=== PATIENT | male | born 1940 | race Caucasian/White ===

== ENCOUNTER 2017-12-25 10:28 | Inpatient (IN) | payer OTHER, MEDICARE ==
[~2017-12-25] VITALS: Ht 190.5 cm; Wt 166.0 kg
[~2017-12-25 10:28] MED LIST: ADALAT CC60 MG PO; AMOXICILLIN 50500 MG PO; ASPIRIN325 PO; ATORVASTATIN CA40 MG PO; COREG6.25 MG PO; DUONEB 2.5-0.5 M3 ML INH; FLOMAX0.4 MG PO; GLIPIZIDE 10 MG10 MG PO; JANUVIA50 MG PO; KLOR-CON 1010 MEQ PO; LASIX 40 MG TAB40 M2 PO; LEVOTHYROXINE100 MC1 PO; OMEPRAZOLE40 MG PO; OSTERA TABLET1 EAC1 PO; ROXICODONE5 M2 PO; SENOKOT-S1 TA1 PO; ULORIC40 MG PO; XARELTO10 MG PO; ZESTRIL40 MG PO
[2017-12-25 10:53] VITALS: BP 116/68
[2017-12-25] MEDS ORDERED: DOXYCYCLINE 10100 MG PO (11:02)
[2017-12-25 11:35] LABS: ABSOLUTE BASOPHILS 0.1 thou/uL (0.0-0.2); ABSOLUTE EOSINOPHILS 0.1 thou/uL (0.0-0.7); ABSOLUTE LYMPHOCYTES 4.5 thou/uL (0.8-5.3); ABSOLUTE MONOCYTES 0.8 thou/uL (0.0-1.2); ABSOLUTE NEUTROPHILS 8.1 thou/uL (1.6-8.1); BASOPHILS 0.5 %; HEMATOCRIT 39.4 % (42.0-52.0); HEMOGLOBIN 13.2 gm/dL (14.0-18.0); LYMPHOCYTES 32.9 %; MCH 29.9 pg (26.0-34.0); MCHC 33.5 g/dL (28.0-37.0); MCV 89.3 fL (80.0-100.0); MONOCYTES 6.3 %; NUCLEATED RBCS 0 /100WBC; PLATELET COUNT* 186 thou/uL (150-400); POLYS 59.3 %; RBC 4.41 mil/uL (4.50-6.00); RDW-CV 19.8 % (10.5-14.5); WBC 13.6 thou/uL (4.0-11.0)
[2017-12-25 11:42] LABS: CALCIUM 9.1 mg/dL (8.5-10.1); CREATININE 4.6 mg/dL (0.6-1.3)
[2017-12-25 11:43] LABS: POTASSIUM 2.5 mmol/L (3.5-5.1)
[2017-12-25 11:52] LABS: ALBUMIN 3.6 g/dL (3.4-5.0); TOTAL BILIRUBIN 0.9 mg/dL (<0.1-1.0); TOTAL PROTEIN 6.9 g/dL (6.4-8.2)
[2017-12-25 15:41] LABS: URINE BILIRUBIN NEGATIVE (Negative); URINE BLOOD 1+ (Negative); URINE CLARITY CLEAR; URINE COLOR YELLOW; URINE GLUCOSE-RANDOM NEGATIVE (Negative); URINE KETONES NEGATIVE (Negative); URINE LEUKOCYTES-REFLEX NEGATIVE (Negative); URINE NITRITE-REFLEX NEGATIVE (Negative); URINE PROTEIN 2+ (Negative); URINE SPECIFIC GRAVITY 1.025 (1.005-1.030); URINE UROBILINOGEN 0.2 E.U./dl (0.2-1.0)
[2017-12-25 15:53] LABS: BACTERIA-REFLEX None Seen /HPF (None Seen); RENAL EPITHELIAL CELLS 0-3 Few /LPF (None Seen); SQUAMOUS 0-3 Few /LPF (0-3); URINE RBC 3-10 Few /HPF (0-2); URINE WBC-REFLEX None Seen /HPF (0-5)
[2017-12-25 15:54] LABS: COARSE GRANULAR CASTS 0-3 Few /LPF (None Seen); HYALINE CASTS 0-3 Few /LPF (None Seen); MUCUS 0-3 Light strn/LPF (None Seen); WAXY CAST 0-3 Few /LPF (None Seen)
[2017-12-25 15:55] LABS: CRYSTALS None Seen /LPF (None Seen)
--- NOTE | 2017-12-25 16:22 | EKG ---
[place] [address] ELECTROCARDIOGRAM REPORT Name: RACHEL ARECHIGA I Room: [place] [address] ADM IN .R.#: [id number] Admission: 12/25/17 Attend Phys: Jayla Eid MD Discharge: Date of : 38 Report #: [id number] THIS REPORT FOR: //name// [facility] ED Test Date: 2017-12-25 Test Time: 11:01:19 Pat Name: RACHEL ARECHIGA Department: Room: [facility] Gender: Enamel Shader: Ankur MARTIN : 1940 Requested By: Jimy Lane Order Number: [id number] MD: Candelario Zambrano Measurements Intervals [place] Rate: 62 P: [place]: QRS: -6 QRSD: 168 T: 8 QT: 463 QTc: 471 Interpretive Statements Junctional rhythm Right bundle branch block Compared to ECG 11/15/2016 05:06:23 Junctional rhythm now present Sinus rhythm no longer present First degree AV block no longer present Electronically Signed On 12-25-2017 16:22:32 TOOL ROOM MACHINIST by Candelario Zambrano [email or web address] <ELECTRONICALLY SIGNED> By: Candelario Zambrano MD, [facility] 12/25/17 1622 1101 1101 Candelario Zambrano MD, [facility] /EPI
[2017-12-25 17:50] VITALS: BP 131/97
--- NOTE | 2017-12-25 20:07 | NUR ---
DEPART VITALS 124/77-88-20-97%
[2017-12-25 20:30] VITALS: BP 138/71
[2017-12-26] VITALS: BP 122/80
[2017-12-26 04:00] VITALS: BP 160/92
--- NOTE | 2017-12-26 04:26 | NUR ---
PT ADMIT TO 213 AT 2030. ALERT ORIENTED. PT WITH LARGE ROUND DISTENDED ABD. NG TO LIS DRAINING SCANT AMT GASTRIC. PT CAME IN WITH COMPRESSION SOCKS. WHEN REMOVED THERE WAS AN EXTREAM AMT OF DRY SKIN IN THE SOCKS AND CRUSTED SKIN. PT STATED THEY HAD NOT BEEN OFF IN 2 WEEKS BECAUSE HE WAS UNABLE TO REMOVE THEM. WHEN ASKED ABOUT HELPING HE STATED THAT SHE WAS NOT ABLE TO REMOVE THEM. LEGS CLEANED WITH SOAP AND H2O AND PICTURES TAKE AFTER THEY WERE CLEANED. TELEMETRY SHOWS JUNCTIONAL. VOIDS PER URINAL. POTASSIUM WAS 2.5 IN ED. POTASSIUM BOLUSES STARTED. WILL CONTINUE TO MONITOR.
[2017-12-26 05:23] LABS: HEMATOCRIT 35.1 % (42.0-52.0); HEMOGLOBIN 11.7 gm/dL (14.0-18.0); MCH 29.9 pg (26.0-34.0); MCHC 33.3 g/dL (28.0-37.0); MCV 89.7 fL (80.0-100.0); MPV 9.1 fl. (7.2-11.1); RBC 3.91 mil/uL (4.50-6.00); RDW-CV 19.5 % (10.5-14.5); WBC 12.3 thou/uL (4.0-11.0)
[2017-12-26 05:36] LABS: ALBUMIN 2.9 g/dL (3.4-5.0); CALCIUM 8.4 mg/dL (8.5-10.1); CREATININE 4.2 mg/dL (0.6-1.3); MAGNESIUM 1.8 mg/dL (1.8-2.4); TOTAL BILIRUBIN 0.8 mg/dL (<0.1-1.0); TOTAL PROTEIN 5.5 g/dL (6.4-8.2)
[2017-12-26 06:06] LABS: POTASSIUM 2.8 mmol/L (3.5-5.1)
[2017-12-26 07:43] VITALS: BP 131/71
--- NOTE | 2017-12-26 10:00 | NUR ---
CARE COORDINATION PROVIDED FOR PT BETWEEN RADIOLOGY AND SURGERY TO ANSWER QUESTIONS R/T GASTRO GRAPH/BARRIUM ENEMA. PT A & OX4. ASSESSMENT COMPLETE. VS WNL. JUNCTIONAL RHYTHM ON TELEMETRY MONIOTR. PT ABLE TO TRANSFER TO TO BE TRANSPORTED TO RADIOLOGY. DISCONNECTED FROM LIS. IV ANTIBIOTIC INFUSING.
--- NOTE | 2017-12-26 12:15 | NUR ---
PT RETURNED TO ROOM, GI RESIDENT AND SUPERVISOR COFFEE IN ROOM PROVIDING EDUCATION TO PT/FAMILY ABOUT GASTRO GRAPH/BARRIUM ENEMA PROCEDURE. GI TEAM STATES THAT PT WILL NEED TO QUICKLY RETURN TO RADIOLOGY FOR COLONOSCOPY/COLONIC DECOMPRESSION TUBE PLACEMENT TO CONTINUE TREATMENT. PT/FAMILY IN AGREEMENT WITH PLAN. CONSENTS BEING PREPARED BY MYCOLOGY TEACHER. [facility] STAFF HERE TO TRANSPORT PT OFF UNIT.
--- NOTE | 2017-12-26 13:34 | NUR ---
Pt out of room. CM reviewed chart. Pt resides at home with his . Pt has a cane and walker that he can use for mobility. Pt also has a lift chair. Hx of [facility] . Hx of [facility] snf. Hx of acute rehab. CM will f/u with Pt and tomorrow regarding dispostion.
--- NOTE | 2017-12-26 15:45 | NUR ---
PT RETURNED TO UNIT AFTER RETURNING TO RADIOLOGY FOR PLACEMENT OF COLONIC DECOMPRESSION TUBE. TUBE CONNECTED TO LIS. LIGHT GREEN/ROJAS/BROWN FLUID PRESENT IN TUBE. PT LETHARGIC BUT RESPONSIVE. OFFERED FLUIDS/FULL LIQUID DIET BUT PT HAS NOT HAD APPETITE YET. SLEEPING OFF AND ON. HAS USED URINAL WITH 300 MLS CONCENTRATED YELLOW URINE. ORIENTED TO SELF AND SITUATION. NEEDED ITEMS AND CALL LIGHT IN REACH.
[2017-12-26 20:00] VITALS: BP 156/80
[2017-12-26] MEDS ORDERED: CHILDREN'S ASPI81 M1 PO (21:21)
[2017-12-27] VITALS: BP 154/63
[2017-12-27 04:00] VITALS: BP 152/72
--- NOTE | 2017-12-27 04:14 | NUR ---
PT ALERT ORIENTED X 4. ON BEDREST. RECTAL TUBE TO LIS DRAINING GARCIA. ABD SOFT AND NON DISTENDED. PT STATES HE FEELS BETTER. FENTANYL GIVEN ONCE FOR GENERALIZED PAIN. USES URINAL APPROPRIATELY. PPN AT 125MLS/HR. VSS WILL CONTINUE TO MONITOR.
[2017-12-27 05:19] LABS: HEMATOCRIT 35.1 % (42.0-52.0); HEMOGLOBIN 11.8 gm/dL (14.0-18.0); MCH 30.1 pg (26.0-34.0); MCHC 33.7 g/dL (28.0-37.0); MCV 89.5 fL (80.0-100.0); RBC 3.92 mil/uL (4.50-6.00); RDW-CV 19.6 % (10.5-14.5); WBC 13.3 thou/uL (4.0-11.0)
[2017-12-27 05:32] LABS: ALBUMIN 2.6 g/dL (3.4-5.0); CALCIUM 8.1 mg/dL (8.5-10.1); CREATININE 3.4 mg/dL (0.6-1.3); POTASSIUM 3.1 mmol/L (3.5-5.1); TOTAL BILIRUBIN 0.6 mg/dL (<0.1-1.0); TOTAL PROTEIN 5.2 g/dL (6.4-8.2)
[2017-12-27 05:46] LABS: CALCIUM 8.3 mg/dL (8.5-10.1); CREATININE 3.3 mg/dL (0.6-1.3); POTASSIUM 3.2 mmol/L (3.5-5.1)
--- NOTE | 2017-12-27 07:05 | NUR ---
TELEMETRY SHOWS JUNCTIONAL. ONE EPISOID OF HR DROP DOWN TO 28 BREIFLY. ASYMPTOMATIC. STRIPS ON CHART.
[2017-12-27 07:41] VITALS: BP 170/84
[2017-12-27 08:05] VITALS: BP 155/78
--- NOTE | 2017-12-27 12:24 | NUR ---
ASSUMED CARE OF PT AT 0730. PT IS ALERT AND ORIENTED X4. VITAL SIGNS ARE STABLE. LUNGS ARE CLEAR AND DIMINISHED. PT IS JUNCTIONAL ON MONITOR. RECTAL TUBE SECURELY IN PLACE, ACTIVE BOWEL SOUNDS, ABDOMEN SOFT BUT TENDER. PT C/O OF BACK PAIN AT 3 OUT OF 10 AND WAS REPOSITIONED. PT IS BEDREST, ENCOURAGING PT TO GET UP TO RECLINER. FALL PRECAUTIONS ARE IN PLACE. AND GRANDCHILD AT BEDSIDE. PT IS REFUSING TO GET UP TO CHAIR AT THIS TIME. PT REMOVED FROM COST RECOVERY TECHNICIAN PER ORDERS. PT PPN D/C AND CONTINUES ON FULL LIQUID DIET. PT TO TRANSFER TO MED-SURG UNIT TODAY.
--- NOTE | 2017-12-27 14:00 | NUR ---
PATIENT TRANSFERRED TO ROOM 105 FROM TELEMETRY UNIT. PATIENT AWAKE, ALERT, AND ORIENTED APPROPRIATELY. DENIES PAIN OR NEEDS AT THIS TIME. CALL LIGHT WITHIN REACH. NURSING WILL CONTINUE TO MONITOR.
--- NOTE | 2017-12-27 14:03 | NUR ---
REPORT CALLED TO [place] ON JSSI. PT TRANSFERRED TO UNIT AT 1355 WITH ALL PERSONAL BELONGINGS ACCOUNTED FOR.
--- NOTE | 2017-12-27 14:30 | NUR ---
WOUND CARE NOTE: PATIENT'S NURSE REQUESTED WOUND CARE TO ASSESS LEGS. PATIENT WITH 3+ EDEMA TO BILATERAL LOWER EXTREMITIES. PATIENT DOES HAVE SCARING TO PRETIBIAL AREA BILATERALLY, WORSE ON LEFT THAN RIGHT. PALPABLE PEDAL PULSES. PATIENT TYPICALLY WEARS COMPRESSION AT HOME, ONLY HAS ONE PAIR. PATIENT HAD DOUBLE LAYER TUBIGRIP ON, BUT HAD WRINKLED. REMOVED. PLACED SINGLE LAYER TUBIGRIP. RECOMMEND FOLLOW UP IN LYMPHEDEMA CLINIC UPON DISCHARGE FOR RESIZING OF NEW COMPRESSION HOSE ELEVATE BILATERAL LOWER EXTREMITIES OFF BED SINGLE/DOUBLE LAYER TUBIGRIP BILATERAL LOWER EXTREMITIES. REMOVE AND REPLACE DAILY FOR SKIN CHECKS
[2017-12-27 16:00] VITALS: BP 134/75
--- NOTE | 2017-12-27 17:28 | NUR ---
PATIENT REMAINS ALERT AND ORIENTED APPROPRIATELY. NO COMPLAINTS OF PAIN. AT BEDSIDE. HAS HAD OUTPUT FROM COLONIC TUBE TO LIS, LIGHT BROWN IN COLOR. DENIES NEEDS AT THIS TIME. CALL LIGHT WITHIN REACH. NURSING WILL CONTINUE TO MONITOR.
[2017-12-27 20:00] VITALS: BP 143/80
[2017-12-28 00:09] VITALS: BP 141/80
[2017-12-28 04:41] LABS: HEMATOCRIT 37.7 % (42.0-52.0); HEMOGLOBIN 12.8 gm/dL (14.0-18.0); MCH 30.6 pg (26.0-34.0); MCHC 33.9 g/dL (28.0-37.0); MCV 90.4 fL (80.0-100.0); MPV 9.1 fl. (7.2-11.1); RBC 4.17 mil/uL (4.50-6.00); RDW-CV 19.5 % (10.5-14.5); WBC 10.1 thou/uL (4.0-11.0)
[2017-12-28 05:08] LABS: ALBUMIN 2.7 g/dL (3.4-5.0); CALCIUM 8.2 mg/dL (8.5-10.1); CREATININE 2.8 mg/dL (0.6-1.3); POTASSIUM 3.1 mmol/L (3.5-5.1); TOTAL BILIRUBIN 0.6 mg/dL (<0.1-1.0); TOTAL PROTEIN 5.6 g/dL (6.4-8.2)
[2017-12-28 08:00] VITALS: BP 150/80
--- NOTE | 2017-12-28 08:49 | NUR ---
ALERT AND ORIENTED. NO C/O N/V OR PAIN. HAVING BROWN OUTPUT FROM RECTAL TUBE. REMAINS ON O2 AT 4L/NC. HAS TUBE A SALES LEADER ON BILATERAL LOWER EXTREMITIES. IVF INFUSING WITHOUT DIFFICULTY. CALL LIGHT WITHIN REACH. ON FULL LIQUID DIET AT THIS TIME.
[2017-12-28 16:00] VITALS: BP 152/84
--- NOTE | 2017-12-28 17:27 | NUR ---
ASSUMED CARE OF PATIENT AFTER REPORT THIS MORNING. PATIENT AWAKE, ALERT, AND ORIENTED APPROPRIATELY. PHYSICAL ASSESSMENT COMPLETED AND CHARTED. NO COMPLAINTS OF PAIN THIS SHIFT. GIVEN SCHEDULED MEDICATIONS, SEE EMAR FOR DOCUMENTATION. STARTED REPLACING POTASSIUM VIA IV ELECTROLYTE PROTOCOL, SEE EMAR FOR DOCUMENTATION. VITAL SIGNS STABLE. OXYGEN SATURATION WITHIN NORMAL LIMITS ON 4 LPM PER NASAL CANULA. PATIENT TRANSFERS AND AMBULATES WITH ASSISTANCE FROM STAFF. IS CURRENTLY SITTING IN CHAIR AT BEDSIDE AND HAS BEEN MOST OF THE AFTERNOON. HAS HAD MINIMAL OUTPUT FROM HIS RECTAL TUBE, TO LOW-INTERMITTENT SUCTION. USES CALL LIGHT APPROPRIATELY, WITHIN REACH. DENIES NEEDS AT THIS TIME. NURSING WILL CONTINUE TO MONITOR.
[2017-12-28 20:00] VITALS: BP 145/78
[2017-12-29 03:35] VITALS: BP 153/74
[2017-12-29 04:25] LABS: HEMATOCRIT 36.3 % (42.0-52.0); HEMOGLOBIN 12.1 gm/dL (14.0-18.0); MCH 30.2 pg (26.0-34.0); MCHC 33.4 g/dL (28.0-37.0); MCV 90.5 fL (80.0-100.0); MPV 8.5 fl. (7.2-11.1); RBC 4.01 mil/uL (4.50-6.00); RDW-CV 19.6 % (10.5-14.5); WBC 9.5 thou/uL (4.0-11.0)
--- NOTE | 2017-12-29 04:36 | NUR ---
PATIENT REMAINS ALERT AND ORIENTED X4. REPOSITIONED SELF IN BED FREQUENTLY THROUGHOUT THE SHIFT. TOLERATING DIET. DENIES PAIN OR NAUSEA. RECTAL TUBE IN PLACE TO LIS. VITALS STABLE ON 4L O2 NC. WILL CONTINUE TO MONITOR.
[2017-12-29 04:47] LABS: ALBUMIN 2.7 g/dL (3.4-5.0); CALCIUM 8.3 mg/dL (8.5-10.1); CREATININE 2.7 mg/dL (0.6-1.3); POTASSIUM 3.4 mmol/L (3.5-5.1); TOTAL BILIRUBIN 0.5 mg/dL (<0.1-1.0); TOTAL PROTEIN 5.4 g/dL (6.4-8.2)
[2017-12-29 07:43] VITALS: BP 143/87
[2017-12-29 16:19] VITALS: BP 131/74
--- NOTE | 2017-12-29 16:36 | NUR ---
ASSUMED CARE OF PATIENT AFTER REPORT THIS MORNING. PATIENT AWAKE, ALERT, AND ORIENTED APPROPRIATELY. PHYSICAL ASSESSMENT COMPLETED AND CHARTED. NO COMPLAINTS OF PAIN TODAY. GIVEN SCHEDULED MEDICATIONS, SEE EMAR FOR DOCUMENTATION. VITAL SIGNS STABLE. OXYGEN SATURATION WITHIN NORMAL LIMITS ON 4 LPM PER NASAL CANULA. PATIENT TRANSFERS AND AMBULATES WITH ASSISTANCE FROM STAFF. SAT UP IN CHAIR AT BEDSIDE FOR MOST OF THE DAY TODAY. USES CALL LIGHT APPROPRIATELY, WITHIN REACH. DENIES NEEDS AT THIS TIME. NURSING WILL CONTINUE TO MONITOR.
--- NOTE | 2017-12-29 17:27 | NUR ---
PHOTOS TAKEN OF PATIENT'S LEGS AND FOOT FOR SATURDAY UPDATE PHOTOS. ON CHART.
[2017-12-29 22:00] VITALS: BP 146/86
[2017-12-30 01:18] VITALS: BP 157/92
[2017-12-30 04:30] LABS: ALBUMIN 2.7 g/dL (3.4-5.0); CALCIUM 8.3 mg/dL (8.5-10.1); CREATININE 2.7 mg/dL (0.6-1.3); POTASSIUM 3.8 mmol/L (3.5-5.1); TOTAL BILIRUBIN 0.5 mg/dL (<0.1-1.0); TOTAL PROTEIN 5.5 g/dL (6.4-8.2)
[2017-12-30 04:31] LABS: HEMATOCRIT 37.9 % (42.0-52.0); HEMOGLOBIN 12.7 gm/dL (14.0-18.0); MCH 30.1 pg (26.0-34.0); MCHC 33.4 g/dL (28.0-37.0); MPV 8.5 fl. (7.2-11.1); RBC 4.22 mil/uL (4.50-6.00); RDW-CV 19.9 % (10.5-14.5); WBC 8.7 thou/uL (4.0-11.0)
--- NOTE | 2017-12-30 06:23 | NUR ---
ALERT AND ORIENTED BUT FORGETFUL AT TIMES. DENIES NEED FOR PAIN OR NAUSEA MEDICATIONS. LITTLE OUTPUT NOTED FROM RECTAL TUBE. PATIENT VOIDING WITHOUT DIFFICULTY. REMAINS ON O2 AT 4 L/NC WITH O2 SAT AT 94%. CALL LIGHT WITHIN REACH. WILL CONTINUE TO MONITOR.
[2017-12-30 07:58] VITALS: BP 155/76
--- NOTE | 2017-12-30 12:00 | NUR ---
SPOKE WITH PT.ABOUT DISCHARGE PLANNING. HE SAID HE CONTINUES TO WANT TO RETURN HOME WITH HIS . HE HAS BEEN UP THE CHAIR FOR LONG PERIODS OF TIME BUT HAS NOT AMBULATED DUE TO RECTAL DECOMPRESSION TUBE. HE MAY GET IT OUT TOMORROW. WILL SEE HOW PT.AMBULATES AND ORDER THERAPY IF NEEDED. PT.HAS O2 ON BUT STATED HE DOES NOT WEAR IT AT HOME.
[2017-12-30 16:00] VITALS: BP 150/72
--- NOTE | 2017-12-30 17:25 | NUR ---
ASSUMED CARE OF PATIENT AFTER MORNING REPORT. ALERT AND ORIENTED X4. ASSESSMENT COMPLETED AND CHARTED. VSS ON 4 LITERS 02. PATIENT HAS HAD NO COMPLAINTS OF PAIN OR NAUSEA THIS SHIFT. TOLERATING FULL LIQUID DIET AND ADVANCED TO REGULAR DIET. XRAY SCHEDULED FOR TOMORROW AND POSSIBLE REMOVAL OF RECTAL TUBE. HOURLY ROUNDS HAVE BEEN MAINTAINED. CALL LIGHT IS WITHIN REACH. NURSING WILL CONTINUE TO MONITOR.
[2017-12-30 21:20] VITALS: BP 176/92
[2017-12-31 01:13] VITALS: BP 155/89
[2017-12-31 04:34] VITALS: BP 156/98
--- NOTE | 2017-12-31 04:36 | NUR ---
PATIENT HAS SLEPT WELL THROUGHOUT THE NIGHT WITHOUT ANY ISSUES. VSS ON 4.5L 02 VIA NASAL CANNULA, ALTHOUGH BP ELEVATED. PHYSICIAN CONTACTED AND NEW ORDERS RECEIVED FOR BP MEDICATION. PATIENT INCONTINENT OF BLADDER. CYNTHIA CARE PERFORMED AND BED CHANGE. RECTAL TUBE TO INTERMITTENT SUCTION AND IN PLACE. IV IN RIGHT AC-SL. IV IN RIGHT WRIST-SL. IV ABT GIVEN WITHOUT ANY ADVERSE SIDE EFFECTS NOTED. TUBIGRIP TO BILATERAL LEGS. FALL PRECAUTIONS IN PLACE AND HOURLY ROUNDS MADE. WILL CONTINUE WITH PLAN OF CARE AND NURSING TO MONITOR.
[2017-12-31 07:35] VITALS: BP 181/109
--- NOTE | 2017-12-31 12:37 | CON ---
[address] [address] CONSULTATION Name: RACHEL ARECHIGA I Room: [address] IN .R.#: [id number] Admission: 12/25/17 Attend Phys: Jayla Eid MD Discharge: Date of : 39 Report #: [id number] THIS REPORT FOR: //name// CC: Sesar Eid DATE OF SERVICE: 12/26/2017 NEPHROLOGY CONSULTATION CONSULTING PHYSICIAN: Dr. Eid. REASON FOR CONSULTATION: Acute kidney injury on CKD stage 4. CHIEF COMPLAINT: Abdominal pain. HISTORY OF PRESENT ILLNESS: This is a very pleasant 77-year-old male who has past medical history of CKD stage 4 because of diabetes and hypertensive nephropathy as well as chronic nonsteroidal anti-inflammatory drug use, creatinine was 2.7 last year in July, history of bowel obstruction, history of Celena syndrome and other medical problems, who came in with abdominal pain which was going on for the last 3 weeks. His abdominal pain got worse with abdominal distention and that is why he came to the hospital. Abdominal CT scan shows evidence of distention of ascending, transverse and descending colon. Probably, the patient has Celena syndrome again. The patient's creatinine was found to be 4.6 yesterday. At home, in addition to other medications, he is also taking Lasix probably 80 mg a day and possibly also taking lisinopril 40 mg a day and this is on hold for now and he was started on IV fluids and with that, his creatinine has gotten better to 4.2 today. The patient is going for further studies in the form of Gastrografin enema as per GI to evaluate further his bowel obstruction. The patient is hemodynamically stable right now. Currently, he is awake, alert, oriented and has abdominal discomfort. PAST MEDICAL HISTORY: Includes: 1. CKD stage 4. Baseline creatinine around 2.7 back in 07/2017. 2. Hypertension. 3. Diabetes type 2. 4. Arrhythmia. 5. Throat cancer. PAST SURGICAL HISTORY: Includes a fracture of his elbow, left leg and knee surgery bilaterally; thyroid surgery; CABG; ORIF for right hip and left arm infection. FAMILY HISTORY: [place] [address] CONSULTATION Name: RACHEL ARECHIGA I Room: [address]#: [id number] Admission: 12/25/17 Attend Phys: Jayla Eid MD Discharge: Date of : 39 Report #: [id number] SOCIAL HISTORY: He does not smoke, take alcohol and any other illicit drugs. ALLERGIES: Reviewed. MEDICATIONS: His current home medications were reviewed. Current medications were reviewed. PHYSICAL EXAMINATION: VITAL SIGNS: Blood pressure is 131/71, temperature 36.7, pulse rate of 61, respiratory rate is 16 and pulse ox is 94% on 2 liters nasal cannula. GENERAL: He is awake, alert and oriented x 3, but he is not very comfortable because of his abdominal distention. HEAD, EYES, EARS, NOSE AND THROAT: Mucous membranes are dry. NECK: No JVD. CHEST: Clear to auscultation bilaterally. No crackles or wheezing. CARDIOVASCULAR: S1, S2 normal. No murmurs. ABDOMEN: Distended. It is soft. It is nontender. Bowel sounds are diminished. LOWER EXTREMITIES: He has no lower extremity edema, symmetrical extremity. NEUROLOGIC: Gross neurological function seems to be intact. PSYCHIATRIC: Mood and affect seems to be normal. LABORATORY DATA: WBC is 12.3, hemoglobin 11.7. Sodium is 142, potassium is 2.8, creatinine is 4.2 and other labs are reviewed. IMAGING: Abdominal ultrasound, chest x-ray and abdominal pelvic CT were reviewed. ASSESSMENT: 1. Acute kidney injury on chronic kidney disease stage IV, likely because of dehydration. 2. Microscopic hematuria. 3. Hypokalemia. 4. Gram-positive cocci bacteremia. 5. Bilateral simple renal cysts. 6. Celena syndrome, bowel obstruction. PLAN: The patient likely has acute renal failure on chronic kidney disease stage 4 because of dehydration. Creatinine is getting better with IV fluids. Agree with holding off on Lasix and lisinopril. Continue with normal saline at 100 mL an hour. Potassium is being replaced. Potassium needs to be rechecked after replacement has been given. He has some evidence of microscopic hematuria. This could be connected with diabetes. This can be checked as an outpatient. Final blood cultures are going to be followed by primary team and GI is on board for further management of his bowel obstruction. [place] [address] CONSULTATION Name: GENIRACHEL I Room: [address] IN [facility]#: [id number] Admission: 12/25/17 Attend Phys: Jayla Eid MD Discharge: Date of : 39 Report #: [id number] acute need for renal replacement therapy. Thank you for this consultation and I will continue to follow along. <ELECTRONICALLY SIGNED> By: Shea Mills MD 12/31/17 1237 0939 [id number] Mills MD /nt
--- NOTE | 2017-12-31 14:04 | CON ---
[address] [address] CONSULTATION Name: RACHEL ARECHIGA I Room: [address] IN .#: [id number] Admission: 12/25/17 Attend Phys: Jayla Eid MD Discharge: Date of : 39 Report #: [id number] THIS REPORT FOR: //name// CC: Sesar Palacios DO Jayla Eid DICTATED BY: Kathie Herrera [facility] DATE OF SERVICE: 12/26/2017 Please note, at the time of this dictation, the patient was seen and physically examined by myself. REASON FOR CONSULTATION: Abdominal distention. HISTORY OF PRESENT ILLNESS: This is a 77-year-old male who presented to the Emergency Room with having worsening of his gaseous distention, which he states he has only been able to have a very small bowel movement. He states this has been ongoing over the last 3 weeks and it has progressively gotten worse. He states he has never had this problem happened before. Normally, he walks on his elliptical about 15 minutes a day and he rarely uses any pain medications. He cannot remember when his last colonoscopy was, which may have been greater than 10 years ago. He denies any nausea or vomiting, fever or chills at this time. The patient did have a colonoscopy by us back on 11/18/2016 with placement of a colonic decompression tube. At that time, he had distended colon with normal-appearing colonic mucosa, massive amount of stool throughout the colon, diverticulosis with sigmoid and distal and internal and external hemorrhoids. Decompression tube was placed at that time in which he developed postoperatively after he had a ruptured orthopedic surgery done on his left knee. ALLERGIES: No known drug allergies. MEDICATIONS: From home include DuoNeb; doxycycline; Coreg; Glucotrol; nifedipine; Januvia; Roxicodone, which is an old script; Lasix; Flomax; aspirin; Lipitor; Uloric; omeprazole; potassium; levothyroxine; and vitamin D. PAST MEDICAL HISTORY: COPD, diabetes, hypertension, hypercholesterolemia, hypothyroidism, morbid obesity, history of pharyngeal cancer. PAST SURGICAL HISTORY: Bilateral knee surgery, thyroid and a CABG. FAMILY HISTORY: [place] [address] CONSULTATION Name: ARECHIGABENNY CALLOWAYHeriberto Madrigal Room: [address]#: [id number] Admission: 12/25/17 Attend Phys: Jayla Eid MD Discharge: Date of : 38 Report #: [id number] SOCIAL HISTORY: Denies any alcohol, tobacco or illegal drug use at this time. REVIEW OF SYSTEMS: Twelve-point review of systems is essentially negative except what is mentioned in the HPI. PHYSICAL EXAMINATION: VITAL SIGNS: 36.7, pulse 61, respirations 16, blood pressure 131/71. HEART: Regular rate and rhythm. LUNGS: Clear, but diminished. ABDOMEN: Distended, very hypoactive bowel sounds with some generalized tenderness noted throughout. LABORATORY DATA: Hemoglobin on admission was 13.2, is down to 11.7; white count is 12.3, down from 13.6; hematocrit 35.1; platelets 162. Sodium 142, potassium 2.8, chloride 105, CO2 28, BUN is 32, creatinine 4.2, GFR is 14 and glucose is 65, total bilirubin 0.8, alkaline phosphatase 118, ALT 97 and AST is 94. Abdominal x-ray showed the NG tube was not in the stomach. CT showed dilated bowel loops to the sigmoid colon at 10.6 cm with some mild steatosis noted in the liver. IMPRESSION: 1. Abdominal pain. 2. 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 3. Hepatic steatosis. 4. Chronic kidney disease stage 3. PLAN: 1. Colonoscopy today with decompression tube placement by Dr. Zimmerman. 2. We will start motility agents, Reglan 10 mg before meals and at bedtime. Erythromycin is on back order at the present time. 3. Can remove his NG tube since small bowel is not involved. 4. We will await response to above to make further recommendations. Thank you for allowing us to participate in this patient's care. Please do not hesitate to call with any questions in regard to this consult. <ELECTRONICALLY SIGNED> By: Shima Zimmerman MD 12/31/17 1404 1252 [id number] Zimmerman MD /nt
--- NOTE | 2017-12-31 14:05 | CON ---
[address] [address] CONSULTATION Name: RACHEL ARECHIGA I Room: [address] IN .R.#: [id number] Admission: 12/25/17 Attend Phys: Jayla Eid MD Discharge: Date of : 39 Report #: [id number] THIS REPORT FOR: //name// CC: Sesar Eid DATE OF SERVICE: 12/26/2017 ADDENDUM: I have personally seen and examined the patient and reviewed labs and imaging studies. The patient with remote history of colonoscopy, who presents with abdominal pain and distention. CT suggestive of dilated colon to 10 cm. There is no small bowel dilation. The patient also has had Gastrografin enema done earlier ordered by Surgery, which is pending result. We will go ahead and perform an unprepped colonoscopy with placement of rectal tube. I will make further recommendation after this test is complete. The patient and daughter are agreeable with plan. <ELECTRONICALLY SIGNED> By: Shima Zimmerman MD 12/31/17 1405 1306 [id number] Zimmerman MD /nt
[2017-12-31 16:00] VITALS: BP 124/77
--- NOTE | 2017-12-31 16:23 | NUR ---
ASSUMED CARE OF PATIENT AFTER MORNING REPORT. ALERT AND ORIENTED 4. ASSESSMENT COMPLETED AND CHARTED. VSS ON 4 LITERS 02. PATIENT HAS HAD NO COMPLAINTS OF PAIN OR NAUSEA THIS SHIFT. DIET ADVANVED TO REGULAR AT DINNER LAST NIGHT AND PATIENT HAS BEEN TOLERATING IT WELL TODAY. RECTAL TUBE WAS REMOVED THIS AFTERNOON PER DR ALEXIS ORDER. ANTIBIOTICS INFUSED ORDERED. HOURLY ROUNDS HAVE BEEN MAINTAINED. CALL LIGHT IS WITHIN REACH. NURSING WILL CONTINUE TO MONITOR.
[2017-12-31 21:20] VITALS: BP 149/91
--- NOTE | 2018-01-01 06:19 | NUR ---
PATIENT HAS SLEPT WELL THROUGHOUT THE NIGHT WITHOUT ANY ISSUES. NO C/O PAIN. MEDICATIONS GIVEN AND CHARTED. VSS ON 4L 02. PATIENT HAS BEEN SLEEPY BUT AROUSES EASILY AND ANSWERS QUESTIONS APPROPRIATELY. PATIENT USES BEDSIDE URINAL AND HAS NOT BEEN UP DURING THE NIGHT. TUBIGRIP TO [place]O LOWER EXTREMITIES. IV IN RIGHT AC-SL. IV IN RIGHT WRIST-SL. PATIENT INSTRUCTED TO USE CALL LIGHT WHEN NEEDING ASSISTANCE. HOURLY ROUNDS MADE. WILL CONTINUE WITH PLAN OF CARE AND NURSING TO MONITOR.
[2018-01-01 07:56] VITALS: BP 174/91
[2018-01-01 11:24] VITALS: BP 174/91
--- NOTE | 2018-01-01 15:07 | NUR ---
PT.TO BE DISCHARGED TODAY. HE REFUSED HOME HEALTH. REFERRED TO LYMPHEDEMA CLINIC HERE AT [facility]. WAITING ON R.T.TO DO SATURATIONS. ENCOURAGED PT.UP IN CHAIR. HE SAID HE HAS BEEN UP. SAID NO ONE HAS GOT HIM UP OR WALKED HIM. TOLD HER HE HAS BEEN REFUSING. PT.DENIES THIS. TOLD HIM HE NEEDED TO GET OUT OF BED BEFORE HE WENT HOME TODAY. HE ALLOWED WALL CLEANER TO GET HIM UP.
--- NOTE | 2018-01-01 17:47 | NUR ---
ASSUMED CARE OF PATIENT AFTER MORNING REPORT. ALERT AND ORIENTED X4. ASSESSMENT COMPLETED AND CHARTED. VSS ON 4 LITERS 02. PATIENT HAS HAD NO COMPLAINTS OF NAUSEA OR PAIN THIS SHIFT. PATIENTS OXYGEN SATURATION IS IN THE LOW 90'S ON 4 LITERS OF 02 AT REST. WITHOUT 02 AND UPON EXERTION PATIENTS 02 SATURATION DROPPED TO THE LOW 80'S. PT/OT EVALUATION ORDERED WITH POSSIBLE DISCHARGE PLAN FOR SKILLED. HOURLY ROUNDS HAVE BEEN MAINTAINED. CALL LIGHT IS WITHIN REACH. NURSING WILL CONTINUE TO MONITOR.
[2018-01-01 20:00] VITALS: BP 147/82
--- NOTE | 2018-01-02 04:24 | NUR ---
PATIENT RESTING QUIETLY THIS AM ON HOURLY ROUNDS. DENIES PAIN OR NAUSEA. SAT IN CHAIR SEVERAL HOURS BEFORE HS, TOLERATED WELL. VOIDING ADEQUATELY PER URINAL. TOLERATING DIET. VITALS STABLE. CONTINUE TO MONITOR.
[2018-01-02 07:45] VITALS: BP 174/94
[2018-01-02 12:46] VITALS: BP 174/91
[2018-01-02 15:31] VITALS: BP 174/91
[2018-01-02] MEDS ORDERED: CEFDINIR300 MG PO (15:42)
[2018-01-02] MEDS ORDERED: SENNA8.6 MG PO (15:55)
--- NOTE | 2018-01-02 16:24 | NUR ---
PATIENT LEFT UNIT AT 1600. ALERT AND ORIENTED X4. UP WITH ASSIST X1 WITH WALKER AND GAIT BELT. IV'S X2 DC'D. DENIES PAIN AND NAUSEA. ATTENDED PHYSICAL AND OCCUPATIONAL THERAPY THIS AM. ALL PERSONAL ITEMS LEFT WITH PATIENT. DISCHARGE INSTRUCTINS SENT WITH PATIENT. VSS ON ROOM AIR. HOURLY ROUNDS HAVE BEEN MAINTAINED THROUGHOUT SHIFT. LEFT WITH DAUGHTER VIA CAR.
[2018-01-02 16:28] VITALS: BP 174/91
[2018-09-09] MEDS ORDERED: NORCO 5-325 TA1 EACH PO (14:44)
== END 2018-01-02 16:00 | disposition home or self-care (01) | DRG 388 ==
LOC: M.TBA-ER 15:14 → M.2W 15:14 → M.ORTHSURG 12-27 14:01
PROVIDERS: Emergency Medicine Emergency Medical Services; Family Medicine; Internal Medicine; Nurse Practitioner Psychiatric/Mental Health; ADMIT Internal Medicine
PROC: 0D7M8ZZ Dilation of Descending Colon, Via Natural or Artificial Opening Endoscopic (ICD-10-PCS; principal; 2017-12-26)
PROC: 0D7N8ZZ Dilation of Sigmoid Colon, Via Natural or Artificial Opening Endoscopic (ICD-10-PCS; principal; 2017-12-26)
PROC: 0D7L8ZZ Dilation of Transverse Colon, Via Natural or Artificial Opening Endoscopic (ICD-10-PCS; principal; 2017-12-26)
PROC: 0D7K8ZZ Dilation of Ascending Colon, Via Natural or Artificial Opening Endoscopic (ICD-10-PCS; principal; 2017-12-26)
DX: K56.609 Unspecified intestinal obstruction, unspecified as to partial versus complete obstruction (principal); R65.11 Systemic inflammatory response syndrome (SIRS) of non-infectious origin with acute organ dysfunction; J18.9 Pneumonia, unspecified organism; J96.01 Acute respiratory failure with hypoxia; N17.9 Acute kidney failure, unspecified; N18.4 Chronic kidney disease, stage 4 (severe); Z68.42 Body mass index [BMI] 45.0-49.9, adult; E44.0 Moderate protein-calorie malnutrition; I12.9 Hypertensive chronic kidney disease with stage 1 through stage 4 chronic kidney disease, or unspecified chronic kidney disease; I25.10 Atherosclerotic heart disease of native coronary artery without angina pectoris; R31.29 Other microscopic hematuria; E78.00 Pure hypercholesterolemia, unspecified; I87.8 Other specified disorders of veins; K64.8 Other hemorrhoids; K57.30 Diverticulosis of large intestine without perforation or abscess without bleeding; E03.9 Hypothyroidism, unspecified; E66.01 Morbid (severe) obesity due to excess calories; K76.0 Fatty (change of) liver, not elsewhere classified; N28.1 Cyst of kidney, acquired; E87.6 Hypokalemia; E11.22 Type 2 diabetes mellitus with diabetic chronic kidney disease; Z95.1 Presence of aortocoronary bypass graft; Z87.81 Personal history of (healed) traumatic fracture; Z85.21 Personal history of malignant neoplasm of larynx; Z79.82 Long term (current) use of aspirin; Z79.84 Long term (current) use of oral hypoglycemic drugs; Z79.899 Other long term (current) drug therapy

== ENCOUNTER 2018-01-24 10:42 | Inpatient (IN) | payer OTHER, MEDICARE ==
[~2018-01-24] VITALS: Ht 188 cm; Wt 164.2 kg
[2018-01-24] VITALS (10 sets, daily range): BP systolic 120–141; BP diastolic 64–75
--- NOTE | ~2018-01-24 | PROC ---
[address] [address] PROCEDURE REPORT Name: RACHEL ARECHIGA I Room: [address] IN M.R.#: [id number] Admission: 01/24/18 Attend Phys: Jesus Mittal, Discharge: Date of : 38 Report #: [id number] THIS REPORT FOR: //name// For GI report, please see the Provation report in Perceptive 7 content. By: [id number] Records Staff RENETTA /RUFUS
[~2018-01-24 10:42] MED LIST changes: +CEFDINIR300 MG PO; +CHILDREN'S ASPI81 M1 PO; +DOXYCYCLINE 10100 MG PO; +SENNA8.6 MG PO
[2018-01-24] MEDS ORDERED: LINZESS145 MCG PO (11:09)
[2018-01-24] MEDS ORDERED: MIRALAX17 GM PO (11:12)
[2018-01-24 11:36] LABS: HEMATOCRIT 34.4 % (42.0-52.0); HEMOGLOBIN 11.5 gm/dL (14.0-18.0); MCH 31.5 pg (26.0-34.0); MCHC 33.4 g/dL (28.0-37.0); MCV 94.3 fL (80.0-100.0); MPV 8.9 fl. (7.2-11.1); NUCLEATED RBCS 0 /100WBC; PLATELET COUNT* 183 thou/uL (150-400); RBC 3.65 mil/uL (4.50-6.00); RDW-CV 19.4 % (10.5-14.5); WBC 8.8 thou/uL (4.0-11.0)
[2018-01-24 11:43] LABS: ANION GAP 7 mmol/L (7-16); BUN 34 mg/dL (7-18); CALCIUM 8.8 mg/dL (8.5-10.1); CHLORIDE 105 mmol/L (98-107); CO2 30 mmol/L (21-32); CREATININE 3.9 mg/dL (0.6-1.3); GLUCOSE 78 mg/dL (70-99); SODIUM 142 mmol/L (136-145)
[2018-01-24 11:44] LABS: APTT 27.9 Seconds (25.0-31.3); INR 1.1; PROTIME 10.4 Seconds (9.20-11.50)
[2018-01-24 11:50] LABS: ALBUMIN 3.2 g/dL (3.4-5.0); ALKALINE PHOSPHATASE 166 U/L (46-116); SGOT 35 U/L (15-37); SGPT 71 U/L (30-65); TOTAL BILIRUBIN 0.5 mg/dL (<0.1-1.0); TROPONIN-I LEVEL <0.06 ng/mL (<0.06)
[2018-01-24 11:53] LABS: BE 1.2 mmol/L (-2 to +3); HCO3 28.9 mmol/L (22.0-26.0); PO2 72.3 mmHg (75.0-100.0)
[2018-01-24 11:55] LABS: ABSOLUTE BASOPHILS 0.2 thou/uL (0.0-0.2); ABSOLUTE EOSINOPHILS 0.1 thou/uL (0.0-0.7); ABSOLUTE LYMPHOCYTES 2.5 thou/uL (0.8-5.3); ABSOLUTE MONOCYTES 0.3 thou/uL (0.0-1.2); ABSOLUTE NEUTROPHILS 5.8 thou/uL (1.6-8.1)
[2018-01-24 11:55] LABS: pH 7.293 (7.340-7.450)
[2018-01-24 11:56] LABS: PCO2 61.1 mmHg (35.0-45.0)
[2018-01-24 11:56] LABS: BURR CELLS Occasional; HYPOCHROMASIA Occasional; PLATELET ESTIMATE ADEQUATE
--- NOTE | 2018-01-24 13:38 | NUR ---
PT WAS BROUGHT A LUNCH BUT STATED HE WANTED TO SLEEP AT THIS TIME
--- NOTE | 2018-01-24 14:38 | NUR ---
SPOKE TO DR. RIOS, REQUESTED PT BE CHANGED TO ICU STATUS, HOUSE SUP NOTIFIED
--- NOTE | 2018-01-24 18:13 | EKG ---
[place] [address] ELECTROCARDIOGRAM REPORT Name: RACHEL ARECHIGA I Room: [address] ADM IN M.R.#: [id number] Admission: 01/24/18 Attend Phys: Jesus Mittal, Discharge: Date of : 38 Report #: [id number] THIS REPORT FOR: //name// [facility] ED Test Date: 2018-01-24 Test Time: 11:29:39 Pat Name: RACHEL GROVERIEN Department: Room: [facility] Gender: Metal Hanger: Ankur MARTIN : 1940 Requested By: Lonnie Yoo Order Number: [id number] MD: Camden Narayanan Measurements Intervals [place] Rate: 55 P: MA: QRS: -29 QRSD: 164 T: 8 QT: 496 QTc: 475 Interpretive Statements Sinus bradycardia with first-degree AV block Right bundle branch block Baseline wander in lead(s) I,II,aVR,V2 Compared to ECG 12/25/2017 11:01:19 No significant changes Electronically Signed On 01-24-2018 18:12:51 CDT by Camden Narayanan [email or web address] <ELECTRONICALLY SIGNED> By: Camden Narayanan MD, FACC 01/24/18 1812 1129 1129 Camden Narayanan MD, FAC /EPI
--- NOTE | 2018-01-24 19:56 | NUR ---
PT ADMITTED VIA CART WITH BIPAP SETTING 26/06, RATE 12, 40%. DR PENA ON CONSULT MADE AWARE OF ABGS AND CURRENT RESP FINDINGS WITH NO ORDERS RECIEVED.TALKED WITH RENAL DR PRYOR CHANGED AND ORDERS RECIEVED. PT GIVEN LASIX IN ER NO URINE OUTPUT NOTED, BLADDER SCANNED FOR 545 ML ORDERS RECIEVED FOR F/C WITH IMEDIALTE RETURN OF APPX 550 ML OF CHANEL URINE.IV SITE TIMES 1 NOTED, PT KEEPS BENDING ARM WHICH IS INTERFERING WITH IV FLUID THEERAPY. DUE TO PT ANASARCA UNABLE TO START 2ND IV, DR RIOS MADE AWARE ORDERS PLACED FOR CL.DR SINGH HERE WITH ASSOCIATE, CL STARTED AND CONFIRMED PER DR DOS SANTOS VIA XRAY.SMALL HEMATOMA NOTED PRESSURE TYPE DRESSING APPLIED. MOST OF ADMISSION INFORMATION OBTAINED FROM .SHIFT REPORT GIVEN.
[2018-01-25] VITALS (13 sets, daily range): BP systolic 120–144; BP diastolic 56–73
[2018-01-25 04:41] LABS: HEMATOCRIT 29.2 % (42.0-52.0); HEMOGLOBIN 9.9 gm/dL (14.0-18.0); MCHC 34.1 g/dL (28.0-37.0); MCV 93.9 fL (80.0-100.0); MPV 8.7 fl. (7.2-11.1); RBC 3.1 mil/uL (4.50-6.00); RDW-CV 19.6 % (10.5-14.5); WBC 8.7 thou/uL (4.0-11.0)
[2018-01-25 04:53] LABS: ANION GAP 5 mmol/L (7-16); BUN 33 mg/dL (7-18); CALCIUM 8.3 mg/dL (8.5-10.1); CHLORIDE 105 mmol/L (98-107); CO2 32 mmol/L (21-32); CREATININE 3.5 mg/dL (0.6-1.3); GLUCOSE 65 mg/dL (70-99); MAGNESIUM 2.8 mg/dL (1.8-2.4); POTASSIUM 3.5 mmol/L (3.5-5.1); SODIUM 142 mmol/L (136-145); TROPONIN-I LEVEL <0.06 ng/mL (<0.06)
[2018-01-25 07:22] LABS: BE 1.3 mmol/L (-2 to +3); HCO3 26.2 mmol/L (22.0-26.0); PO2 74.7 mmHg (75.0-100.0); pH 7.403 (7.340-7.450)
--- NOTE | 2018-01-25 07:42 | NUR ---
PT HAS TOLERATED BIPAP WELL THROUGHOUT THE NIGHT, O2 SAT REMAINS >92%. VSS. IVF INFUSING ORDERED. PT INCONTINENT OF LARGE LIQUID BM THIS AM. PT HAS DENIED PAIN AND SOA. TURNED Q2HR THROUGHT THE SHIFT. CALL LIGHT WITHIN REACH.
--- NOTE | 2018-01-25 18:09 | NUR ---
RECEIVED REPORT FROM NIGHT RN. ASSESSMENTS CHARTED. AFEBRILE. CARDIOLOGY CONSULTED FOR FIRST DEGREE BLOCK. MEDS ADJUSTED PER CARIOLOGIST. 4L DURING DAY. BIPAP AT NIGHT AND PRN. ADEQAUTE URINE OUTPUT. BM THIS AM. FAMILY UPDATED ON PLAN OF CARE.
--- NOTE | 2018-01-25 20:00 | NUR ---
RECEIVED REPORT FROM ICU. TRANSFERRED PER BED AND WITH BELONGINGS TO ROOM 202. ASSESSMENT COMPLETED. PT PLEASANT. EVERARDO LOWER EXTREMITIES 3+ EDEMA, 1+ GENERALIZED. ABD FIRMLY DISTENDED WITH TYMPANIC BOWEL SOUNDS. CARE CONSULTANT APPLIED SHOWING SR WITH 1ST AVB. NO COMPLAINTS VOICED. WILL CONT TO MONITOR AND ASSIST NEEDED.
[2018-01-26] VITALS: BP 132/70
[2018-01-26 04:00] VITALS: BP 129/69
--- NOTE | 2018-01-26 04:31 | NUR ---
ASSUMED CARE OF PATIENT AT 0030 OFF GOING THEATER SET PRODUCTION DESIGNER REVIEWED AND AGREED WITH THE PATIENT REMAINS TISHA ON THE MONITOR O2 SAT MAINTAINED WITH BIPAP DURING NIGHT RT CONTINUES TO FOLLOW CONTINUES TO BE BED REST DURING NIGHT REILLY PATENT THIS AM SURGERY ROUNDED AT BEDSIDE WITHOUT NEW ORDERS OBTAINED THE ROUTINE REGIMEN CONTINUES TO BE EFFECTIVE FOR SX MANAGEMENT SAFETY INTERVENTIONS CONTINUE BED LOWERED WHEELS LOCKED CALL LIGHT IN REACH SIDE RAILS UP REPORT TO BE GIVEN TO ONCOMING RN
[2018-01-26 06:07] LABS: HEMATOCRIT 28.2 % (42.0-52.0); HEMOGLOBIN 9.6 gm/dL (14.0-18.0); MCH 32.4 pg (26.0-34.0); MCHC 34.1 g/dL (28.0-37.0); MCV 94.9 fL (80.0-100.0); MPV 8.8 fl. (7.2-11.1); RBC 2.97 mil/uL (4.50-6.00); RDW-CV 19.6 % (10.5-14.5); WBC 6.6 thou/uL (4.0-11.0)
[2018-01-26 06:12] LABS: CALCIUM 8.1 mg/dL (8.5-10.1); MAGNESIUM 2.6 mg/dL (1.8-2.4); POTASSIUM 3.4 mmol/L (3.5-5.1)
--- NOTE | 2018-01-26 07:02 | NUR ---
RECEIVED CRITICAL HGB OF 35 HYPOGLYCEMIC PROTOCOL INITIATED PHYSICIAN NOTIFIED Ronal RIOS RECEIVED ORDERS TO START D5 W DOCUMENTED ET TO REDUCE GLIPIZIDE DOSE DOCUMENTED THE IN AM THE PATIENT WAS BRADYING DOWN INTO 30'S ON MONITOR WITH APPARENT LONGER PAUSES AN EKG WAS OBTAINED RATE 51 JUNCTIONAL ASYMPTOMATIC FILED PER UNIT PROTOCOL PATIENT WITHOUT ACUTE DISTRESS ROUSED EASILY DENIES CX PAIN OR DISCOMFORT HR IMPROVED LOW-MID 50'S REPORT GIVEN TO ONCOMING RN
--- NOTE | 2018-01-26 07:08 | CON ---
[address] [address] CONSULTATION Name: RACHEL ARECHIGA I Room: [address] IN .R.#: [id number] Admission: 01/24/18 Attend Phys: Jesus Mittal, Discharge: Date of : 38 Report #: [id number] THIS REPORT FOR: //name// CC: Candelario Mittal REQUESTING PHYSICIAN: Dr. Jesus Mittal. REASON FOR CONSULTATION: Acute respiratory failure, on BiPAP. DISCUSSION: The patient is a 77-year-old man who is a nonsmoker. He has no history of documented underlying pulmonary disease. He presented to the Emergency Department yesterday and was having increasing shortness of breath. He was noted to have low O2 saturations. After his last hospital stay here last month, he was discharged on O2. However, his sats were in the 80s even on the 4 liters at home. He does admit to some cough with yellow sputum. He was also having a lot of abdominal discomfort. He had marked abdominal distention. That was not an issue for him previously. 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 Blood gases were done in the ER, did reveal hypercapnia. He was placed on BiPAP and has been on that overnight. He is feeling much better this morning. He does admit he was short of breath when he came in. He is not having any chest pain. He denies hearing himself wheeze at home. Other than the oxygen, he has not been on any inhalers or breathing treatments at home. He does note that he snores. His has also commented that he has stopped wheezing and they have discussed the fact he may have sleep apnea, but has never had a sleep study done. It is not clear if he has ever discussed that with any of his physicians. He has multiple other medical problems. These also include coronary artery disease. He is status post coronary artery bypass grafting surgery. It was done at [place]. He had been seeing Dr. Candelario Palacios, the corrections corporal. So, it is not clear who he may follow with at this time. He also has a history of thyroid cancer and has had a thyroidectomy. He states he has been taking his thyroid supplements. He has chronic kidney disease. He has been found to have an elevated creatinine while he was here and Renal Service has seen him. 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 He did have decompression done with rectal tube placement at that time. PAST MEDICAL HISTORY: Also remarkable for osteoarthritis. He has had left total knee replacement, bilateral hip replacement, hypertension and recurrent episodes of colonic distention. MEDICATIONS: At the time of admission, his home medications, O2 at 4 liters per nasal cannula, Linzess, MiraLax, Lasix, Januvia, Coreg, glipizide, omeprazole, nifedipine, Flomax, baby aspirin, Lipitor, Uloric, [place] [address] CONSULTATION Name: RACHEL ARECHIGA I Room: [address] IN [facility]#: [id number] Admission: 01/24/18 Attend Phys: Jesus Mittal, Discharge: Date of : 39 Report #: [id number] ALLERGIES: He has no known allergies. SOCIAL HISTORY: Nonsmoker. He is . FAMILY HISTORY: Positive for heart disease and cancer. REVIEW OF SYSTEMS: Obtained from the patient. He is on BiPAP and at times difficult to understand. He has been more short of breath as noted. Cough with yellow sputum production. He denies wheezing. Denies any vomiting. Denies any syncopal episodes. However, he has had increased abdominal distention. He has had chronic issues with lower extremity edema. Denies any recent falls. He is not aware of any fevers at home. Denies any difficulty swallowing. PHYSICAL EXAMINATION: GENERAL: The patient is seen in the Intensive Care Unit. Currently, he is on the BiPAP with FIO2 down to 40%. At times difficult to understand, but he is arousable. He does look comfortable. His SpO2 is in the high 90s. HEENT: Head is normocephalic. Sclerae nonicteric. Mucous membranes do look dry. NECK: Large. No definite JVD or adenopathy is appreciated. No supraclavicular adenopathy. He does have a healed scar over his anterior neck. He has a healed median sternotomy scar. HEART: Heart tones are distant, but they are regular. No S3 is appreciated. LUNGS: Reveal breath sounds to be diminished throughout. He does have a few faint rhonchi heard. Excursion is equal. No subcutaneous emphysema. ABDOMEN: Very large. Somewhat firm. Few bowel sounds are heard. He is not guarding. EXTREMITIES: There is no clubbing. Radial pulses are present. Lower extremities, healed scars present over the left knee. Lower extremities, he does have 1+ edema. Some erythema is noted. Few small varicosities. NEUROLOGIC: He is alert. LABORATORY AND X-RAY FINDINGS: Chest x-rays done yesterday show poor inspiration. He may have some infiltrates or atelectasis seen, particularly in the left base. CT scan done of his abdomen and pelvis does have marked gaseous distention of the colon. He has bilateral pleural effusions. Bilateral lower lung infiltrates. I had difficulty reviewing these studies as unable to sign in the PACS. Arterial blood gases done yesterday, prior to going on BiPAP, he had a pH of 7.29, pCO2 of 61, pO2 of 72 and bicarbonate at 29 with a saturation of 92%. This morning, pH is 7.40, pCO2 of 43, pO2 of 75 and bicarbonate at 26 with a saturation 94% and that was on the BiPAP on 40%. White blood cell count 8700, hemoglobin 9.9, hematocrit 29.2 and platelets are normal. On his chemistry yesterday, BUN was 34, creatinine of 3.9, serum bicarbonate was 30 and potassium was 4.0. This morning, his BUN is 33, creatinine of 3.5 and potassium 3.5. His alkaline phosphatase was 166, ALT 71, total bilirubin 0.5 and AST 35[place] [address] CONSULTATION Name: RACHEL ARECHIGA I Room: [address] IN [facility]#: [id number] Admission: 01/24/18 Attend Phys: Jesus Mittal, Discharge: Date of : 39 Report #: [id number] echocardiograms at this hospital. IMPRESSION: Acute respiratory failure, improved. I suspect he may have some underlying unrecognized and untreated obstructive sleep apnea. It has improved this morning while sleeping on the BiPAP overnight. It is probably exacerbated by increasing abdominal distention (Bridgewater syndrome). He notes he has been compliant with his thyroid, but we will ensure that he is euthyroid and not hypothyroid, which could also contribute to hyperventilation. He may also have a component of obesity hypoventilation syndrome. Given the increased cough and yellow sputum production, it does appear that he may have a lower respiratory tract infection. He does have bibasilar infiltrates. It is not clear how much is pneumonia versus atelectasis. At a minimum, probably he does have bronchitis. RECOMMENDATIONS: 1. I will check a TSH. 2. I will continue empiric antibiotics at this time. 3. We will leave off BiPAP during the day, but use p.r.n. for increased work of breathing, shortness of breath or hypoxemia. Continue to sleep with it at night. 4. Suggest outpatient sleep study once he is over this acute event. 5. May need decompression. 6. Continue to observe closely in regards to his fluid status. <ELECTRONICALLY SIGNED> By: Nicolle Archibald MD 01/26/18 0708 0828 [id number] Archibald MD /nt
[2018-01-26 08:00] VITALS: BP 130/64
[2018-01-26 09:54] LABS: BE 1.5 mmol/L (-2 to +3); HCO3 28.6 mmol/L (22.0-26.0); pH 7.313 (7.340-7.450)
[2018-01-26 09:55] LABS: PCO2 57.7 mmHg (35.0-45.0)
[2018-01-26 11:56] VITALS: BP 108/39
--- NOTE | 2018-01-26 13:06 | EKG ---
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 : 1940 Requested By: Jesus Mittal Order Number: [id number] Reading MD: Emory Colin Measurements Intervals [place] Rate: 55 P: [place]: QRS: -44 QRSD: 158 T: 16 QT: 490 QTc: 469 Interpretive Statements Sinus bradycardia Nonspecific IVCD with LAD Probable inferior infarct, old Baseline wander in lead(s) V1 Compared to ECG 01/24/2018 11:29:39 Intraventricular conduction delay now present Myocardial infarct finding now present Sinus bradycardia no longer present Right bundle-branch block no longer present Electronically Signed On 01-26-2018 13:06:01 CDT by Emory Colin [email or web address] <ELECTRONICALLY SIGNED> By: Neo Colin MD, FACC 01/26/18 1306 130 130 Neo Colin MD, [facility] /EPI
--- NOTE | 2018-01-26 13:09 | EKG ---
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
[2018-01-26 14:54] LABS: CALCIUM 8.2 mg/dL (8.5-10.1); CREATININE 3.2 mg/dL (0.6-1.3); MAGNESIUM 2.5 mg/dL (1.8-2.4); POTASSIUM 3.8 mmol/L (3.5-5.1)
--- NOTE | 2018-01-26 15:07 | NUR ---
ASSUMED CARE OF PATIENT THIS AM AT 0730. PATIENT IS ALERT AND ORIENTED X 4. HE WAS INITIALLY ON BIPAP THIS AM. TAKEN OFF AND 0830 AND PLACED ON O2 AT 4 LITERS. PULMONARY IN TO ROUND AND ORDERS WRITTEN. ABG OBTAINED PER RT. HAD A LOW BLOOD SUGAR THIS AM OF 68. 1 AMP OF D50 GIVEN 1V X 1. IV FLUIDS CHANGED TO D5W. PATIENT IS TAKING HIS CLEAR LIQUID DIET WELL. NO STOOLS NOTED TODAY. TELE SHOWS SR WITH A 1DAVB AND A OCCASIONAL 2ND DEGREE TYPE 1. WITH A BBB. MELBA REMAINS TO DD. ADEQUATE UO. WILL CONTINUE TO MONITOR.
[2018-01-26 15:17] VITALS: BP 106/45
[2018-01-26 20:00] VITALS: BP 102/45
[2018-01-27] VITALS: BP 99/41
[2018-01-27 04:00] VITALS: BP 96/46
--- NOTE | 2018-01-27 05:24 | NUR ---
ASSUMED CARE OF PT AT 1930, NURSING ASSESSMENT COMPLETED AT START OF SHIFT, PT VOICED NO CONCERNS THIS SHIFT, ON TELE MONITOR TRACING SINUS RHYTHM WITH 1ST DEGREE AV BLOCK AND BUNDLE BRANCH BLOCK WITH OCCASIONAL PVCS. PT DENIES PAIN, HOURLY ROUNDING COMPLETED, Q2H REPOSITIONIONING COMPLETED. PT TOLERATED BIPAP HIS SHIFT. CALL LIGHT REMAINS WITHIN REACH. NO FALLS THIS SHIFT.
[2018-01-27 06:34] LABS: HEMATOCRIT 28.1 % (42.0-52.0); HEMOGLOBIN 9.5 gm/dL (14.0-18.0); MCH 31.9 pg (26.0-34.0); MCHC 33.8 g/dL (28.0-37.0); MCV 94.4 fL (80.0-100.0); RBC 2.98 mil/uL (4.50-6.00); RDW-CV 18.7 % (10.5-14.5)
[2018-01-27 06:38] LABS: CREATININE 3.4 mg/dL (0.6-1.3); MAGNESIUM 2.5 mg/dL (1.8-2.4); POTASSIUM 3.3 mmol/L (3.5-5.1)
[2018-01-27 12:00] VITALS: BP 99/45
[2018-01-27 12:27] VITALS: BP 101/59; BP 96/46
--- NOTE | 2018-01-27 14:42 | NUR ---
Nutrition: Pt admitted with SOA. H/o CKD, CAD, CABG, DM. RX: glipizide, albuterol, IVF. Has ileus. Last BM 01/26. Was tolerating diet before, now NPO. Will have colonic decompression tube today. Albumin 3.2, BG ok. Wt is at usual of 360#. No nutrition interventions needed at this time. Consider mild to moderate risk. Will follow POC, 01/29/18.
--- NOTE | 2018-01-27 14:45 | NUR ---
Pt out of room, CM to f/u later
--- NOTE | 2018-01-27 14:57 | NUR ---
Pt out of room when CM went to assess. CM reviewed chart and spoke with nurse. Pt normally resides at home with his . Normally independent with ADLs. Pt has a walker that he uses for mobility. Hx of CHCS. Hx of SMV. Pt has also been to acute rehab. CM to follow up tomorrow regarding disposition.
--- NOTE | 2018-01-27 15:20 | NUR ---
ASSUMED PT CARE AT 0700 PT IS ALERT AND ORIENTED X 4 PT IS BAD RIVER BAND PT IS UP WITH ASSIST X 1 PT IS A FALL RISK BED ALARM IS ON, PT WENT FOR ABDOMINAL XRAY ABDOMEN IS DISTENDED PT IS ON CLEAR LIQUID DIET PT HAS NORMAL SALINE RUNNING PER NEPHROLOGY, GI CALLED THIS NURSE MADE PT NPO AND SCHEDULED FOR PT TO HAVE COLONOSCOPY WITH POSSIBLE BIOPSIES AND TUBE TO DECOMPRESS PT ABDOMEN PLACED PT WENT FOR PROCEDURE, PT IS SR 1ST DEGREE BLOCK ON MONITOR, WILL CONTINUE TO MONITOR
[2018-01-27 20:00] VITALS: BP 106/51
[2018-01-28] VITALS (8 sets, daily range): BP systolic 108–130; BP diastolic 52–70
--- NOTE | 2018-01-28 00:30 | NUR ---
ASSUMED PT CARE AT 1930, PT IS A&OX4, PT WAS BROUGHT UP FROM SURGERY AT SHIFT CHANGE, PT HAS A COLONIC DECOMPRESSION, PT IS TRACING NSR ON THE MONITOR, ON 6L NC SATTIBNG MID TO LOW 90'S, PT HAS A REILLY TO DD, DRIAINING YELLOW URINE. PT IS ON FULL LIQUIDS AT THIS TIME TOLERATING WELL. IVF INFUSING PER MAR. PT'S DECOMPRESSION TUBE IS HOOKED UP TO LIS. PT DENIES ANY PAIN OR NEEDS AT THIS TIME. PT IS ON BIPAP AT THIS TIME. BED IN LOW POSITION, CALL LIGHT IN REACH, BED ALARM ON, YELLOW ARM BAND AND SOCKS IN PLACE. HOURLY ROUNDING COMPLETED FOR PT SAFETY.
[2018-01-28 05:55] LABS: ABSOLUTE LYMPHOCYTES 1.6 thou/uL (0.8-5.3); BASOPHILS 0.3 %; MCV 94.6 fL (80.0-100.0)
[2018-01-28 05:57] LABS: ABSOLUTE EOSINOPHILS 0.2 thou/uL (0.0-0.7); ABSOLUTE MONOCYTES 0.7 thou/uL (0.0-1.2); ABSOLUTE NEUTROPHILS 3.9 thou/uL (1.6-8.1); EOSINOPHILS 2.5 %; HEMATOCRIT 26.3 % (42.0-52.0); HEMOGLOBIN 8.9 gm/dL (14.0-18.0); LYMPHOCYTES 25.4 %; MCH 32.2 pg (26.0-34.0); MONOCYTES 11.2 %; NUCLEATED RBCS 0 /100WBC; PLATELET COUNT* 113 thou/uL (150-400); POLYS 60.6 %; RBC 2.78 mil/uL (4.50-6.00); RDW-CV 19.1 % (10.5-14.5); WBC 6.4 thou/uL (4.0-11.0)
[2018-01-28 06:20] LABS: ALBUMIN 2.5 g/dL (3.4-5.0); CALCIUM 7.9 mg/dL (8.5-10.1); CREATININE 3.4 mg/dL (0.6-1.3); POTASSIUM 4.2 mmol/L (3.5-5.1); TOTAL BILIRUBIN 0.5 mg/dL (<0.1-1.0); TOTAL PROTEIN 4.7 g/dL (6.4-8.2)
--- NOTE | 2018-01-28 11:16 | NUR ---
This RN agrees with the assessment of Luba CUNHA
--- NOTE | 2018-01-28 15:51 | NUR ---
ASSUMED PT CARE AT 0700 PT IS ALERT AND ORIENTED X 4 PT DENIES PAIN OR SOA ON 6L/NC, PT IS A FALL RISK BED ALARM IS ON, PT HAS COLONIC DECOMRESSION TUBE AT LOW INTERMITTENT SUCTION, PT WENT FOR ABDOMINAL SERIES XRAY WHICH SHOW IMPROVEMENT, PT IS SR ON THE MONITOR PT HAS REILLY WHICH IS TO STAY IN PLACE UNTIL RETENTION IS RULED OUT, PT IS TURNED Q 2 HOURS PT HAS EDEMA BILAT LE, PHYSICAL THERAPY AND OCCUPATIONAL THERAPY HAS WORKED WITH PT, WILL CONTINUE TO MONITOR
--- NOTE | 2018-01-28 16:14 | CON ---
[address] [address] CONSULTATION Name: RACHEL ARECHIGA I Room: [address] IN M.R.#: [id number] Admission: 01/24/18 Attend Phys: Jesus Mittal, Discharge: Date of : 38 Report #: [id number] THIS REPORT FOR: //name// CC: Candelario Mittal HISTORY OF PRESENT ILLNESS: I was asked to see this 77-year-old white male in cardiology consultation by Dr. Mittal for evaluation and treatment of sinus bradycardia as well as initially apparently a junctional rhythm on admission. This man is asymptomatic with his bradycardia. Today, I did observe Wenckebach on the monitor, i.e. Mobitz type 1 was seen on the monitor. This man was admitted for acute respiratory failure, apparently acute hypercapnic respiratory failure, apparently due to bronchitis. He also had abdominal pain and abdominal distention. He has a large list of medical problems including essential hypertension, coronary artery disease. He is status post coronary artery bypass graft surgery. He has gout. He has chronic kidney disease. His creatinine on admission was 3.9 I believe, is 3.5 today. He has non-insulin dependent diabetes mellitus as well. He likely has hypercholesterolemia as he is on atorvastatin. He is a poor historian. He came to the hospital because of shortness of breath and abdominal discomfort. His EKGs were reviewed. The initial one may be a junctional rhythm, but it is a suboptimal study. Subsequent appears to be sinus or could be junctional as well, although I do see P waves. He clearly on the monitor though has episodes where he prolongs his VA interval and then has an episode of second-degree AV block and skips a beat. He is asymptomatic with this rhythm disturbance and he has not been hypotensive. He is morbidly obese and according to the nurses has obstructive sleep apnea that has been observed. He is 6 feet 2 inches tall and weighs 352 pounds. PAST MEDICAL HISTORY: As described above. Additionally, he has had a fractured elbow, open reduction and internal fixation of the left wrist and left leg. He has had surgery on both his right and left knee, which he has had replaced. He has had bypass graft surgery years ago. He has had a thyroidectomy. He does have hypothyroidism and allegedly is on replacement 0.3 mg daily. He does have osteoarthritis as well. He says he has had throat cancer. HOME MEDICATIONS: Include aspirin 81 mg daily, atorvastatin 80 mg daily, carvedilol 6.25 mg b.i.d., doxycycline 100 mg daily, Uloric 40 mg daily, Lasix 20 mg daily, glipizide 10 mg b.i.d., levothyroxine 300 mcg daily, Linzess 140 mcg daily, Adalat CC 60 mg daily that is nifedipine extended release, omeprazole 40 mg daily, MiraLax 17 grams daily, potassium 20 mEq daily, Januvia 50 mg daily, Flomax 0.4 mg daily apparently for benign prostatic hypertrophy. ALLERGIES: He has no known allergies. REVIEW OF SYSTEMS: Unremarkable except as per the history of present illness. Please see review of system form for details and the negatives on review of systems. [address] [address] CONSULTATION Name: RACHEL ARECHIGA I Room: [address] IN M.R.#: [id number] Admission: 01/24/18 Attend Phys: Jesus MurciaCaden Kyrie, Discharge: Date of : 38 Report #: [id number] SOCIAL HISTORY: He is . He does not smoke, drink or use illegal drugs. FAMILY HISTORY: Unremarkable from the cardiac point of view. PHYSICAL EXAMINATION: GENERAL: He presents as a well-developed, well-nourished, obese white male, in no acute distress. VITAL SIGNS: His pulse was 58 and regular, blood pressure is 143/71, respirations 15 and regular, temperature was 98.6. HEENT: His head was atraumatic. Eyes clear. NECK: Supple. There is no jugular venous distention or hepatojugular reflux. Thyroid is not enlarged. There is no adenopathy. SKIN: Warm and dry. Mucous membranes are moist. LUNGS: Clear to auscultation and percussion. Breath sounds were decreased bilaterally. There is an increased expiratory phase. HEART: Revealed distant first and second heart sounds. There was no S4, no S3, no murmurs, rubs, thrills, heaves or gallops. PMI is nondisplaced. ABDOMEN: Soft, flat, nontender and it is obese. There are no palpable masses, no organomegaly. EXTREMITIES: Reveal no cyanosis or clubbing. There is 2+ ankle and pedal edema. NEUROLOGIC: The patient mentated normally, talked normally, moved all extremities normally. IMPRESSION: 1. Asymptomatic sinus bradycardia with periods of Wenckebach currently. 2. Possible junctional rhythm when he came in. 3. Periods of sinus bradycardia. 4. Coronary artery disease. 5. Status post coronary artery bypass graft surgery. 6. Gout. 7. Obstructive sleep apnea. 8. Morbid obesity. 9. Chronic kidney disease. 10. Bronchitis with acute respiratory failure, initially acute hypercapnic respiratory failure that has improved. 11. Inj-cedyszt-zabheumko diabetes mellitus. 12. Hypercholesterolemia. 13. Hypothyroidism. RECOMMENDATION: I would stop his carvedilol that he is on. See if his heart rate does not come up. I would increase his nifedipine to help keep his blood pressure controlled as it should not affect his heart rate. He does not need a pacemaker based on the current findings. [address] [address] CONSULTATION Name: RACHEL ARECHIGA I Room: [address] IN .R.#: [id number] Admission: 01/24/18 Attend Phys: Jesus Mittal, Discharge: Date of : 38 Report #: [id number] Thank you very much for asking me to see the patient. If there are any questions, please feel free to contact me. <ELECTRONICALLY SIGNED> By: Neo Colin MD, SUZANNE 01/28/18 1614 1434 [id number]. Emory Colin MD, FACNirmala /nt
[2018-01-29 03:55] VITALS: BP 130/66
--- NOTE | 2018-01-29 05:27 | NUR ---
ASSUMED CARE OF PT AT 1900, ALERT AND ORIENTED X4 VS AND ASSESSMENT STABLE. CHANGE OF SHIFT REPORT STATED PT IN NSR. PT NOTED TO BE IN A FIB W/ BBB RATE STABLE IN THE 70'S. DID AN EKG TO CONFIRM. NOTIFIED DR. BUCKNER WHO STATED TO START CARDIZEM GTT ONLY IF RATE GOES ABOVE 130. RATE STAYED IN THE 60 ALL SHIFT. PT DENIED ANY COMPLAINTS AND SLEPT THROUGH THE NIGHT. WILL CONTINUE PLAN OF CARE.
[2018-01-29 05:35] LABS: ABSOLUTE EOSINOPHILS 0.2 thou/uL (0.0-0.7); ABSOLUTE LYMPHOCYTES 1.7 thou/uL (0.8-5.3); ABSOLUTE MONOCYTES 0.8 thou/uL (0.0-1.2); ABSOLUTE NEUTROPHILS 4.2 thou/uL (1.6-8.1); BASOPHILS 0.2 %; EOSINOPHILS 2.2 %; HEMATOCRIT 27.9 % (42.0-52.0); HEMOGLOBIN 9.5 gm/dL (14.0-18.0); LYMPHOCYTES 24.8 %; MCHC 33.9 g/dL (28.0-37.0); MCV 94.6 fL (80.0-100.0); MONOCYTES 11.7 %; MPV 9.3 fl. (7.2-11.1); NUCLEATED RBCS 0 /100WBC; PLATELET COUNT* 112 thou/uL (150-400); POLYS 61.1 %; RBC 2.95 mil/uL (4.50-6.00); RDW-CV 19.5 % (10.5-14.5); WBC 6.9 thou/uL (4.0-11.0)
[2018-01-29 06:03] LABS: PREALBUMIN 15.1 mg/dL (18.0-35.7)
[2018-01-29 06:04] LABS: ALBUMIN 2.4 g/dL (3.4-5.0); CALCIUM 7.9 mg/dL (8.5-10.1); CREATININE 3.2 mg/dL (0.6-1.3); POTASSIUM 4.1 mmol/L (3.5-5.1); TOTAL BILIRUBIN 0.4 mg/dL (<0.1-1.0); TOTAL PROTEIN 4.7 g/dL (6.4-8.2)
[2018-01-29 08:11] VITALS: BP 116/62
--- NOTE | 2018-01-29 09:01 | 2DMMODE ---
[place] [address] 2 D/M-MODE ECHOCARDIOGRAM Name: RACHEL ARECHIGA [facility] IN [facility]#: [id number] Admission: 01/24/18 Attend Phys: Jesus Pacheco Discharge: Date of : 38 Date of Service: 01/28/18 1402 Report #: [id number] THIS REPORT FOR: //name// APPROVED REPORT Study performed: 01/28/2018 09:55:41 EXAM: Comprehensive 2D, Doppler, and color-flow Echocardiogram Patient Location: In-Patient Room #: 202 Status: routine BSA: 2.76 HR: 76 bpm BP: 110/56 mmHg Rhythm: NSR Other Information Study Quality: Good Indications Dyspnea Wenckebach 2D Dimensions LVEF(%): 60.00 (>50%) IVSd: 21.11 (7-11mm) LVOT Diam: 22.91 (18-24mm) LVDd: 47.74 mm PWd: 15.32 (7-11mm) Ascending Ao: 39.29 (22-36mm) LVDs: 32.48 (25-40mm) Aortic Root: 43.59 mm Soriano's LVEF: 60.00 % Volumes Left Atrial Volume (Systole) LA ESV Index: 36.80 mL/m2 Aortic Valve AoV Peak Edward.: 1.39 m/s AO Peak Gr.: 7.73 mmHg LVOT Max P.13 mmHg AO Mean Gr.: 4.83 mmHg LVOT Mean P.53 mmHg LVOT Max V: 1.24 m/s AO V2 VTI: 25.84 cm LVOT Mean V: 0.89 m/s SUYAPA (VTI): 4.18 cm2 LVOT V1 VTI: 26.17 [place] [address] 2 D/M-MODE ECHOCARDIOGRAM Name: RACHEL ARECHIGA I Room: [address] IN .R.#: [id number] Admission: 01/24/18 Attend Phys: Jesus Pacheco Discharge: Date of : 38 Date of Service: 01/28/18 1402 Report #: [id number] E/A Ratio: 1.03 MV Decel. Time: 151.59 ms MV E Max Edward.: 0.80 m/s MV PHT: 43.96 ms MVA (PHT): 5.00 cm2 Pulmonary Valve PV Peak Edward.: 1.03 m/s PV Peak Gr.: 4.27 mmHg Left Ventricle The left ventricle is normal size. There is normal LV segmental wall motion. Moderate concentric left ventricular hypertrophy. Left ventricular systolic function is normal. The left ventricular ejection fraction is within the normal range. LVEF is 55-60%. The left ventricular diastolic function is normal. Right Ventricle The right ventricle is normal size. The right ventricular systolic function is normal. Atria Left atrium is mildly dilated. The right atrium size is normal. Aortic Valve The aortic valve is normal in structure. Trace aortic regurgitation. There is no aortic valvular stenosis. Mitral Valve The mitral valve is normal in structure. Mild mitral regurgitation. No evidence of mitral valve stenosis. Tricuspid Valve The tricuspid valve is normal in structure. Unable to assess PA pressure. Trace tricuspid regurgitation. Pulmonic Valve The pulmonary valve is normal in structure. There is no pulmonic valvular regurgitation. Great Vessels The aortic root is normal in size. IVC is dilated. Pericardium There is no pericardial effusion[place] [address] 2 D/M-MODE ECHOCARDIOGRAM Name: RACHEL ARECHIGA I Room: [address] IN [facility]#: [id number] Admission: 01/24/18 Attend Phys: Jesus Pacheco Discharge: Date of : 38 Date of Service: 01/28/18 1402 Report #: [id number] <Conclusion> LVEF is 55-60%. Moderate concentric left ventricular hypertrophy. There is normal LV segmental wall motion. Left atrium is mildly dilated. Trace aortic regurgitation. There is no aortic valvular stenosis. Mild mitral regurgitation. <ELECTRONICALLY SIGNED> By: Jose F Guo MD, [facility] 01/28/181401 01 01 Jose F Guo MD, FAC /INF
--- NOTE | 2018-01-29 10:46 | NUR ---
This RN agrees with the assessment of SN Celi.
--- NOTE | 2018-01-29 11:00 | NUR ---
ASSUMED PT CARE AT 0800, FULL ASSESMENT DONE CHARTED. PT A/O X4, VSS, SA/BBB/PVC'S ON THE MONITOR. REILLY IN PLACE DRAINING YELLOW URINE, COLONIC DECOMPRESSION DEVICE IN PLACE SET TO LOW INT SUCTION. PT DENIES PAIN, FALL PRECATUIONS IN PLACE. WILL CONTINUE WITH PLAN OF CARE.
[2018-01-29 11:21] VITALS: BP 125/66
--- NOTE | 2018-01-29 11:46 | NUR ---
Nutrition: follow up. Wt stable. Diet advanced for lunch to see how pt does today. On motility agents. Alb 2.4, prealb 15.1. Had liquid BM today. Hopeful for goos tolerance at lunch and continued diet advancement. RD will continue to follow. Mild risk. Follow up 01/31/18.
--- NOTE | 2018-01-29 14:41 | NUR ---
Discussed possible need for skilled at dc. Pt working with PT now. CM left skilled facility list with Pt. Following.
--- NOTE | 2018-01-29 15:09 | EKG ---
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[id number] Requested By: Jesus Mittal Order Number: [id number] Amos MD: Sriram Ramon Measurements Intervals [place] Rate: 70 P: TX: QRS: -40 QRSD: 152 T: 18 QT: 396 QTc: 428 Interpretive Statements sinus arrhythmia with first degree av block Right bundle branch block Inferior infarct, old Anteroseptal infarct, age indeterminate Baseline wander in lead(s) V4 Compared to ECG 01/26/2018 05:05:27 Sinus bradycardia no longer present Electronically Signed On 01-29-2018 15:09:01 CDT by Sriram Ramon [email or web address] <ELECTRONICALLY SIGNED> By: Sriram Ramon MD, [facility] 01/29/18 1509 [id number] [id number] Sriram Ramon MD, [facility] /EPI
[2018-01-29 17:38] VITALS: BP 128/67
[2018-01-29 20:22] VITALS: BP 131/67
--- NOTE | 2018-01-29 20:31 | NUR ---
PT PROGRESSING TOWARD GOALS. WAS ABLE TO ADVANCE TO LOW RESIDUE DIET FOR LUNCH AND DINNER, PT DENIES ABD PAIN. CONPRESSION DEVICE CAME OUT PT WAS WORKING WITH PT, PT ALSO HAD LARGE AMOUNT OF LOOSE STOOL AT THIS TIME. SPOKE TO YOUSIF VALENZUELA WITH GI, ORDERS FOR REPEAT ABD X RAY RECIEVED, STATES IT IS OK TO KEEP PT ON SUCTION. PT HAD NO OTHER EPISODES OF BOWEL MOVEMENT AFTER THIS BUT DOES HAVE SMALL AMOUNTS OF LEAKAGE AROUNG THE DEVICE. REILLY STILL IN PLACE DRAINING YELLOW URINE. LEFT CHEST CENTRAL LINE FLUSHING WELL. PT USING CALL LIGHT APPROPRIALTY. FALL PRECATUIONS IN PLACE. REPORT GIVEN TO CLEO DODD
[2018-01-29 23:29] VITALS: BP 131/68
[2018-01-30 03:06] LABS: GLYCOHEMOGLOBIN (HGB A1C) 5.3 % (4.8-5.6)
[2018-01-30 04:58] VITALS: BP 123/81
--- NOTE | 2018-01-30 05:27 | NUR ---
PT IS ABLE TO COMMUNICATE HIS NEEDS TO STAFF EFFECTIVELY. HE HAS DENIED THE NEED FOR PAIN MEDICATION UP TO THIS TIME. PT WEARING CPAP WHILE SLEEPING TONIGHT. REILLY PATENT. RECTAL TUBE PATENT TO LIS. REPEAT KUB SCHEDULED FOR THIS AM.
[2018-01-30 05:31] LABS: ABSOLUTE EOSINOPHILS 0.2 thou/uL (0.0-0.7); ABSOLUTE LYMPHOCYTES 1.8 thou/uL (0.8-5.3); ABSOLUTE MONOCYTES 0.8 thou/uL (0.0-1.2); ABSOLUTE NEUTROPHILS 4.3 thou/uL (1.6-8.1); BASOPHILS 0.2 %; EOSINOPHILS 3.3 %; HEMATOCRIT 28.6 % (42.0-52.0); HEMOGLOBIN 9.6 gm/dL (14.0-18.0); LYMPHOCYTES 25.5 %; MCH 32.3 pg (26.0-34.0); MCHC 33.7 g/dL (28.0-37.0); MCV 95.8 fL (80.0-100.0); MONOCYTES 10.8 %; MPV 8.8 fl. (7.2-11.1); NUCLEATED RBCS 0 /100WBC; PLATELET COUNT* 104 thou/uL (150-400); POLYS 60.2 %; RBC 2.99 mil/uL (4.50-6.00); RDW-CV 19.4 % (10.5-14.5); WBC 7.1 thou/uL (4.0-11.0)
[2018-01-30 05:49] LABS: ALBUMIN 2.4 g/dL (3.4-5.0); CALCIUM 7.8 mg/dL (8.5-10.1); CREATININE 3.1 mg/dL (0.6-1.3); POTASSIUM 4.2 mmol/L (3.5-5.1); TOTAL BILIRUBIN 0.5 mg/dL (<0.1-1.0); TOTAL PROTEIN 4.8 g/dL (6.4-8.2)
[2018-01-30 06:08] LABS: PREALBUMIN 14.8 mg/dL (18.0-35.7)
[2018-01-30 07:46] VITALS: BP 143/77
--- NOTE | 2018-01-30 11:27 | NUR ---
Spoke with Pt and family, first choice is [facility], [facility] does not have any beds available until early next week. Second and third choice are [facility]. Faxed referral to [facility]. Awaiting decision to accept.
[2018-01-30 11:50] VITALS: BP 117/61
[2018-01-30 16:00] VITALS: BP 142/61
--- NOTE | 2018-01-30 19:54 | NUR ---
ASSUMED PT CARE AT 0730, FULL ASSESMENT DONE CHARTED. PT A/O X4, DROWSY, HAS COLONIC DECOMPRESSION DEVICE IN PLACE, SOME OF IT WAS PULLED OUT YESTERDAY. SPOKE TO DR SUTHERLAND, IS OK WITH IT STAYING IN PLACE, HE MAY REPLACE IT TOMORROW. PT TO BE NPO AFTER MIDNIGHT TONIGHT.REILLY IN PLACE DRAINING YELLOW URINE. PT SOA, ON 5L O2 SATS 92%. ALL OTHER VSS. LEGS EDEMOTOUS, ELEVATED ON PILLOWS. FALL PRECATUOINS IN PLACE, PT TURNED Q2 HR. REPORT GIVEN TO NANETTE DODD.
[2018-01-30 20:00] VITALS: BP 144/77
[2018-01-31] VITALS (9 sets, daily range): BP systolic 101–144; BP diastolic 59–80
[2018-01-31 05:29] LABS: ABSOLUTE EOSINOPHILS 0.2 thou/uL (0.0-0.7); ABSOLUTE LYMPHOCYTES 1.8 thou/uL (0.8-5.3); ABSOLUTE MONOCYTES 0.7 thou/uL (0.0-1.2); ABSOLUTE NEUTROPHILS 3.7 thou/uL (1.6-8.1); BASOPHILS 0.4 %; HEMATOCRIT 27.3 % (42.0-52.0); HEMOGLOBIN 9.4 gm/dL (14.0-18.0); LYMPHOCYTES 28.5 %; MCH 32.8 pg (26.0-34.0); MCHC 34.3 g/dL (28.0-37.0); MCV 95.5 fL (80.0-100.0); MONOCYTES 10.8 %; MPV 9.3 fl. (7.2-11.1); NUCLEATED RBCS 0 /100WBC; PLATELET COUNT* 103 thou/uL (150-400); POLYS 57.3 %; RBC 2.86 mil/uL (4.50-6.00); RDW-CV 19.6 % (10.5-14.5); WBC 6.4 thou/uL (4.0-11.0)
--- NOTE | 2018-01-31 05:43 | NUR ---
ASSUMED CARE OF PT AT 1900 VS AND ASSESSMENT STABLE ALERT AND ORIENTED X4. PT DENIED ANY COMPALINTS AND SLEPT THROUGH THE NIGHT. WILL CONTINUE PLAN OF CARE.
[2018-01-31 05:47] LABS: ALBUMIN 2.3 g/dL (3.4-5.0); CALCIUM 7.9 mg/dL (8.5-10.1); PHOSPHORUS* 2.9 mg/dL (2.5-4.9); TOTAL BILIRUBIN 0.6 mg/dL (<0.1-1.0); TOTAL PROTEIN 4.7 g/dL (6.4-8.2)
--- NOTE | 2018-01-31 10:01 | NUR ---
NUTRITION: RECOMMEND NUTRITION SUPPORT AT THIS TIME. RECOMMEND TPN @80mL/HR. SEE RD ASSESSMENT FORM FOR DETAILS.
--- NOTE | 2018-01-31 14:13 | NUR ---
No weekend dc planned. Maddie from [facility] here to assess Pt, Pt out of room at [facility]. [facility] will have skilled beds available next week, Maddie to come back on Saturday. Following.
--- NOTE | 2018-01-31 18:15 | NUR ---
ASSUMED RESPONSIBILITY OF PT THIS AM PT IS ALERT AND ORIENTED BUT FORGETFUL ASSIST X 1-2 TO W/C SURGERY DONE THIS AFTERNOON FOR DECOMPRESSION TUBE AT LOW INTERMITTENT SUCTION LEFT SV TRIPLE LUMEN CONTINUES DENIES PAIN SOA AND WHEEZING NOTED AT 5L NC BIPAP AT HS EATING REGULAR FOOD NOW PO LASIX GIVEN FC CONT WITH CLEAR YELLOW URINE 3-4+ PITTING EDEMA VERY SWOLLEN T/O AT BEDSIDE CALL LIGHT IN REACH
[2018-02-01 00:05] VITALS: BP 136/67
[2018-02-01 04:00] VITALS: BP 108/66
--- NOTE | 2018-02-01 05:25 | NUR ---
ASSUMED CARE OF PATIENT AT 1900 THE PATIENT REMAINS SR C 1ST D AV ET BBB ON THE MONITOR O2 SAT MAINTAINED ON 5 L NC CONTINUES TO BE BEDREST DURING NIGHT CPAP PUT ON AT APPROX 2300 THE ROUTINE REGIMEN CONTINUES TO BE EFFECTIVE FOR SX MANAGEMENT LOW INTERMIT SUCTION CONTINUES PROGRESS CONTINUES TOWARDS GOALS SAFETY INTERVENTIONS CONTINUE BED LOWERED WHEELS LOCKED CALL LIGHT IN REACH SIDE RAILS UP REPORT TO BE GIVEN TO DEBRA DODD
[2018-02-01 12:17] VITALS: BP 94/53
[2018-02-01 14:33] LABS: CALCIUM 7.7 mg/dL (8.5-10.1); CREATININE 2.9 mg/dL (0.6-1.3); POTASSIUM 3.7 mmol/L (3.5-5.1)
[2018-02-01 17:39] VITALS: BP 138/75
--- NOTE | 2018-02-01 18:34 | NUR ---
ASSUMED CARE OF PT AT 0730. PT CONTINUES TO BE ALERT AND COOPERATIVE. PT VSS ON 5L VIA NC. HE HAS BEEN TRACING SR WITH A BBB AND A 1ST DEGREE AV BLOCK ON THE MONITOR. PT HAS HAD A GOOD APPETITE AND ATE GREATER THAN 50% OF BREAKFAST AND LUNCH, HE DID NOT LIKE WHAT WAS SERVED FOR SUPPER SO THIS NURSE GOT HIM A PB&J THE PT REQUESTED. PT SPENT MUCH OF THE DAY UP IN THE CHAIR AT BEDSIDE. RECTAL TUBE AND REILLY STILL IN PLACE AND PATENT. NURSING WILL CONTINUE TO WATER.
[2018-02-01 20:00] VITALS: BP 138/59
[2018-02-01 23:36] VITALS: BP 133/62
[2018-02-02 04:00] VITALS: BP 138/60
[2018-02-02 04:43] LABS: ABSOLUTE EOSINOPHILS 0.2 thou/uL (0.0-0.7); ABSOLUTE LYMPHOCYTES 1.9 thou/uL (0.8-5.3); ABSOLUTE MONOCYTES 0.7 thou/uL (0.0-1.2); ABSOLUTE NEUTROPHILS 3.9 thou/uL (1.6-8.1); BASOPHILS 0.3 %; EOSINOPHILS 2.3 %; HEMOGLOBIN 8.6 gm/dL (14.0-18.0); LYMPHOCYTES 28.7 %; MCH 32.1 pg (26.0-34.0); MCHC 33.3 g/dL (28.0-37.0); MCV 96.4 fL (80.0-100.0); MONOCYTES 10.2 %; MPV 8.9 fl. (7.2-11.1); NUCLEATED RBCS 0 /100WBC; PLATELET COUNT* 99 thou/uL (150-400); POLYS 58.5 %; RBC 2.69 mil/uL (4.50-6.00); RDW-CV 19.3 % (10.5-14.5); WBC 6.6 thou/uL (4.0-11.0)
[2018-02-02 04:55] LABS: ALBUMIN 2.3 g/dL (3.4-5.0); CALCIUM 7.8 mg/dL (8.5-10.1); CREATININE 2.9 mg/dL (0.6-1.3); MAGNESIUM 1.8 mg/dL (1.8-2.4); PHOSPHORUS* 3.5 mg/dL (2.5-4.9); POTASSIUM 3.3 mmol/L (3.5-5.1)
[2018-02-02 05:54] LABS: ALBUMIN 2.3 g/dL (3.4-5.0); CALCIUM 7.7 mg/dL (8.5-10.1); CREATININE 2.9 mg/dL (0.6-1.3); POTASSIUM 3.4 mmol/L (3.5-5.1); TOTAL BILIRUBIN 0.5 mg/dL (<0.1-1.0); TOTAL PROTEIN 4.4 g/dL (6.4-8.2)
--- NOTE | 2018-02-02 06:03 | NUR ---
ASSUMED CARE OF PATIENT AT 1900 THE PATIENT REMAINS IN AFIB ON THE MONITOR O2 SAT MAINTAINED ON BIPAP, VENTIMASK ET NSAL CANULA DURING MEDICATIONS CONTINUES TO BE UP WITH ASSIST OF TO THE ROUTINE REGIMEN CONTINUES TO BE EFFECTIVE FOR SX MANAGEMENT SAFETY INTERVENTIONS CONTINUE BED LOWERED WHEELS LOCKED CALL LIGHT IN REACH SIDE RAILS UP REPORT TO BE GIVEN TO DEBRA DODD
--- NOTE | 2018-02-02 06:09 | NUR ---
NIGHT UNEVENTFUL PATIENT PROGRESS CONTINUES TOWARDS GOALS WITHOUT S/SX OF ACUTE DISTRESS RESTING ON BIPAP REPORT TO BE GIVEN TO ONCOMING RN
[2018-02-02 08:00] VITALS: BP 147/63
[2018-02-02 11:00] VITALS: BP 136/66
[2018-02-02 17:00] VITALS: BP 136/59
--- NOTE | 2018-02-02 18:48 | NUR ---
ASSUMED CARE OF PT AT 073. PT CONTINUES TO BE ALERT AND ORIENTED WITH VSS ON 5L VIA NC. PT CONTINUES TO HAVE A PRODUCTIVE COUGH, SPUTUM NOT OBSERVED. REILLY AND RECTAL SUCTION STILL IN PLACE AND PATENT. PT HAS HAD NO C/O PAIN OR DISTRESS TODAY. PT TRACING SR WITH A BBB AND A 1ST DEGREE AV BLOCK. PT CURRENTLY RESTING IN BED NO APPARRENT SIGNS OF PAIN OR DISTRESS.
[2018-02-02 20:00] VITALS: BP 146/67
[2018-02-03] VITALS: BP 148/68
[2018-02-03 04:00] VITALS: BP 151/75
--- NOTE | 2018-02-03 04:45 | NUR ---
ASSUMED PT CARE AT 1930, PT IS A&OX4, TRACING NSR ON THE MONITOR, ON 5L NC SATTING MID TO HIGH 90'S. PT IS ON BIPAP AT THIS TIME. PT HAS A REILLY TO DD DRAINING YELLOW URINE, PT HAS A RECTAL TUBE TO LIS AT THIS TIME, WITH VERY MINIMAL OUTPUT. PT DENIES ANY PAIN OR NEEDS AT THIS TIME. PT IS RESTING WELL. BED IN LOW POSITION, CALL LIGHT IN REACH, BED ALARM ON, YELLOW ARM BAND AND SOCKS IN PLACE. HOURLY ROUNDING COMPLETED FOR PT SAFETY.
[2018-02-03 06:23] LABS: ABSOLUTE EOSINOPHILS 0.2 thou/uL (0.0-0.7); ABSOLUTE LYMPHOCYTES 2.1 thou/uL (0.8-5.3); ABSOLUTE MONOCYTES 0.6 thou/uL (0.0-1.2); ABSOLUTE NEUTROPHILS 3.4 thou/uL (1.6-8.1); BASOPHILS 0.4 %; EOSINOPHILS 2.7 %; HEMATOCRIT 25.9 % (42.0-52.0); HEMOGLOBIN 8.8 gm/dL (14.0-18.0); LYMPHOCYTES 33.1 %; MCH 32.6 pg (26.0-34.0); MCHC 33.9 g/dL (28.0-37.0); MCV 96.1 fL (80.0-100.0); MONOCYTES 9.8 %; MPV 8.9 fl. (7.2-11.1); NUCLEATED RBCS 0 /100WBC; PLATELET COUNT* 104 thou/uL (150-400); RBC 2.69 mil/uL (4.50-6.00); RDW-CV 18.7 % (10.5-14.5); WBC 6.3 thou/uL (4.0-11.0)
[2018-02-03 06:43] LABS: ALBUMIN 2.5 g/dL (3.4-5.0); CALCIUM 7.8 mg/dL (8.5-10.1); CREATININE 3.1 mg/dL (0.6-1.3); MAGNESIUM 1.7 mg/dL (1.8-2.4); PHOSPHORUS* 3.5 mg/dL (2.5-4.9)
[2018-02-03 06:44] LABS: ALBUMIN 2.4 g/dL (3.4-5.0); CALCIUM 7.9 mg/dL (8.5-10.1); CREATININE 3.1 mg/dL (0.6-1.3); TOTAL BILIRUBIN 0.6 mg/dL (<0.1-1.0)
[2018-02-03 08:10] VITALS: BP 158/81
[2018-02-03 12:32] VITALS: BP 152/63
--- NOTE | 2018-02-03 15:07 | CON ---
[address] [address] CONSULTATION Name: RACHEL ARECHIGA I Room: [address] IN .R.#: [id number] Admission: 01/24/18 Attend Phys: Jesus Mittal, Discharge: Date of : 38 Report #: [id number] THIS REPORT FOR: //name// CC: Candelario Mittal DATE OF SERVICE: 01/25/2018 REQUESTING PHYSICIAN: Dr. Jesus Mittal. REASON FOR CONSULT: Abdominal distention. HISTORY OF PRESENT ILLNESS: This is a 77-year-old male who is very familiar to us as he was treated a month ago with colonoscopy and decompression tube for [place] syndrome. He has multiple medical conditions including hypertension, diabetes mellitus, coronary artery disease and chronic obstructive pulmonary disease. The patient had initially presented with hypercapnic respiratory failure. The patient apparently had a large bowel movement in the early hours of morning today. He still has abdominal distention. He denies any pain, hematochezia or melena. PAST MEDICAL HISTORY: Significant for history of hypothyroidism, hyperlipidemia, diabetes, coronary artery disease, history of [place] syndrome, chronic kidney disease, chronic anemia, gout, right and left knee surgery. ALLERGIES: No known drug allergy. MEDICATIONS: Please refer to hospital MAR. SOCIAL HISTORY: The patient lives at home with his . Apparently, daughter lives close by. He denies any tobacco or alcohol use. FAMILY HISTORY: Noncontributory. PHYSICAL EXAMINATION: VITAL SIGNS: Reveals blood pressure of 143/71, respiration 15, pulse 58, temperature 98.6. LUNGS: Clear. CARDIOVASCULAR: Regular. ABDOMEN: Soft, distended. Bowel sounds are positive, but hypoactive. NEUROLOGIC: The patient is alert, oriented x 3. LABORATORY DATA: Reveal sodium of 142, potassium 3.5, BUN is 33, creatinine 3.5, glucose 65, total bilirubin 0.5, alkaline phosphatase 166. WBC is 8.7 with [facility] [address] [place] [address] CONSULTATION Name: RACHEL ARECHIGA I Room: [address] IN [facility]#: [id number] Admission: 01/24/18 Attend Phys: Jesus Mittal, Discharge: Date of : 38 Report #: [id number] hemoglobin of 9.9 and platelet of 157. IMAGING: As discussed above. ASSESSMENT AND PLAN: We will go ahead and consider motility agents including erythromycin and Reglan to see if that will improve his colonic distention. I will follow up this with KUB tomorrow. If the patient's colonic distention persists, we may consider repeating colonoscopy with colonic tube decompression. <ELECTRONICALLY SIGNED> By: Shima Zimmerman MD 02/03/18 1507 1334 [id number] Mark Zimmerman MD /nt
[2018-02-03 15:28] VITALS: BP 109/56
--- NOTE | 2018-02-03 18:40 | NUR ---
ASSUMED CARE OF PT AT 0736. PT CONTINUES TO BE A&O X4 CALM AND COOPERATIVE. VSS ON 5L O2 VIA NC. PT HAS BEEN TRACING SR WITH A BBB AND 1ST DEGREE AV BLOCK. PT HAD SOME C/O OF ABD DISCOMFORT TODAY THAT WERE EFFECTIVELY CONTROLLED WITH HIS SCHEDULED IV REGLAN. PT HAS BEEN UP TO THE BEDSIDE CHAIR FOR SEVERAL HOURS TODAY AND HE HAS BEEN PASSING GAS MOST OF THE DAY. HIS APPETITE IS IMPROVING AND HE ATE AROUND 70% OF ALL MEALS TODAY. PT CURRENTLY RESTING IN BED NO APPARENT S/S OF DISTRESS, NURSING WILL CONTINUE TO MONITOR
[2018-02-03 20:00] VITALS: BP 157/83
[2018-02-04] VITALS: BP 174/89
[2018-02-04 04:00] VITALS: BP 172/91
--- NOTE | 2018-02-04 05:33 | NUR ---
PT CARE ASSUMED AFTER REPORT. ASSESSMENT COMPLETE. SR/1ST DEGREE/BBB ON MONITOR. O2 5L NC WHILE AWAKE. BIPAP WHILE RESTING. NPO SINCE MIDNIGHT FOR ABD US. DECOMPRESSION TUBE TO LIS. DENIES PAIN. FALL PRECAUTIONS IN PLACE INCLUDING BED ALARM. CALL LIGHT IN REACH. BED IN LOWEST POSITION. SLOW TO PROGRESS TOWARDS GOALS.
[2018-02-04 05:46] LABS: CALCIUM 7.9 mg/dL (8.5-10.1); CREATININE 2.9 mg/dL (0.6-1.3); POTASSIUM 3.5 mmol/L (3.5-5.1)
[2018-02-04 07:55] VITALS: BP 143/71
--- NOTE | 2018-02-04 10:11 | NUR ---
This RN agrees with the assessment of SN Maricruz.
[2018-02-04 11:26] VITALS: BP 178/91
--- NOTE | 2018-02-04 14:23 | NUR ---
Maddie from [facility] here to eval Pt for skilled, they should be able to accept Pt at dc. Following.
[2018-02-04 16:00] VITALS: BP 141/66
--- NOTE | 2018-02-04 18:30 | NUR ---
VSS. PT REMAINS A&O X4, [place]. O2 SAT >90% ON 5L PER NC. PT COMPLETED ABD U/S. PT EATING AND DRINKING NOW WITHOUT ISSUE. LEFT SUBCLAVIAN TRIPLE LUMEN PICC INTACT AND SALINE LOCKED, DRESSING CHANGED TODAY; ALL PORTS ASPIRATE FOR BLOOD. PT SAT IN BEDSIDE CHAIR WITH FEET ELEVATED MOST OF SHIFT. REFUSED TO GET BACK IN BED - EDUCATED ABOUT NEED TO CHANGE POSITION TO PROTECT SKIN. PT COMMUNCATES UNDERSTANDING BUT PREFERRED TO STAY IN THE CHAIR. FAMILY VISITED ON AND OFF THROUGHOUT SHIFT. REILLY REMAINS IN PLACE, YELLOW DRAINAGE. COLONIC DECOMPRESSION TUBE REMAINS IN PLACE - ORDER TO DC TUBE IN AM. PT HAS DENIED PAIN THROUGHOUT THE SHIFT. PT CURRENTLY RESTING IN CHAIR. FALL PRECAUTIONS IN PLACE. CALL LIGHT IS WITHIN REACH. WCTM FOR DURATION OF SHIFT. HOURLY ROUNDING PERFORMED.
--- NOTE | 2018-02-04 19:50 | NUR ---
RECEIVED REPORT. ASSUMED CARE OF PT AT 0730. PT A&O X4. VSS. O2 SAT 95% ON BIPAP. GEOMORPHOLOGIST IN PLACE TRACINGT SR WITH 1ST DEGREE. AM ASSESSMENT AND VITALS COMPLETED CHARTED. PT NPO FOR ABDOMINAL U/S. PT INFORMED OF PLAN OF CARE, COMMUNCIATES UNDERSTANDING. REILLY IN PLACE WITH YELLOW URINE TO DD. COLONIC DECOMPRESSION TUBE IN PLACE - SCANT BROWN DRAINAGE NOTED. FAMILY AT BEDSIDE. FALL PRECAUTIONS IN PLACE. CALL LIGHT IS WITHIN REACH. WCTM.
[2018-02-04 20:08] VITALS: BP 158/85
[2018-02-05] VITALS: BP 156/79
[2018-02-05 04:00] VITALS: BP 150/74
[2018-02-05 05:17] LABS: ALBUMIN 2.6 g/dL (3.4-5.0); CREATININE 2.8 mg/dL (0.6-1.3); MAGNESIUM 1.9 mg/dL (1.8-2.4); PHOSPHORUS* 2.4 mg/dL (2.5-4.9); POTASSIUM 3.6 mmol/L (3.5-5.1)
--- NOTE | 2018-02-05 05:29 | NUR ---
PT CARE ASSUMED AFTER REPORT. ASSESSMENT COMPLETE. SR/1ST DEGREE/BBB ON MONITOR. O2 5L NC WHILE AWAKE. BIPAP WHILE RESTING. PT WHILE LARGE BM. DECOMPRESSION TUBE CAME OUT WHILE HAVING STOOL. ORDER TO REMOVE TUBE BY 0800 TODAY. DENIES PAIN. FALL PRECAUTIONS IN PLACE INCLUDING BED ALARM. CALL LIGHT IN REACH. BED IN LOWEST POSITION. PROGRESSING TOWARDS GOALS.
[2018-02-05 07:30] VITALS: BP 141/77
[2018-02-05 07:31] VITALS: BP 141/76
--- NOTE | 2018-02-05 07:59 | NUR ---
VSS, ASSUMED CARE IN THE AM ASSESSMENT PERFORMED AND CHARTED, FALL PRECAUTIONS IN PLACE AND CALL LIGHT IN REACH,PT IS ON 5L NC TRACIN SR C BBB AND 1DBK, PT IS UP WITH ONE AND HIS GOAL IS TO SIT UP TO CHAIR AND IMPROVE BREATHING, PT HAS REILLY IN PLACE AND IS DRAINING, WILL FOLLOW WITH PLAN OF CARE.
--- NOTE | 2018-02-05 09:12 | NUR ---
Spoke with Dr Mendoza, Pt should be ready to dc as early as tomorrow. Updated [facility] and asked that they initiate insurance auth for probably dc tomorrow. Faxed updated clinical info and therapy notes. Following.
[2018-02-05 11:07] VITALS: BP 136/72
--- NOTE | 2018-02-05 13:50 | CON ---
[address] [address] CONSULTATION Name: RACHEL ARECHIGA I Room: [address] IN M.R.#: [id number] Admission: 01/24/18 Attend Phys: Jesus Mittal, Discharge: Date of : 38 Report #: [id number] THIS REPORT FOR: //name// CC: Candelario Mittal DATE OF SERVICE: 01/25/2018 NEPHROLOGY CONSULTATION CONSULTING PHYSICIAN: Dr. Jesus Mittal. REASON FOR NEPHROLOGY CONSULTATION: Acute renal failure on CKD stage 4. REASON FOR ADMISSION: Abdominal pain. HISTORY OF PRESENT ILLNESS: This is a very pleasant 77-year-old male who has past medical history of hypertension; CKD stage 4, baseline creatinine is 2.7 to 2.8; diabetes mellitus type 2; history of [place] syndrome and other medical problems and multiple acute kidney injuries in the past. He came into the hospital complaining of constipation, nausea and vomiting and abdominal distention. The patient was also having some cough with yellowish sputum production. Abdominal CAT scan showed evidence of nonobstructive colonic dilatation, which the patient had back in December as well when the patient needed decompressive colonoscopy. He was also found to have a creatinine of 3.9, which is acute elevation for him. He was having some shortness of breath initially on presentation, so he was given a dose of Lasix, but then he was found to have more than 500 mL of urine retained in his bladder, so Dougherty catheter was placed and overnight, he has had about 2300 mL of urine output. His creatinine is down to 3.5. He was also slightly hypoglycemic and was started on IV fluids D5 and half normal saline at 75 mL an hour, starting from yesterday. Currently, he is on BiPAP 40% FIO2. He did have a liquidy bowel movement this morning. His abdomen is still very distended. GI has been consulted on him and Surgery has already evaluated the patient. Surgery has recommended decompressive colonoscopy again. REVIEW OF SYSTEMS: Includes nausea and vomiting and weakness and constipation. Last good bowel movement was 4 days ago. Cough, shortness of breath, yellowish expectoration. Other review of systems done and it was negative. PAST MEDICAL HISTORY: Includes hypertension, diabetes type 2, coronary artery disease, CKD stage 4, acute kidney injury in the past, history of [place] syndrome, history of osteomyelitis and gout. PAST SURGICAL HISTORY: Includes fractures of various sites wrist, left leg; right and left knee surgery, records available; CABG x 5 in 2007 and hip ORIF, [place] [address] CONSULTATION Name: GENIRACHEL I Room: [address] IN [facility]#: [id number] Admission: 01/24/18 Attend Phys: Jesus Mittal, Discharge: Date of : 38 Report #: [id number] right sided. ALLERGIES: No known drug allergies. FAMILY HISTORY: Not relevant to the current situation. SOCIAL HISTORY: Lives at home with his and does not smoke or use recreational drugs or use alcohol. HOME MEDICATIONS: To include doxycycline, Linzess, MiraLax, furosemide 20 mg once a day, Januvia, carvedilol, glipizide, omeprazole, nifedipine, tamsulosin, aspirin, atorvastatin, febuxostat, levothyroxine and potassium chloride. PHYSICAL EXAMINATION: VITAL SIGNS: Blood pressure is 120/67, temperature 36.8, respiratory rate is 16, pulse is 54 and pulse ox 96% on 40% FIO2. GENERAL: He is on a BiPAP right now. He is oriented x 3. HEAD, EYES, EARS, NOSE AND THROAT: Mucous membranes are dry. NECK: No JVD. CHEST: There are bilateral diminished breath sounds, but no crackles or wheezing heard. CARDIOVASCULAR: S1, S2 normal. No murmurs. ABDOMEN: Distended markedly. It is not very soft. Bowel sounds are diminished, not tender. EXTREMITIES: He has 2+ lower extremity edema, which is chronic for him. Symmetrical extremities. NEUROLOGIC: Gross neurologic function is intact. PSYCHIATRIC: Mood and affect seem to be normal. LABORATORY DATA: From 01/25/2018, this morning, hemoglobin is 9.9. Potassium is 3.5, chloride is 105, CO2 is 32, sodium is 142, BUN 33, creatinine 3.5 and glucose is 65. Other labs were reviewed. Blood gas this morning, pH is 7.4, pCO2 is 43 and pO2 is 74.7 on that and HCO3 is 26 on that. Other labs were reviewed. IMAGING: Chest x-ray and abdominal pelvic CT was reviewed. ASSESSMENT AND PLAN: 1. Acute renal failure on chronic kidney disease stage 4. The patient has chronic kidney disease stage 4 likely because of multiple acute kidney injuries and likely because of dehydration in the past, diabetes type 2 and hypertension and now has acute renal failure on top of chronic kidney disease stage 4 and that is because of dehydration again and also urinary retention. Dougherty is placed and the patient is getting IV fluids and creatinine is getting better. The patient would also benefit from decompressive colonoscopy, which will also [address] [address] CONSULTATION Name: RACHEL ARECHIGA I Room: [address] IN [facility]#: [id number] Admission: 01/24/18 Attend Phys: Jesus Mittal, Discharge: Date of : 38 Report #: [id number] help with his renal function because that will cause decreased compression on the kidneys. Creatinine at baseline is 2.7 to 2.8. Creatinine is 3.5 today, down from 3.9. Continue with the same fluids, D5 half at half NS at 75 mL an hour. Bilateral renal cysts were visualized with some bilateral renal atrophy on his abdominal CAT scan. Avoid nephrotoxic agents. Avoid any diuretics right now since his urine output is excellent and he is intravascularly volume depleted. 2. Colonic dilatation and possible obstruction: He possibly most likely will benefit from a decompressive colonoscopy and GI has been consulted. Surgery is also on board. 3. Acute respiratory failure, hypercarbic: This is better now that he is on BiPAP. 4. Diabetes type 2. Blood sugar is running towards the lower side and he is getting D5 with his fluids. I will defer further care to primary team. 5. Hypertension: Blood pressure is currently controlled. Avoid hypotension, try to keep his mean arterial pressure more than 65. 6. Urinary retention: Continue Flomax. It is possible that because of colonic dilatation and constipation, he developed urinary retention. Maintain the Dougherty and Flomax and continue to monitor for now. 7. Hypermagnesemia: Avoid any magnesium-containing laxatives or compounds since the magnesium level is running high, 2.8 today. 8. Dafet-uq-vvunzlp respiratory acidosis and metabolic alkalosis: Former is likely because of sleep apnea and abdominal distention is also probably contributing to it. He also has evidence of bilateral pleural effusions, he is on BiPAP for that and latter is because of intravascular volume depletion and that is why we will continue the fluids for now. Thank you for this consultation. I will continue to follow along with you. <ELECTRONICALLY SIGNED> By: Shea Mills MD 02/05/18 1350 0740 1003Akenneth Mills MD /nt
--- NOTE | 2018-02-05 13:59 | NUR ---
I HAVE REVIEWED THE STUDENT'S CHARTING.
[2018-02-05 15:53] VITALS: BP 138/74
--- NOTE | 2018-02-05 17:47 | NUR ---
VSS, PT IS NOT PROGRESSING TOWARDS GOAL, PT WALKED IN ROOM WITH PHYSICAL THERAPY BUT WAS VERY WEAK, PT SAT UP IN CHAIR FOR LUNCH, PT IS ON 5L NC AND IS TRACING SR C BBB C 1DBK, PT IS UP WITH 2 TO BSC, AND IS A&O3-4, REILLY TRIAL FAILED AND NEW FOLETY WAS INSERTED, HOURLY ROUNDS COMPLETED WILL FOLLOW WITH PLAN OF CARE.
[2018-02-06] VITALS: BP 158/74
[2018-02-06 04:00] VITALS: BP 142/60
[2018-02-06 07:30] VITALS: BP 160/76
--- NOTE | 2018-02-06 11:00 | NUR ---
RECEIVED PT CARE 0700. PT IS ALERT AND ORIENTED X4. VSS. 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 HE IS UP WITH ASSIST X1 AND A WALKER AND GAIT BELT. O2 ON 5L PER NC. O2 SAT 93% ON 5L NC. HE DENIES ANY PAIN. PLANNING FOR DC TO [facility] TODAY. CASE MANAGEMENT FOLLOWING.
[2018-02-06 12:00] VITALS: BP 148/61
--- NOTE | 2018-02-06 12:21 | NUR ---
Pt discharging to [facility] skilled today, facility to [facility] at 330pm. Faxed dc orders and bipap settings. Updated Pt's dtr in room. Nurse report number provided, . Chart copied.
[2018-02-06] MEDS ORDERED: ERYTHROMYCIN250 M1 PO (13:11)
[2018-02-06] MEDS ORDERED: ALBUTEROL2.5 MG/31 INH (13:12)
[2018-02-06 13:32] VITALS: BP 148/61
[2018-02-06] MEDS ORDERED: REGLAN 10 MG TA10 MG PO (14:50)
--- NOTE | 2018-02-06 16:13 | NUR ---
RECEIVED DISCHARGE ORDERS PER DR GUILLAUME. CONSULTS OK WITH DC TODAY. DISCUSSED MOTILITY MEDICATIONS FOR DISCHARGE WITH GI AND A OK TO RESUME LINZESS AFTER DC. CALLED REPORT TO MAMTA AT [facility]. CENTRAL LINE DC'D FROM PATIENTS LEFT CHEST. GAUZE AND TEGADERM APPLIED TO SITE. FURNITURE REMOVALIST REMOVED AND RETURNED TO NURSE'S DESK. ALL BELONGINGS PACKED AND LEAVING WITH PATIENT. NO QUESTIONS OR CONCERNS AT DISCHARGE.
[2018-09-09] MEDS ORDERED: NORCO 5-325 TA1 EACH PO (14:44)
== END 2018-02-06 16:17 | DRG 177 ==
LOC: M.ERS 10:42 → M.2W 12:50 → M.TBA-ER 12:50 → M.ICU 12:50 → M.2W 01-25 19:20
PROVIDERS: Emergency Medicine; Internal Medicine; Internal Medicine Cardiovascular Disease; Internal Medicine Gastroenterology; Internal Medicine Nephrology; Internal Medicine Pulmonary Disease; ADMIT Family Medicine
PROC: 02HV33Z Insertion of Infusion Device into Superior Vena Cava, Percutaneous Approach (ICD-10-PCS; principal; 2018-01-24)
PROC: 0D7E8ZZ Dilation of Large Intestine, Via Natural or Artificial Opening Endoscopic (ICD-10-PCS; 2018-01-27)
PROC: B24BZZ4 Ultrasonography of Heart with Aorta, Transesophageal (ICD-10-PCS; 2018-01-28)
PROC: 0D7L8ZZ Dilation of Transverse Colon, Via Natural or Artificial Opening Endoscopic (ICD-10-PCS; 2018-01-31)
DX: J69.0 Pneumonitis due to inhalation of food and vomit (principal); J96.22 Acute and chronic respiratory failure with hypercapnia; N18.4 Chronic kidney disease, stage 4 (severe); N17.9 Acute kidney failure, unspecified; K59.39 Other megacolon; E87.2 Acidosis; E87.3 Alkalosis; Z68.42 Body mass index [BMI] 45.0-49.9, adult; I50.30 Unspecified diastolic (congestive) heart failure; K56.7 Ileus, unspecified; I13.0 Hypertensive heart and chronic kidney disease with heart failure and stage 1 through stage 4 chronic kidney disease, or unspecified chronic kidney disease; R00.1 Bradycardia, unspecified; E66.01 Morbid (severe) obesity due to excess calories; E78.00 Pure hypercholesterolemia, unspecified; G47.33 Obstructive sleep apnea (adult) (pediatric); I87.8 Other specified disorders of veins; E11.649 Type 2 diabetes mellitus with hypoglycemia without coma; K57.30 Diverticulosis of large intestine without perforation or abscess without bleeding; K64.8 Other hemorrhoids; I25.10 Atherosclerotic heart disease of native coronary artery without angina pectoris; J44.9 Chronic obstructive pulmonary disease, unspecified; E87.6 Hypokalemia; E89.0 Postprocedural hypothyroidism; M10.9 Gout, unspecified; R33.9 Retention of urine, unspecified; E83.41 Hypermagnesemia; E11.22 Type 2 diabetes mellitus with diabetic chronic kidney disease; M19.90 Unspecified osteoarthritis, unspecified site; Z96.643 Presence of artificial hip joint, bilateral; Z95.1 Presence of aortocoronary bypass graft; Z87.81 Personal history of (healed) traumatic fracture; Z79.82 Long term (current) use of aspirin; Z79.899 Other long term (current) drug therapy; Z82.49 Family history of ischemic heart disease and other diseases of the circulatory system; Z80.8 Family history of malignant neoplasm of other organs or systems

== ENCOUNTER 2018-02-18 16:56 | Inpatient (IN) | payer OTHER, MEDICARE ==
[~2018-02-18] VITALS: Ht 190.5 cm; Wt 146.1 kg
--- NOTE | ~2018-02-18 | PROC ---
[address] [address] PROCEDURE REPORT Name: RACHEL ARECHIGA I Room: [address] IN M.R.#: [id number] Admission: 02/18/18 Attend Phys: Marnie Stokes Discharge: Date of : 38 Report #: [id number] THIS REPORT FOR: //name// For GI report, please see the provation report in Perceptive 7 content. By: 0649Medical Records Staff RENETTA /RUFUS
[~2018-02-18 16:56] MED LIST changes: +ALBUTEROL2.5 MG/31 INH; +ERYTHROMYCIN250 M1 PO; +LINZESS145 MCG PO; +MIRALAX17 GM PO; +REGLAN 10 MG TA10 MG PO
[2018-02-18 17:02] VITALS: BP 136/68
[2018-02-18 17:33] LABS: MCH 31.2 pg (26.0-34.0); MCHC 32.6 g/dL (28.0-37.0); MCV 95.6 fL (80.0-100.0); MPV 7.6 fl. (7.2-11.1); NUCLEATED RBCS 0 /100WBC; PLATELET COUNT* 350 thou/uL (150-400); RBC 2.08 mil/uL (4.50-6.00); RDW-CV 17.5 % (10.5-14.5); WBC 7.9 thou/uL (4.0-11.0)
[2018-02-18 17:36] LABS: HEMOGLOBIN 6.5 gm/dL (14.0-18.0)
[2018-02-18 17:37] LABS: HEMATOCRIT 19.9 % (42.0-52.0)
[2018-02-18 17:41] LABS: ABSOLUTE BASOPHILS 0.1 thou/uL (0.0-0.2); ABSOLUTE EOSINOPHILS 0.1 thou/uL (0.0-0.7); ABSOLUTE LYMPHOCYTES 2.1 thou/uL (0.8-5.3); ABSOLUTE MONOCYTES 0.8 thou/uL (0.0-1.2); ABSOLUTE NEUTROPHILS 4.8 thou/uL (1.6-8.1); BASOPHILS 0.7 %; CALCIUM 8.1 mg/dL (8.5-10.1); CREATININE 2.9 mg/dL (0.6-1.3); EOSINOPHILS 1.7 %; LYMPHOCYTES 26.3 %; MONOCYTES 10.2 %; POLYS 61.1 %; POTASSIUM 3.2 mmol/L (3.5-5.1)
[2018-02-18 17:42] LABS: APTT 26.6 Seconds (25.0-31.3); INR 1.1; PROTIME 10.7 Seconds (9.20-11.50)
[2018-02-18 17:45] LABS: ALBUMIN 2.7 g/dL (3.4-5.0); TOTAL BILIRUBIN 0.4 mg/dL (<0.1-1.0); TOTAL PROTEIN 5.5 g/dL (6.4-8.2)
[2018-02-18 18:32] VITALS: BP 136/66
--- NOTE | 2018-02-18 18:47 | NUR ---
pt arrived on the floor from er. report taken from mela. fall contract and pt rights signed. vitals taken. pt is a&o with no c/o pain.
[2018-02-18 18:49] VITALS: BP 135/67
--- NOTE | 2018-02-18 19:58 | NUR ---
MEL RESTING IN BED. REPORT GIVEN TO NIGHT RN. PATIENT TACHYCARDIC ON MONIOTR. LOWER EXTREMITY WOUNDS BILATERALLY ON ADMISSION. PHOTOGRAPHS TO BE TAKEN BY NIGHT RN. RETA BROUGHT HOME MEDICATIONS FOR RECONCILIATION AT SHIFT CHANGE. MEL HAS EXPRESS THE DESIRE TO BE DNR, MD NOTIFIED THROUGH YOU CALL. CONSULTS CALLED. HOURLY ROUNDING COMPLETED FOR PATIENT SAFETY.
[2018-02-18 20:48] LABS: % SATURATION 5 % (20-39); IRON 14 ug/dL (50-175)
[2018-02-18 22:33] VITALS: BP 143/73; BP 149/74; BP 151/68; BP 173/80
--- NOTE | 2018-02-19 01:31 | NUR ---
PATIENT ADMITTED PRIOR TO THIS SHIFT. ADMITTED FOR BLOOD TRANSFUSION. ONE UNIT ORDERED AND COMPLETE. VSS. DENIES COMPLAINTS OTHER THAN UNCOMFORTABLE IN BED. TYLENOL GIVEN WITH EFFECTIVE RELIEF. LOWER AND UPPER EXT EDEMA. PATIENT REPORTS HASN'T BEEN WEARING O2 UNTIL JUST PRIOR TO ADMISSION. USING URINAL AT BS. SOME COMPLAINTS OF TURNING BUT COMPLIANT. BED IN LOW POSOSTION. CALL LIGHT IN REACH. BED ALARM ON. NO SIGN OF DISTRESS. WILL CONT. WITH PLAN OF CARE.
[2018-02-19 03:59] VITALS: BP 153/77
--- NOTE | 2018-02-19 04:52 | NUR ---
PATIENT HAS BEEN AWAKE MOST OF NIGHT. ASSIST WITH TURNING EVERY 2 HOURS. BED IN LOW POSITION, CALL LIGHT IN REACH. BED ALARM ON. CONT. O2 LITERS NC. IVF NS AT 50 HOUR. NO SIGN OF DISTRESS.
[2018-02-19 04:57] LABS: HEMATOCRIT 21.5 % (42.0-52.0); HEMOGLOBIN 7.2 gm/dL (14.0-18.0); MCH 31.4 pg (26.0-34.0); MCHC 33.5 g/dL (28.0-37.0); MCV 93.8 fL (80.0-100.0); MPV 8.1 fl. (7.2-11.1); RBC 2.3 mil/uL (4.50-6.00); RDW-CV 17.2 % (10.5-14.5); WBC 9.4 thou/uL (4.0-11.0)
[2018-02-19 05:12] LABS: CREATININE 2.6 mg/dL (0.6-1.3); POTASSIUM 3.5 mmol/L (3.5-5.1)
--- NOTE | 2018-02-19 06:18 | NUR ---
PLACED CALL WITH BOTTLE FILLER PHYSICIAN, NEW ORDERS NOTED FOR LABORED BREATHING.
[2018-02-19 08:00] VITALS: BP 157/84
--- NOTE | 2018-02-19 10:00 | NUR ---
ASSUMED RESPONSIBILITY OF PT THIS AM PT IS ALERT AND ORIENTED BUT VERY DROWSY DENIES ANY PAIN M/S STATUS HRIR IN THE 70S CALLED PLAN TO GO BACK TO [facility] WITH WALKER THERE BUT FATIGUED EASILY HGB AT 7.2 PLAN FOR GI PROCEDURE TOMORROW HX OF ULCERS CALL LIGHT IN REACH USES URINAL LASIX GAVE X2 THIS AM
--- NOTE | 2018-02-19 10:09 | EKG ---
[place] [address] ELECTROCARDIOGRAM REPORT Name: RACHEL ARECHIGA I Room: [address] ADM IN M.R.#: [id number] Admission: 02/18/18 Attend Phys: Marnie Stokes Discharge: Date of : 38 Report #: [id number] THIS REPORT FOR: //name// [facility] ED Test Date: 2018-02-18 Test Time: 17:30:32 Pat Name: RACHEL GROVERIEN Department: Room: [facility] Gender: M Teller Head: UNKNOWN : 1940 Requested By: Alexandria Holt Order Number: [id number] MD: Sriram Ramon Measurements Intervals [place] Rate: 81 P: -76 ME: 258 QRS: -9 QRSD: 153 T: -3 QT: 441 QTc: 512 Interpretive Statements Sinus or ectopic atrial rhythm Prolonged ME interval Right bundle branch block Baseline wander in lead(s) V1 Compared to ECG 01/28/2018 23:03:56 Myocardial infarct finding no longer present Electronically Signed On 02-19-2018 10:09:01 CDT by Sriram Ramon [email or web address] <ELECTRONICALLY SIGNED> By: Sriram Ramon MD, [facility] 02/19/18 1009 1730 1730 Sriram Ramon MD, [facility] /EPI
--- NOTE | 2018-02-19 12:29 | NUR ---
CM ASSESSMENT: Pt is A&O. Pt known to this CM from previous hospital stay. Pt recently dc from this hospital to [facility] on 02/06/18, plan is for him to return there once medically stable. Prior to that Pt resided at home with his . continues to work outside of the home. Pt uses a walker for mobility. Hx of CHCS. Supportive family that is involved in POC. Hx of acute rehab. Plan is for Pt to return to [facility] at hi. GI following, EGD/colon planned for tomorrow.
[2018-02-19 16:00] VITALS: BP 154/90
--- NOTE | 2018-02-19 19:19 | NUR ---
ASSUMED CARE OF PT AT APPROXIMATELY 1530. THIS RN AGREES WITH PREVIOUS BLANKET WEAVER. PT RESTING IN RECLINER THIS AFTERNOON WITH AT BEDSIDE. PT ON BOWEL PREP-GO LYTELY FOR EGD AND COLONOSCOPY IN AM. PT NPO AFTER MIDNIGHT. PT DROWSY THIS AFTERNOON. PT MED SURG STATUS. PT ON 2L NC SAT UPPER 90'S. DENIES ANY SHORTNESS OF BREATH. PT UP WITH 1 ASSIST WALKER TO BATHROOM. MEDICATIONS PER MAR. PT REPOSITIONS SELF WITH REMINDERS. HOURLY ROUNDING OBSERVED. BED IN LOW POSITION. BED ALARM IN PLACE. FALL PRECAUTIONS IN PLACE. CALL LIGHT WITHIN REACH. WILL CONTINUE PLAN OF CARE.
[2018-02-19 20:00] VITALS: BP 160/79
--- NOTE | 2018-02-19 23:34 | NUR ---
ALERT AND ORIENTED X 4, UP WITH ASSIST ON ONE STAFF TO BS COMMODE. PATIENT HAS COMPLETED GOLYTELY, AND HAVING LOOSE STOOLS X 2. SITTING UP IN RECLINER IN ROOM. DENIES COMPLAINTS OF PAIN OR DISCOMFORT. NO SIGN OF DISTRESS. CALL LIGHT IN REACH. CHAIR ALARM IN PLACE. CONT. [place] PLAN OF CARE AT THIS TIME.
[2018-02-20 03:51] LABS: ABSOLUTE BASOPHILS 0.1 thou/uL (0.0-0.2); ABSOLUTE EOSINOPHILS 0.2 thou/uL (0.0-0.7); ABSOLUTE LYMPHOCYTES 1.6 thou/uL (0.8-5.3); ABSOLUTE MONOCYTES 0.7 thou/uL (0.0-1.2); BASOPHILS 0.8 %; EOSINOPHILS 3.1 %; HEMATOCRIT 21.3 % (42.0-52.0); HEMOGLOBIN 7.1 gm/dL (14.0-18.0); LYMPHOCYTES 24.8 %; MCH 31.1 pg (26.0-34.0); MCHC 33.3 g/dL (28.0-37.0); MCV 93.5 fL (80.0-100.0); MONOCYTES 11.2 %; MPV 7.9 fl. (7.2-11.1); NUCLEATED RBCS 0 /100WBC; PLATELET COUNT* 342 thou/uL (150-400); POLYS 60.1 %; RBC 2.28 mil/uL (4.50-6.00); RDW-CV 17.2 % (10.5-14.5); WBC 6.6 thou/uL (4.0-11.0)
[2018-02-20 03:58] LABS: CALCIUM 8.1 mg/dL (8.5-10.1); CREATININE 2.4 mg/dL (0.6-1.3)
[2018-02-20 04:00] VITALS: BP 152/71
--- NOTE | 2018-02-20 06:39 | NUR ---
PATIENT SLEEPING THROUGHOUT NIGHT. MULTIPLE STOOLS DUE TO BOWEL PREP. DENIES SOA, PAIN OR DISCOMFORT, WILL CONT. TO MONITOR.
[2018-02-20 07:35] VITALS: BP 158/76
[2018-02-20 07:41] VITALS: BP 152/71
--- NOTE | 2018-02-20 12:10 | NUR ---
Nutrition: Pt was recently here with ileus. Discharged to [facility]. Now admitted for anemia. Had EGD and colonoscopy this morning. Advanced to [facility]D now. RX: albuterol, insulin, lasix. Consult received for "Diabetes." Labs: A1c 5.3%, BG 215, alb 2.7, K+ 3. H/o: DM, CABG, CAD, CKD. Pt appears at mild risk at this time. A1c is 5.3%. Wt is stable at 322#.
--- NOTE | 2018-02-20 14:33 | NUR ---
Faxed referral to [facility] and asked that they begin working on insurance auth tomorrow, for potential weekend dc. Fax updated PT note in AM when available.
[2018-02-20 16:00] VITALS: BP 155/77
--- NOTE | 2018-02-20 18:00 | NUR ---
ASSUMED CARE O FPATIENT AFTER MORNING REPORT. ALERT AND ORIENTED X4. ASSESSMENT COMPLETED AND CHARTED. VSS ON 2 LITERS 02. PATIENT HAS HAD NO SOMPLAINTS OF PAIN OR NAUSEA THIS SHIFT. PATIENT HAS POTASSIUM RUNNING IV AT THE BEGINNING OF SHIFT, LABS WERE ORDERED AND CAME BACK CRITICAL AT 2.7. 2 MORE BAGS OF POTASSIUM HUNG AND INFUSING NOW. PATIENT IS RESTING COMFORTABLY IN HIS CHAIR WITH IN THE ROOM. HOURLY ROUNDS MAINTAINED, CALL LIGHT WITHIN REACH. NIRSING WILL CONTINUE TO MONITOR.
[2018-02-20 21:34] VITALS: BP 135/78
--- NOTE | 2018-02-21 00:13 | NUR ---
PATIENT BROUGHT TO UNIT AT APPROXIMATELY 2130 FROM TELEMETRY NURSE. REPORT GIVEN FROM NIGHT TELEMETRY NURSE AND ADMITTED TO ORTHO UNIT.PATIENT IS ALERT AND ORIENTED X 4. VSS ON 2L 02 VIA NASAL CANNULA. NURSE AGREES WITH PRIOR NURSE'S ASSESSMENT AND REPORT. PATIENT ORIENTED TO ROOM. PATIENT INSTRUCTED TO USE CALL LIGHT WHEN NEEDING ASSISTANCE AND HOURLY ROUNDS TO BE MADE. WILL CONTINUE WITH PLAN OF CARE AND NURSING TO MONITOR.
[2018-02-21 04:49] LABS: ABSOLUTE BASOPHILS 0.1 thou/uL (0.0-0.2); ABSOLUTE EOSINOPHILS 0.2 thou/uL (0.0-0.7); ABSOLUTE LYMPHOCYTES 1.7 thou/uL (0.8-5.3); ABSOLUTE MONOCYTES 0.6 thou/uL (0.0-1.2); ABSOLUTE NEUTROPHILS 4.2 thou/uL (1.6-8.1); BASOPHILS 0.8 %; EOSINOPHILS 3.5 %; HEMATOCRIT 20.9 % (42.0-52.0); LYMPHOCYTES 25.2 %; MCH 30.6 pg (26.0-34.0); MCHC 32.6 g/dL (28.0-37.0); MONOCYTES 9.4 %; MPV 8.2 fl. (7.2-11.1); NUCLEATED RBCS 0 /100WBC; PLATELET COUNT* 307 thou/uL (150-400); POLYS 61.1 %; RBC 2.23 mil/uL (4.50-6.00); RDW-CV 17.3 % (10.5-14.5); WBC 6.9 thou/uL (4.0-11.0)
[2018-02-21 05:02] LABS: HEMOGLOBIN 6.8 gm/dL (14.0-18.0)
[2018-02-21 05:07] LABS: ALBUMIN 2.4 g/dL (3.4-5.0); CALCIUM 8.2 mg/dL (8.5-10.1); CREATININE 2.2 mg/dL (0.6-1.3); POTASSIUM 3.5 mmol/L (3.5-5.1); TOTAL BILIRUBIN 0.6 mg/dL (<0.1-1.0)
[2018-02-21 08:33] VITALS: BP 150/80
--- NOTE | 2018-02-21 08:59 | NUR ---
PATIENT WAS RESTLESS OFF AND ON DURING THE NIGHT. PATIENT UP TO CHAIR IN THE EARLY AM HOURS. PATIENT REMAINED NPO SINCE MIDNIGHT. NO BM NOTED. CALLED WITH CRITICAL HGB THIS AM AND NEW ORDERS GIVEN TO TRANSFUSE [address] LUNSFORD ALSO CALLED THIS AM TO NOTIFY HIM REGARDING THE PATIENT NOT HAVING ANY BM'S DURING THE SHIFT WELL INFORMING HIM OF CRITICAL HGB WELL. DR. LUNSFORD GAVE NEW ORDER TO INFUSE AN ADDITIIONAL 1 UNIT OF BLOOD TO TOTAL 2 UNITS OF BLOOD. VSS ON 2L 02 VIA NASAL CANNULA. IV IN RIGHT AC-SL PATIENT INSTRUCTED TO USE CALL LIGHT WHEN NEEDING ASSISTANCE. HOURLY ROUNDS MADE. FALL PRECAUTIONS IN PLACE. WILL CONTINUE WITH PLAN OF CARE AND NURSING TO CONTINUE TO MONITOR.
[2018-02-21 10:20] VITALS: BP 134/52; BP 142/82; BP 148/77; BP 158/82
--- NOTE | 2018-02-21 13:14 | NUR ---
ASSUMED CARES OF PT AT 0700. PT IN RECLINER CHAIR NEXT TO BED, CHAIR ALARM IN PLACE AND ACTIVE. CALL BUTTON AND PERSONAL ITEMS IN PT REACH. FALL PRECAUTIONS IN PLACE. PT A&O X4, IRREGULAR HR PER AUSCULTATION, LUNGS CLEAR TO DIMINISHED PER AUSCULTATION. VSS ON 2L O2 NC. +2 PITTING EDEMA IN LE. PT UP ONE - TWO ASSIST WITH WALKER. PT USES URINAL, CLEAR LIGHT YELLOW URINE. RIGHT AC IV PATENT AND RECEIVING FIRST UNIT OF TWO UNITS OF BLOOD, O POSITIVE. PT NPO FOR POSSIBLE EGD/COLONOSCOPY. HOURLY ROUNDING AND ACCU CHECKS CONTINUE. PT COOPERATIVE AND PLEASANT. PT PROGRESSING TOWARDS GOAL, PT DENIES PAIN AT THIS TIME. WILL CONTINUE TO MONITOR PT PROGRESS AND STATUS.
[2018-02-21 14:16] VITALS: BP 134/52
[2018-02-21 14:59] VITALS: BP 134/52; BP 145/85; BP 146/91; BP 152/89; BP 152/94; BP 93/36
[2018-02-21 22:00] VITALS: BP 154/77
--- NOTE | 2018-02-21 22:27 | NUR ---
REPORT TO ANALYTICS DIRECTOR FOR CONTINUED CARES. PT COMPLETED 2 UNITS OF BLOOD, TOLERATED, NO AVR. PT DENIES PAIN. PT COOPERATIVE AND FRIENDLY. RETURNED TO REGULAR DIET. VS REMAIN STABLE. EGD AND COLONOSCOPY COMPLETED, SEE DR. LEIGH. NO BLEEDING SOURCE WAS FOUND. PT PROGRESSING TOWARDS GOAL. HOURLY ROUNDING COMPLETED.
[2018-02-21 23:51] VITALS: BP 151/76
--- NOTE | 2018-02-21 23:52 | H ---
[place] [address] HISTORY AND PHYSICAL Name: RACHEL ARECHIGA I Room: [address] IN .R.#: [id number] Admission: 02/18/18 Attend Phys: Marnie Stokes Discharge: Date of : 38 Report #: [id number] THIS REPORT FOR: //name// CC: Dr. Philip Kimble DATE OF SERVICE: 02/18/2018 CHIEF COMPLAINT: "They sent me here because my blood was low." HISTORY OF PRESENT ILLNESS: The patient is a 77-year-old gentleman who was recovering in the [facility] facility in [place] and was sent here because of low hemoglobin that was checked in the alf. Per report of the nurse, the patient apparently had a hemoglobin of 5.2 when they checked it. They had to recheck it as the hemoglobin apparently was around 5.7, it was 6.7 yesterday. The patient denies any bleeding, denies any abdominal pain. He denies any weakness. He does not feel anything. The patient was seen in the Emergency Department and labs drawn had hemoglobin 6.5, so he is going to be admitted for blood transfusion. PAST MEDICAL HISTORY AND PAST SURGICAL HISTORY: Includes elbow surgery, knee surgery, hypertension, diabetes, arrhythmia, thyroid cancer, ORIF, acute respiratory infection, constipation, iron deficiency anemia, VSD, CKD stage 3, gouty arthritis and CAD. He also had some chronic knee infection, post DKA, status post decompression. He has diabetes, chronic venous stasis, bradycardia, macular degeneration, morbid obesity and hypothyroidism. FAMILY HISTORY: The patient does not really know, he wanted me to ask the who just left. MEDICATIONS: Home medications included Linzess, Lasix, omeprazole, tamsulosin, MiraLax, erythromycin, albuterol, metoclopramide, aspirin, atorvastatin ____ levothyroxine and potassium chloride. ALLERGIES: No known drug allergies. SOCIAL HISTORY: He lives with , but then was just recently discharged and has been in the alf. He was discharged the last time for uvuvs-zz-uqfpnwj respiratory failure and atelectasis. REVIEW OF SYSTEMS: The patient denies any fever or chills. He feels fine. His hemoglobin is low per report. Otherwise, the patient feels okay. Denies any nausea, vomiting, abdominal pain or constipation. A 12-point review of systems is unremarkable [place] [address] HISTORY AND PHYSICAL Name: RACHEL ARECHIGA I Room: [address]#: [id number] Admission: 02/18/18 Attend Phys: Marnie Stokes Discharge: Date of : 38 Report #: [id number] PHYSICAL EXAMINATION: VITAL SIGNS: Temperature is 36.7, heart rate 90, respiratory rate 18, blood pressure 135/67 and 96% on room air. GENERAL: The patient is alert. He is oriented x 3, not in acute respiratory distress. HEENT: Normocephalic and atraumatic. Nares patent. Clear pharynx. NECK: Supple. No lymphadenopathy. CARDIOVASCULAR: Normal rate, regular rhythm. No murmurs noted. RESPIRATORY: Clear to auscultation bilaterally. No crackles. GASTROINTESTINAL: Abdomen is soft, nontender. Good bowel sounds. No organomegaly. GENITOURINARY: Deferred. MUSCULOSKELETAL: Good strength. NEUROLOGIC: Grossly normal. PSYCHIATRIC: The patient is calm and cooperative. LABORATORY DATA: Labs reviewed and CBC showed hemoglobin 6.5, from the alf was 5.7; hematocrit is 19.9 and platelets are 350. Coags are unremarkable. Chemistry showed sodium 142, potassium is 3.2, chloride is 104, bicarbonate is 31, anion gap 7, BUN 31, creatinine is 2.9, glucose is 183 and calcium is 8.1. Iron studies are pending. Total bilirubin is 0.4. AST 18, ALT is 28, alkaline phosphatase 121 and albumin 2.7. Previous creatinine of this patient was 2.8 which is above baseline. IMAGING STUDIES: None. IMPRESSION: 1. The patient is a 77-year-old gentleman, who presented to us here from the alf secondary to kycyc-an-hvodfpp anemia. 2. Known coronary artery disease. 3. Hypertension and diabetes. 4. Hypokalemia. 5. Chronic kidney disease stage 3. 6. Gouty arthritis. 7. VSD. 8. Recent respiratory failure. 9. History of chronic knee infection. 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 We will start him on a diet and n.p.o. post midnight. We will start him on a PPI. GI has been consulted. He was just recently admitted and noted to have celena's on last admission but no bleeding. We will transfuse him with 1 unit and repeat labs in the morning. I will also add iron studies. We will replete his potassium. Discussed with the patient regarding code status and he wants a full code. <ELECTRONICALLY SIGNED> By: Nanette Swift MD 02/21/182351 21 2117Nanette Swift MD /HOANG
[2018-02-22 04:12] LABS: HEMATOCRIT 24.9 % (42.0-52.0); HEMOGLOBIN 8.4 gm/dL (14.0-18.0); MCH 30.9 pg (26.0-34.0); MCHC 33.6 g/dL (28.0-37.0); MCV 91.9 fL (80.0-100.0); MPV 8.2 fl. (7.2-11.1); RBC 2.71 mil/uL (4.50-6.00); RDW-CV 16.4 % (10.5-14.5); WBC 7.2 thou/uL (4.0-11.0)
[2018-02-22 04:26] LABS: ALBUMIN 2.5 g/dL (3.4-5.0); CALCIUM 8.3 mg/dL (8.5-10.1); CREATININE 2.2 mg/dL (0.6-1.3); MAGNESIUM 2.6 mg/dL (1.8-2.4); POTASSIUM 3.3 mmol/L (3.5-5.1)
--- NOTE | 2018-02-22 05:19 | NUR ---
ALERT AND ORIENTED. NO C/O PAIN. O2 DECREASED TO 2L/NC AND LAST O2 SAT 97%. NO C/O SOA. CALL LIGHT WITHIN REACH. PROGRESSING TOWARD DISCHARGE GOAL.
[2018-02-22 09:00] VITALS: BP 127/73
[2018-02-22 16:26] VITALS: BP 136/63
--- NOTE | 2018-02-22 20:27 | NUR ---
ASSUMED CARES OF PT AT 0700. PT IN BED, BED IN LOW LOCKED POSITION. CALL BUTTON AND PERSONAL ITEMS IN PT REACH. PT A&O X4, HR IRREGULAR PER AUSCULTATION, LUNGS CLEAR TO DIMINISHED PER AUSCULTATION. PT URINATES IN URINAL, CLEAR, LIGHT YELLOW URINE, OUTPUT WNL. LE EDEMA +2 PITTING. PT DENIES PAIN THIS SHIFT. SCD'S WORN WHILE IN BED, PT SPENT MUCH OF DAY IN RECLINER, MORE COMFORTABLE FOR HIS BACK HE STATES. VSS ON 2L O2 NC. HOURLY ROUNDING AND ACCU CHECKS COMPLETED. GI SIGNED OFF. K+ REPLACED AND WNL. PT NEEDS TO BE UP HIGH TO EAT/DRINK, POSSIBLE ASPIRATION RISK. PT PROGRESSING TOWARDS GOAL. PT UP GAIT BELT/WALKER WITH ONE ASSIST. REPORT TO TOBACCO BUYER FOR CONTINUED CARES. PT PLEASANT AND COOPERATIVE.
[2018-02-22 22:00] VITALS: BP 162/85
[2018-02-23 04:06] LABS: HEMATOCRIT 25.5 % (42.0-52.0); HEMOGLOBIN 8.5 gm/dL (14.0-18.0); MCH 30.9 pg (26.0-34.0); MCHC 33.3 g/dL (28.0-37.0); MCV 92.6 fL (80.0-100.0); MPV 8.1 fl. (7.2-11.1); RBC 2.76 mil/uL (4.50-6.00); RDW-CV 16.5 % (10.5-14.5); WBC 7.5 thou/uL (4.0-11.0)
--- NOTE | 2018-02-23 04:49 | NUR ---
ALERT AND ORIENTED X4. UP WITH 1 ASSIST TO RECLINER THIS AM. REMAINS ON O2 AT 2L/NC TO KEEP O2 SAT AT 97%. NO C/O N/V OR PAIN. HAS NOT HAD BOWEL MOVEMENT THIS SHIFT. CALL LIGHT WITHIN REACH. PROGRESSING TOWARD DISCHRAGE GOAL.
[2018-02-23 06:13] LABS: CALCIUM 8.2 mg/dL (8.5-10.1); CREATININE 2.3 mg/dL (0.6-1.3); MAGNESIUM 2.6 mg/dL (1.8-2.4); POTASSIUM 3.6 mmol/L (3.5-5.1)
[2018-02-23 06:15] VITALS: BP 156/86
[2018-02-23 08:30] VITALS: BP 159/80
--- NOTE | 2018-02-23 11:12 | NUR ---
ASSUMED CARES OF PT AT 0700. PT IN BEDSIDE RECLINER FOR COMFORT AND SLEEP. CHAIR ALARM ACTIVE. PT A&O X4, HEART RHYTHM IRREGULAR PER AUSCULTATION, HR WNL (80 BPM), URINAL WITH CLEAR/LIGHT YELLOW URINE, OUTPUT WNL. VSS ON 2L O2 NC, AFEBRILE, PERRLA, SCATTERED BRUISES, SCARS. EDEMA IN LE +2 PITTING. SCD'S WORN WHILE IN BED, PILLOW UNDER ANKLES AND FEET IN RECLINER CHAIR. LEFT FA IV PATENT TO FLUSH, NO S/S OF INFECTION. PT DENIES PAIN. HOURLY ROUNDING, ACCU CHECKS AND Q2 TURNS CONTINUE. LCTAB/DIMINISHED, ABD SOFT TO PALAPTION, ACTIVE BOWELS ALL FOUR QUADRANTS. PT FRIENDLY, COOPERATIVE, POSSIBLE ASPIRATION RISKS. PT SAT UP HIGH TO EAT, DRINK AND TAKE MEDS. PT UP 1-2 ASSIST WITH GB AND WALKER. PT PROGRESSING TOWARDS GOAL. WILL CONTINUE TO MONITOR PT STATUS.
[2018-02-23 17:23] VITALS: BP 159/78
--- NOTE | 2018-02-23 19:58 | CON ---
[address] [address] CONSULTATION Name: RACHEL ARECHIGA I Room: [address] IN M.R.#: [id number] Admission: 02/18/18 Attend Phys: Marnie Stokes Discharge: Date of : 38 Report #: [id number] THIS REPORT FOR: //name// CC: Dr. Candelario Kimble DICTATED BY: Kathie SMITHP DATE OF SERVICE: 02/19/2018 PRIMARY CARE PHYSICIAN: Dr. Candelario Palacios. Please note at the time of this dictation, the patient was seen and physically examined by myself. REASON FOR CONSULTATION: Anemia, acute. HISTORY OF PRESENT ILLNESS: This is a 77-year-old male who had been at a [facility] facility in [place]. When they went to check his hemoglobin, it was noted that his hemoglobin was 5.2. They rechecked, it was noted to be 5.7, so he was sent over here to the ER. The patient, at that time, denied any nausea or vomiting. He was complaining at the time of consultation of some abdominal discomfort, more in the epigastric, but also points down to the more umbilical area as well. He denies any bright red blood or any melanotic stools. He states his bowels have been going at least once or twice a day, but he has not seen his stools nor has the nursing staff mentioned to him about any abnormality of his stools. The patient was just recently discharged from here and sent to rehabilitation. He has had a previous colonoscopy, but due to a poor prep, when we placed a decompression tube due to his Celena syndrome, it was only noted that he had some diverticulosis as well as some nonbleeding hemorrhoids at that time. He did have an EGD back in 1996 that showed diffuse gastric erythema and a shallow anterior duodenal ulcer at the bulb that was 7 mm in diameter. He denies any NSAID use at this time. ALLERGIES: No known drug allergies. MEDICATIONS: From home include Linzess, Lasix, omeprazole, tamsulosin, MiraLax, erythromycin, albuterol, metoclopramide, aspirin, atorvastatin, levothyroxine and potassium chloride. PAST MEDICAL HISTORY: Significant for diabetes, hypertension and arrhythmia. He has had a history of thyroid cancer, constipation, iron-deficiency anemia, chronic kidney disease stage 3, gouty arthritis and coronary artery disease. PAST SURGICAL HISTORY: Includes elbow surgery and knee [place] [address] CONSULTATION Name: RACHEL ARECHIGA I Room: [address]#: [id number] Admission: 02/18/18 Attend Phys: Marnie Stokes Discharge: Date of : 38 Report #: [id number] noted that patient is morbidly obese. FAMILY HISTORY: Noncontributory. SOCIAL HISTORY: Prior to [facility], he was living with his . Denies any alcohol, tobacco or illegal drug use at this time. REVIEW OF SYSTEMS: Twelve-point review of systems is essentially negative, except what is mentioned in the HPI. PHYSICAL EXAMINATION: VITAL SIGNS: Temperature 37, pulse 79, respirations 21 and blood pressure 157/84. HEART: Regular rate and rhythm. LUNGS: Clear. ABDOMEN: Soft. Positive bowel sounds in all 4 quadrants, with no masses or tenderness noted, but noted to be very rotund. LABORATORY DATA: Hemoglobin on admission was 6.5, he got a unit of blood, he is up to 7.2; hematocrit 21.5; white count is 9.4 and platelets 339,000. Sodium 142, potassium 3.5, chloride is 106, CO2 of 30, BUN is 28, creatinine 2.6, glucose is 146 and GFR is 24. Iron is 14, percent sat is 5 and ferritin is 40. IMPRESSION: 1. Vflbu-sn-zodaacv anemia. 2. Epigastric and some generalized abdominal pain, improved. 3. History of Celena syndrome recently, hospitalization. 4. Severe hypothyroidism. 5. Chronic kidney disease stage 3. 6. History of duodenal ulcer and some gastritis back in 1996. PLAN: 1. EGD and colonoscopy tomorrow with Dr. Zimmerman. 2. Start prep today. 3. Labs, TSH. 4. Further recommendations to be made after the procedure has been performed. Thank you for allowing us to participate in this patient's care. Please do not hesitate to call with any questions in regard to this consult. <ELECTRONICALLY SIGNED> By: Esteban Lynch DO 02/23/181957 1210 [id number] Lynch DO /nt
--- NOTE | 2018-02-23 19:58 | CON ---
[address] [address] CONSULTATION Name: RACHEL ARECHIGA I Room: [address] IN M.R.#: [id number] Admission: 02/18/18 Attend Phys: Marnie Stokes Discharge: Date of : 38 Report #: [id number] THIS REPORT FOR: //name// CC: Candelario Vela DO DATE OF SERVICE: 02/19/2018 ADDENDUM REFERRING PHYSICIAN: Dr. Candelario Palacios. This is an addendum to job #[id number]. I have seen and examined the patient and agree with plan that has been outlined by our nurse practitioner, Kathie Herrera. Because the patient has problem with chronic anemia we will proceed with upper and lower endoscopy to be done by my partner, Dr. Zimmerman. He will need an extensive bowel preparation because of a history of severe hypothyroidism and constipation. We will make further recommendations after his endoscopic studies were done. <ELECTRONICALLY SIGNED> By: Esteban Lynch DO 02/23/181957 1157 1903Gviet Lynch DO /nt
--- NOTE | 2018-02-23 20:22 | NUR ---
BEDSIDE REPORT TO TEACHER EARLY CHILDHOOD DEVELOPMENT FOR CONTINUED CARES. PT REMAINS STABLE. VSS ON 2L O2 NC. PT PLEASANT, COOPERATIVE. PT UP ONE ASSIST WITH WALKER TO BSC. PT USES URINAL, CLEAR LIGHT YELLOW URINE. OUTPUT WNL. PT DENIES PAIN THIS SHIFT. PT PROGRESSING TOWARDS GOAL. POSSIBLE D/C TOMORROW.
[2018-02-24 04:41] LABS: HEMOGLOBIN 8.3 gm/dL (14.0-18.0); MCH 30.5 pg (26.0-34.0); MCHC 33.2 g/dL (28.0-37.0); MCV 91.8 fL (80.0-100.0); MPV 8.3 fl. (7.2-11.1); RBC 2.72 mil/uL (4.50-6.00); RDW-CV 16.5 % (10.5-14.5); WBC 7.6 thou/uL (4.0-11.0)
[2018-02-24 05:00] LABS: CALCIUM 8.2 mg/dL (8.5-10.1); CREATININE 2.2 mg/dL (0.6-1.3); MAGNESIUM 2.3 mg/dL (1.8-2.4); POTASSIUM 3.5 mmol/L (3.5-5.1)
[2018-02-24 08:00] VITALS: BP 173/93
--- NOTE | 2018-02-24 08:10 | NUR ---
Alert and oriented x 4. He was sitting up in recliner for awhile last night until probably midnight. His lungs are diminished O2 at 2L n/c. He has 2+ edema to his lower extremities. He has slept well. Vitals stable. Tyelenol this am for back pain.
[2018-02-24 10:39] LABS: URINE BILIRUBIN NEGATIVE (Negative); URINE BLOOD TRACE (Negative); URINE CLARITY CLEAR; URINE COLOR YELLOW; URINE GLUCOSE-RANDOM NEGATIVE (Negative); URINE KETONES NEGATIVE (Negative); URINE LEUKOCYTES-REFLEX NEGATIVE (Negative); URINE NITRITE-REFLEX NEGATIVE (Negative); URINE PROTEIN 2+ (Negative); URINE UROBILINOGEN 0.2 E.U./dl (0.2-1.0)
[2018-02-24 11:00] LABS: BACTERIA-REFLEX None Seen /HPF (None Seen); CASTS None Seen /LPF (None Seen); CRYSTALS None Seen /LPF (None Seen); SQUAMOUS NONE SEEN /LPF (0-3); URINE RBC None Seen /HPF (0-2); URINE WBC-REFLEX None Seen /HPF (0-5)
--- NOTE | 2018-02-24 11:00 | NUR ---
PT.HAS DISCHARGE ORDERS TO GO TO [facility] TO RESUME HIS SKILLED STAY. NOTIFIED JESSE/CHARITY. SHE SAID SHE OBTAINED AUTH FROM INSURANCE AND PT.CAN RETURN TODAY. SHE WILL SET UP VAN FOR 1430. FAXED DISCHARGE ORDERS TO HER AND ORDER FOR BIPAP AT NIGHT. CHART COPIED BY [employer] TO GO WITH PT. YOUSIF MENDEZ TO CALL REPORT. PT.ASKED THAT CM NOTIFY HIS DAUGHTER,ANTONINO,BECAUSE HIS IS AT WORK. CM HAD TO LEAVE A VM ON ANTONINO'S PHONE.
[2018-02-24 11:24] VITALS: BP 134/64
[2018-02-24 12:41] VITALS: BP 134/64
--- NOTE | 2018-02-24 17:47 | NUR ---
PATIENT LEFT UNIT AT 1400. ALERT AND ORIENTED X4. UP WITH ASSIST X1 WITH WALKER AND GAIT BELT. IV DC'D. DENIES NEED FOR PAIN MEDICATION. DENIES NAUSEA. ATTENDED THERAPY THIS AM. ALL PERSONAL ITEMS LEFT WITH PATIENT. DISCHARGE INSTRUCTIONS SENT WITH PATIENT TO FACILITY. VSS ON 2L O2. HOURLY ROUNDS HAVE BEEN MAINTAINED THROUGHOUT SHIFT. LEFT WITH TRANSPORTER VIA WHEELCHAIR VAN.
[2018-02-24 17:52] VITALS: BP 134/64
--- NOTE | 2018-02-25 12:06 | S ---
[place] [address] SURGICAL PATH RPT PROCEDURE Name: ARECHIGAZACHARIAH I Room: [address] IN .R.#: [id number] Admission: 02/18/18 Date of : 38 Discharge: 02/24/18 Report #: [id number] Path Case #: [id number] PATHOLOGY REPORT COLLECTION DATE: 02/21/2018 RECEIVED DATE: 02/21/2018 SUBMITTING PHYS: Dr. Shima Zimmerman OTHER PHYS: Dr. 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 ([facility]; 02/24/2018) COMMENT: Special Stain: H. pylori immuno PATHOLOGIST: Shaun Whipple M.D. REPORT ELECTRONICALLY SIGNED BY: Shaun Whipple M.D. DATE/TIME: 02/25/2018 12:06 * * * * * * * * * * * * GROSS PATHOLOGY: Received in formalin labeled "AtokaZachariah Lr, duodenum" is a 0.5 x 0.3 x 0.3 cm aggregate of pink-maravilla soft tissue. The specimen is submitted entirely in cassette A1. [place] [place] CLINICAL HISTORY: Rule out duodenitis. INITIAL CPT CODE(S): A; 07478, 72406 Professional services performed by [facility] at [facility] [address] [place] [address] Technical services performed by [facility] at [address] [place] [address] SURGICAL PATH RPT PROCEDURE Name: ZACHARIAH ARECHIGA I Room: [address]#: [id number] Admission: 02/18/18 Date of : 38 Discharge: 02/24/18 Report #: [id number] Path Case #: [id number] [address]. [facility] [address] [address] PHONE: [phone] DIRECTOR: Christian Feliz M.D. * * * END OF REPORT * * *
[2018-09-09] MEDS ORDERED: NORCO 5-325 TA1 EACH PO (14:44)
== END 2018-02-24 14:00 | DRG 377 ==
LOC: M.ERS 16:56 → M.2W 17:53 → M.TBA-ER 17:53 → M.2W 18:41 → M.ORTHSURG 02-20 21:19
PROVIDERS: Family Medicine; Internal Medicine; Physician Assistant; ADMIT Internal Medicine
PROC: 30233N1 Transfusion of Nonautologous Red Blood Cells into Peripheral Vein, Percutaneous Approach (ICD-10-PCS; principal; 2018-02-18)
PROC: 0DJD8ZZ Inspection of Lower Intestinal Tract, Via Natural or Artificial Opening Endoscopic (ICD-10-PCS; 2018-02-21)
PROC: 0DB98ZX Excision of Duodenum, Via Natural or Artificial Opening Endoscopic, Diagnostic (ICD-10-PCS; 2018-02-21)
DX: K57.91 Diverticulosis of intestine, part unspecified, without perforation or abscess with bleeding (principal); I50.33 Acute on chronic diastolic (congestive) heart failure; J96.21 Acute and chronic respiratory failure with hypoxia; I13.0 Hypertensive heart and chronic kidney disease with heart failure and stage 1 through stage 4 chronic kidney disease, or unspecified chronic kidney disease; Z68.41 Body mass index [BMI] 40.0-44.9, adult; I51.0 Cardiac septal defect, acquired; N18.4 Chronic kidney disease, stage 4 (severe); N17.9 Acute kidney failure, unspecified; K64.9 Unspecified hemorrhoids; D64.9 Anemia, unspecified; E87.6 Hypokalemia; I87.8 Other specified disorders of veins; K26.9 Duodenal ulcer, unspecified as acute or chronic, without hemorrhage or perforation; E66.01 Morbid (severe) obesity due to excess calories; E03.9 Hypothyroidism, unspecified; M19.90 Unspecified osteoarthritis, unspecified site; K57.10 Diverticulosis of small intestine without perforation or abscess without bleeding; K44.9 Diaphragmatic hernia without obstruction or gangrene; K57.30 Diverticulosis of large intestine without perforation or abscess without bleeding; K64.4 Residual hemorrhoidal skin tags; K64.8 Other hemorrhoids; E11.22 Type 2 diabetes mellitus with diabetic chronic kidney disease; I25.10 Atherosclerotic heart disease of native coronary artery without angina pectoris; M10.9 Gout, unspecified; Z85.850 Personal history of malignant neoplasm of thyroid; Z87.81 Personal history of (healed) traumatic fracture; Z95.1 Presence of aortocoronary bypass graft; Z79.82 Long term (current) use of aspirin; Z79.899 Other long term (current) drug therapy

== ENCOUNTER → 2018-03-10 | Outpatient (CLI) | payer OTHER, MEDICARE ==
[~2018-03-10] MED LIST changes: +ANTACID650 MG PO; +CARVEDILOL3.125 MG PO; +COUMADIN 5 MG TA5 M1 PO; +DYNACIN100 MG PO; +EPOGEN2000 UNIT/ SUBQ; +HUMALOG100 UNIT/1 SUBQ; +IPRAT-ALBUT 0.5-3 ML INH; +LANTUS100 UNIT/M SUBQ; +NORCO 5-325 TA1 EACH PO; +NYSTATIN15 G3 TOP; +PREDNISONE 5 MG5 M1 PO; +VITAMIN D1000 UNI1 PO
== END ==
LOC: M.RAD 08:24
DX: D64.9 Anemia, unspecified (principal); R10.9 Unspecified abdominal pain

== ENCOUNTER → 2018-04-15 | Outpatient (CLI) | payer OTHER, MEDICARE ==
[2018-04-15 10:56] VITALS: BP 147/87
[2018-04-15 12:10] VITALS: BP 142/91
--- NOTE | 2018-04-15 12:30 | NUR ---
ARRIVED PER WHEELCHAIR. TRANSFERED SELF TO RECLINER. INFUSION COMPLETED AND TOLERATED WELL. DENIES ADVERSE REACTION AND NONE NOTED. DENIES QUESTIONS OR NEEDS AT DISCHARGE.
== END ==
LOC: M.INFUS 10:30
DX: D50.8 Other iron deficiency anemias (principal)

== ENCOUNTER → 2018-04-22 | Outpatient (CLI) | payer OTHER, MEDICARE ==
[2018-04-22 10:40] VITALS: BP 151/92
--- NOTE | 2018-04-22 11:16 | NUR ---
Pt arrived via w/c at 1020 in PACU for infusion of Ferheme 510mg. Reviewed pt history and meds with no changes needed from previous visits. IV started at 1036 of 20g to left hand. Infusion of Ferheme started at 1048 and completed at 1112. IV dc'd at 1114 and patient wheeled out for discharge with daughter at 1116.
== END ==
LOC: M.INFUS 06:17
DX: D50.8 Other iron deficiency anemias (principal)

== ENCOUNTER → 2018-05-19 | Outpatient (CLI) | payer OTHER, MEDICARE | LOC: M.RAD 13:21 | DX: N62 Hypertrophy of breast (principal); N63.10 Unspecified lump in the right breast, unspecified quadrant; N63.20 Unspecified lump in the left breast, unspecified quadrant; N64.4 Mastodynia ==

== ENCOUNTER 2018-07-14 09:08 | Inpatient (IN) | payer OTHER, MEDICARE ==
[~2018-07-14] VITALS: Ht 190.5 cm; Wt 134.8 kg
[~2018-07-14 09:08] MED LIST changes: -ANTACID650 MG PO; -CARVEDILOL3.125 MG PO; -COUMADIN 5 MG TA5 M1 PO; -DYNACIN100 MG PO; -EPOGEN2000 UNIT/ SUBQ; -HUMALOG100 UNIT/1 SUBQ; -IPRAT-ALBUT 0.5-3 ML INH; -LANTUS100 UNIT/M SUBQ; -NORCO 5-325 TA1 EACH PO; -NYSTATIN15 G3 TOP; -PREDNISONE 5 MG5 M1 PO; -VITAMIN D1000 UNI1 PO
[2018-07-14 09:12] VITALS: BP 104/47
[2018-07-14 09:50] LABS: HEMATOCRIT 31.5 % (42.0-52.0); MCH 28.6 pg (26.0-34.0); MCHC 31.7 g/dL (28.0-37.0); MPV 9.4 fl. (7.2-11.1); NUCLEATED RBCS 0 /100WBC; PLATELET COUNT* 150 thou/uL (150-400); RDW-CV 18.5 % (10.5-14.5); WBC 15.5 thou/uL (4.0-11.0)
[2018-07-14 09:57] LABS: CALCIUM 7.7 mg/dL (8.5-10.1); CREATININE 4.9 mg/dL (0.6-1.3); POTASSIUM 3.4 mmol/L (3.5-5.1)
[2018-07-14 10:07] LABS: ALBUMIN 2.1 g/dL (3.4-5.0); MAGNESIUM 1.9 mg/dL (1.8-2.4); TOTAL BILIRUBIN 0.8 mg/dL (<0.1-1.0); TOTAL PROTEIN 5.3 g/dL (6.4-8.2); TROPONIN-I LEVEL 0.11 ng/mL (<0.06)
[2018-07-14 10:08] LABS: ABSOLUTE LYMPHOCYTES 0.8 thou/uL (0.8-5.3); ABSOLUTE MONOCYTES 0.2 thou/uL (0.0-1.2); ABSOLUTE NEUTROPHILS 14.6 thou/uL (1.6-8.1); ANISOCYTOSIS 2+; BURR CELLS 1+; PLATELET ESTIMATE ADEQUATE
[2018-07-14 10:11] LABS: APTT 37.7 Seconds (25.0-31.3); PROTIME 10.3 Seconds (9.20-11.50)
[2018-07-14 10:21] LABS: BE -6.1 mmol/L (-2 to +3); HCO3 18.9 mmol/L (22.0-26.0); PCO2 35.3 mmHg (35.0-45.0); pH 7.346 (7.340-7.450)
[2018-07-14 11:02] LABS: URINE BILIRUBIN NEGATIVE (Negative); URINE BLOOD 1+ (Negative); URINE CLARITY CLEAR; URINE COLOR YELLOW; URINE GLUCOSE-RANDOM NEGATIVE (Negative); URINE KETONES NEGATIVE (Negative); URINE LEUKOCYTES-REFLEX NEGATIVE (Negative); URINE NITRITE-REFLEX NEGATIVE (Negative); URINE PROTEIN 3+ (Negative); URINE SPECIFIC GRAVITY 1.025 (1.005-1.030); URINE UROBILINOGEN 0.2 E.U./dl (0.2-1.0)
[2018-07-14 11:08] LABS: BACTERIA-REFLEX 1-9 Few /HPF (None Seen); COARSE GRANULAR CASTS 4-10 Moderate /LPF (None Seen); CRYSTALS None Seen /LPF (None Seen); MUCUS 0-3 Light strn/LPF (None Seen); SQUAMOUS 4-10 Moderate /LPF (0-3); URINE RBC 0-2 Rare /HPF (0-2); URINE WBC-REFLEX 0-5 Rare /HPF (0-5)
[2018-07-14 12:30] VITALS: BP 121/52
[2018-07-14 12:35] VITALS: BP 134/52
--- NOTE | 2018-07-14 13:30 | NUR ---
DR WELLS WITH RENAL CALLED WITH NEW ORDERS INCLUDING CATHETER FOR PT. SEE ORDERS. CATHETER PLACED.
--- NOTE | 2018-07-14 13:49 | NUR ---
pt arrived on the unit at 12:35. PT ASSESSED AND DOCUMENTED. PT ON CARDIAC MONITER TRACING A-FIB HR 72. PT IS ON 3 L OF 02. VSS WNL. PT IS AFEBRILE. PHOTOS TAKEN OF RASH ON R UPPER THIGH, WOUND ON ANTERIOR RIGHT LEG WITH SLOUGH, AND ONE OPEN SORE ON SACRAL. REPOSITIONED PT TO R SIDE WITH WEDGES. PT HAS BL HEARING AIDS THAT DAUGHTER IS TO BRING UP. ORDER IN FOR CASE MANAGEMENT. PT ON FALL RISK PERCAUTIONS PER FACILITY PROTOCOL. BLADDER SCANNED PT AND O URINE PRESENT. 50 ML TAKEN BY PRIOR NURSE WITH A STRAIGHT CATH BEFORE BRINGING TO THE FLOOR. PT HAS SWELLING AND EDEMA IN THE ANKLE ON L LEG AND STATES HURTS HIM ON REPOSITIONING. NO PAIN OTHERWISE. LEG WITH RASH IS WARM TO TOUCH. IS AT BEDSIDE. .
--- NOTE | 2018-07-14 14:45 | NUR ---
CALLED [facility] IN PHARMACY ABOUT ZOSIN THAT WAS DROPPED.
--- NOTE | 2018-07-14 17:43 | NUR ---
PT RESTED IN HIS ROOM WITH AT BEDSIDE. EDUCATION GIVEN ON DEMAND. HOURLY ROUNDING COMPLETE. PT HAS 5O ML IN CATH. URINE SAMPLE TAKEN TO LAB. PT HAD A K+ 3.4. GAVE MED PER PROTOCOL AND ENTERED FOR REDRAW. PT HAS BEEN REPOSITIONED Q2 HOURS.
[2018-07-14 20:00] VITALS: BP 137/57
[2018-07-15] VITALS (7 sets, daily range): BP systolic 103–127; BP diastolic 50–65
[2018-07-15 04:48] LABS: HEMATOCRIT 29.9 % (42.0-52.0); HEMOGLOBIN 9.7 gm/dL (14.0-18.0); MCH 29.4 pg (26.0-34.0); MCHC 32.3 g/dL (28.0-37.0); MCV 91.1 fL (80.0-100.0); MPV 10.6 fl. (7.2-11.1); RBC 3.28 mil/uL (4.50-6.00); RDW-CV 19.4 % (10.5-14.5); WBC 15.7 thou/uL (4.0-11.0)
[2018-07-15 05:26] LABS: ALBUMIN 1.9 g/dL (3.4-5.0); CREATININE 5.2 mg/dL (0.6-1.3); MAGNESIUM 2.1 mg/dL (1.8-2.4); POTASSIUM 3.8 mmol/L (3.5-5.1); TOTAL BILIRUBIN 0.5 mg/dL (<0.1-1.0); TOTAL PROTEIN 5.5 g/dL (6.4-8.2)
--- NOTE | 2018-07-15 07:06 | NUR ---
ASSUMD PT CARE REPORT RECEIVED FRON NURSE PT IS ALERT AWAKE ORIENTED X4 LAYING IN BED WATCHING TV AT BEDSIDE. PT IS PLEASANT. HIS VS ARE WITHIN NORMAL LIMIT. HE IS ON 3 L NC AND SATURATION IN 97%. Q2TURN PERFORMED. MEDS GIVEN. WOUND CARE AND PERICARE PERFROMED.REILLY IN PLACE. PT IS STABLE
--- NOTE | 2018-07-15 09:24 | NUR ---
ASSUMED CARE OF PT THIS AM AROUND 0715- FARMWORKER BROODER FARM IN PLACE ORDERED TRACING A-FIB, RATE CONTROLED- UPON ASSESSMENT PT NOTED TO BE RESTING IN BED, EYES CLOSED- PT ARROUSABLE FOR GROGGY THIS AM- PT A&O X4-BEDREST IN PLACE WITH Q 2 HOUR TURNS INDICATED- INCONTINET OF BOWEL, REILLY IN PLACE D/D CLEAR CHANEL URINE, VERY LITTLE OUPUT NOTED- LCTA, RESP EVEN AND UN-LABORED- VSS, O2 SAT 98% ON 2L VIA NC- ABDOMEN SOFT/OBESE/NON-TENDER, BS X 4 QUADS- PT REPORTED TO HAVE HAD BM THIS AM- IV NOTED TO LEFT AC INTACT, IVF INFUSSING PRESCRIBED- WOUND CARE NURSE CONSULTED TO ASSESS LLE DIABETIC ULCER, OPEN WOUND TO BUTTOCKS, AND RIGHT THIGH RASH- GOOD PO INTAKE NOTED THIS AM WITH BREAKFAST, BS MONITORED ORDERED- PT OFF UNIT FOR PRESCIBED RENAL US THIS AM, AWAITTING RESULTS- PT DENIES ANY C/O PAIN/DISCOMFORT AT THIS TIME- CALL LIGHT AND PERSONAL BELONGINGS WITH IN REACH- HOURLY ROUNDS IN PLACE R/T SAFETY/NEEDS- ALL NEEDS MET AT THIS TIME-WCTM
[2018-07-15 12:11] LABS: URINE BILIRUBIN NEGATIVE (Negative); URINE BLOOD 2+ (Negative); URINE CLARITY CLEAR; URINE COLOR YELLOW; URINE GLUCOSE-RANDOM NEGATIVE (Negative); URINE KETONES NEGATIVE (Negative); URINE LEUKOCYTES 1+ (Negative); URINE NITRITE NEGATIVE (Negative); URINE PROTEIN 2+ (Negative); URINE SPECIFIC GRAVITY 1.025 (1.005-1.030); URINE UROBILINOGEN 0.2 E.U./dl (0.2-1.0)
[2018-07-15 12:20] LABS: BACTERIA 1-9 Few /HPF (None Seen); COARSE GRANULAR CASTS 0-3 Few /LPF (None Seen); FINE GRANULAR CASTS 0-3 Few /LPF (None Seen); MUCUS 4-6 Moderate strn/LPF (None Seen); SQUAMOUS 0-3 Few /LPF (0-3); URINE RBC 3-10 Few /HPF (0-2); URINE WBC 6-15 Few /HPF (0-5)
[2018-07-15 12:21] LABS: AMORPHOUS URATES Few /LPF (None Seen)
--- NOTE | 2018-07-15 12:52 | EKG ---
[place] [address] ELECTROCARDIOGRAM REPORT Name: RACHEL ARECHIGA I Room: [address] ADM IN M.R.#: [id number] Admission: 07/14/18 Attend Phys: Jayla Eid MD Discharge: Date of : 38 Report #: [id number] THIS REPORT FOR: //name// [facility] ED Test Date: 2018-07-14 Test Time: 10:06:40 Pat Name: RACHEL RAECHIGA Department: Room: [facility] Gender: M Healthcare Sales Representative: TYLOR : 1940 Requested By: Alexandria Cortes Order Number: [id number] : Candelario Zambrano Measurements Intervals [place] Rate: 80 P: FL: QRS: -32 QRSD: 153 T: 40 QT: 401 QTc: 463 Interpretive Statements Atrial fibrillation Right bundle branch block Compared to ECG 02/18/2018 17:30:32 Ectopic atrial rhythm no longer present First degree AV block no longer present Electronically Signed On 07-15-2018 12:52:47 CDT by Candelario Zambrano [email or web address] <ELECTRONICALLY SIGNED> By: Candelario Zambrano MD, [facility] 07/15/18 1252 1006 1006 Candelario Zambrano MD, [facility] /EPI
--- NOTE | 2018-07-15 13:21 | NUR ---
WOUND NURSE: PATIENT SEEN TO ADDRESS LESIONS ON BILATERAL BUTTOCKS AND ON LEFT PRETIBIAL LESION. ONE SHALLOW LESION ON EACH BUTTOCK PRESENTING WITH PARTIAL THICKNESS TISSUE LOSS AND SCANT SEROUS DRAINAGE. CLEANSED WITH SOAP AND WATER, RINSED WITH WATER, THEN PATTED DRY. APPLIED SKIN PREP TO INTACT PERIWOUND TISSUE, THEN APPLIED EXUDERM (CUT TO FIT) ON EACH WOUND AND SECURED IN PLACE WITH SURESITE TRANSPARENT DRESSING. PATIENT WITH YELLOW INTACT ESCHAR COVERING WOUND ON LEFT TIBIA. CLEANSED WITH SOAP AND WATER, RINSED WITH WATER, THEN PATTED DRY. APPLIED BORDERED FOAM DRESSING. APPLIED SINGLE LAYER SIZE F TUBIGRIPS TO BLE. ABOVE PROCEDURE TOLERATED WELL BY THE PATIENT. INSTRUCTED PATIENT THAT FREQUENT REPOSITIONING FROM SIDE TO SIDE IS PREFERRED TO OFFLOAD WOUNDS ON BUTTOCKS. PATIENT STATED HE UDERSTOOD.
--- NOTE | 2018-07-15 13:26 | 2DMMODE ---
[place] [address] 2 D/M-MODE ECHOCARDIOGRAM Name: RACHEL ARECHIGA I Room: [address] IN [facility]#: [id number] Admission: 07/14/18 Attend Phys: Jayla Eid, Discharge: Date of : 38 Date of Service: 07/15/18 1326 Report #: [id number] THIS REPORT FOR: //name// APPROVED REPORT Study performed: 07/15/2018 10:08:45 EXAM: Limited 2D Echocardiogram Patient Location: In-Patient Room #: 203 Status: routine BSA: 2.59 HR: 64 bpm BP: 104/52 mmHg Rhythm: Atrial Fibrillation Other Information Study Quality: Good Indications Atrial Fibrillation Dyspnea Pleural Effusion Limited echo to assess ejection fraction 2D Dimensions LVEF(%): 64.31 (>50%) IVSd: 13.29 (7-11mm) LVDd: 49.62 mm PWd: 12.71 (7-11mm) LVDs: 32.16 (25-40mm) Aortic Root: 41.50 mm Soriano's LVEF: 64.31 % Left Ventricle The left ventricle is normal size. Mild concentric left ventricular hypertrophy. The left ventricular systolic function is normal. LVEF is 65-70%. Right Ventricle The right ventricle is normal size. The right ventricular systolic function is normal. Atria The left atrium size is normal. The right [place] [address] 2 D/M-MODE ECHOCARDIOGRAM Name: RACHEL ARECHIGA I Room: [address] IN M.R.#: [id number] Admission: 07/14/18 Attend Phys: Jayla Eid, Discharge: Date of : 38 Date of Service: 07/15/18 1326 Report #: [id number] Aortic Valve The aortic valve is normal in structure. Mitral Valve The mitral valve is normal in structure. Tricuspid Valve The tricuspid valve is normal in structure. Pulmonic Valve The pulmonary valve is normal in structure. Great Vessels The aortic root is normal in size. Pericardium There is no pericardial effusion. Left pleural effusion. <Conclusion> The left ventricle is normal size. Mild concentric left ventricular hypertrophy. The left ventricular systolic function is normal. LVEF is 65-70%. Left pleural effusion. <ELECTRONICALLY SIGNED> By: Camden Narayanan MD, [facility] 07/15/18 1326 25 25 Camden Narayanan MD, FACC /INF
--- NOTE | 2018-07-15 18:03 | NUR ---
PT LISA RESTING IN BED, AT SIDE VISITTING- CONSUMER ELECTRONIC RETAIL SPECIALIST CONTINUED ORDERED, [id number]- IV TO LEFT AC INTACT, IVF INFUSSING PRESCIBED- HEPARIN ORDERED STARTED THIS SHIFT AT 1214 PRESCIBED, WITH APTT SCHEDULED TO BE DRAW AT 1815 INDICATED- NEW [address] TO RIGHT AC THIS SHIFT, WITH ZOYSN CURRENLTY INFUSSING PRESCIBED- GOOD PO INTAKE NOTED THIS SHIFT WITH MEALS- ORDER RECIEVED AND GIVEN PRESCIBED FOR SSI LOW DOSE- WOUND NURSE HERE TO ASSESS WOUND'S TO BUTTOCKS AND LLE DIABETIC ULCER- FRESSINGS APPLIED TO AREAS PER WN WITH ORDERS UPDATED TO MAR- TUB PRESIDENT OF [place] IN PLACE TO BLE INDICATED- UNABLE TO PALPATE PEDAL PULSES- ABLE TO FIND PULSE WITH DOPPLER- CALF SIZE TO RLE NOTED TO BE 43.5 AND LEFT CALF 49CM- NOTIFIED OF ASSESSMENT FINDING WITH ORDERS NOTED FOR US TO BLE- VASCULAR CONSULTED WELL- Q 2HOUR TURNS IN PLACE INDICATED-UA COLLECTED AND SENT TO LAB PRESCIBED- RENAL US RESULTED AND NOTED IN MEDITECH- PT WORKING WITH THERAPIES PRESCIBED THIS SHIFT, CONTINUES TO BE WEAK- DENIES ANY C/O PAIN- CALL LIGHT AND PERSONAL BELONGINGS WITH IN REACH- HOURLY ROUNDS CONTINUED INDICATED R/T SAFETY/NEEDS- ALL NEEDS MET AT THIS TIME-WCTM
[2018-07-15 21:07] LABS: IgA 85 mg/dL (61-437)
[2018-07-16 04:00] VITALS: BP 131/54
[2018-07-16 04:50] LABS: ABSOLUTE LYMPHOCYTES 0.8 thou/uL (0.8-5.3); ABSOLUTE MONOCYTES 0.7 thou/uL (0.0-1.2); ABSOLUTE NEUTROPHILS 15.1 thou/uL (1.6-8.1); BASOPHILS 0.1 %; HEMOGLOBIN 8.7 gm/dL (14.0-18.0); LYMPHOCYTES 4.8 %; MCH 29.2 pg (26.0-34.0); MCHC 32.3 g/dL (28.0-37.0); MCV 90.5 fL (80.0-100.0); MONOCYTES 4.3 %; MPV 9.9 fl. (7.2-11.1); NUCLEATED RBCS 0 /100WBC; PLATELET COUNT* 168 thou/uL (150-400); POLYS 90.8 %; RBC 2.99 mil/uL (4.50-6.00); WBC 16.7 thou/uL (4.0-11.0)
[2018-07-16 05:11] LABS: ALBUMIN 1.7 g/dL (3.4-5.0); CALCIUM 7.5 mg/dL (8.5-10.1); CREATININE 5.8 mg/dL (0.6-1.3); PHOSPHORUS* 5.4 mg/dL (2.5-4.9)
[2018-07-16 05:23] LABS: ALBUMIN 1.7 g/dL (3.4-5.0); CALCIUM 7.7 mg/dL (8.5-10.1); CREATININE 5.8 mg/dL (0.6-1.3); POTASSIUM 3.9 mmol/L (3.5-5.1); TOTAL BILIRUBIN 0.3 mg/dL (<0.1-1.0)
--- NOTE | 2018-07-16 06:46 | NUR ---
PATIENT RESTED IN BED, NO ACUTE CHANGES. PATIENT DID NOT SHOW SIGNS OF DISTRESS. FALL PRECAUTIONS IN PLACE, BED ALARM ON, CALL LIGHT WITH IN REACH. CARDIAC MONITORING ALARMS ON, PATIENT DID NOT COMPLAIN OF SOB. PATIENT TURNED Q2 HOURS. PATIENT HAD MUTIPLE LIQUID STOOLS.
--- NOTE | 2018-07-16 06:54 | NUR ---
CALL TO DOCTOR REGARDING LABS, SEE ORDERS. PATIENT ON ISO.
[2018-07-16 07:10] LABS: IgG 671 mg/dL (700-1600); IgM 7 mg/dL (15-143)
[2018-07-16 08:01] VITALS: BP 139/64
--- NOTE | 2018-07-16 08:56 | NUR ---
ASSUMED CARE OF PT THIS AM AROUND 07- ROUSTABOUT PUSHER IN PLACE ORDERED, TRACING A-FIB, RATE CONTROLED- UPON ASSESSMENT PT NOTED TO BE RESTING IN BED- PT A&O X4- INCONTINET OF BOWEL, REILLY IN PLACE D/D CHANEL URINE-BED REST WITH Q 2HOUR TURNS IN PLACE- FRICTION RUB NOTED ON EXPIRATION- LABORED RESP ON EXERTION NOTED- VSS, O2 SAT 96% ON 3L- ABDOMEN SOFT/ROUND/NON-TENDER, BS X4 QUADS- PT REPORTED TO HAVE HAD LOOSE BM OVERNIGHT X2- IV NOTED TO LEFT AC INTACT, IVF INFUSSING PRESCIBED, HEPARIN INFUSSING INDICATED- RIGHT AC IV NOTED SL- GOOD PO INTAKE NOTED THIS AM, BS MONITORED INDICATED, SSI PRESCIBED- TUB DECKHAND FISHING VESSEL IN PLACE TO BLE INDICATED- DENIES ANY C/O PAIN/DISCOMFORT AT THIS TIME- CALL LIGHT AND PERSONAL BELONGINGS WITH IN REACH- HOURLY ROUNDS IN PLACE R/T SAFETY/NEEDS- ALL NEEDS MET AT THIS TIME-WCTM
[2018-07-16 09:13] LABS: HEPATITIS B SURFACE AG Negative (Negative)
--- NOTE | 2018-07-16 09:13 | NUR ---
Pt is A&O. Resides at home with his . Independent with ADLs, Pt states that he can drive, but states that his dtr does most of the driving. Pt uses a walker or RW for mobility. Pt wears home o2, normally continuously. [facility] of [facility]. H[facility] of skilled at [facility] and [facility]. Pt of ak goal, states that if he does need skilled, he would want to go to [facility]. Pt to discuss disposition with his . Following.
[2018-07-16 12:57] VITALS: BP 138/61
[2018-07-16 13:08] LABS: URINE PHOSPHORUS* 31.9 mg/dL (Not Estab.)
[2018-07-16 16:30] VITALS: BP 128/52
--- NOTE | 2018-07-16 17:20 | NUR ---
PT LISA RESTING IN BED, AT SIDE VISITTING- RECEIVING SUPERVISOR IN PLACE ORDERED, TRACING A-FIB- IV NOTED TO RIGHT AC INTACT, IV ZOYSN INFUSSING PRESCIBED- LEFT IV INTACT WITH IVF AND HEPARIN INFUSSING PRESCIBED- ID CONSULT INITIATED THIS FOR ABT- VASULAR HERE TO ASSESS THIS SHIFT WITH NEW ORDERD NOTED FOR DRESSING CHANGE TO LLE- AREA CLEANED WITH WW, PAT DAY WITH AQUICEL AG APPLIED AND COVERED WITH FOAM DRESSING INDICATED- TUB BLANKET WASHER IN PLACE INDICATED- NEW ORDERS NOTED THIS SHIFT FOR [place] 10UNITS Q HS-GOOD PO INTAKE NOTED WITH MEALS, BS MONITORED ORDERED- DRESSINGS REMAIN INTACT TO BUTTOCKS WITH Q [address]- ORDERS NOTED THIS SHIFT FOR LEFT KNEE X-RAY R/T C/O PER PT OF GIVING OUT ON HIM AND PAIN, AWAITTING RESULTS- ALL NEEDS MET AT THIS TIME-WCTM
[2018-07-16 19:44] LABS: HEMATOCRIT 26.4 % (42.0-52.0); HEMOGLOBIN 8.7 gm/dL (14.0-18.0); MCH 29.5 pg (26.0-34.0); MCHC 32.9 g/dL (28.0-37.0); MCV 89.7 fL (80.0-100.0); MPV 9.5 fl. (7.2-11.1); RBC 2.94 mil/uL (4.50-6.00); RDW-CV 18.5 % (10.5-14.5); WBC 15.9 thou/uL (4.0-11.0)
[2018-07-16 19:45] VITALS: BP 117/41
[2018-07-17] VITALS: BP 114/56
[2018-07-17 04:00] VITALS: BP 130/53; BP 130/55
[2018-07-17 04:06] LABS: GLYCOHEMOGLOBIN (HGB A1C) 6.1 % (4.8-5.6)
--- NOTE | 2018-07-17 04:58 | NUR ---
Assumed care of patient at 1930. Full assessment performed and documented. Hourly rounding completed for patient safety. Patient A&O; turned Q2H. A-fib with BBB noted on telemetry. O2 saturation 94% on 3L NC. Dougherty catheter draining appropriately. Patient had several very small liquid stools. Dressings on coccyx changed each time pt passed stool. Drsg on left LE intact and clean. Right AC IVL intact and flushed; left AC IV infusing NS and Heparin per order, see MAR. Fall precautions in place, call light within patient's reach. Will continue to monitor.
[2018-07-17 05:35] LABS: ABSOLUTE LYMPHOCYTES 1.2 thou/uL (0.8-5.3); ABSOLUTE NEUTROPHILS 12.5 thou/uL (1.6-8.1); HEMATOCRIT 25.8 % (42.0-52.0); HEMOGLOBIN 8.4 gm/dL (14.0-18.0); LYMPHOCYTES 8.4 %; MCH 29.1 pg (26.0-34.0); MCHC 32.6 g/dL (28.0-37.0); MCV 89.2 fL (80.0-100.0); MONOCYTES 6.9 %; MPV 9.4 fl. (7.2-11.1); NUCLEATED RBCS 0 /100WBC; PLATELET COUNT* 221 thou/uL (150-400); POLYS 84.7 %; RBC 2.89 mil/uL (4.50-6.00); RDW-CV 18.8 % (10.5-14.5); WBC 14.7 thou/uL (4.0-11.0)
[2018-07-17 06:03] LABS: ALBUMIN 1.6 g/dL (3.4-5.0); CALCIUM 7.4 mg/dL (8.5-10.1); CREATININE 6.2 mg/dL (0.6-1.3); POTASSIUM 3.6 mmol/L (3.5-5.1); TOTAL BILIRUBIN 0.3 mg/dL (<0.1-1.0); TOTAL PROTEIN 4.8 g/dL (6.4-8.2)
[2018-07-17 06:04] LABS: PREALBUMIN 10.3 mg/dL (18.0-35.7)
[2018-07-17 08:00] VITALS: BP 143/67
[2018-07-17 09:08] LABS: ANA INTERPRETATION Negative (Negative)
--- NOTE | 2018-07-17 09:22 | CON ---
[address] [address] CONSULTATION Name: RACHEL ARECHIGA I Room: [address] IN .R.#: [id number] Admission: 07/14/18 Attend Phys: Jayla Eid MD Discharge: Date of : 38 Report #: [id number] THIS REPORT FOR: //name// CC: Candelario Eid DATE OF SERVICE: 07/15/2018 CONSULTING PHYSICIAN: Dr. Eid. REASON FOR CONSULT: Acute kidney injury. HISTORY OF PRESENT ILLNESS: A 78-year-old gentleman who was admitted with weakness and difficulty moving and on admission was found to have an elevated creatinine and concern for possible pneumonia. He follows with Dr. Martinez as an outpatient and has diabetic and hypertensive chronic kidney disease. He denies any NSAID use, tells me that he was having some vomiting and diarrhea that began on Saturday, but no other new medications. His swelling is fairly stable. He does not report any new swelling. He does not have any new shortness of breath, but he had a creatinine of 4.9 on admission. It was 2.6 on a recent outpatient visit back in March. REVIEW OF SYSTEMS: Constitutional, psych, heme, eyes, ENT, respiratory, cardiac, GI, , endocrine, all negative except as documented above. PAST MEDICAL HISTORY: Osteoarthritis, chronic kidney disease, coronary artery disease, hypothyroidism, stage 4 chronic kidney disease, diabetes type 2, history of gout, anemia of chronic kidney disease, hypertension. SOCIAL HISTORY: No tobacco. FAMILY HISTORY: Not pertinent in this 78-year-old gentleman. CURRENT MEDICATIONS: Reviewed. PHYSICAL EXAMINATION: VITAL SIGNS: Blood pressure is 104/52, pulse 66, temperature 36.0. GENERAL: No acute distress. EYES: Extraocular movements intact. EARS: Externally normal. CARDIOVASCULAR: Regular rate. LUNGS: Diminished breath sounds. ABDOMEN: Soft. MUSCULOSKELETAL: Bilateral lower extremities, positive for swelling. PSYCHIATRIC: Awake, [place] [address] CONSULTATION Name: ARECHIGA,RACHEL I Room: [address]#: [id number] Admission: 07/14/18 Attend Phys: Jayla Eid MD Discharge: Date of : 38 Report #: [id number] LABORATORY DATA: White cell count 15.7, hemoglobin 9.7, platelets 154. Sodium 132, potassium 3.8, chloride 101, bicarbonate 18, BUN creatinine 5.2, glucose 257, calcium 8, magnesium 2.1. ASSESSMENT: 1. Acute kidney injury with admission creatinine of 4.9, up to 5.2 on 07/15/2018. No hydronephrosis noted on ultrasound. UA noted. This is in the setting of suspected pneumonia. Chest x-ray does not show any pulmonary edema. 2. Hyponatremia with sodium 132 on 07/15/2018. 3. Metabolic acidosis with bicarbonate of 18 on 07/15/2018. 4. Anemia with an iron saturation of 10. 5. Hypoalbuminemia with an albumin of 1.9. 6. Atrial fibrillation. 7. Coronary artery disease with history of coronary artery bypass graft. 8. Diastolic heart failure. 9. Chronic kidney disease stage 4, followed by Dr. Martinez as an outpatient. 02/24/2018 creatinine done at [place] is 2.2. 03/2018 creatinine during an outpatient visit was 2.6. 10. Suspected pneumonia. 11. Bilateral renal cysts noted on kidney ultrasound with left kidney 15.4 and right kidney 14.4 cm. 12. History of hypertension. 14. Abnormal UA with 1+ blood, 3+ protein. PLAN: 1. Kidney ultrasound and UA have been ordered. He is on normal saline at 50 mL an hour. No indications for diuretics at this time. He is making urine. 2. Check vitamin E. 3. Check urine protein to creatinine ratio. 4. Hepatitis B is pending. We will also check hepatitis C, LOTTIE, ANCA, anti-GBM, SPEP, free light chain assay, serum immunofixation. 5. Echocardiogram has been ordered and is pending. No need for diuretics at this time. He appears to be comfortable and stable from a volume standpoint. Case was discussed with Dr. Mendoza. Thank you for requesting my opinion in the care and management of this patient. <ELECTRONICALLY SIGNED> By: Sesar Bolton MD 07/17/18 0922 1129 [id number] Bolton MD /nt
[2018-07-17 11:12] LABS: CLARITY TURBID; COLOR COLORLESS; TOTAL VOLUME 10 ml
[2018-07-17 11:13] LABS: BF RBC <1000 /mm3; TOTAL CELL COUNT >66000 /mm3
[2018-07-17 11:15] LABS: BF LYMPHOCYTES 9 %; BF POLYS 91 %; BF TISSUE 22 /100 WBC
[2018-07-17 11:59] LABS: SMEAR FOR EOSINOPHILS Few per HPF
[2018-07-17 11:59] LABS: SOURCE ASCITES
[2018-07-17 12:00] VITALS: BP 146/70
--- NOTE | 2018-07-17 12:34 | CON ---
[address] [address] CONSULTATION Name: RACHEL ARECHIGA I Room: [address] IN .R.#: [id number] Admission: 07/14/18 Attend Phys: Jayla Eid MD Discharge: Date of : 38 Report #: [id number] THIS REPORT FOR: //name// CC: Candelario Eid DATE OF SERVICE: 07/16/2018 ATTENDING PHYSICIAN: Dr. Eid. REASON FOR EVALUATION: Pneumonitis, complicated by respiratory failure. HISTORY OF PRESENT ILLNESS: Chart reviewed, patient examined. This is a 78-year-old gentleman with a history of diabetes mellitus vasculopathy, coronary artery disease, who became progressively weak over the course of last 2-3 days prior to admission. Just prior to squad been called, he was unable to get out of bed even with assistance of 2 grandsons. He had had what appeared to be a syncopal episode the day before, some concern about stroke. On evaluation, he was found to be hypoxemic, showed elevated D-dimer. The chest x-ray showed some left basilar infiltrate with pneumonitis. Urinalysis was otherwise unrevealing. He was empirically started on antimicrobial therapy including piperacillin and tazobactam. He notes he feels significantly better today. He is lucid. He does say he struggles with dyspnea with minimal exertion. ALLERGIES: None known. MEDICATIONS: Include insulin aspirin, Linzess, tamsulosin, atorvastatin, levothyroxine, pantoprazole, metoclopramide, albuterol, now Zosyn. PAST MEDICAL HISTORY: Diabetes mellitus complicated by vasculopathy, has known coronary artery disease, previous aortocoronary bypass grafting, previous history of TIAs, multiple orthopedic surgeries. SOCIAL HISTORY: Nonsmoker, no ethanol. FAMILY HISTORY: Noncontributory. REVIEW OF SYSTEMS: As above. Significant gastrointestinal related complaints. PHYSICAL EXAMINATION: GENERAL: Appears chronically ill. He is obese, though I suspect undernourished. VITAL SIGNS: Temperature 97.6, pulse 57, respirations 20, blood pressure is 138/61. Nasal cannula oxygen in place. NECK: Supple. LUNGS: Scattered coarse breath sounds, left [place] [address] CONSULTATION Name: RACHEL ARECHIGA I Room: [address]#: [id number] Admission: 07/14/18 Attend Phys: Jayla Eid MD Discharge: Date of : 38 Report #: [id number] HEART: Regular, has a soft systolic murmur. ABDOMEN: Soft, obese. I do not appreciate any significant peritoneal signs. GENITOURINARY AND RECTAL: Deferred. LABORATORY DATA: Blood cultures sterile thus far. Electrolytes: Sodium 131, potassium 3.9, chloride 100, bicarbonate is 18, anion gap of 13. BUN and creatinine 94/5.8, glucose of 245, albumin of 1.7, total protein 5.0. Estimated GFR of 9. Prealbumin of 8.4. CBC: White count 16.7, H and H 8.7 and 27.0, platelets 168. Echo: Mild concentric left ventricular hypertrophy with an EF of 65-70%, significant valvular abnormalities. Urinalysis: 6-15 white cells, 1-9 bacteria. Chest x-ray: Atelectasis, infiltrate and pleural effusion in the left lung base. ABG is pH 7.346, pCO2 of 35.3, pO2 of 83.0 on 2 liters. Venous Doppler of lower extremity showed no evidence of deep venous thrombosis. V/Q scan anything other than low probability for PE. ASSESSMENT: Pneumonitis. The patient certainly has long-term medical disease burden. We will continue Zosyn. We will adjust therapy to severity of his renal insufficiency, certainly at risk for ultimately requiring dialysis. Continue to monitor expectantly. He may well be at risk for deteriorating status prior to getting better, although seemingly has improved since admission. Risk for nosocomial-related infectious complications as well. <ELECTRONICALLY SIGNED> By: Dinesh Johnson MD 07/17/18 1234 1615 [id number] Johnson MD /nt
--- NOTE | 2018-07-17 13:38 | NUR ---
HEAT TREAT INSPECTOR SPOKE TO THE PATIENT TO DISCUSS CHOICE OF SKILLED AT D/C. PATIENT INFORMS THAT HIS SPOUSE HAS NOT COME TO THE HOSPITAL TO DISCUSS SKILLED. CM WILL REMAIN AVIALABLE TO ASSIST AND FOLLOW NEEDED.
[2018-07-17 14:10] LABS: KAPPA FREE LIGHT CHAINS 45.1 mg/L (3.3-19.4); LAMBDA FREE LIGHT CHAINS 47.2 mg/L (5.7-26.3)
[2018-07-17 16:00] VITALS: BP 125/55
[2018-07-17 18:08] LABS: GLOBULIN TOTAL 2.4 g/dL (2.2-3.9); M-SPIKE Not Observed g/dL (Not Observed)
--- NOTE | 2018-07-17 18:48 | NUR ---
VSS, ASSUMED CARE IN THE AM, ASSESSMENT PERFORMED AND CHARTED, FALL PRECAUTIONS IN PLACE AND CALL LIGHT IN RECAH, PT IS A7O4 AND IS UP WITH MAX ASSIST, PT IS TRACING AFIB ON THE MONITOR, IS INCONT OF STOOL AND HAS HAS 3 STOOLS ON DAY OF CARE. PT IS ON 2L NC AND HAS REILLY IN PLACE AND IS DRAING, PT WORKED WITH PT/OT AND WAS UP IN CHAIR FOR LUNCH AND DINNER, HOURLY ROUNDS COMPLETED AND WILL FOLLOW WITH PLAN OF CARE.
[2018-07-17 20:00] VITALS: BP 115/47
--- NOTE | 2018-07-17 20:00 | NUR ---
RECEIVED REPORT AND ASSUMED CARE OF PT, ASSESSMENT COMPLETED. PT PLEASANT AND COOPERATIVE. HAVING OCC MOIST PROD COUGH. O2 ON AT 2L/NC, HOB ELEVATED. EVERARDO LOWER LEGS WITH TUBE STOCKING, 2+ EDEMA. TELEMETRY ON SHOWING A-FIB WITH PVC, OCC SINUS BEATS. WILL CONT TO MONITOR AND ASSIST NEEDED.
[2018-07-18] VITALS: BP 154/56
[2018-07-18 04:00] VITALS: BP 150/57
[2018-07-18 05:24] LABS: ALBUMIN 1.8 g/dL (3.4-5.0); CALCIUM 7.5 mg/dL (8.5-10.1); CREATININE 6.7 mg/dL (0.6-1.3); MAGNESIUM 2.2 mg/dL (1.8-2.4); PHOSPHORUS* 5.8 mg/dL (2.5-4.9); POTASSIUM 3.5 mmol/L (3.5-5.1)
--- NOTE | 2018-07-18 06:38 | NUR ---
SLEPT WELL TONIGHT. PT HAVING 2 LOOSE BM TONIGHT WITH SPECIMAN SENT TO LAB. CONT HAVING PROD COUGH OCC. TELEMETRY CONT TO SHOW A-FIB WITH PVC. NO CHANGE IN ASSESSMENT. ASSISTED WITH REPOSITIONING Q 2HR. HS GOALS OF REST AND SAFETY ACHIEVED. HOURLY ROUNDING OBSERVED.
[2018-07-18 08:00] VITALS: BP 147/54
--- NOTE | 2018-07-18 09:14 | CON ---
[address] [address] CONSULTATION Name: RACHEL ARECHIGA I Room: [address] IN .R.#: [id number] Admission: 07/14/18 Attend Phys: Jayla Eid MD Discharge: Date of : 38 Report #: [id number] THIS REPORT FOR: //name// CC: Candelario Eid DATE OF SERVICE: 07/14/2018 CHIEF COMPLAINT: Shortness of breath, atrial fibrillation. HISTORY OF PRESENT ILLNESS: The patient is a 78-year-old male who has a history of remote coronary artery bypass graft. His is a patient of mine. Over the last several days he has been having increasing weakness, fatigue and lower extremity swelling. He presented to the Emergency Department with atrial fibrillation, which is a new diagnosis according to the . He himself is a poor historian. He denies chest pain or pressure. His ECG did not show any acute ST segment abnormalities. He had been doing fairly well last month, but then over the last 1-2 weeks he has been having increasing swelling and weakness and fatigue, but no complaints of chest pain or pressure. He has chronic shortness of breath with activity. Usually he wears oxygen 24 hours per day. He was most recently in the hospital on 02/28/2018 with acute on chronic respiratory failure. He has chronic diastolic heart failure, history of 5-vessel CABG remotely at [facility], but he reports he only sees Dr. 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 He has a history of bowel obstruction, Celena syndrome, hypothyroidism, morbid obesity and chronic pneumonitis, COPD. ALLERGIES: He has no known drug allergies. MEDICATIONS: Include the following: Flomax 0.4 mg daily, MiraLax, erythromycin 250 mg p.o. q.i.d., albuterol, Atrovent, Lasix 40 mg daily, aspirin 81 mg daily, Linzess 145 mcg daily, Lipitor 80 mg daily, Synthroid 100 mcg daily and omeprazole tablet. SOCIAL HISTORY: He is , lives with his daughter also. REVIEW OF SYSTEMS: VITAL SIGNS: Blood pressure is 104/47, temperature is 36.8, pulse 74 in atrial fibrillation, respiratory rate is 15. GENERAL: A pleasant, but a poor historian, elderly male. He is somewhat dyspneic with conversation. EYES: Denies any blurred vision [place] [address] CONSULTATION Name: RACHEL ARECHIGA I Room: [address] IN [facility]#: [id number] Admission: 07/14/18 Attend Phys: Jayla Eid MD Discharge: Date of : 39 Report #: [id number] NEUROLOGIC: Denies slurred speech, numbness. No seizures. CARDIOVASCULAR: No chest pain. Positive dyspnea on exertion. Positive PND, positive orthopnea. MUSCULOSKELETAL: Positive leg swelling. SKIN: No rashes. GENITOURINARY: No dysuria or hematuria. PHYSICAL EXAMINATION: VITAL SIGNS: As noted above. He is noted to be in atrial fibrillation, heart rates in the 70s with blood pressures in the low 100s/50 systolic. GENERAL: He is alert, no apparent distress. NECK: Supple. No jugular venous distention. CARDIOVASCULAR: Irregular. I cannot hear a murmur. LUNGS: Diminished breath sounds bilaterally. ABDOMEN: Nontender, nondistended. EXTREMITIES: There is 1-2+ pretibial edema on his right side and 2-3+ on his left side. NEUROLOGIC: There are no focal deficits. PSYCHIATRIC: The patient has appropriate mood and affect. LABORATORY DATA: ECG demonstrates a complete right bundle branch block with a heart rate of 80. His sodium is 134, potassium is 3.4, creatinine is 4.9, glucose 162. Troponin I is 0.11. BNP is 14,392. Chest x-ray reveals atelectasis and left-sided pleural effusion. IMPRESSION: 1. Acute renal failure. I suspect his edema is secondary to kidney failure and would cautiously diurese him with the assistance of our Nephrology colleagues. 2. Atrial fibrillation. This seems to be relatively new onset. He is minimally symptomatic and rate controlled. He does have considerable stroke risk and I would recommend a heparin protocol infusion without bolus until his renal function can be established. I would not recommend a novel agent or Lovenox. 3. Abnormal troponin. This is most likely secondary to his acute kidney injury. This could be exacerbated by his congestive heart failure syndrome as well. 4. Acute diastolic congestive heart failure. As noted above, historically he has a history of normal left ventricular function. We are going to recheck an echocardiogram. 5. Coronary artery disease status post coronary artery bypass graft. He is asymptomatic for angina type symptoms, but has concerning symptoms for heart failure. <ELECTRONICALLY SIGNED> By: Jose F Guo MD, [facility] 07/18/18 0914 [id number] F Guo MD, FACC /nt
[2018-07-18 11:30] VITALS: BP 129/49
[2018-07-18 11:31] LABS: BE -10.2 mmol/L (-2 to +3); HCO3 16.4 mmol/L (22.0-26.0); PCO2 38.7 mmHg (35.0-45.0); PO2 101.7 mmHg (75.0-100.0)
[2018-07-18 11:34] LABS: pH 7.244 (7.340-7.450)
[2018-07-18 12:05] LABS: BODY FLUID PROTEIN 2.2 g/dL (())
[2018-07-18 12:22] LABS: SOURCE KNEE JOINT
--- NOTE | 2018-07-18 12:39 | NUR ---
I have reviewed the documentation by CHANEL LEACH from 07/18/18 and I concur with it. PRABHU NARVAEZ
[2018-07-18 15:45] VITALS: BP 140/54
--- NOTE | 2018-07-18 16:00 | NUR ---
VSS, ASSUMED CARE IN THE AM, ASSESSMENT PERFORMED AND CHARTED, FALL PRECAUTIONS IN PLACE AND CALL LIGHT IN REACH, PT IS A&O4 AND IS ON 2L NC, PT IS VERY WEAK AND NEEDS DIALYSIS, PT IS RACING SR, AFIB WITH PVC ON THE MONITOR, HAS REILLY IN PLACE AND IS DRAING, PT GOAL IS TO IMPROVE BREATHING AND WORK WITH PT/OT AT THIS TIME HOURLY ROUNDS COMPLETED AND WE ARE STILL WAINTING FOR DIALYSIS,
[2018-07-18 20:00] VITALS: BP 149/60
[2018-07-19] VITALS: BP 166/71; BP 166/81
[2018-07-19 04:00] VITALS: BP 155/63
[2018-07-19 04:51] LABS: HEMATOCRIT 30.3 % (42.0-52.0); MCV 87.7 fL (80.0-100.0); MPV 8.6 fl. (7.2-11.1); RBC 3.45 mil/uL (4.50-6.00); RDW-CV 18.7 % (10.5-14.5); WBC 14.4 thou/uL (4.0-11.0)
[2018-07-19 05:09] LABS: ALBUMIN 1.7 g/dL (3.4-5.0); CALCIUM 7.6 mg/dL (8.5-10.1); CREATININE 5.8 mg/dL (0.6-1.3); MAGNESIUM 2.2 mg/dL (1.8-2.4); PHOSPHORUS* 6.4 mg/dL (2.5-4.9); POTASSIUM 3.9 mmol/L (3.5-5.1); TOTAL BILIRUBIN 0.5 mg/dL (<0.1-1.0); TOTAL PROTEIN 5.3 g/dL (6.4-8.2)
--- NOTE | 2018-07-19 06:03 | NUR ---
ASSUMED PT CARE REPORT RECEIVED FROM NURSE. PT IS ALERT AWAKE ORIENTED X4 S FIB ON THE MONITOR. VITAL SIGNS WITHIN NORMAL LIMIT. HE IS SUPPOSED TO BE GOING TO DIALYSIS. SO INSULIN WAS HELD AT 2100. PT WNET DOWN TO DIALYSIS AFTER GIVING REPORT TO DIALYSIS NURSE. HE WAS CARRIED ON BED WITH O2 3 L NC. SPENT ONE HOUR AND A HALF IN DIALYSIS CAME BACK ON FLOOR ACCOMPANIED BY NURSE , VITAL SIGNS ARE WITHIN NORMAL LIMITL EXCEPT BP WHICH WAS 178/ 61 BUT WNET ABCK DOWN AFTER . INSULIN WAS GIVEN AFTER DIALYSIS. MEDICATIONS WERE ADMISNITERED ORDERED. Q2TURN PERFORMED. SLEPT WELL DURING THE NIGHT. WOUND CARE PERFORMED IN THE MORNING.
[2018-07-19 07:45] VITALS: BP 157/72
--- NOTE | 2018-07-19 08:36 | NUR ---
PT IN DIALYSIS NOW. PT DENIES PAIN, REPORTS SOME SOA AT REST. RESPIRATIONS EVEN AND UNLABORED AT REST. ABLE TO SPEAK FULL SENTENCES. LUNGS CLEAR THROUGHOUT. REPORTS OCCASIONAL NON PRODUCTIVE COUGH. O2 SAT 98 2L O2 NC.
[2018-07-19 16:00] VITALS: BP 151/44
--- NOTE | 2018-07-19 16:37 | NUR ---
NO C/O TODAY FROM PT. PT REPORTED SOME SOA, BUT STATES HE FEELS BETTER THAN YESTERDAY. PT TO DIALYSIS TODAY WITH 2L FLUID REMOVED. PT ABLE TO MAKE NEEDS KNOWN, CALL LIGHT IN REACH
[2018-07-19 20:00] VITALS: BP 134/54
[2018-07-20] VITALS: BP 146/40
[2018-07-20 04:30] VITALS: BP 148/55
--- NOTE | 2018-07-20 05:27 | NUR ---
ASSUMED PT CARE REPORT RECEIVED FROM NURSE. PT IS ALERT AWAKE ORIENTED X4. HAD DIALYSIS TODAY OF 2 L WAS TAKEN OUT. HE IS LAYING IN BED WATCHING TV AT BEDSIDE. AFIB ON INSURANCE COORDINATOR. VITAL SIGNS ARE WITHIN NORMAL LIMIT. IV LINE IN LEFT FOREARM PATENT. PT DOES NOT COMPLAIN OF PAIN.ON O2 3 L NC AND SATURATION IS ABOVE 95%. WOUND CARE PROVIDED DURING THE NIGHT WELL Q2 TURN. PERICARE GIVE. PT HAD A LOOSE DIARRHEA BOWEL BROWN COLOR MODERATE AMOUNT LAST NIGHT. HE SLEPT DURING THE NIGHT. CALL LIGHT AT REACH. BED IN LOWEST POSITION . WAS MADE COMFORTABLE IN ROOM
[2018-07-20 08:00] VITALS: BP 158/58
[2018-07-20 12:26] VITALS: BP 146/55
[2018-07-20 16:00] VITALS: BP 150/58
--- NOTE | 2018-07-20 18:01 | NUR ---
PATIENT RESTING IN BED. Q2 HOUR TURNS COMPLETED AND HOURLY ROUNDING COMPLETED FOR PATIENT SAFETY. VITAL SIGNS STABLE AND PATINET IN NOAPPARNET SIGNS OF DISTRESS. PHOTOS OF WOUNDS TAKEN FOR PROGRESSION. PATINET TO HAVE DIALYSIS SATURDAY THROUGH [facility].
[2018-07-20 20:00] VITALS: BP 147/79; BP 156/66
[2018-07-21] VITALS: BP 156/61
[2018-07-21 04:00] VITALS: BP 176/75
--- NOTE | 2018-07-21 04:57 | NUR ---
ASSUMED PT CARE AT 1930, PT IS A&OX4, PT IS TRACING AFIB/AFLUTTER ON THE MONITOR, ON 2L NC SATTING MID TO HIGH 90'S. PT DENIES ANY PAIN OR NEEDS AT THIS TIME. PT HAS WOUNDS TO BUTTOCKS AND LEFT LE, PICTURES TAKEN AND WOUNDS DRESSED BY DAY RN. PT HAS A REILLY TO DD, PT IS TO HAVE DIALYSIS IN THE AM. BED IN LOW POSITION, CALL LIGHT IN REACH, BED ALARM ON, YELLOW ARM BAND AND SOCKS IN PLACE. HOURLY ROUNDING COMPLETED FOR PT SAFETY.
[2018-07-21 05:03] LABS: HEMATOCRIT 28.1 % (42.0-52.0); HEMOGLOBIN 9.4 gm/dL (14.0-18.0); MCH 29.2 pg (26.0-34.0); MCHC 33.4 g/dL (28.0-37.0); MCV 87.5 fL (80.0-100.0); RBC 3.21 mil/uL (4.50-6.00); RDW-CV 18.5 % (10.5-14.5); WBC 23.3 thou/uL (4.0-11.0)
[2018-07-21 05:14] LABS: CALCIUM 7.9 mg/dL (8.5-10.1); CREATININE 6.2 mg/dL (0.6-1.3); MAGNESIUM 2.3 mg/dL (1.8-2.4); POTASSIUM 3.7 mmol/L (3.5-5.1)
[2018-07-21 08:00] VITALS: BP 174/70
--- NOTE | 2018-07-21 08:30 | NUR ---
ASSUMED CARE OF PT AT 0730. PT RESTING IN BED WAITING FOR BREAKFAST AND WAITING FOR FAMILY TO GET HERE. PT A&0X4, DENIES ANY PAIN OR SHORTNESS OF BREATH AT THIS TIME. PT TRACING AFIB ON THE VAULT CLERK. EDEMA NOTED TO BILATERAL LE'S. PT ON 2L NC SAT 96%. PT IS A DIALYSIS PT AND IS TO HAVE DIALYSIS AT 1300 TODAY. REILLY TO DEPENDENT DRAINAGE. PT UP WITH MAX ASSIST, WEAK AND UNSTEADY. PT GOAL FOR TODAY IS DIALYSIS THIS AFTERNOON, WORK WITH PHYSICAL AND OCCUPATIONAL THERAPY TO INCREASE ACTIVITY. AM ASSESSMENT CHARTED. MEDICATIONS PER JAN. PT REPOSITIONED EVERY 2 HOURS FOR COMFORT. HOURLY ROUNDING OBSERVED. BED IN LOW POSITION. BED ALARM IN PLACE. FALL PRECAUTIONS IN PLACE. CALL LIGHT WITHIN REACH. WILL CONTINUE PLAN OF CARE.
--- NOTE | 2018-07-21 09:51 | CON ---
[address] [address] CONSULTATION Name: RACHEL ARECHIGA I Room: [address] IN .R.#: [id number] Admission: 07/14/18 Attend Phys: Jayla Eid MD Discharge: Date of : 39 Report #: [id number] THIS REPORT FOR: //name// CC: Candelario Joneson Jayla Eid DATE OF SERVICE: 07/18/2018 PULMONARY CONSULTATION REFERRING PHYSICIAN: Jayla iEd MD CHIEF COMPLAINT: Dyspnea. HISTORY OF PRESENT ILLNESS: The patient is a 78-year-old male who was admitted on the above given day. He presented with feeling weak, complaining of knee pain on the left side. He was evaluated, and he was admitted to the hospital. According to the patient, he had been having problems with his knee for some time. It has become swollen and during this hospitalization, he underwent orthopedic evaluation. It was felt to have an effusion. He had an arthrocentesis performed of the left knee. The cultures are still pending from an ID standpoint, but a Gram stain revealed Gram-positive cocci with numerous wbc's present. The patient has been placed on antibiotic therapy. In addition, he has chronic kidney disease. He has had worsening renal function during this hospitalization. He has been seen and followed by the renal service. The patient had developed increased shortness of breath, became more tachypneic more so within the last 24 hours or so during this hospitalization. On evaluation, the patient has been seen in our office in the past. States that it has been about anywhere from 8-10 months ago. He is not sure which doctor saw him. He is unaware of undergoing any sort of pulmonary function evaluation. As a result, records from our office will be obtained to better define his evaluation from that standpoint. He is a lifelong nonsmoker. He is not aware of any underlying respiratory disease or disorder. Today, he is not experiencing any phlegm production, cough. He states that the pain in his knee is down to 3/10 whereas yesterday, it was a 10/10. He has limited mobility of his left lower extremity because of some aggravated knee pain. Otherwise, he denies nausea, vomiting. He has not had any headache, blurred vision or diaphoresis. His shortness of breath has wors[place] [address] CONSULTATION Name: RACHEL ARECHIGA I Room: [address] IN [facility]#: [id number] Admission: 07/14/18 Attend Phys: Jayla Eid MD Discharge: Date of : 39 Report #: [id number] FAMILY HISTORY: Positive for various different carcinomas. A sister had ovarian. States that a brother had bone cancer. ALLERGIES: He has no known medication allergies. PAST MEDICAL HISTORY: Significant for bilateral knee surgery. He has history of iron deficiency anemia, history of chronic dyspnea. In addition, he has obesity. He is not aware of ever being tested for sleep apnea. He has a history of diastolic congestive heart failure, diabetes, hypertension. According to the daughter, he also has a history of hypercapnia. He had been on BiPAP before in the past. REVIEW OF SYSTEMS: System review negative other than what is outlined above. CURRENT MEDICATIONS: Cefepime, Zosyn, DuoNeb aerosol treatments have been initiated, Protonix, erythromycin, levothyroxine, Lipitor, Flomax, subcutaneous heparin. PHYSICAL EXAMINATION: VITAL SIGNS: Blood pressure 150/57, respiratory rate of 18, pulse rate 55, temperature 97.6. GENERAL APPEARANCE: The patient is awake, alert and oriented. He is hard of hearing. HEAD: Atraumatic. EYES: Pupils are round, equal, reactive. ORAL CAVITY: Moist. No lesions. NECK: No adenopathy. CHEST: Reveals symmetrical expansion. He has breath sounds that are equal, but diminished. He has a few upper airway end-expiratory wheezes. Lower lung arndt appear clear other than diminished breath sounds. He has a poor inspiratory effort. CARDIOVASCULAR: Reveals a resting tachycardia. ABDOMEN: Soft. No organomegaly or tenderness. EXTREMITIES: Reveal bilateral edema. Left knee appears to be slightly more swollen than the right, these were not necessarily measured, this is on gross observation. Left knee appears to be slightly warmer. There is no cutaneous erythema. I did not feel any fluctuation. NEUROLOGIC: The patient is able to move his extremities. He is cognizant of his surroundings. He has purposeful movement. LABORATORY DATA: Arterial blood gas obtained on admission revealed a pH of 7.35, pCO2 of 35, pO2 of 83, bicarbonate of 19 while on 2 liters. A urinalysis on 07/15/2018 revealed 6-15 wbc's per high power field, 3-10 rbc's per high power field. On 07/17/2018, CRP was 124. Hepatitis screen nonreactive. On 07/17/2018, hemoglobin and hematocrit of 8 and 26 with a white count of 14,700, platelet count 221,000. Today, his electrolytes reveal sodium 131, potassium [facility] [address] [place] [address] CONSULTATION Name: RACHEL ARECHIGA I Room: [address] IN [facility]#: [id number] Admission: 07/14/18 Attend Phys: Jayla Eid MD Discharge: Date of : 39 Report #: [id number] 3.5, chloride 99, CO2 of 17, BUN of 103, creatinine 6.7, phosphorus is elevated. Magnesium is normal. Albumin is low at 1.8. EGFR is 8. Fluid analysis of the arthrocentesis fluid revealed greater than 66,000 wbc's. Chest x-ray on admission revealed a small left pleural effusion, prior coronary artery bypass surgery, which he failed to mention during his evaluation. There is some left basilar atelectasis as well. I had an opportunity to review records from our office. He was seen by Dr. Cervantes on 02/14/2018. The office evaluation was followup on his pneumonia when he was hospitalized at [facility] in January 2018, obesity, sleep apnea, stage 2 chronic kidney disease. The patient did not have any pulmonary function studies and he was scheduled to return in October 2018. IMPRESSION: 1. Septic arthritis, most likely. 2. Acute respiratory insufficiency with tachypnea. 3. Hypoxemia, requiring supplemental oxygen therapy. 4. Status post coronary artery bypass surgeries secondary to coronary artery disease. 5. Chronic kidney disease, superimposed on acute renal disease. 6. Diabetes. 7. Obesity. 8. History of hypertension. RECOMMENDATION: Renal service/ID service is following the patient. Pulmonary nsah, initiate aspiration precautions, utilize BiPAP at bedtime, check an arterial blood gas. Initiate aerosol treatments more frequently and add Atrovent to the current regimen, so he is receiving this on a q. 4 hour basis. Followup chest x-ray will be obtained. A short course of steroids will be initiated and suspect that the patient would benefit from dialysis at some point, but this decision will be left up to the renal service. In the event that the current chest x-ray demonstrates worsening fluid buildup and overload, have already communicated with the renal service. They will be pursuing dialysis a little more aggressively at that point. <ELECTRONICALLY SIGNED> By: Casa Hammond MD 07/21/18 [id number] Hammond MD /nt
--- NOTE | 2018-07-21 14:52 | NUR ---
CM has attempted to reach Pt's family regarding disposition. Pt is currently dialysis dependent, CM following for dialysis set up. Per nurse, Pt will likely need skilled at dc. Continue to follow
[2018-07-21 16:00] VITALS: BP 158/73
--- NOTE | 2018-07-21 16:12 | NUR ---
ESTHETICS INSTRUCTOR ATTEMPTED TO CONTACT PATIENT'S SPOUSE TO DISCUSS DISCHARGE PLANNING AND SKILLED AT D/C, AND LEFT A MESSAGE TO RETURN CALL TO DISCUSS. PER PATIENT'S NURSE PATIENT'S DTR WAS HERE AT THE HOSPITAL THIS MORNING AND SPOKE TO THE PHYSICAN. ESTHETICS INSTRUCTOR CONTACTED PATIENT'S DTR AND SHE INFORMS THAT THE PATIENT'S SPOUSE 'WORKS AND MAY NOT BE ABLE TO HEAR HER PHONE'. PATIENT'S DTR INFORMS THAT THE PATIENT 'HAS BEEN TO [facility] IN THE PAST AND HE LIKED IT THERE. SO [facility] IS WHERE HE WANTS TO GO AGAIN'. ESTHETICS INSTRUCTOR SPOKE TO LACI [facility] TO INFORM OF THE REFERRAL AND FAXED PATIENT'S CLINICAL INFO. CM WILL REMAIN AVAILABLE TO ASSIST AND FOLLOW NEEDED.
--- NOTE | 2018-07-21 16:32 | NUR ---
WOUND NURSE: PATIENT SEEN TO FOLLOW UP ON BILATERAL BUTTOCK WOUNDS. THESE REMAIN AN ISSUE. PRESENT SHALLOW EROSIONS ON BILATERAL BUTTOCKS CONTAINING A MIXTURE OF GRANULATION AND NONGRANULATION TISSUE AND MODERATE AMOUNT OF SEROUSANGUINOUS DRAINAGE. REMOVED DRESSING AND CLEANSED WITH SOAP AND WATER, RINSED WITH WATER, THEN PATTED DRY. APPLIED EXUDERM HYDROCOLLOID DRESSING AND SECURED IT IN PLACE USING TRANSPARENT DRAPE. ALSO APPLIED SKIN PREP TO ASSIST IN ADHESION OF DRESSING.
--- NOTE | 2018-07-21 18:12 | NUR ---
NO ACUTE CHANGES THROUGHOUT SHIFT. REFER TO CHARTING. PT HAD DIALYSIS TODAY-TOLERATED WELL. PT WORKED WITH PT AND OT-TOLERATED FAIR. SLOWLY PROGRESSING TOWARDS GOALS. CARDIOLOGY SIGNED OFF. PT TO HAVE REPEAT CXR IN AM. PT CONTINUES TO TRACE AFIB/A FLUTTER ON THE INSPECTOR AND SORTER. ON 2L NC SAT UPPER 90'S. PT DENIES ANY PAIN OR SHORTNESS OF BREATH THROUGHOUT AFTERNOON. REILLY TO DEPENDENT DRAINAGE. PT UP WITH MAX ASSIST. MEDICATIONS PER JAN. PT REPOSITIONED EVERY 2 HOURS FOR COMFORT. HOURLY ROUNDING OBSERVED. BED IN LOW POSITION. BED ALARM IN PLACE. FALL PRECUATIONS IN PLACE. CALL LIGHT WITHIN REACH. WILL CONTINUE PLAN OF CARE.
[2018-07-21 20:32] VITALS: BP 166/74
[2018-07-22] VITALS (7 sets, daily range): BP systolic 148–179; BP diastolic 63–82
[2018-07-22 05:28] LABS: HEMATOCRIT 29.2 % (42.0-52.0); HEMOGLOBIN 9.5 gm/dL (14.0-18.0); MCH 28.7 pg (26.0-34.0); MCHC 32.6 g/dL (28.0-37.0); MCV 88.1 fL (80.0-100.0); MPV 7.9 fl. (7.2-11.1); NUCLEATED RBCS 0 /100WBC; PLATELET COUNT* 372 thou/uL (150-400); RBC 3.31 mil/uL (4.50-6.00); RDW-CV 18.5 % (10.5-14.5); WBC 22.4 thou/uL (4.0-11.0)
--- NOTE | 2018-07-22 05:45 | NUR ---
RECEIVED REPORT AND ASSUMED CARE AT 1900. VSS. CARDIAC MONITORING IN PLACE. ASSESSMENT COMPLETED CHARTED. DISCUSSED PLAN OF CARE WITH PT, VERBALIZED UNDERSTANDING. PT DENIES ANY COMPLAINTS OF PAIN. POSITION CHANGED EVERY 2 HOURS, MEDICATION ADMIN PER EMAR. BED LOCKED IN LOWEST POSITION, CALL LIGHT WITHIN REACH, BED ALARM ON. HOURLY ROUNDING COMPLETED AND ALL NEEDS MET. WILL CONTINUE TO MONITOR
[2018-07-22 06:13] LABS: ALBUMIN 1.9 g/dL (3.4-5.0); CALCIUM 7.5 mg/dL (8.5-10.1); CREATININE 4.6 mg/dL (0.6-1.3); POTASSIUM 3.8 mmol/L (3.5-5.1); TOTAL BILIRUBIN 0.4 mg/dL (<0.1-1.0); TOTAL PROTEIN 4.8 g/dL (6.4-8.2)
[2018-07-22 06:30] LABS: ABSOLUTE LYMPHOCYTES 2.2 thou/uL (0.8-5.3); ABSOLUTE NEUTROPHILS 20.2 thou/uL (1.6-8.1); ANISOCYTOSIS 1+; PLATELET ESTIMATE ADEQUATE
--- NOTE | 2018-07-22 09:23 | NUR ---
ASSUMED CARE OF PT AT 0730. PT RESTING IN BED WAITING FOR BREAKFAST. PT A&0X4. DENIES ANY PAIN OR SHORTNESS OF BREATH AT THIS TIME. PT TRACING ATRIAL FLUTTER ON THE DIETARY AIDE TEACHER .RATE CONTROLLED. PT ON 2L NC SAT 98%. REILLY TO DEPENDENT DRAIANGE. PT UP WITH MAX ASSIST. PT GOAL FOR TODAY IS TO WORK WITH PT AND OT, TRANSITION TO PO STEROIDS, IV ABX AND REPEAT CXR THIS AM. AM ASSESSMENT CHARTED. MEDICATIONS PER JAN. PT REPOSITIONED EVERY 2 HOURS FOR COMFORT. HOURLY ROUNDING OBSERVED. BED IN LOW POSITION. BED ALARM IN PLACE. FALL PRECAUTIONS IN PLACE. CALL LIGHT WITHIN REACH. WILL CONTINUE PLAN OF CARE.
--- NOTE | 2018-07-22 18:07 | NUR ---
NO ACUTE CHANGES THROUGHOUT SHIFT. REFER TO CHARTING. PT TRANSITIONED TO PO STEROIDS TODAY. SLOWLY PROGRESSING TOWARDS GOALS. PT HAD REPEAT CXR TODAY-REFER TO RESULTS. VISITOR AT BEDSIDE THIS EVENING. PT DENIES ANY PAIN OR SHORTNESS OF BREATH THROUGHOUT SHIFT. CONTINUES TO TRACE ATRIAL FLUTTER ON THE TESTER [employer]ODU[employer]. ON 2L NC SAT UPPER 90'S. PT UP WITH MAX ASSIST. MEDICATIONS PER JAN. PT REPOSITIONED EVERY 2 HOURS FOR COMFORT. HOURLY ROUNDING OBSERVED. BED IN LOW POSITION. BED ALARM IN PLACE. FALL PRECAUTIONS IN PLACE. CALL LIGHT WITHIN REACH. WILL CONTINUE PLAN OF CARE.
[2018-07-23 04:00] VITALS: BP 176/76
[2018-07-23 05:02] LABS: ABSOLUTE LYMPHOCYTES 4.4 thou/uL (0.8-5.3); ABSOLUTE NEUTROPHILS 21.1 thou/uL (1.6-8.1); HEMATOCRIT 29.7 % (42.0-52.0); HEMOGLOBIN 9.9 gm/dL (14.0-18.0); LYMPHOCYTES 16.5 %; MCH 29.4 pg (26.0-34.0); MCHC 33.2 g/dL (28.0-37.0); MCV 88.3 fL (80.0-100.0); MONOCYTES 3.7 %; MPV 7.8 fl. (7.2-11.1); NUCLEATED RBCS 0 /100WBC; PLATELET COUNT* 376 thou/uL (150-400); POLYS 79.8 %; RBC 3.36 mil/uL (4.50-6.00); RDW-CV 17.7 % (10.5-14.5); WBC 26.4 thou/uL (4.0-11.0)
[2018-07-23 05:14] LABS: ALBUMIN 1.9 g/dL (3.4-5.0); CALCIUM 7.6 mg/dL (8.5-10.1); CREATININE 5.1 mg/dL (0.6-1.3); MAGNESIUM 2.2 mg/dL (1.8-2.4); POTASSIUM 3.9 mmol/L (3.5-5.1); TOTAL BILIRUBIN 0.5 mg/dL (<0.1-1.0); TOTAL PROTEIN 5.1 g/dL (6.4-8.2)
[2018-07-23 05:57] LABS: PREALBUMIN 21.4 mg/dL (18.0-35.7)
[2018-07-23 08:00] VITALS: BP 155/73
--- NOTE | 2018-07-23 08:18 | NUR ---
RECEIVED REPORT AND ASSUMED CARE AT 1900. VSS. CARDIAC MONITORING IN PLACE. PT DENIES ANY COMPLAINTS OF PAIN. ASSESSMENT COMPLETED CHARTED. DISCUSSED PLAN OF CARE WITH PT, VERBALIZED UNDERSTANDING. PT TO HAVE DIALYSIS 07/23/18. MEDICATION ADMIN PER EMAR. POSITION CHANGED EVERY TWO HOURS. BED LOCKED IN LOWEST POSITION, CALL LIGHT WITHIN REACH, BED ALARM ON. HOURLY ROUNDING COMPLETED AND ALL NEEDS MET. NURSING WILL CONTINUE TO MONITOR
--- NOTE | 2018-07-23 09:30 | NUR ---
ASSUMED CARE OF PATIENT AFTER REC'G REPORT FROM NOC RN. PT A & O X2. PT ABLE TO USE CALL LIGHT FOR ASSISTANCE. LARYNGOLOGIST IN PLACE, SR BBB. O2 SATS 95% ON 2L NC. REILLY CATHETER TO DEPENDENT DRNG, CLR YELLOW URINE. PT ATE 80% OF BREAKFAST PRIOR TO NURSING STAFF TRANSPORTING VIA BED TO DIALYSIS.
--- NOTE | 2018-07-23 09:37 | NUR ---
Maddie from [facility] here yesterday to access Pt for skilled. Maddie to continue to follow.
--- NOTE | 2018-07-23 15:00 | NUR ---
PT RETURNED FROM DIALYSIS TO UNIT VIA BED AND NURSING STAFF. A & O x3, EATING LUNCH. JAVA LEAD IN PLACE, SR BBB. ASSESSMENT COMPLETE AND DOCUMENTED. MEDS PER MAR. FREQUENT CHECKS. CALL LIGHT IN HAND. PT SITTING IN CHAIR, STATES "DOES IT MAKE THAT BIG OF DIFFERENCE IF I'M IN THE BED VS. THE CHAIR. EDUCATION PROVIDED R/T RISK OF ASPIRATION IF NOT SITTING UPRIGHT TO EAT AND EASE OF BREATHING WHILE UP TO CHAIR. NEEDS REINFORCING.
[2018-07-23 15:37] VITALS: BP 163/83
[2018-07-23 20:15] VITALS: BP 156/78
[2018-07-24] VITALS (9 sets, daily range): BP systolic 155–194; BP diastolic 61–84
--- NOTE | 2018-07-24 05:16 | NUR ---
PT RESTING IN BED. AFIB W/BBB. PT 2L NC. PT AM LABS TO BE REVIEWED. PT HAS BEEN NPO SINCE MIDNIGHT FOR AM HD TUNNELED CATHETER.
[2018-07-24 05:40] LABS: ALBUMIN 1.8 g/dL (3.4-5.0); CALCIUM 7.2 mg/dL (8.5-10.1); CREATININE 4.2 mg/dL (0.6-1.3); TOTAL BILIRUBIN 0.5 mg/dL (<0.1-1.0); TOTAL PROTEIN 4.9 g/dL (6.4-8.2)
[2018-07-24 10:18] LABS: APTT 27.8 Seconds (25.0-31.3); INR 1.2; PROTIME 11.8 Seconds (9.20-11.50)
--- NOTE | 2018-07-24 10:53 | NUR ---
Spoke with renal MADISON oconnor to initiate outpt dialysis set up. DC production planner to reach out to family to inform of POC. Updated Maddie at [facility]. Following.
--- NOTE | 2018-07-24 11:53 | NUR ---
COMMUNICATIONS FIELD TECHNICIAN CONTACTED PATIENT'S SPOUSE TO UPDATE ON POC AND DISCUSS CHOICE OF DIALYSIS CLINIC AT D/C. PATIENT'S SPOUSE INFORMS THAT SHE HAD ALREADY BEEN UPDATED ON THE PLAN OF CARE AND WOULD LIKE THE PATIENT'S DIALYSIS TREATMENTS DONE AT [facility] ([place], [place]). COMMUNICATIONS FIELD TECHNICIAN CONTACTED [facility] ADMISSIONS TO INFORM OF THE REFERRAL AND FAXED [facility] THE PATIENT ADMISSION FORM. CM WILL REMAIN AVIALABL TO ASSIST AND FOLLOW NEEDED.
--- NOTE | 2018-07-24 12:46 | NUR ---
I have reviewed the documentation by CHANEL KELLY 07/24/18 and I concur with it. Tianna Gan
--- NOTE | 2018-07-24 13:06 | NUR ---
ASSUMED PT CARE AT 0730, FULL ASSESMENT DONE CHARTED. PT A/O X4, SLOW TO ANSWER AT TIMES, [place], WEARS LEFT HEARING AIDE. PTS VSS, DENIES PAIN, AFLUTTER/BB ON THE MONITOR. PT DENIES PAIN/ UP MAX ASSIST, NPO FOR DIALYSIS CATHETER PLACEMENT THIS AFTERNOON. PT TURNED Q [address]. WILL CONTINUE WITH PLAN OF CARE.
[2018-07-25] VITALS: BP 162/80
[2018-07-25 04:00] VITALS: BP 166/79
--- NOTE | 2018-07-25 04:55 | NUR ---
Assumed care of patient at 1930. Full assessment performed and documented; hourly rounding completed for patient safety. All VSS; no c/o pain. A-fib/flutter noted on telemetry. O2 saturation 93% on 3L NC. Patient's Dougherty catheter intact and patent. Patient had 1 large incontinent BM. Right dialysis catheter intact with stained blood noted on dressing. Fall precautions in place; call light within patient's reach. Will continue to monitor.
[2018-07-25 05:21] LABS: ABSOLUTE LYMPHOCYTES 3.7 thou/uL (0.8-5.3); ABSOLUTE MONOCYTES 1.1 thou/uL (0.0-1.2); ABSOLUTE NEUTROPHILS 16.2 thou/uL (1.6-8.1); BASOPHILS 0.1 %; EOSINOPHILS 0.1 %; HEMATOCRIT 28.8 % (42.0-52.0); HEMOGLOBIN 9.5 gm/dL (14.0-18.0); LYMPHOCYTES 17.7 %; MCH 29.5 pg (26.0-34.0); MCHC 32.9 g/dL (28.0-37.0); MCV 89.7 fL (80.0-100.0); MONOCYTES 5.4 %; MPV 7.8 fl. (7.2-11.1); NUCLEATED RBCS 0 /100WBC; POLYS 76.7 %; RBC 3.21 mil/uL (4.50-6.00); RDW-CV 18.1 % (10.5-14.5); WBC 21.1 thou/uL (4.0-11.0)
[2018-07-25 05:25] LABS: PLATELET COUNT* 298 thou/uL (150-400)
[2018-07-25 05:28] LABS: ALBUMIN 1.8 g/dL (3.4-5.0); CALCIUM 7.4 mg/dL (8.5-10.1); CREATININE 4.4 mg/dL (0.6-1.3); POTASSIUM 4.3 mmol/L (3.5-5.1); TOTAL BILIRUBIN 0.4 mg/dL (<0.1-1.0); TOTAL PROTEIN 4.6 g/dL (6.4-8.2)
[2018-07-25 07:45] VITALS: BP 177/76
--- NOTE | 2018-07-25 09:00 | NUR ---
ASSUMED PT CARE AT 0730, FULL ASSESMENT DONE CHARTED. PT A/O X4, FLAT AFFECT, DENIES PAIN, VSS, AFIB/PVC'S ON THE MONITOR. PT TAKEN TO DIALYSIS AT APPROX [phone]. WILL CONTINUE WITH PLAN OF CARE.
--- NOTE | 2018-07-25 11:32 | NUR ---
Pt close to being ready for dc. CM contacted [facility] to check on status of chair time assignment, CM was informed that Pt will have a T-TH-Sat schedule, 2nd shift, but clinic is awaiting insurance verification and medical dermatologist approval, they anticipate a decision either late today or Saturday. Updated Dr Mendoza and Nelia, at [facility]. Following.
[2018-07-25 13:15] VITALS: BP 167/81
[2018-07-25 16:00] VITALS: BP 159/91
--- NOTE | 2018-07-25 16:02 | NUR ---
I have reviewed the documentation by CHANEL LEACH from 07/25/18 to 07/25/18 and I concur with it. HAWK, [place]
[2018-07-25 19:30] VITALS: BP 154/68
--- NOTE | 2018-07-25 19:36 | NUR ---
PT RETURED FROM DIALYSIS AT APPROX 1200, WAS ABLE TO EAT LUNCH, AND SIT UP. PT WAS NOTED TO HAVE SOME BLEEDING FROM NEW CATHETER SITE IN RIGHT OF NECK AT APPROX 1245. PRESSURE WAS HELD FOR 20 MIN, DRESSING CHANGED, NO NEW BLEEDING NOTED FOR THE REMAINDER OF THE SHIFT. PT A/O X4, VSS, AFIB/FLUTTER ON MONITOR. TURNED Q2 HR, DRESSING TO BUTTOCK CHANGED, NEW TUBAGRIPS PLACED ON BILAT LEGS. PT AND UPDATED ON PLAN OF CARE. REPORT GIVEN TO YOUSIF BENTON.
[2018-07-26] VITALS: BP 168/80
[2018-07-26 04:00] VITALS: BP 150/76
--- NOTE | 2018-07-26 04:27 | NUR ---
PT AAOX4, RESP REG AND UNLABORED SKIN W/D NO ACUTE DISTRESS NOTED. PTFOELY INTACT AND PATENT DRAINING YELLOW URINE TO BEDSIDE BAG. TELEMETRY PACKINTACT WITH ALARMS SET. O2 2L BNC INTACT. NO ACUTE CHANGES DURING SHIFT AND VSS. TUBLAR DRESSING INTACT TO LEGS. DRESSINGTO BUTTOCKS INTACT. PT STATED HE FELT A LITTLE BETTER. WILL CONTINUE TO MONITOR
[2018-07-26 05:27] LABS: BE 1.2 mmol/L (-2 to +3); PCO2 36.4 mmHg (35.0-45.0); pH 7.454 (7.340-7.450)
[2018-07-26 08:10] VITALS: BP 183/86
[2018-07-26 12:00] VITALS: BP 171/74
--- NOTE | 2018-07-26 14:21 | NUR ---
ASSUMED PT CARE AT 0730, FULL ASSESMENT DONE CHARTED. PT A/O X4, [place], DENIES PAIN, BP SLIGHTLY ELEVATED, DISCUSSED BP MEDS WITH DR GUILLAUME. PT UP WITH PT TO RECLINER HAD LARGE LOOSE BM, HAD A VERY HARD TIME GETTING BACK UP. HAD TO HAVE 4 STAFF MEMBERS TO HELP PT STAND AND GET CLEANED UP. PT BACK IN BED, DRESSING CAME OFF BUTTOCK. REPLACED. PT VERY RED IN GROIN, [place] CREAM ORDERED. PT TURNED Q [address]RS[address] F[address] PRECAUTIONS IN PLACE. CALL LIGHT IN REACH. WILL CONITNUE WITH PLAN OF CARE.
[2018-07-26 16:00] VITALS: BP 147/73
[2018-07-26 19:15] VITALS: BP 147/55
[2018-07-27 04:00] VITALS: BP 160/57
--- NOTE | 2018-07-27 04:50 | NUR ---
PT AAOX4, RESP REG AND UNLABORED SKIN W/D NO ACUTE DISTRESS NOTED. O2 4L BNC INTACT. REILLY INTACT AND PATENT DRAINING YELLOW URINE, PT TURNED Q2 HRS. DRESSING TO BUTTOCK INTACT AND TUBA BUTTON MAKER DRESSING TO LEGS INTACT. PT HAD A GOOD NIGHT AND SLEPT WELL. PT DENIES PAIN AND SOB. VSS AND NO ACUTE CHANGES DURING SHIFT, WILL CONTINUE TO MONITOR
[2018-07-27 05:16] LABS: ABSOLUTE MONOCYTES 1.1 thou/uL (0.0-1.2); ABSOLUTE NEUTROPHILS 15.7 thou/uL (1.6-8.1); BASOPHILS 0.1 %; EOSINOPHILS 0.1 %; HEMATOCRIT 29.1 % (42.0-52.0); HEMOGLOBIN 9.5 gm/dL (14.0-18.0); LYMPHOCYTES 15.2 %; MCH 29.6 pg (26.0-34.0); MCHC 32.9 g/dL (28.0-37.0); MCV 90.1 fL (80.0-100.0); MONOCYTES 5.8 %; MPV 8.3 fl. (7.2-11.1); NUCLEATED RBCS 0 /100WBC; PLATELET COUNT* 235 thou/uL (150-400); POLYS 78.8 %; RBC 3.22 mil/uL (4.50-6.00); RDW-CV 18.1 % (10.5-14.5); WBC 19.9 thou/uL (4.0-11.0)
[2018-07-27 05:50] LABS: ALBUMIN 1.7 g/dL (3.4-5.0); CALCIUM 7.1 mg/dL (8.5-10.1); CREATININE 4.2 mg/dL (0.6-1.3); POTASSIUM 3.7 mmol/L (3.5-5.1); TOTAL BILIRUBIN 0.5 mg/dL (<0.1-1.0); TOTAL PROTEIN 4.4 g/dL (6.4-8.2)
[2018-07-27 08:00] VITALS: BP 174/84
[2018-07-27 12:00] VITALS: BP 157/79
[2018-07-27 16:00] VITALS: BP 138/68
--- NOTE | 2018-07-27 17:39 | NUR ---
PT CARE ASSUMED AFTER REPORT. ASSESSMENT COMPLETE. AFIB/AFLUTTER ON MONITOR. O2 2L NC. MAX ASSIST. WEAK. REILLY TO DD. ACCU CHECK LOW THIS AM, 60. JUICE AND BREAKFAST GIVEN. PT TO BE NPO AFTER MIDNIGHT FOR THOROCENTISIS IN AM. FALL PRECAUTIONS IN PLACE INCLUDING BED ALARM. AT BEDSIDE TODAY. DENIES PAIN. PROGRESSING TOWARDS SOME GOALS.
[2018-07-27 20:00] VITALS: BP 147/69
[2018-07-28] VITALS: BP 167/79
--- NOTE | 2018-07-28 03:34 | NUR ---
PATIENT RESTED IN BED, NO ACUTE CHANGES. PATIENT DID NOT COMPLAIN OF SOB. PATIENT DID NOT SHOW SIGNS OF DISTRESS. FALL PRECAUTIONS IN PLACE, BED ALARM ON, CALL LIGHT WITH IN REACH, HOURLY ROUNDING OBSERVED. PATIENT OFFER TURNS Q 2 HOURS.
[2018-07-28 04:00] VITALS: BP 181/75
[2018-07-28 04:01] VITALS: BP 175/78
--- NOTE | 2018-07-28 04:34 | NUR ---
CALL TO DOCTOR REGARDING PATIENT'S BLOOD PRESSURE.
[2018-07-28 04:58] LABS: ABSOLUTE EOSINOPHILS 0.1 thou/uL (0.0-0.7); ABSOLUTE LYMPHOCYTES 2.8 thou/uL (0.8-5.3); ABSOLUTE MONOCYTES 1.2 thou/uL (0.0-1.2); ABSOLUTE NEUTROPHILS 11.6 thou/uL (1.6-8.1); BASOPHILS 0.1 %; EOSINOPHILS 0.3 %; HEMOGLOBIN 9.5 gm/dL (14.0-18.0); LYMPHOCYTES 18.1 %; MCH 29.5 pg (26.0-34.0); MCHC 32.8 g/dL (28.0-37.0); MCV 90.1 fL (80.0-100.0); MONOCYTES 7.6 %; MPV 8.3 fl. (7.2-11.1); NUCLEATED RBCS 0 /100WBC; PLATELET COUNT* 228 thou/uL (150-400); POLYS 73.9 %; RBC 3.22 mil/uL (4.50-6.00); WBC 15.7 thou/uL (4.0-11.0)
[2018-07-28 05:24] LABS: ALBUMIN 1.8 g/dL (3.4-5.0); CALCIUM 7.1 mg/dL (8.5-10.1); CREATININE 4.5 mg/dL (0.6-1.3); POTASSIUM 3.5 mmol/L (3.5-5.1); TOTAL BILIRUBIN 0.5 mg/dL (<0.1-1.0); TOTAL PROTEIN 4.6 g/dL (6.4-8.2)
[2018-07-28 05:27] LABS: PREALBUMIN 20.5 mg/dL (18.0-35.7)
[2018-07-28 08:24] VITALS: BP 148/76
[2018-07-28] MEDS ORDERED: HUMALOG100 UNIT/1 SUBQ (09:19)
[2018-07-28] MEDS ORDERED: IPRAT-ALBUT 0.5-3 ML INH (09:19)
[2018-07-28] MEDS ORDERED: LANTUS100 UNIT/M SUBQ (09:19)
[2018-07-28] MEDS ORDERED: CARVEDILOL3.125 MG PO (09:19)
[2018-07-28] MEDS ORDERED: NYSTATIN15 G3 TOP (09:19)
[2018-07-28] MEDS ORDERED: VITAMIN D1000 UNI1 PO (09:19)
[2018-07-28] MEDS ORDERED: PREDNISONE 5 MG5 M1 PO (09:19)
[2018-07-28] MEDS ORDERED: EPOGEN2000 UNIT/ SUBQ (09:19)
[2018-07-28] MEDS ORDERED: DYNACIN100 MG PO (09:19)
[2018-07-28] MEDS ORDERED: ANTACID650 MG PO (09:19)
--- NOTE | 2018-07-28 10:09 | NUR ---
ASSUMED CARE OF PT THIS AM AROUND 0715- FISHING VESSEL CAPTAIN IN PLACE ORDERED, TRACING A-FLUTTER IN 50'S- UPON ASSESSMENT PT NOTED TO BE RESTING IN BED, WATCHING TV- PT A&O X4- CONTINENT VS INCONTINENT OF BOWEL, REILLY IN PLACE D/D CLEAR YELLOW URINE- BED REST IN PLACE WITH Q 2HOUR TURNS INDICATED- RU LOBE NOTED TO BE COURSE, DIMINISHED IN BASES- OCCASSIONAL WET COUGH NOTED WITH POOR EFFORT-RESP EVEN AND UN-LABORED- VSS, O2 SAT 97% ON 3L VIA NC THIS AM- ABDOMEN OBESE/ROUND/NON-TENDER, BS X 4 QUADS- LAST BM REPORTED X 2 DAYS AGO- IV NOTED TO RIGHT HAND INTACT AND SL- RIGHT CHEST PORT FOR DIALYSIS C/D/I- PT CURRENLTY NPO FOR SCHEDULED THORENCENTHESIS THIS AM- DIALYSIS PLANNED TODAYS POST THORACENTHESIS- DRESSING NOTED INTACT TO BUTTCKS AND LLE- BS THIS AM NOTED TO BE 45 WITH JUICE GIVEN, RECHECK 15 MIN NOED TO BE 57- GLUCOSE GEL GIVEN THIS AM AKT 0842, PHYSICAIN AWARE WITH RECHECK AT 1010 NOTED TO BE 123- PT WORKING WITH THERAPIES THIS AM PRESCRIBED, CURRENLTY UP IN BED SIDE RECLINER- PT DENIES ANY C/O PAIN/DISCOMFORT AT THIS TIME- CALL LIGHT AND PERSONAL BELONGINGS WITH IN REACH- HOURLY ROUNDS IN PLACE R/T SAFETY/NEEDS- ALL NEEDS MET AT THIS TIME-[facility]
--- NOTE | 2018-07-28 11:35 | NUR ---
REGULATORY AFFAIRS ASSOCIATE SPOKE TO THE PATIENT'S SPOUSE TO DISCUSS PATIENT'S POSSIBLE DISCHARGE PENDING [facility] OBTAINING INSURANCE AUTH, AND [facility] ACCEPTANCE AND RECIEVING CHAIR TIME FOR DIALAYSIS. PATIENT'S SPOUSE IN AGREEMENT, BUT QUESTIONS IF PATIENT IS READY TO D/C IF HIS KNEE IS STILL SWOLLEN, AND HE IS STILL COUGHING. INFORMED PATIENT'S SPOUSE THAT CM WOULD INFORM NURING THAT THOSE QUESTIONS NEEDED TO BE ADDRESSED. CM WILL REMAIN AVAILABEL TO ASSIST AND FOLLOW NEEDED.
[2018-07-28 12:28] VITALS: BP 160/63
--- NOTE | 2018-07-28 16:36 | NUR ---
PT CURRENLTY OFF UNIT IN DIALYSIS PRESCIBED- BRIM POUNCING MACHINE OPERATOR IN PLACE ORDERED, TRACING A-FIB/FLUTTER- IV TO RIGHT HAND INTACT AND SL- RIGHT CHEST DIALYSIS PORT INTACT- PT OFF UNIT PRIOR TO DIALYSIS FOR PRESCIBED LEFT THORACENTESIS WITH 1000ML REPORTED TO HAVE BEEN DRAINED- BS AT 1200 NOTED TO BE STABLE AT 102- PULMONARY NOTED TO SIGN OFF- D/C REHAB PENDING R/T INSURANCE AUTH- REILLY IN PLACE D/D CLEAR YELLOW URINE- DENIES ANY C/O PAIN- DRESSING TO BUTTOCKS REMAINS IN PLACE- DRESSING TO LLE IN PLACE, UNABLE TO CHANGE THIS SHIFT R/T BEING OFF UNIT MOST SHIFT- GODO PO INTAKE NOTED WITH LUNCH THIS SHIFT- ALL NEEDS MET AT THIS TIME-WCTM
[2018-07-28 20:00] VITALS: BP 134/59
[2018-07-29] VITALS (7 sets, daily range): BP systolic 144–165; BP diastolic 63–73
--- NOTE | 2018-07-29 03:44 | NUR ---
PATIENT RESTED IN BED, NO ACUTE CHANGES. PATIENT DID NOT SHOW SIGNS OF DISTRESS. PATIENT OFFER Q2 TURNS. FALL PRECAUTIONS IN PLACE, BED ALARM ON, CALL LIGHT WITH IN REACH, HOURLY ROUNDING OBSERVED. PATIENT DID NOT SHOW SIGNS OF SOB.
--- NOTE | 2018-07-29 13:30 | NUR ---
Spoke with Nelia, buyer liaison from [facility], insurance authorized Pt's skilled stay, continue to await insurance clearance for outpt dialysis set up. DC search planner to fax updated progress note from Nephrology, notating ESRD dx. Following.
--- NOTE | 2018-07-29 14:21 | NUR ---
OTOLARYNGOLOGY NURSE SPOKE TO VIPUL WITH [facility]- TO INFORM THAT PATIENT IS NOW ESRD STATUS, AND UPDATED PROGRESS NOTES WERE FAXED. ALSO CONTACTED [facility] ADMISSIONS TO INFORM OF THE PATIENT'S ESRD STATUS AND FAXED UPDATED PROGRESS NOTES. CM WILL REMAIN AVAILABLE TO ASSIST AND FOLLOW NEEDED.
--- NOTE | 2018-07-29 16:22 | NUR ---
PT PROGRESSING TOWARDS GOALS THIS SHIFT. VSS. TURN Q 2 HOURS. CASE MANAGEMENT WORKING TOWARDS INSURANCE AUTHORIZATION AND SNF/REHAB PLACEMENT. NO OTHER CONCERNS AT THIS TIME. CLWR. WCTM.
[2018-07-30] VITALS: BP 176/71
[2018-07-30 00:01] VITALS: BP 149/65
[2018-07-30 04:00] VITALS: BP 183/64
[2018-07-30 04:01] VITALS: BP 161/72
--- NOTE | 2018-07-30 04:03 | NUR ---
PATIENT RESTED IN BED, NO ACUTE CHANGES. PATIENT DID NOT SHOW SIGNS OF DISTRESS. FALL PRECAUTIONS IN PLACE, BED ALARM ON, CALL LIGHT WITH IN REACH, HOURLY ROUNDING OBSERVED. PATIENT TURNED Q 2 HOURS.
[2018-07-30 05:58] LABS: ALBUMIN 1.8 g/dL (3.4-5.0); CALCIUM 6.8 mg/dL (8.5-10.1); CREATININE 3.9 mg/dL (0.6-1.3); POTASSIUM 3.4 mmol/L (3.5-5.1); TOTAL BILIRUBIN 0.5 mg/dL (<0.1-1.0); TOTAL PROTEIN 4.2 g/dL (6.4-8.2)
--- NOTE | 2018-07-30 08:06 | CON ---
[address] [address] CONSULTATION Name: RACHEL ARECHIGA I Room: [address] ADM IN M.R.#: [id number] Admission: 07/14/18 Attend Phys: Jayla Eid MD Discharge: Date of : 38 Report #: [id number] THIS REPORT FOR: //name// CC: Candelario Eid DATE OF SERVICE: 07/16/2018 ORTHOPEDIC CONSULTATION Room 203. REFERRING PHYSICIAN: Dr. Johnson. HISTORY OF PRESENT ILLNESS: This is a pleasant 78-year-old gentleman, is seen with his with a swollen left knee. Subsequently, the patient is really not in here for his knees, in here with CHF and a pulmonary infiltrate, which Dr. Johnson also told me. The patient does have an underlying history of chronic renal failure as well. He has dependent edema to this left leg regions. PAST MEDICAL HISTORY: Coronary artery disease, diabetes mellitus, anemia, hypertension, Dorsey syndrome. ALLERGIES: He does currently have no known drug allergies. MEDICATIONS: The patient does have active medications of albuterol sulfate, baby aspirin a day, atorvastatin, Epogen 1000 units, erythromycin, Feraheme, heparin, sodium chloride, insulin, levothyroxine, magnesium, metoclopramide, pantoprazole, piperacillin, polyethylene glycol, potassium supplementation, sodium bicarbonate, sodium chloride solution, tamsulosin. PROBLEM LIST: As above. He has had 2 surgeries at least on this left knee with the most recent one, he says this may be [address] Guevara Frederick. The patient also at this point in time had a partial revision knee done by Dr. Pickering and even prior one to that by Dr. Dante peace. He is a little sketchy on the times and dates of those. In any event, this gentleman has a swollen leg. He has difficulty lifting. He can weightbear on it, though. He is on O2 supplementation. LABORATORY DATA: He does have current labs, white count is 16,700 today, hemoglobin 8.7, which yesterday was 9.7. His glucoses are elevated in the 200 range over the last several days. Urine has shown 2+ protein, he had some blood in his urine as well, 1+ leukocyte esterase. PHYSICAL EXAMINATION: [place] [address] CONSULTATION Name: BENNY ARECHIGAHeriberto Madrigal Room: [address] IN [facility]#: [id number] Admission: 07/14/18 Attend Phys: Jayla Eid MD Discharge: Date of : 39 Report #: [id number] VITAL SIGNS: He at this point in time does show vital signs, temperature 36.6, his pulse rate is 73, respirations are 17, BP is 128/52. GENERAL: The patient is alert and cooperative, has appropriate affect and judgment. O2 nasal cannula. HEENT: He is normocephalic. Mucous membranes are moist. NECK: Trachea is midline. LUNGS: Have normal chest expansion. EXTREMITIES: He has definitely dependent edema to the entire left lower extremity. Can hold the leg in full extension and does bend about 80 degrees. He has a bandage over the mid tibia region. When I removed it, it did not show skin breakdown area, just a grade 1 erythema area. The patient does exhibit to show no findings like this on the right leg. He does also show the radiographs taken of that left knee, well-seated prosthesis AP and lateral views. The patient tells me he has been on suppression antibiotic therapy by Dr. Issa. This has been for quite some time from infectious disease. He said since he had a gallbladder attack a long time ago that he has always remained on that. In any event today, for his large effusion of that knee, I discussed that I would like to aspirate that, send off for appropriate lab results. He agreed and signed a permit procedure performed for that. The left knee was prepped with chlorhexidine. I aspirated 60 mL of purulent material from it, will be sent off to the lab. It was thick yellow in nature. The patient tolerated that procedure quite nicely. IMPRESSION: Consistent with: 1. 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 The patient had a chronic history of antibiotic use prior to that for the left knee. The patient's plan, we had a lengthy discussion with this patient. If this patient is a surgical candidate even depending on his medical condition with his renal status, his respiratory status, coronary artery disease status, diabetes, etc., he is still at high risk. I told him the options: 1. Continue to be just his antibiotic suppression. 2. We could have a washout surgery of this knee with Bactisure polyexchange and then just treat him with antibiotics. 3. Could have the entire knee removed, the antibiotic spacer, see if that would work or not for potential reimplant. 4. Amputation above the knee. All these were reviewed. We will start with the labs progress from there. I will relay this information to my partner, Dr. Guevara Frederick as well. We will let [address] [address] CONSULTATION Name: RACHEL ARECHIGA I Room: [facility] IN ..#: [id number] Admission: 07/14/18 Attend Phys: Jayla Eid MD Discharge: Date of : 39 Report #: [id number] him also participate in watching this. It is my pleasure seeing and taking care of the patient today. <ELECTRONICALLY SIGNED> By: Deshawn Hennessy DO 07/30/18 0806 [id number] Hennessy DO /nt
--- NOTE | 2018-07-30 09:49 | NUR ---
PROCESS SAFETY SPECIALIST SPOKE TO CHRISTOPHER WITH [facility] AND [facility] INFORMS THAT THE PATIENT HAS BEEN MEDICALLY AND FINANCIALLY CLEARED AND [facility] WILL FAX CHAIR-TIME INFO. SPOKE TO VIPUL WITH [facility] TO UPDATE ON THIS INFO AND TO DISCUSS CHAIR-TIME PATIENT IS DIALYZING TODAY. VIPUL INFORMS THAT THE PATIENT WILL BEGIN DIALYSIS IN THE CLINIC ON SATURDAY (08/02/18) AT 1125. SPOKE TO LACI WITH [facility] TO INFORM OF PATIENT'S CHAIR TIME, D/C ORDERS AND TO SETUP TIME OF TRANSPORT AT 1400. FAXED PATIENT'S D/C ORDERS TO LACI AT [facility]. SPOKE TO PATIENT'S SPOUSE TO INFORM OF PATIENT'S D/C, AND [facility] ACCEPTANCE AND CHAIR-TIME. PATIENT'S SPOUSE IN AGREEMENT. INFORMED THE RN IN-CHARGE OF THE PATIENT OF THE TIME OF TRANSPORT AND WHERE TO CALL REPORT. CM WILL REMAIN AVAILABLE TO ASSIST AND FOLLOW NEEDED.
[2018-07-30 09:55] LABS: INR 1.1; PROTIME 11.1 Seconds (9.20-11.50)
[2018-07-30 12:17] VITALS: BP 98/65
[2018-07-30] MEDS ORDERED: COUMADIN 5 MG TA5 M1 PO (12:22)
--- NOTE | 2018-07-30 15:06 | NUR ---
[facility] was not able to accomodate Pt's size, CM set up transport via ambulance.
--- NOTE | 2018-07-30 18:07 | PATH ---
[address] [address] PATHOLOGY RPT PROCEDURE Name: RACHEL ARECHIGA I Room: [address]#: [id number] Admission: 07/14/18 Date of : 39 Discharge: 07/30/18 Report #: [id number] Path Case #: [id number] Note [facility] Accession Number: [id number] TESTS RESULT FLAG UNITS REF RANGE LAB Clinician Provided Cytology Information No. of containers..01 Other (Miscellaneous) Source: LT PLEURAL FLUID DIAGNOSIS: LT PLEURAL FLUID NEGATIVE FOR MALIGNANT CELLS REACTIVE MESOTHELIAL CELLS AND FEW INFLAMMATORY CELLS. THIS INTERPRETATION INCLUDES EVALUATION OF A CELL BLOCK. Signed out by: 02 Shaun Whipple MD, Pathologist NPI- [id number] Performed by: 01 Rosemary Powell, Heel Coverer Machine Operator ([facility]) Gross description: 01 35ML, RED, CLOUDY /LCS FLAG LEGEND: L-Low Normal,H-High Normal,LL-Alert Low,HH-Alert High <-Panic Low,>-Panic High,A-Abnormal,AA-Critical Abnormal Performed at: [address] [place] [address] Ag Arango MD, [address] [place] [address] [address] [place] [address] Shaun Whipple MD, Specimen Comment: A courtesy copy of this report has been sent to Specimen Comment: [phone]. Specimen Comment: Report sent to Performed at: [address], [place], [place] [id number] MD Ag Arango MD Phone: [phone]
--- NOTE | 2018-07-31 07:10 | NUR ---
I have reviewed the documentation by CHANEL KELLY from to 07/30/18 and I concur with it. PRABHU NARVAEZ
--- NOTE | 2018-08-01 16:15 | NUR ---
[facility] RECEIVED A PHONE CALL FROM [facility], STATING [facility] WAS NOT IN NETWORK AND DIALYSIS AUTH WAS PENDING. CALLED [facility] [phone] AND SPOKE WITH NATHALIE, THEY KNOW NOTHING ABOUT THIS AND PLAN ON PT STARTING OUTPT DIALYSIS TOMORROW. [facility]ED [facility] [phone] AND SPOKE ALLEN MIXON, SHE LOOKED THRU THE NOTES AND KNOWS NOTHING ABOUT THIS. [facility] AND LEFT VM FROM MICHELLE [phone] (AFTER GETTING THIS NAME AND NUMBER FROM [facility]) AND LEFT VM EXPLAINING THAT [facility] IS A [facility] AND IS ON THE [employer] WEBSITE A NETWORK PROVIDER. ALSO CALLED [facility] [phone] AND SPOKE WITH YOUSUF (SP?). SHE SAID THE DIALYSIS AUTH IS PENDING IN THE SYSTEM. ALSO EXPLAINED TO HER THAT [facility] IS A [facility]. MICHELLE CALLED BACK AND LEFT A VM STATING THEY WERE CHECKING INTO IT THE TAX ID# AND THE ADDRESS DON'T MATCH SO THEY NEED TO CONFIRM THAT THIS IS AN IN-NETWORK FACILITY, NOT ALL [facility] UNITS ARE IN-NETWORK. YOUSUF FROM [facility] CALLED ME BACK JUST NOW STATING THEY WERE CHECKING INTO IT. I TOLD HER IT HAD TO BE RESOLVED TODAY PT WAS SCHEDULED FOR OUTPT DIALYSIS TOMORROW. [facility] AND [facility] ARE PLANNING ON OUTPT DIALYSIS TOMORROW.
--- NOTE | 2018-08-01 17:05 | NUR ---
RECEIVED VM FROM MICHELLE AT [facility], STATING THEY HAVE TALKED WITH [facility] AND CLARIFIED THAT THE [facility] IS IN-NETWORK WITH PT'S [facility] PLAN. MICHELLE STATES [facility] HAS THE AUTHORIZATION FOR DIALYSIS NOW.
--- NOTE | 2018-08-04 12:26 | NUR ---
Spoke with Ana with [facility] regarding Pt's outpt dialysis, Ana confirmed that Pt has been financially cleared and is good to begin outpt dialysis tomorrow at the [facility]. Updated [facility] liaison, Lakes[facility]ia will update [facility].
--- NOTE | 2018-08-22 09:58 | OP ---
[facility] [address] [place] [address] OPERATIVE REPORT Name: RACHEL ARECHIGA I Room: [address] IN .R.#: [id number] Admission: 07/14/18 Attend Phys: Jayla Eid MD Discharge: 07/30/18 Date of : 39 Report #: [id number] THIS REPORT FOR: //name// CC: Candelario Eid DATE OF SERVICE: 07/24/2018 PREOPERATIVE DIAGNOSIS: End-stage renal disease. POSTOPERATIVE DIAGNOSIS: End-stage renal disease. PROCEDURE: 1. Right internal jugular tunneled dialysis catheter placement. 2. Removal of temporary dialysis catheter. SURGEON: Guevara Herrera M.D. FINANCIAL REPORTING ACCOUNTANT: Jake Porter, resident year 3. COMPLICATIONS: None. ESTIMATED BLOOD LOSS: Minimal. COMPLICATIONS: None. ANESTHESIA: Local. INDICATIONS FOR PROCEDURE: The patient is a very pleasant 78-year-old white male who requires long-term dialysis. I have been asked to place tunneled dialysis catheter. He has a temporary dialysis catheter in place. Informed consent was obtained with risks including, but not limited to bleeding, infection, need for further surgery, pain, , heart attack, stroke, pneumothorax. The patient understood these risks and was agreeable to proceed. DESCRIPTION OF PROCEDURE: The patient was taken to the angio suite, placed in the supine position. Right neck and chest were prepped and draped. We infused 10 mL of 1% lidocaine in the right neck and chest. The right internal jugular vein was accessed distal to the temporary dialysis catheter. A Seldinger technique was used to exchange out for sequential dilators and then the catheter. Fluoroscopy was used throughout the case to ____ correct positioning of the above. Catheter was then tunneled out onto the anterior chest wall. Caps were placed. Both ports flushed without difficulty. The neck incision was closed with Monocryl and Monocryl was used to secure the catheter to the anterior chest wall. Catheter was packed with 1000 unit [place] [address] OPERATIVE REPORT Name: RACHEL ARECHIGA I Room: [address] IN ..#: [id number] Admission: 07/14/18 Attend Phys: Jayla Eid MD Discharge: 07/30/18 Date of : 39 Report #: [id number] We then turned our attention to the temporary dialysis catheter. The sutures were removed. Catheter was removed in its entirety. Pressure was held for 5 minutes. There was no bleeding or hematoma. The patient tolerated both procedures well and was taken alert and awake to recovery room in good condition. All needle, instrument counts were correct at the end of the case. <ELECTRONICALLY SIGNED> By: Guevara Herrera MD 08/22/18 0958 1616 [id number] syed Pedroza
[2018-09-09] MEDS ORDERED: NORCO 5-325 TA1 EACH PO (14:44)
== END 2018-07-30 15:37 | DRG 559 ==
LOC: M.ERS 09:08 → M.TBA-ER 10:48 → M.2W 10:48
PROVIDERS: Family Medicine; Internal Medicine; Internal Medicine Nephrology; Internal Medicine Pulmonary Disease; Nurse Practitioner Family; Orthopaedic Surgery; Personal Emergency Response Attendant; ADMIT Internal Medicine
PROC: 0S9D3ZZ Drainage of Left Knee Joint, Percutaneous Approach (ICD-10-PCS; principal; 2018-07-16)
PROC: B5181ZA Fluoroscopy of Superior Vena Cava using Low Osmolar Contrast, Guidance (ICD-10-PCS; 2018-07-18)
PROC: 02HV33Z Insertion of Infusion Device into Superior Vena Cava, Percutaneous Approach (ICD-10-PCS; 2018-07-18)
PROC: B548ZZA Ultrasonography of Superior Vena Cava, Guidance (ICD-10-PCS; 2018-07-18)
PROC: 5A1D70Z Performance of Urinary Filtration, Intermittent, Less than 6 Hours Per Day (ICD-10-PCS; 2018-07-19)
PROC: 0JH63XZ Insertion of Tunneled Vascular Access Device into Chest Subcutaneous Tissue and Fascia, Percutaneous Approach (ICD-10-PCS; 2018-07-24)
PROC: 02HV33Z Insertion of Infusion Device into Superior Vena Cava, Percutaneous Approach (ICD-10-PCS; 2018-07-24)
PROC: B5181ZA Fluoroscopy of Superior Vena Cava using Low Osmolar Contrast, Guidance (ICD-10-PCS; 2018-07-24)
PROC: 02PYX3Z Removal of Infusion Device from Great Vessel, External Approach (ICD-10-PCS; 2018-07-24)
PROC: 5A1D70Z Performance of Urinary Filtration, Intermittent, Less than 6 Hours Per Day (ICD-10-PCS; 2018-07-25)
PROC: 5A1D70Z Performance of Urinary Filtration, Intermittent, Less than 6 Hours Per Day (ICD-10-PCS; 2018-07-28)
PROC: 0W993ZZ Drainage of Right Pleural Cavity, Percutaneous Approach (ICD-10-PCS; 2018-07-28)
PROC: 5A1D70Z Performance of Urinary Filtration, Intermittent, Less than 6 Hours Per Day (ICD-10-PCS; 2018-07-30)
DX: T84.54XA Infection and inflammatory reaction due to internal left knee prosthesis, initial encounter (principal); A41.9 Sepsis, unspecified organism; N18.6 End stage renal disease; I50.43 Acute on chronic combined systolic (congestive) and diastolic (congestive) heart failure; J96.21 Acute and chronic respiratory failure with hypoxia; J18.9 Pneumonia, unspecified organism; N17.9 Acute kidney failure, unspecified; E87.1 Hypo-osmolality and hyponatremia; M00.9 Pyogenic arthritis, unspecified; J96.10 Chronic respiratory failure, unspecified whether with hypoxia or hypercapnia; D80.4 Selective deficiency of immunoglobulin M [IgM]; D80.3 Selective deficiency of immunoglobulin G [IgG] subclasses; I13.2 Hypertensive heart and chronic kidney disease with heart failure and with stage 5 chronic kidney disease, or end stage renal disease; J44.0 Chronic obstructive pulmonary disease with (acute) lower respiratory infection; I48.91 Unspecified atrial fibrillation; I25.10 Atherosclerotic heart disease of native coronary artery without angina pectoris; Z95.1 Presence of aortocoronary bypass graft; M19.90 Unspecified osteoarthritis, unspecified site; E03.9 Hypothyroidism, unspecified; E11.22 Type 2 diabetes mellitus with diabetic chronic kidney disease; M10.9 Gout, unspecified; D64.9 Anemia, unspecified; E88.09 Other disorders of plasma-protein metabolism, not elsewhere classified; N28.1 Cyst of kidney, acquired; M25.462 Effusion, left knee; G47.33 Obstructive sleep apnea (adult) (pediatric); E66.01 Morbid (severe) obesity due to excess calories; E87.70 Fluid overload, unspecified; E83.39 Other disorders of phosphorus metabolism; Z86.73 Personal history of transient ischemic attack (TIA), and cerebral infarction without residual deficits; Z80.8 Family history of malignant neoplasm of other organs or systems; Z68.37 Body mass index [BMI] 37.0-37.9, adult; Z79.82 Long term (current) use of aspirin; Z79.899 Other long term (current) drug therapy; Z99.2 Dependence on renal dialysis; Y83.8 Other surgical procedures as the cause of abnormal reaction of the patient, or of later complication, without mention of misadventure at the time of the procedure; Y92.89 Other specified places as the place of occurrence of the external cause

== ENCOUNTER → 2018-09-09 | Day surgery (SDC) | payer OTHER, MEDICARE ==
[~2018-09-09] MED LIST changes: +ANTACID650 MG PO; +CARVEDILOL3.125 MG PO; +COUMADIN 5 MG TA5 M1 PO; +DYNACIN100 MG PO; +EPOGEN2000 UNIT/ SUBQ; +HUMALOG100 UNIT/1 SUBQ; +IPRAT-ALBUT 0.5-3 ML INH; +LANTUS100 UNIT/M SUBQ; +NORCO 5-325 TA1 EACH PO; +NYSTATIN15 G3 TOP; +PREDNISONE 5 MG5 M1 PO; +VITAMIN D1000 UNI1 PO
[2018-09-09 11:27] LABS: HEMATOCRIT 32.6 % (42.0-52.0); HEMOGLOBIN 10.5 gm/dL (14.0-18.0); MCH 30.1 pg (26.0-34.0); MCHC 32.2 g/dL (28.0-37.0); MCV 93.6 fL (80.0-100.0); MPV 7.4 fl. (7.2-11.1); RBC 3.49 mil/uL (4.50-6.00); RDW-CV 17.1 % (10.5-14.5); WBC 9.6 thou/uL (4.0-11.0)
[2018-09-09 11:44] LABS: CALCIUM 8.6 mg/dL (8.5-10.1); CREATININE 3.7 mg/dL (0.6-1.3); INR 1.7; POTASSIUM 3.7 mmol/L (3.5-5.1); PROTIME 17.4 Seconds (9.20-11.50)
--- NOTE | 2018-09-10 08:05 | OP ---
[address] [address] OPERATIVE REPORT Name: RACHEL ARECHIGA I Room: [facility]#: [id number] Admission: 09/09/18 Attend Phys: Ismael Sheridan DO Discharge: Date of : 39 Report #: [id number] THIS REPORT FOR: //name// CC: Ismael Palacios DATE OF SERVICE: 09/09/2018 PREOPERATIVE DIAGNOSIS: End-stage renal disease. POSTOPERATIVE DIAGNOSIS: End-stage renal disease. OPERATION: Creation of left brachiocephalic arteriovenous fistula. SURGEON: Ismael Sheridan DO. INTERRELATED SPECIAL EDUCATION TEACHER: WICHO Hernandez. ANESTHESIA: Sedation with local. ESTIMATED BLOOD LOSS: 25 mL. FLUIDS: Less than 100 crystalloid. URINE OUTPUT: None. SPECIMENS: None. COMPLICATIONS: None. FINDINGS: Left cephalic vein is about 5 mm in diameter at the antecubital fossa. His brachial artery is 9-10 mm diameter suitable for access. After creation of fistula, he had a palpable thrill within the cephalic vein in the upper arm and a palpable radial pulse. CLINICAL HISTORY: The patient is a 78-year-old man with end-stage renal disease, currently dialyzing through right IJ tunneled dialysis catheter. He is in need of alternative AV access for long-term dialysis needs. DETAILS OF PROCEDURE: After informed consent was obtained, the patient was taken to the operating room and placed on the OR bed in supine position. He was administered sedation by the anesthesia team. Left upper extremity was prepped and draped in usual sterile fashion. Full timeout was performed identifying correct patient and procedure. Next, skin and subcutaneous tissue just above the antecubital fossa were anesthetized with lidocaine anesthetic. A transverse incision was made just above the antecubital fossa. [place] [address] OPERATIVE REPORT Name: RACHEL ARECHIGA I Room: [facility]#: [id number] Admission: 09/09/18 Attend Phys: Ismael Sheridan DO Discharge: Date of : 39 Report #: [id number] through skin and subcutaneous tissues, both sharp and electrocautery. The cephalic vein was identified, was circumferentially mobilized proximally and distally and controlled with Silastic vessel loop. I then dissected out the brachial artery, controlled it proximally and distally with Silastic vessel loop in Bourne fashion. I then administered 5000 units of intravenous heparin. This allowed to circulate for 3 minutes, transected the vein distally, ligating the stump with a 2-0 silk suture ligature. I then dilated the cephalic vein up to 5 mm and then flushed with heparinized saline and marked to prevent axial rotation. I then occluded the brachial artery, made a longitudinal arteriotomy, extended with Bourne scissors and performed an end-to-side anastomosis with running 6-0 Prolene suture. Prior to completion of the suture line, the artery was allowed to fore and backbleed and then anastomosis was flushed with heparinized saline. I then restored flow first up the fistula and then distally to the hand. He had a palpable radial pulse and a palpable thrill within the cephalic vein in the upper arm. The heparin was then partially reversed with 30 mg of protamine. The wound was irrigated with antibiotic solution. Once hemostasis was ensured, the wound was closed in layers with 3-0 Vicryl and 4-0 Monocryl and skin and Dermabond was applied. All sponge, sharp and instrument counts reported as correct x 2. He tolerated the procedure well and was transferred to recovery in stable condition. <ELECTRONICALLY SIGNED> By: Ismael Sheridan DO 09/10/18 0805 1337 [id number] Sheridan DO /nt
== END | disposition home or self-care (01) ==
LOC: M.SUR 09:15
PROVIDERS: Surgery
DX: I13.2 Hypertensive heart and chronic kidney disease with heart failure and with stage 5 chronic kidney disease, or end stage renal disease (principal); N18.6 End stage renal disease; E11.22 Type 2 diabetes mellitus with diabetic chronic kidney disease; I50.9 Heart failure, unspecified; I48.91 Unspecified atrial fibrillation; I25.10 Atherosclerotic heart disease of native coronary artery without angina pectoris; D64.9 Anemia, unspecified; Z79.01 Long term (current) use of anticoagulants; Z79.82 Long term (current) use of aspirin; Z79.899 Other long term (current) drug therapy; Z79.4 Long term (current) use of insulin; Z79.891 Long term (current) use of opiate analgesic

== ENCOUNTER → 2018-10-21 | Outpatient (CLI) | payer OTHER, MEDICARE | LOC: M.RAD 15:23 | DX: J90 Pleural effusion, not elsewhere classified (principal); J98.11 Atelectasis ==

== ENCOUNTER 2019-06-11 15:05 | Inpatient (IN) | payer OTHER, MEDICARE ==
[~2019-06-11] VITALS: Ht 190.5 cm; Wt 111.7 kg
[2019-06-11 15:16] VITALS: BP 112/57
[2019-06-11 16:30] LABS: ABSOLUTE LYMPHOCYTES 1.6 thou/uL (0.8-5.3); ABSOLUTE NEUTROPHILS 7.8 thou/uL (1.6-8.1); BASOPHILS 0.1 %; EOSINOPHILS 0.4 %; HEMOGLOBIN 11.7 gm/dL (14.0-18.0); MCH 32.8 pg (26.0-34.0); MCHC 33.5 g/dL (28.0-37.0); MCV 97.7 fL (80.0-100.0); MONOCYTES 9.4 %; MPV 7.3 fl. (7.2-11.1); NUCLEATED RBCS 0 /100WBC; PLATELET COUNT* 271 thou/uL (150-400); POLYS 75.1 %; RBC 3.58 mil/uL (4.50-6.00); RDW-CV 15.9 % (10.5-14.5); WBC 10.4 thou/uL (4.0-11.0)
[2019-06-11 16:32] LABS: BE 5.4 mmol/L (-2 to +3)
[2019-06-11 16:36] LABS: PO2 57.4 mmHg (75.0-100.0)
[2019-06-11 16:38] LABS: CALCIUM 8.6 mg/dL (8.5-10.1); CREATININE 3.2 mg/dL (0.6-1.3)
[2019-06-11 16:49] LABS: ALBUMIN 2.9 g/dL (3.4-5.0); TOTAL BILIRUBIN 0.6 mg/dL (<0.1-1.0); TOTAL PROTEIN 6.1 g/dL (6.4-8.2); TROPONIN-I LEVEL 0.11 ng/mL (<0.06)
[2019-06-11 17:34] LABS: APTT 24.4 Seconds (25.0-31.3); INR 1.1; PROTIME 10.8 Seconds (9.20-11.50)
[2019-06-11 18:21] VITALS: BP 112/57
--- NOTE | 2019-06-11 18:29 | NUR ---
DR. GARCIA REQUESTED PT BE PLACED IN ICU. STAT [facility] CALLED
[2019-06-11 18:54] LABS: BE 4.9 mmol/L (-2 to +3); PO2 113.1 mmHg (75.0-100.0); pH 7.365 (7.340-7.450)
[2019-06-11 19:00] LABS: PCO2 56.2 mmHg (35.0-45.0)
[2019-06-11 21:25] VITALS: BP 120/62
[2019-06-11 21:42] VITALS: BP 110/55
[2019-06-11 22:00] VITALS: BP 133/52
[2019-06-11 23:00] VITALS: BP 124/55
[2019-06-12] VITALS (22 sets, daily range): BP systolic 103–138; BP diastolic 38–65
[2019-06-12 00:32] LABS: URINE BILIRUBIN NEGATIVE (Negative); URINE BLOOD 1+ (Negative); URINE CLARITY CLOUDY; URINE COLOR YELLOW; URINE GLUCOSE-RANDOM NEGATIVE (Negative); URINE KETONES TRACE (Negative); URINE LEUKOCYTES-REFLEX 1+ (Negative); URINE NITRITE-REFLEX NEGATIVE (Negative); URINE PROTEIN 2+ (Negative); URINE SPECIFIC GRAVITY 1.015 (1.005-1.030); URINE UROBILINOGEN 0.2 E.U./dl (0.2-1.0)
[2019-06-12 00:40] LABS: AMORPHOUS URATES Moderate /LPF (None Seen); BACTERIA-REFLEX 1-9 Few /HPF (None Seen); HYALINE CASTS 0-3 Few /LPF (None Seen); MUCUS 0-3 Light strn/LPF (None Seen); SQUAMOUS 0-3 Few /LPF (0-3); URINE RBC 3-10 Few /HPF (0-2); URINE WBC-REFLEX 6-15 Few /HPF (0-5)
[2019-06-12 00:41] LABS: COARSE GRANULAR CASTS 0-3 Few /LPF (None Seen)
--- NOTE | 2019-06-12 04:49 | NUR ---
RECIEVED PT FROM ER AT 2140H ON NC AT 3LPM AND TOLERATED.NO DIFFICULTY OF BREATHING NOTED.FOR THORACENTESIS TODAY AND CONSENT TO OBTAIN.WITH PURPLELISH COLOR AT THE BUTTOCKS BUT BLANCHABLE.NO CHEST PAIN NOTED.NEPHRO,PULMO AND CARDIO WAS CONSULTED.INFORM ELECTRONIC DIE MAKER REGARDING AFLUTTER ,CHF AND ELEVATED TROPONIN AND WILL SEE KEN.CONTINUE MONITORING AND TOWARDS GOAL.
[2019-06-12 11:03] LABS: HEMATOCRIT 35.9 % (42.0-52.0); HEMOGLOBIN 11.6 gm/dL (14.0-18.0); MCH 32.2 pg (26.0-34.0); MCHC 32.3 g/dL (28.0-37.0); MCV 99.4 fL (80.0-100.0); MPV 7.3 fl. (7.2-11.1); RBC 3.62 mil/uL (4.50-6.00); RDW-CV 15.7 % (10.5-14.5); WBC 11.9 thou/uL (4.0-11.0)
[2019-06-12 11:04] LABS: BE 3.9 mmol/L (-2 to +3); PO2 104.3 mmHg (75.0-100.0)
[2019-06-12 11:08] LABS: PCO2 72.9 mmHg (35.0-45.0)
--- NOTE | 2019-06-12 11:09 | EKG ---
[place] [address] ELECTROCARDIOGRAM REPORT Name: RACHEL ARECHIGA Room: [address] ADM IN .R.#: [id number] Admission: 06/11/19 Attend Phys: Jayla Eid MD Discharge: Date of : 38 Report #: [id number] THIS REPORT FOR: //name// [facility] ED Test Date: 2019-06-11 Test Time: 15:16:51 Pat Name: RACHEL ARECHIGA Department: Room: [facility] Gender: M Fan Mail Clerk: [place] : 1940 Requested By: Alexandria Cortes Order Number: [id number] MD: Sriram Ramon Measurements Intervals Duarte Rate: 65 P: AR: QRS: -58 QRSD: 166 T: -45 QT: 421 QTc: 438 Interpretive Statements Atrial flutter Right bundle branch block Compared to ECG 07/14/2018 10:06:40 Atrial fibrillation no longer present Electronically Signed On 06-12-2019 11:08:52 CDT by Sriram Ramon [email or web address] <ELECTRONICALLY SIGNED> By: Sriram Ramon MD, [facility] 06/12/19 1108 1516 1516 Sriram Ramon MD, [facility] /EPI
[2019-06-12 11:16] LABS: CALCIUM 8.8 mg/dL (8.5-10.1); CREATININE 3.9 mg/dL (0.6-1.3); POTASSIUM 4.1 mmol/L (3.5-5.1); TROPONIN-I LEVEL 0.08 ng/mL (<0.06)
[2019-06-12] MEDS ORDERED: DOXYCYCLINE 10100 MG PO (11:19)
[2019-06-12 13:02] LABS: PO2 109.9 mmHg (75.0-100.0); pH 7.316 (7.340-7.450)
[2019-06-12 13:04] LABS: PCO2 65.7 mmHg (35.0-45.0)
--- NOTE | 2019-06-12 13:12 | NUR ---
Nutrition: Pt seen for pressure ulcer on buttocks. CHO controlled diet. ESRD on HD, DM, HTN. Insulin, statin. Labs: Albumin 2.9, BUN 28, cr 3.9, BG 67-87. Wt: 256#. Thoracentesis today. RD ordered Beneprotein tid for added protein in diet, to aid in wound healing and make up for protein losses in dialysis. Consider Mild risk. GOALS: good po intake, good protein intake.
--- NOTE | 2019-06-12 14:02 | 2DMMODE ---
[place] [address] 2 D/M-MODE ECHOCARDIOGRAM Name: RACHEL ARECHIGA Room: [facility] IN [facility]#: [id number] Admission: 06/11/19 Attend Phys: Jayla Eid, Discharge: Date of : 38 Date of Service: 06/12/19 1402 Report #: [id number] THIS REPORT FOR: //name// APPROVED REPORT Study performed: 06/12/2019 09:23:18 EXAM: Comprehensive 2D, Doppler, and color-flow Echocardiogram Patient Location: In-Patient Room #: [facility] Status: routine BSA: 2.45 HR: 56 bpm BP: 111/58 mmHg Rhythm: Atrial Fibrillation Other Information Study Quality: Good Indications Atrial Fibrillation Pleural Effusion 2D Dimensions IVSd: 11.94 (7-11mm) LVOT Diam: 23.46 (18-24mm) LVDd: 41.34 mm PWd: 11.79 (7-11mm) Ascending Ao: 40.30 (22-36mm) LVDs: 27.78 (25-40mm) Aortic Root: 42.96 mm Volumes Left Atrial Volume (Systole) LA ESV Index: 48.10 mL/m2 Aortic Valve AoV Peak Edward.: 1.58 m/s AO Peak Gr.: 9.94 mmHg LVOT Max P.01 mmHg AO Mean Gr.: 5.77 mmHg LVOT Mean P.71 mmHg LVOT Max V: 1.32 m/s AO V2 VTI: 34.36 cm LVOT Mean V: 0.89 m/s SUYAPA (VTI): 3.78 cm2 LVOT V1 VTI: 30.02 cm TDI Medial E' Edward.: 0.10 m/[place] [address] 2 D/M-MODE ECHOCARDIOGRAM Name: RACHEL ARECHIGA Room: [address]#: [id number] Admission: 06/11/19 Attend Phys: Jayla Eid, Discharge: Date of : 38 Date of Service: 06/12/19 1402 Report #: [id number] Pulmonary Valve PV Peak Edward.: 1.01 m/s PV Peak Gr.: 4.12 mmHg Tricuspid Valve RAP Estimate: 5.00 mmHg TR Peak Gr.: 37.95 mmHg RVSP: 43.00 mmHg PA Pressure: 43.00 mmHg Left Ventricle The left ventricle is normal size. There is normal LV segmental wall motion. Mild concentric left ventricular hypertrophy. Left ventricular systolic function is normal. The left ventricular ejection fraction is within the normal range. LVEF is 60-65%. This study is not technically sufficient to allow evaluation of the LV diastolic function due to atrial fibrillation. Right Ventricle The right ventricle is normal size. The right ventricular systolic function is normal. Atria Left atrium is moderately dilated. The right atrium size is normal. Aortic Valve Mild aortic valve sclerosis. No aortic regurgitation is present. There is no aortic valvular stenosis. Mitral Valve The mitral valve is normal in structure. Trace mitral regurgitation. No evidence of mitral valve stenosis. Tricuspid Valve The tricuspid valve is normal in structure. Trace tricuspid regurgitation. estimated pa pressure 40 mm Hg Pulmonic Valve Pulmonic valve is not well visualized. There is no pulmonic valvular regurgitation. Great Vessels Aortic root is mildly dilated. IVC is not well visualized. Pericardium Mild circumferential pericardial effusion. [place] [address] 2 D/M-MODE ECHOCARDIOGRAM Name: RACHEL ARECHIGA Room: [address] IN .R.#: [id number] Admission: 06/11/19 Attend Phys: Jayla Eid, Discharge: Date of : 38 Date of Service: 06/12/19 1402 Report #: [id number] effusion. <Conclusion> Mild concentric left ventricular hypertrophy. LVEF is 60-65%. Left atrium is moderately dilated. Mild aortic valve sclerosis. Trace tricuspid regurgitation. estimated pa pressure 40 mm Hg <ELECTRONICALLY SIGNED> By: Sriram Ramon MD, [facility] 06/12/19 1402 140 01 Sriram Ramon MD, [facility] /INF
--- NOTE | 2019-06-12 14:07 | NUR ---
cm attempted assessment to see how pt/family is coping. pt intubated. no family present at this time. cm to cont to follow to assist as needed.
--- NOTE | 2019-06-12 14:14 | CON ---
[address] [address] CONSULTATION Name: RACHEL ARECHIGA Room: [address] IN M.R.#: [id number] Admission: 06/11/19 Attend Phys: Jayla Eid MD Discharge: Date of : 38 Report #: [id number] THIS REPORT FOR: //name// CC: Candelario Palacios DO Jayla Eid DATE OF SERVICE: 06/12/2019 CARDIOLOGY CONSULTATION HISTORY OF PRESENT ILLNESS: The patient is a 78-year-old white male who was admitted last night complaining of shortness of breath. The patient has an extensive past medical history. He apparently had 5-vessel coronary artery bypass surgery at [place] in 2007. He denies ever had a stent. He has been followed by my partner, Dr. Guo. He is not very active at this time and uses a walker. He has a history of diabetes and about a year ago developed end-stage renal disease and now is on hemodialysis. He has a fistula in his left arm. He apparently has been going to dialysis. He states that recently he has felt more short of breath and noticed some edema. His son brought him to the Emergency Room last night. He also complained of fatigue. Denies any fever or chills. Denies any recent chest pain or palpitations. PAST MEDICAL HISTORY: Significant for bilateral knee surgery, hip surgery, thyroid surgery, diabetes, hypertension. He recently was diagnosed with prostate cancer. CURRENT MEDICATIONS: Consist of Lipitor. He is on aspirin, held for recent biopsy. He is on Lasix, nebulizer, Synthroid, Reglan, Prilosec, Flomax. He has been on warfarin. He does have chronic atrial fibrillation. FAMILY HISTORY: Positive for heart disease. SOCIAL HISTORY: He is . He and his live in [place]. He is retired [employer]. No smoking. No alcohol abuse. REVIEW OF SYSTEMS: He has had no history of stroke, asthma, peptic ulcer disease. He had hepatitis as a child. No cancer. No psychiatric illness. PHYSICAL EXAMINATION: GENERAL: Revealed a frail-appearing male who frequently fell asleep during the history taking. VITAL SIGNS: He had a blood pressure of 120/60, pulse 60 and irregular. He is afebrile. HEENT: He was anicteric. Conjunctivae pale. Mucous membranes were dry. NECK: Veins [place] [address] CONSULTATION Name: RACHEL ARECHIGA Room: [address]#: [id number] Admission: 06/11/19 Attend Phys: Jayla Eid MD Discharge: Date of : 38 Report #: [id number] CHEST: Clear to auscultation. CARDIOVASCULAR: Irregular rhythm. ABDOMEN: Soft. EXTREMITIES: Had trace edema. SKIN: Cool and dry. NEUROLOGIC: He is very slow moving. LABORATORY DATA: His ECG shows what appears to represent atrial flutter with a controlled response and a right bundle-branch block. His workup; he actually had an echocardiogram last July that showed ejection fraction of 60%, left ventricular hypertrophy. He had portable chest x-ray on admission yesterday that showed left pleural effusion, elevated right hemidiaphragm. His lab work; he had a sodium of 138, potassium 4.0, BUN 22, creatinine 3.2, glucose 114. His albumin is 2.9. Troponin 0.11. BNP 24,303. In July, his TSH was 0.05, T4 0.23. His white blood cell count 10.4, hemoglobin 11.7. IMPRESSION AND RECOMMENDATIONS: 1. Permanent atrial flutter. Rate controlled. I would agree with need for chronic anticoagulation. Warfarin is apparently currently on hold for recent biopsy. The patient's INR yesterday was noted to be 1.1. 2. Coronary artery disease. Previous bypass surgery. No recent angina. Since the patient is on warfarin, I would not recommend aspirin. 3. Hyperlipidemia. The patient is on a statin drug. 4. End-stage renal disease. The patient is on hemodialysis. 5. Anemia. No history of bleeding. 6. Recent diagnosis of prostate cancer. 7. Non-myocardial infarction. Minimal elevation of troponin. Doubt the patient had a myocardial infarction. Recommend no further cardiac evaluation at this time. <ELECTRONICALLY SIGNED> By: Sriram Ramon MD, [facility] 06/12/19 1414 0930 [id number] Janki Ramon MD, FACC /nt
--- NOTE | 2019-06-12 14:31 | NUR ---
WOUND NURSE: PATIENT SEEN FOR ASSESSMENT PERTAINING TO BLANCHEABLE RUBOR ON BILATERAL BUTTOCKS AND WHICH IS INTACT. PLAN TO PROTECT WITH USE OF MOISTURE BARRIER AND Q2HR SIDE TO SIDE REPOSITIONING. PATIENT HAS A SMALL SKIN TAGE ON THE RIGHT BUTTOCK AND MEASURES 0.2 X 0.1 X 0.1 CM DRAINING SCANT AMOUNT OF SANGUINOUS DRAINAGE. PATENT WAS INCONTINENT OF LARGE AMOUNT OF WATERY STOOL, SO PATIENT RECEIVED BATH AND COMPLETE BED CHANGE, THEN BORDERED FOAM APPLIED TO SKIN TAG, AND MOISTURE BARRIER T BUTTOCKS. PATIENT WAS REPOSITIONED ON HIS RIGHT SIDE.
--- NOTE | 2019-06-12 16:58 | NUR ---
patient started the day very alert and oriented x 4 afib/sb lungs dim o2 at 3l nc abd disteneded but soft with bs folet to dd low uo walt in color denied pain L thoracentesis done today 1900 cc removed patient tolerated quite well soon after that patient became letharic was arrousable to name and stimuli o2 sats remained good at mid 90s 0n 4l nc vs stable pcxr done post thoracentesis and labs drawn dr mahmood notified of change in mental status and ordered abgs abgs crirtcal ph 7.270 pco2 pco2 72.9 and notified again orders for bipap and redraw in 1hr patient placed on bipap tolerated well redraw abgs improved pco2 still critical 65.7 pulm cons notified orders for am patient remained asleep on bibap majority of day off bipap now and on o2 at 3 l nc placed on bipap at 1130 taken off at 1530 resting comfortably at bedside answers questions appropriately when asked alert and oriented x 3-4 aflutter/sb o2 3l nc abdomen less distended large loose bm today rocha to dd 50 cc uo urine color d yellow now patient br turn q 2hr and prn scds ble upper l back bandaid post thoracentesis c/d/i l/r buttock discolored, purplish but blanchable r buttock with skintag with bld, border foam placed denies pain r ac 20 ga sl r h 2 ga sl l upper arm av fistula h/o hd ,th,sa last hd t-1 cons renal, pulm, card, wd patient instructed tombstone setter light use and bed alarm on
[2019-06-13] VITALS (57 sets, daily range): BP systolic 69–114; BP diastolic 33–52
[2019-06-13 02:51] LABS: ABSOLUTE EOSINOPHILS 0.1 thou/uL (0.0-0.7); ABSOLUTE LYMPHOCYTES 1.7 thou/uL (0.8-5.3); ABSOLUTE MONOCYTES 1.2 thou/uL (0.0-1.2); ABSOLUTE NEUTROPHILS 6.5 thou/uL (1.6-8.1); BASOPHILS 0.2 %; EOSINOPHILS 1.1 %; HEMATOCRIT 32.6 % (42.0-52.0); HEMOGLOBIN 10.8 gm/dL (14.0-18.0); MCH 32.5 pg (26.0-34.0); MCHC 33.2 g/dL (28.0-37.0); MCV 97.7 fL (80.0-100.0); MONOCYTES 12.5 %; NUCLEATED RBCS 0 /100WBC; PLATELET COUNT* 231 thou/uL (150-400); POLYS 68.2 %; RBC 3.34 mil/uL (4.50-6.00); RDW-CV 15.7 % (10.5-14.5); WBC 9.5 thou/uL (4.0-11.0)
[2019-06-13 03:05] LABS: CALCIUM 8.4 mg/dL (8.5-10.1); MAGNESIUM 1.9 mg/dL (1.8-2.4); POTASSIUM 3.8 mmol/L (3.5-5.1); TROPONIN-I LEVEL 0.09 ng/mL (<0.06)
--- NOTE | 2019-06-13 04:49 | NUR ---
ASSUMED CARE AT 1910H, ON NC AT 3LPM AND PUT BACK TO BIPAP AT 2300H AND WELL TOLERATED.NO DISTRESS AND BLEEDING NOTED.PT WAS MORE ALERT AND ORIETED.CONTINUE MONITORING AND TOWARDS GOAL.
[2019-06-13 05:14] LABS: BE 2.8 mmol/L (-2 to +3); PO2 87.4 mmHg (75.0-100.0); pH 7.368 (7.340-7.450)
[2019-06-13 05:22] LABS: PCO2 51.4 mmHg (35.0-45.0)
[2019-06-13 12:51] LABS: SOURCE THORACENTESIS
[2019-06-13 13:07] LABS: BODY FLUID LDH 138 IU/L (()); BODY FLUID PROTEIN 3.4 g/dL (())
[2019-06-13 16:27] LABS: BE 3.2 mmol/L (-2 to +3); PO2 78.5 mmHg (75.0-100.0)
--- NOTE | 2019-06-13 18:20 | NUR ---
PT CARE ASSUMED AFTER REPORT. ASSESSMENTS COMPLETE. PT ON O2 3L NC. TOLERATING WELL. REILLY CATHETER REMOVED. PT INCONT OF LARGE AMOUNT LIQUID OF STOOL X3. PT RECEIVED DIALYSIS TODAY. IL REMOVED. AFLUTTER/BRADYCARDIA ON MONITOR. LOW BP WITH DIALYSIS. HAS RECOVERED NOW. DENIES PAIN. PROGRESSING TOWARDS GOALS.
--- NOTE | 2019-06-13 23:19 | NUR ---
MAP STAYING IN 50s, HR IN 50s/60s. PATIENT SLEEPING, ASYMPTOMATIC. PROVIDER AWARE. NO NEW ORDERS RECEVIED. WILL KEEP MONITORING.
[2019-06-14] VITALS (14 sets, daily range): BP systolic 87–117; BP diastolic 40–54
[2019-06-14 04:24] LABS: INR 1.1; PROTIME 11.7 Seconds (9.20-11.50)
--- NOTE | 2019-06-14 06:09 | NUR ---
BP TRENGING UP WITH NO SUPPORT. PATIENT ON BIPAP THROUGH THE NIGHT, VITALS STABLE, AFEBRILE. BM X2, LIGHT BROWN, LIQUID AND MODERATE IN AMOUNT. REGLAN HELD. ALERT AND ORIENTEDX4, SLEEPING THROUGH THE NIGHT. Q2 TURNS FOR SKIN INTEGRITY, DRESSING TO BUTTOCK WOUND CHANGED. OTHERWISE UNEVENTFUL NIGHT. CALL LIGHT WITHIN REACH.
[2019-06-14 10:56] LABS: TOTAL PROTEIN 5.3 g/dL (6.4-8.2)
--- NOTE | 2019-06-14 16:58 | NUR ---
PT CARE ASSUMED AFTER REPORT. ASSESSMENTS COMPLETE. AFLUTTER/BRADYCARDIA ON MONITOR. PT TO HAVE THOROCENTISIS TOMARROW. INCONT OF LARGE AMOUNT OF LIQUID STOOL. DENIES PAIN. SLOW TO PROGRESS TOWARDS GOALS.
[2019-06-15] VITALS (51 sets, daily range): BP systolic 70–102; BP diastolic 29–49
--- NOTE | 2019-06-15 04:58 | NUR ---
MAP MOSTLY IN 50s, HR IN 40s-50s. PATIENT ASYMPTOMATIC. BOWEL MOVEMENT MULTIPLE TIMES THROUGH THE NIGHT, BROWN AND LIQUID. PATIENT DENIES PAIN, NAUSEA. REGLAN HELD, PROVIDER AWARE. OTHERWISE UNEVENTFUL NIGHT. Q2 TURNS FOR SKIN INTEGRITY. A&OX4 AND ABLE TO USE CALL LIGHT APPROPRIATELY. ON BIPAP THROUGH THE NIGHT.
[2019-06-15 09:42] LABS: ABSOLUTE EOSINOPHILS 0.1 thou/uL (0.0-0.7); ABSOLUTE LYMPHOCYTES 1.4 thou/uL (0.8-5.3); ABSOLUTE MONOCYTES 0.9 thou/uL (0.0-1.2); ABSOLUTE NEUTROPHILS 5.6 thou/uL (1.6-8.1); BASOPHILS 0.2 %; EOSINOPHILS 1.5 %; HEMATOCRIT 30.6 % (42.0-52.0); HEMOGLOBIN 10.2 gm/dL (14.0-18.0); LYMPHOCYTES 17.1 %; MCH 32.9 pg (26.0-34.0); MCHC 33.5 g/dL (28.0-37.0); MCV 98.2 fL (80.0-100.0); MONOCYTES 10.8 %; NUCLEATED RBCS 0 /100WBC; PLATELET COUNT* 210 thou/uL (150-400); POLYS 70.4 %; RBC 3.12 mil/uL (4.50-6.00); RDW-CV 15.8 % (10.5-14.5)
[2019-06-15 09:50] LABS: CALCIUM 8.3 mg/dL (8.5-10.1); CREATININE 5.5 mg/dL (0.6-1.3); MAGNESIUM 1.9 mg/dL (1.8-2.4)
[2019-06-15 10:04] LABS: POTASSIUM 2.8 mmol/L (3.5-5.1)
--- NOTE | 2019-06-15 11:40 | NUR ---
INT ROUNDS: MET WITH PT AND /ZHANNA. PT LIVES WITH AND ADULT SON WHO ASSISTS WITH PT'S CARE. WORKS. PT NEEDS SOME ASSIST WITH ADLS, ADMITS TO HAVING A FEW FALLS. HE USES WALKER AND W/C. SON TAKES PT TO DIALYSIS T/R/S AT [facility]. PT HAS HAD HH WITH [facility] AND BEEN TO [facility] IN PAST. UNSURE OF NEEDS AT THIS TIME, BUT PT OPEN. HE USED TO HAVE O2 AT HOME BUT NOT CURRENTLY. PER , SHE IS DPOA AND THERE IS A COPY AT [place], HAVE ASKED MOLD WORKER TO OBTAIN. CM TO FOLLOW
--- NOTE | 2019-06-15 14:22 | NUR ---
PATIENT HAVING THORCENTESIS PROCEDURE DONE AT THIS TIME
[2019-06-15 16:31] LABS: BF RBC 135311 /mm3; TOTAL CELL COUNT 2622 /mm3
[2019-06-15 16:56] LABS: CLARITY CLOUDY; TOTAL VOLUME 2500 ml
[2019-06-15 17:14] LABS: BF LYMPHOCYTES 91 %; BF MONOCYTES 1 %; BF POLYS 8 %
[2019-06-15 17:15] LABS: SOURCE THORACENTESIS
--- NOTE | 2019-06-15 17:50 | NUR ---
PATIENT PROGRESSING WELL TOWARDS GOALS. WEANED DOWN ON O2, TAKEN FOR CT OF CHEST TODAY. TOLERATING INCREASE OF ACTIVITY WITH STAND BY ASSIST. FLUIDS INFUSING PER PULM DOCTOR. VITALS REMAIN WNL. NO PAIN, NAUSEA OR SHORTNESS OF AIR. BED IN LOWEST POSITION, CALL LIGHT IN REACH. REPORT GIVEN TO NATHALIE DODD. PATIENT WILL BE TAKEN BY WHEELCHAIR TO ROOM 215. ALL BELONGINGS PACKED AND READY TO GO.
[2019-06-16] VITALS (45 sets, daily range): BP systolic 76–103; BP diastolic 30–49
[2019-06-16 02:55] LABS: ABSOLUTE EOSINOPHILS 0.2 thou/uL (0.0-0.7); ABSOLUTE LYMPHOCYTES 1.6 thou/uL (0.8-5.3); ABSOLUTE MONOCYTES 1.2 thou/uL (0.0-1.2); ABSOLUTE NEUTROPHILS 5.9 thou/uL (1.6-8.1); BASOPHILS 0.5 %; EOSINOPHILS 1.9 %; HEMATOCRIT 31.7 % (42.0-52.0); HEMOGLOBIN 10.6 gm/dL (14.0-18.0); LYMPHOCYTES 18.2 %; MCH 32.7 pg (26.0-34.0); MCHC 33.5 g/dL (28.0-37.0); MCV 97.5 fL (80.0-100.0); MONOCYTES 13.3 %; MPV 7.3 fl. (7.2-11.1); NUCLEATED RBCS 0 /100WBC; PLATELET COUNT* 198 thou/uL (150-400); POLYS 66.1 %; RBC 3.25 mil/uL (4.50-6.00); RDW-CV 15.9 % (10.5-14.5)
[2019-06-16 03:09] LABS: ALBUMIN 2.2 g/dL (3.4-5.0); CALCIUM 8.1 mg/dL (8.5-10.1); CREATININE 6.1 mg/dL (0.6-1.3); PHOSPHORUS* 3.9 mg/dL (2.5-4.9); POTASSIUM 3.5 mmol/L (3.5-5.1); TOTAL BILIRUBIN 0.6 mg/dL (<0.1-1.0); TOTAL PROTEIN 4.9 g/dL (6.4-8.2)
--- NOTE | 2019-06-16 04:58 | NUR ---
ASSUMED CARE AT 1900H, ON NC THEN BIPAP AND TOLERATED.NO RESPIRATORY DISTRESS. C.DIFF SAMPLE NOT COLLECTED, NO STOOL IN MY SHIFT.NO AMS NOTED AND FOR HD TODAY.
--- NOTE | 2019-06-16 10:07 | PATH ---
[address] [address] PATHOLOGY RPT PROCEDURE Name: RACHEL ARECHIGA CIARAN Room: [address] IN [facility]#: [id number] Admission: 06/11/19 Date of : 38 Discharge: Report #: [id number] Path Case #: [id number] Note [facility] Accession Number: [id number] TESTS RESULT FLAG UNITS REF RANGE LAB Clinician Provided Cytology Information No. of containers..01 Other (Miscellaneous) Source: PLEURAL FLUID DIAGNOSIS: 02 PLEURAL FLUID NEGATIVE FOR MALIGNANT CELLS. ABUNDANT BLOOD, FEW MESOTHELIAL CELLS AND CHRONIC INFLAMMATORY CELLS. THIS INTERPRETATION INCLUDES EVALUATION OF A CELL BLOCK. Signed out by: 02 Shaun Whipple MD, Pathologist NPI- [id number] Performed by: 01 Neida Alexander, Blender Conveyor Operator ([facility]) Gross description: 01 40ML, RED, CLUMPY /LCS FLAG LEGEND: L-Low Normal,H-High Normal,LL-Alert Low,HH-Alert High <-Panic Low,>-Panic High,A-Abnormal,AA-Critical Abnormal Performed at: [address] [place] [address] Ag Arango MD, [address] [place] [address] [address] [facility], [place] [address] Shaun Whipple MD, Performed at: [address], [place], [place] [id number] MD Ag Arango MD Phone: [phone]
--- NOTE | 2019-06-16 11:45 | NUR ---
INT ROUNDS: PT ON DIALYSIS, TO REMAIN IN ICU TODAY PER NURSE. DISCUSSED TRILOGY AND COVERAGE WITH DR CAMP, SCRIPT SIGNED AND FAXED SCRIPT AND DR'S NOTE TO NERIS/[facility]. NO DC DATE KNOW YET. WILL FOLLOW
--- NOTE | 2019-06-16 14:47 | NUR ---
PT PASSED WATERY STOOL TWICE. DIALYSIS DONE TODAY WITH [facility] [address]. TOLERATED WELL. NO PRESSORS.
--- NOTE | 2019-06-16 16:57 | NUR ---
NO WARFARIN TODAY PER DR CAMP.
--- NOTE | 2019-06-16 17:38 | NUR ---
PT'S BP SOFT THE WHOLE DAY BUT ASYMPTOMATIC. CT CHEST AND ABD SERIES DONE TODAY. Q2 TURNS FOR SKIN INTEGRITY.
[2019-06-17] VITALS (52 sets, daily range): BP systolic 63–98; BP diastolic 30–47
--- NOTE | 2019-06-17 04:47 | NUR ---
VITALS STABLE, AFEBRILE. BMX1, SMALL IN AMOUNT. BIPAP THROUGH THE NIGHT. OTHERWISE UNEVENTFUL NIGHT. Q2 TURNS FOR SKIN INTEGRITY. PATIENT A$OX4 AND ABLE TO USE CALL LIGHT APPROPRIATELY.
--- NOTE | 2019-06-17 12:45 | NUR ---
WOUND NURSE: PATIENT SEEN FOR FOLLOW UP ASSESSMENT AND BUTTOCK SKIN TAG IS HEALED. PATIENT CONTINUES TO USE BARRIER CREAM AND REPOSITIONING SCHEDULE. DRESSING CHANGES WERE DISCONTINUED.
[2019-06-17 16:20] LABS: BODY FLUID AMYLASE 19 U/L (()); BODY FLUID LDH 145 IU/L (()); BODY FLUID PROTEIN 3.3 g/dL (())
[2019-06-17 17:21] LABS: BODY FLUID PH 7.6 (Not Estab.)
[2019-06-17 19:03] LABS: SOURCE THORACENTESIS
[2019-06-18] VITALS (13 sets, daily range): BP systolic 80–169; BP diastolic 27–54
[2019-06-18 03:37] LABS: ABSOLUTE EOSINOPHILS 0.1 thou/uL (0.0-0.7); ABSOLUTE LYMPHOCYTES 2.4 thou/uL (0.8-5.3); ABSOLUTE MONOCYTES 0.9 thou/uL (0.0-1.2); ABSOLUTE NEUTROPHILS 4.2 thou/uL (1.6-8.1); BASOPHILS 0.3 %; EOSINOPHILS 1.7 %; HEMATOCRIT 30.5 % (42.0-52.0); HEMOGLOBIN 10.1 gm/dL (14.0-18.0); LYMPHOCYTES 31.7 %; MCH 32.1 pg (26.0-34.0); MCHC 33.1 g/dL (28.0-37.0); MONOCYTES 11.3 %; MPV 7.3 fl. (7.2-11.1); NUCLEATED RBCS 0 /100WBC; PLATELET COUNT* 190 thou/uL (150-400); RBC 3.14 mil/uL (4.50-6.00); RDW-CV 16.2 % (10.5-14.5); WBC 7.7 thou/uL (4.0-11.0)
[2019-06-18 03:46] LABS: CALCIUM 8.4 mg/dL (8.5-10.1); CREATININE 5.4 mg/dL (0.6-1.3); POTASSIUM 3.4 mmol/L (3.5-5.1)
--- NOTE | 2019-06-18 06:42 | NUR ---
VITALS STABLE, AFEBRILE. ELECTROLYTE REPLACED PER PROTOCOL. NO BM THIS SHIFT. ON BIPAP THROUGH THE NIGHT. Q2 TURNS FOR SKIN INTEGRITY. CALL LIGHT WITHIN REACH.
--- NOTE | 2019-06-18 10:15 | NUR ---
INT ROUNDS: PT HAD CT PLACED, TO MOVE TO TELE TODAY. PT QUALIFIES FOR TRILOGY, [facility] CAN DELIVER UP TO 48HRS PRIOR TO DC, NEED TO CONTACT NERIS WITH [facility] AT [phone] TO ARRANGE. UNSURE IF PT HAS O2 NEEDS FOR DC YET. SPOKE WITH PT YESTERDAY, HE STATED HE'S PLANNING TO RETURN HOME AT DC, OPEN TO HH. STATED HE THOUGHT HE'D USED ALL HIS 'DAYS' IN SNF AT [facility]. WILL CHECK WITH V ADMISSIONS, FACE SHEET FAXED. WILL FOLLOW
--- NOTE | 2019-06-18 11:15 | CON ---
[address] [address] CONSULTATION Name: RACHEL ARECHIGA CIARAN Room: [address] IN .R.#: [id number] Admission: 06/11/19 Attend Phys: Jayla Eid MD Discharge: Date of : 38 Report #: [id number] THIS REPORT FOR: //name// CC: Shea Narayanan MD DATE OF SERVICE: 06/12/2019 PULMONARY CONSULTATION ATTENDING PHYSICIAN: Jayla Eid MD LOCATION: The patient is located in room #5 in the ICU. INDICATION FOR CONSULTATION: Acute hypoxic respiratory failure, dyspnea, left pleural effusion and renal failure. HISTORY OF PRESENT ILLNESS: The patient is a 78-year-old male, nonsmoker, admitted through the Emergency Room last night. He had a 3- to 4-day history of increasing cough, shortness of breath and PND. The patient has known systolic heart failure and he had been on hemodialysis Tuesdays, and Saturdays without much relief. When he was seen in the Emergency Room, he had a large left pleural effusion. It took up two-thirds of the left pleural space. He was more short of breath. Thoracentesis was ordered and obtained for this morning and they took off 2 liters of walt-colored fluid. He is breathing a little bit easier since then. They initially were going to try him on BiPAP last night. He refused. He is on BiPAP now this morning. He has had some CO2 retention, normally takes 2 or 3 liters of oxygen at home at night. He denies COPD to me. He is not the most accurate historian. No other family members around. PAST MEDICAL HISTORY: Hypertension with chronic hemodialysis for the past year, Tuesdays, and Saturdays, oxygen dependent at night. He has had a history of atrial fibrillation and also fluid overload and congestive heart failure, also diabetes mellitus. He has had occasional abdominal distention and Celena syndrome. He has not been intubated that I am aware of. ALLERGIES: He has no known medical allergies. OUTPATIENT MEDICATIONS: Multiple including DuoNeb treatments 4 times a day, also carvedilol 3.125 mg b.i.d., also metoclopramide 10 mg q.i.d., warfarin 5 mg daily for atrial fib, furosemide, Lasix 40 mg daily, aspirin 81 mg daily, Linzess 145 mcg daily, tamsulosin 0.4 mg daily. He is also on Protonix 40 mg p.o. daily in the hospital, levothyroxine 0.2 mg daily, Zosyn, dose is 3.375 [place] [address] CONSULTATION Name: RACHEL ARECHIGA Room: [address] IN [facility]#: [id number] Admission: 06/11/19 Attend Phys: Jayla Eid MD Discharge: Date of : 38 Report #: [id number] grams q.12 hours, sliding scale insulin is noted. FAMILY HISTORY: Negative for premature cardiopulmonary disease. No history of renal failure or renal issues. SOCIAL HISTORY: Nonsmoker, nondrinker. I believe he lives at home with his , Vero and I believe his son is also there who helps him out, that is in [place], [place]. PAST SURGICAL HISTORY: He has had coronary artery bypass grafting 5-7 years ago. He has had multiple orthopedic surgeries on both knees and hip and questionable whether he has had a stroke or a TIA in the past. REVIEW OF SYSTEMS: A 14-point review of systems reviewed and negative except for the pertinent positives noted in the HPI. PHYSICAL EXAMINATION: GENERAL: Somewhat slightly confused 78-year-old male in no acute distress. He is on 3 liters. He can talk to me in half sentences. VITAL SIGNS: Blood pressure is 113/55, his heart rate is in the 60s and slightly irregular, respirations were 20 and temperature was 36.4 degrees. Again, his saturation on 4 liters was 94%. He is 6 feet 2 inches tall, weight is 116 kilograms or 230 pounds, BMI is 32. HEENT: Mucous membranes are moist. Mild increase in jugular venous pressure. CHEST: Reveals markedly diminished breath sounds at the left lung, two-thirds posteriorly that is dull to percussion. Right chest is clear with occasional rhonchi. CARDIOVASCULAR: Regular rate and rhythm with ventricular response in the 60s. ABDOMEN: Distended, hypoactive bowel sounds, no rebound tenderness. EXTREMITIES: Show trace edema. No cyanosis or clubbing. NEUROLOGIC: He moves all fours to commands. LABORATORY DATA: His hemoglobin is 11.6, white count is 11,900, platelets are 246,000. Sodium is 138, potassium is 4.1, bicarbonate is 32, BUN is 28, creatinine 3.9, glucose is 87. Troponins are minimally bumped and albumin is 2.9. Anti-proBNP is 24,303, awaiting lab values from the thoracentesis in which 2 liters were drained off, again of walt fluid. Post chest x-ray is pending. ABGs from this morning at 10:45 on 4 liters, pO2 was 104, pH 7.27, pCO2 is 72, bicarbonate is 32 and sat was 95%. Awaiting the repeat on BiPAP. IMPRESSION: 1. Fluid overload with large left pleural effusion, most likely transudative. 2. Hypercarbic respiratory failure, probably related to either some chronic obstructive pulmonary disease and/or just fluid overload, could have pulmonary hypertension and also obstructive central sleep apnea. 3. Ob[place] [address] CONSULTATION Name: ARECHIGABENNY CALLOWAYHeriberto WAGONER Room: [address] IN [facility].#: [id number] Admission: 06/11/19 Attend Phys: Jayla Eid MD Discharge: Date of : 38 Report #: [id number] 4. Hypertension. 5. Diabetes. 6. [place] syndrome. PLAN: We will see and decrease his FiO2, see how he does on the BiPAP, see if we can get his pCO2 level down to the 55 range, which is probably where he normally lives, keep him on his breathing treatments and he is not exquisitely bronchospastic. Hopefully, the left-sided thoracentesis will be helpful and he would not have any recurrence of the effusion. First time he has not had an effusion nor has it been tapped before. We will check his thyroid panel and make sure his thyroid is within normal limits. We will follow up on a chest x-ray after dialysis tomorrow afternoon and then see where we progress from there. Hopefully, he will improve on the BiPAP. I think he is a full code at this time. May have to readdress that with family. This has been a 38-minute critical care consult for Dr. Cervantes. We will continue to follow up with you while he is in the ICU. <ELECTRONICALLY SIGNED> By: Brice Jacobson MD 06/18/19 1115 1320 2140Aron Cervantes MD /nt
--- NOTE | 2019-06-18 12:06 | PATH ---
[address] [address] PATHOLOGY RPT PROCEDURE Name: RACHEL ARECHIGA CIARAN Room: [address] IN [facility]#: [id number] Admission: 06/11/19 Date of : 38 Discharge: Report #: [id number] Path Case #: [id number] Note [facility] Accession Number: [id number] TESTS RESULT FLAG UNITS REF RANGE LAB Clinician Provided Cytology Information No. of containers..01 Other (Miscellaneous) Source: PLEURAL FLUID DIAGNOSIS: 02 PLEURAL FLUID NEGATIVE FOR MALIGNANT CELLS. ABUNDANT BLOOD AND FEW MESOTHELIAL CELLS AND INFLAMMATORY CELLS, PREDOMINANTLY CHRONIC. THIS INTERPRETATION INCLUDES EVALUATION OF A CELL BLOCK. Signed out by: 02 Shaun Whipple MD, Pathologist NPI- [id number] Performed by: 01 Neida Alexander, Property Maintenance Technician ([facility]) Gross description: 01 60ML, RED, CLOUDY /LCS FLAG LEGEND: L-Low Normal,H-High Normal,LL-Alert Low,HH-Alert High <-Panic Low,>-Panic High,A-Abnormal,AA-Critical Abnormal Performed at: [address] [place] [address] Ag Arango MD, [address] [place] [address] [address] [facility], [place] [address] Shaun Whipple MD, Performed at: [address], [place], [place] [id number] MD Ag Arango MD Phone: [phone]
[2019-06-19] VITALS (8 sets, daily range): BP systolic 97–141; BP diastolic 41–54
--- NOTE | 2019-06-19 07:00 | NUR ---
ASSUMED PT CARE AT 1930. ASSESSMENT COMPLETED CHARTED. ABLE TO MAKE NEEDS KNOWN. X2NFANT COMPLETED CHARTED. C/O PAIN AT CHEST TUBE INSERTION SITE AND GAVE PRN PAIN MEDICATION. PT ON BIPAP AT NIGHT AND TOLERATED WELL. CHEST TUBE [facility] CHANGED THIS MORNING. WILL CONTINUE TO MONITOR.
--- NOTE | 2019-06-19 07:10 | CON ---
[address] [address] CONSULTATION Name: RACHEL ARECHIGA Room: [address] IN [facility].R.#: [id number] Admission: 06/11/19 Attend Phys: Jayla Eid MD Discharge: Date of : 39 Report #: [id number] THIS REPORT FOR: //name// CC: Candelario Eid DATE OF SERVICE: 06/18/2019 INFECTIOUS DISEASE CONSULTATION ATTENDING PHYSICIAN: Dr. Eid. REASON FOR EVALUATION: Recommendations for recurrent pleural effusion, possibility of infectious etiology. Recommendations for therapy. HISTORY OF PRESENT ILLNESS: Chart reviewed, patient examined. This is a 78-year-old gentleman with extensive medical history, has diabetes mellitus complicated by vasculopathy who was admitted with progressive dyspnea over the course of last days prior to his admission with weakness. It is notable he does have end-stage renal disease, on dialysis. Imaging suggested a large left-sided pleural effusion. He has undergone several procedures extensive, total volume removed. It is clinically, bloody effusion with lymphocyte predominance. Cultures thus far have been unrevealing. He does have a recent diagnosis of prostate cancer as well. At this point, he has been on empiric therapy with levofloxacin and recently has been on piperacillin and tazobactam. He has had some GI related complaints. Plain film raised the question of a toxic megacolon. He does have a history of chronic diarrhea; however, interestingly has a slow to last 48-72 hours. C. diff is pending, started on oral vancomycin. He is actually generally animated. ALLERGIES: None known. MEDICATIONS: Include oral vancomycin, saccharomyces boulardii, midodrine, metoclopramide, tamsulosin, atorvastatin, levothyroxine, pantoprazole. PAST MEDICAL HISTORY: Includes diabetes mellitus is complicated by vasculopathy. He has known atherosclerotic coronary artery disease with previous aortocoronary bypass grafting, cardiomyopathy, congestive heart failure, history of end-stage renal disease, on hemodialysis thrice weekly previous history of stroke/TIA, iron deficiency anemia. SOCIAL HISTORY: Nonsmoker, no ethanol. FAMILY HISTORY: Noncontributory. REVIEW OF SYSTEMS: Otherwise, unremarkable 10-point [place] [address] CONSULTATION Name: RACHEL ARECHIGA ANGELLAAniya Room: [address]#: [id number] Admission: 06/11/19 Attend Phys: Jayla Eid MD Discharge: Date of : 39 Report #: [id number] except noted in the above history of present illness. He has not had fevers or chills. PHYSICAL EXAMINATION: GENERAL: He is pleasant, alert, cooperative, in mild distress, appears chronically ill and undernourished. VITAL SIGNS: Temperature 98.6, pulse 50, respirations 21, blood pressure 123/42. SKIN: Warm, several contused areas abrased. HEENT: Normocephalic. Extraocular muscles intact. NECK: Supple. LUNGS: Diminished breath sounds with some basilar rales. HEART: Regular with a soft systolic murmur. ABDOMEN: Mildly distended, soft, nontender. There are no peritoneal signs. GENITOURINARY AND RECTAL: Deferred. LABORATORY DATA: Recent cultures were reviewed including several thoracentesis. Specimens all of which have been unrevealing thus far. Recent was on the 7th in progress. Pathology was evaluated, is negative for malignant cells. There is abundant inflammatory cells; however, differentials predominant lymphocytes. Electrolytes: Sodium 135, potassium 3.4, chloride 99, bicarbonate is 30, anion gap of 6, BUN and creatinine 20 and 5.4. Predialysis CBC: White count of 7.7, H and H 10.1 and 30.5, platelets [id number], and paracentesis fluid, pH 7.6, protein is 3.3. Blood cultures sterile thus far. Prealbumin of 14.4. Abdominal x-ray showed diffuse distention of the colon. There is question of a toxic megacolon. CT of the chest done earlier in the hospitalization showed marked gaseous distented colon consistent with ileus, postoperative changes, mediastinum, residual pleural fluid, extensive atelectasis and pneumonia left lung. Sodium 138, potassium 3.5, chloride 101, bicarbonate is 27, anion gap of 10, BUN and creatinine 30 and 6.1, glucose 76. LFTs unremarkable. Albumin of 2.2, total protein is 4.9. White count of 9.0, H and H 10.6 and 31.7, platelets of 198. ASSESSMENT: Pneumonitis complicated by a large left pleural effusion seems to be bloody. At this point, we do not have any confirmation of any sort of infectious etiology, certainly raises question of occult process. I think it is reasonable to continue current approach with the levofloxacin. Discussed with Dr. Jacobson if there is any additional studies, plans, any imaging procedures, etc. The clinical course suggests he is somewhat improved over the course of the hospitalization subjectively per patient, as well as evidence. We will await his most recent laboratory. He does have a chest tube and at this point, may consider some sort of scarring procedure. <ELECTRONICALLY SIGNED> By: Dinesh Johnson MD 06/19/19 0710 [id number] Johnson MD /sukhwinder
--- NOTE | 2019-06-19 08:49 | CON ---
[address] [address] CONSULTATION Name: RACHEL ARECHIGA Room: [address] IN M.R.#: [id number] Admission: 06/11/19 Attend Phys: Jayla Eid MD Discharge: Date of : 38 Report #: [id number] THIS REPORT FOR: //name// CC: Candelario Eid DATE OF SERVICE: 06/12/2019 NEPHROLOGY CONSULTATION REASON FOR NEPHROLOGY CONSULTATION: End-stage renal disease, on maintenance of hemodialysis. REASON FOR ADMISSION: Shortness of breath, left-sided pleural effusion. HISTORY OF PRESENT ILLNESS: The patient is a pleasant 78-year-old male with past medical history of end-stage renal disease, on hemodialysis every Saturday, and Saturday, last dialysis being yesterday, 2 liters was removed. He goes to [facility] under the care of Dr. Bolton, came in with shortness of breath. He has a large left-sided pleural effusion and he is going to undergo thoracentesis today. ALLERGIES: No known allergies. REVIEW OF SYSTEMS: As mentioned in history of present illness, otherwise negative. PAST MEDICAL AND SURGICAL HISTORY: Includes diabetes mellitus type 2, multiple orthopedic surgeries to the knees and hip, iron deficiency anemia, coronary artery bypass, stroke or TIA. ESRD, on hemodialysis every Saturday, and Saturday; chronic systolic congestive heart failure. FAMILY HISTORY: No pertinent family history. SOCIAL HISTORY: Does not smoke or take alcohol or use illicit drugs. HOME MEDICATIONS: Included atorvastatin, levothyroxine, tamsulosin, febuxostat, omeprazole, polyethylene glycol, erythromycin base, albuterol, metoclopramide, warfarin, furosemide, aspirin, linaclotide, hydrocodone, ipratropium, albuterol, carvedilol, sodium bicarbonate 300 mg b.i.d. and insulin lispro. PHYSICAL EXAMINATION: VITAL SIGNS: Blood pressure is 111/58, temperature 36.4, pulse rate is 60, respiratory rate is 25 and pulse ox 96% and he is on 3 liters of oxygen via nasal cannula. GENERAL: He is awake and alert and oriented x 3. He is [place] [address] CONSULTATION Name: RACHEL ARECHIGA CIARAN Room: [address]#: [id number] Admission: 06/11/19 Attend Phys: Jayla Eid MD Discharge: Date of : 39 Report #: [id number] HEAD AND EYES: Normal conjunctivae, normocephalic and atraumatic. EARS, NOSE, AND THROAT: Mucous membranes are moist. NECK: There is no JVD. CHEST: Bilateral diminished breath sounds, but more diminished on the left side. No crackles or wheezing. CARDIOVASCULAR: S1, S2 normal. No murmurs. ABDOMEN: Soft, nondistended, nontender. Bowel sounds are present. EXTREMITIES: No lower extremity edema, symmetrical lower extremities. DIALYSIS ACCESS: He has a left arm AV fistula with good bruit and thrill. NEUROLOGICAL FUNCTION: Gross neurological function is intact. PSYCHIATRIC: Mood and affect seems to be normal. LABORATORY DATA: Hemoglobin is 11.7. Potassium is 4.0, sodium is 138, BUN is 22. Other labs are reviewed. IMAGING: Chest x-ray, abdominopelvic CT scan was reviewed. ASSESSMENT: 1. End-stage renal disease, on hemodialysis every Saturday, and Saturday. 2. Bilateral renal cysts with hemorrhagic cyst, should follow up as outpatient with Urology and should get serial imaging. 3. Mildly elevated troponin. We will defer to primary. It does not seem like he had an acute event. 4. He has a large left-sided pleural effusion. Plan for thoracentesis today. 5. Hypertension. Blood pressure is controlled. PLAN: 1. There is no acute need for dialysis today. The patient was dialyzed yesterday. 2. We will plan for his dialysis tomorrow. 3. Patient is to go for thoracentesis as per primary team today for his left-sided pleural effusion. Thank you for this consultation. We will continue to follow along with you. <ELECTRONICALLY SIGNED> By: Shea Mills MD 06/19/19 0849 0901 [id number] Mills MD /nt
--- NOTE | 2019-06-19 15:38 | NUR ---
Spoke with , Pt is not ready to dc, do not anticipate weekend dc. Therapy evals will need to be faxed to obtain insurance auth
--- NOTE | 2019-06-19 16:21 | NUR ---
PATIENT PROGRESSING TOWARDS GOALS THIS SHIFT. REMAINED AOX4. IS A LITTLE AGITATED AT TIMES. STATED "THERE IS ALWAYS SOMEONE IN HERE MESSING WITH ME OR POKING ME WITH THINGS". PATIENT WORKED WITH PT AND OT THIS SHIFT. UP IN CHAIR FOR LUNCH. ONE EPISODE OF DIARRHEA NOTED, WAS UNABLE TO OBTAIN SAMPLE IT WAS MIXED WITH URINE. TOLERATING REGULAR DIET. NO NAUSEA NOTED. DENIES ABDOMINAL PAIN. DOES STATE HE HAS BACK PAIN THAT "NEVER GOES AWAY". HAS DENIED NEED FOR MEDICATION THIS SHIFT. CHEST TUBE REMAINS IN PLACE TO LATERAL LEFT CHEST WALL, SANGUINOUS DRAINAGE. SEE I&O. [facility] CHANGED THIS SHIFT. NO TIDALING NOTED, BUT TUBE APPEARS TO REMAIN PATENT WITH CONTINUING DRAINAGE. PULMONARY AWARE. STATED MAY NEED CHEST TUBE FOR 1 TO 2 MORE DAYS BEFORE DISCONTINUATION. NO OTHER ACUTE CONCERNS NOTED.
--- NOTE | 2019-06-20 01:40 | NUR ---
PT ALERT ORIENTED. IN BED FOR THE NIGHT. TURNING Q 2 HRS. NO BREAK DOWN NOTED. L CHEST TUBE TO -20 CM SXN DRAINING SEROSANG. NO AIR LEAK. NO SUBQ AIR NOTED. BREATH SOUNDS DIMINISHED. O2 AT 2 LITERS NC. BIPAP ON @ HS 16/6, 18, 30% HD ON T-T-SAT. TELEMETRY SHOWS AFIB BBB. PT DENIES PAIN.
[2019-06-20 04:19] VITALS: BP 99/60
[2019-06-20 12:22] VITALS: BP 146/52
--- NOTE | 2019-06-20 18:57 | NUR ---
ASSUMED PT CARE AT 0700, PT A&O X4, UP WITH ASSIT X1 AND WALKER, VSS, REMAINS ON 2LPM VIA NC AND BIPAP Q HS, LS DIMINISHED, CHEST TUBE PATENT AND DRAINING SEROSANGUINEOUS FLUID, ABRASIVE WHEEL MOLDER TRACING AFIB WITH BBB, FULL ASSESSMENT CHARTED. PT IN DIALYSIS FOR MOST OF DAY, REMAINS ON CONTACT ISOLATION FOR PENDING CDIFF RESULTS. Q2 TURNS AND HOURLY ROUNDS COMPLETED.
[2019-06-20 20:00] VITALS: BP 99/47
[2019-06-21] VITALS: BP 97/47
[2019-06-21 04:00] VITALS: BP 103/52
--- NOTE | 2019-06-21 08:06 | NUR ---
PATIENT RESTED MOST OF SHIFT. TOLERATED BIPAP WELL THROUGHOUT THE NIGHT. SWITCHED BACK OVER TO 2L O2. TRACING AFIB BBB 50'S/60'S THROUGHT OUT NIGHT. CALL LIGHT IN REACH. HOURLY ROUNDING FOR SAFETY.
[2019-06-21 12:08] VITALS: BP 93/67
[2019-06-21 15:49] VITALS: BP 92/42
--- NOTE | 2019-06-21 18:21 | NUR ---
ASSUMED PT CARE AT 0700, PT A&O X4, HYPOTENSIVE, REMAINS ON 2LPM VIA NC, BIPAP Q HS, CHEST TUBE PATENT AND DRAINING SEROSANGUINEOUS FLUID, LS DIMINISHED THROUGHOUT, PT DENIES ANY SOA, HVAC LEAD TRACING AFIB. PT REMAINS IN CONTACT ISOLATION FOR CDIFF, RESULTS PENDING. Q2 TURNS AND HOURLY ROUNDING COMPLETED.
[2019-06-21 20:00] VITALS: BP 94/47
[2019-06-22 00:30] VITALS: BP 105/45
[2019-06-22 04:30] VITALS: BP 97/46
[2019-06-22 04:47] LABS: ABSOLUTE EOSINOPHILS 0.2 thou/uL (0.0-0.7); ABSOLUTE LYMPHOCYTES 1.9 thou/uL (0.8-5.3); ABSOLUTE MONOCYTES 1.2 thou/uL (0.0-1.2); ABSOLUTE NEUTROPHILS 5.8 thou/uL (1.6-8.1); BASOPHILS 0.2 %; EOSINOPHILS 2.3 %; HEMATOCRIT 30.3 % (42.0-52.0); HEMOGLOBIN 10.1 gm/dL (14.0-18.0); LYMPHOCYTES 20.9 %; MCH 32.7 pg (26.0-34.0); MCHC 33.3 g/dL (28.0-37.0); MCV 98.1 fL (80.0-100.0); MONOCYTES 12.9 %; MPV 8.2 fl. (7.2-11.1); NUCLEATED RBCS 0 /100WBC; PLATELET COUNT* 163 thou/uL (150-400); POLYS 63.7 %; RBC 3.09 mil/uL (4.50-6.00); WBC 9.2 thou/uL (4.0-11.0)
[2019-06-22 04:57] LABS: CALCIUM 8.2 mg/dL (8.5-10.1); CREATININE 5.7 mg/dL (0.6-1.3); POTASSIUM 3.4 mmol/L (3.5-5.1)
[2019-06-22 07:50] VITALS: BP 95/46
[2019-06-22 11:45] VITALS: BP 118/51
--- NOTE | 2019-06-22 18:29 | NUR ---
[facility] PT APPROX 0730. ASSESSMENT COMPLETED CHARTED. MEDICATIONS GIVEN CHARTED. PT LEFT CHEST TUBE PATENT. FALL PRECAUTIONS IN PLACE. PT UP TO BESIDE CHAIR THIS AM WITH STAND BY ASSISST WITH WALKER. PT BACK TO BED THIS AFTERNOON WITH STAND BY ASSISST WITH WALKER. PT DENIES PAIN. PT DENIES SOA. HOURLY ROUNDING OCCURING. PT NEEDS MEET.
[2019-06-22 20:00] VITALS: BP 103/22
[2019-06-23 00:46] VITALS: BP 88/43
[2019-06-23 04:00] VITALS: BP 116/45
--- NOTE | 2019-06-23 04:52 | NUR ---
ASSUMED PT CARE AT 1930. ASSESSMENT COMPLETED CHARTED. ABLE TO MAKE NEEDS KNOWN. PT RESTING IN BED AT THIS TIME WITH BIPAP ON. [id number] COMPLETED CHARTED. NO C/O PAIN OR DISCOMFORT. CHEST TUBE IN PLACE AND DRAINING SEROSANGUINOUS FLUID. WILL CONTINUE TO MONITOR.
[2019-06-23 05:16] LABS: CALCIUM 8.7 mg/dL (8.5-10.1); MAGNESIUM 1.8 mg/dL (1.8-2.4); PHOSPHORUS* 2.5 mg/dL (2.5-4.9); POTASSIUM 3.2 mmol/L (3.5-5.1)
[2019-06-23 05:22] LABS: CREATININE 7.1 mg/dL (0.6-1.3)
[2019-06-23 08:00] VITALS: BP 108/54
--- NOTE | 2019-06-23 08:49 | NUR ---
Faxed snf referral to [facility] again, [facility] to initiate ins auth
--- NOTE | 2019-06-23 09:20 | NUR ---
ASSUMED CARE OF PT THIS AM AROUND 0715- SALES DEVELOPMENT ASSOCIATE IN PLACE ORDERED, TRACING AFIB- UPON ASSESSMENT PT NOTED TO BE RESTING IN BED, WATCHING TV- PT A&O X4, FORGETFULL- OLIGURIC WITH NOTED DIALYSIS, INCONTINENT OF BOWEL- AX1 WITH TRANSFERS- LCTA/DIMINISHED IN BASES; RESP EVEN AND UN-LABORED- VSS, O2 SAT 97% ON RA- ABD SOFT/ROUND/NON-TENDER, BS X4 QUADS- LARGE LOOSE INCONTINENT BM NOTED THIS AM, SCHEDULED MIRALX HELD THIS AM- LL SIDE NOTED WITH CHEST TUBE TO SUCTION IN PLACE INDICATED, SERIOUS SAANGUINEOUS FLUID NOTED- IV NOTED TO RIGHT WRIST INTACT AND SL- LUE FISTULA NOTED WITH POSITIVE BRUIT/THRILL- RUE NOTED WITH EDEMA, BLE 2+ EDEMA- REDNESS NOTED TO BOTTOM WITH BARRIOR CREAM APPLIED INDICATED- BS MONITORED ORDERED, INSULIN PRESCIBED- PT DENIES ANY C/O PAIN/DISCOMFORT THIS AM- CURRENTLY OFF UNIT AT THIS TIME FOR SCHEDULED DIALYSIS- ALL NEEDS MET AT THIS TIME-WCTM
[2019-06-23 14:20] VITALS: BP 90/42
[2019-06-23 16:00] VITALS: BP 92/39
[2019-06-23 20:00] VITALS: BP 97/51
[2019-06-24] VITALS: BP 104/42
[2019-06-24 04:00] VITALS: BP 100/27
--- NOTE | 2019-06-24 06:58 | NUR ---
ASSUMED PT CARE AT 1930. ASSESSMENT COMPLETED CHARTED. ABLE TO MAKE NEEDS KNOWN. NO C/O PAIN OR DISCOMFORT. INCONTINENT OF STOOL TIMES 2 DURING THE NIGHT. BIPAP ON AT NIGHT. PT SEEMED UPSET OR FRUSTRATED MOST OF SHIFT BUT WOULDNT EXPLAIN WHY. PT RESTING IN BED MOST OF THE NIGHT. WILL CONTINUE TO MONITOR.
[2019-06-24 07:08] LABS: HEPATITIS B SURFACE AG Negative (Negative)
[2019-06-24 07:53] VITALS: BP 135/57
[2019-06-24 12:32] VITALS: BP 122/21
--- NOTE | 2019-06-24 18:36 | NUR ---
PT CARE ASSUMED AFTER REPORT. ASSESSMENT COMPLETE. AFIB ON MONITOR. OLIGURIC. INCONT OF STOOL. CHEST TUBE TO L CHEST DRAINING SEROUSANGUIOUS FLUID. [facility] CHANGED TODAY AFTER PREVIOUS ONE FELL. o2 2L NC. DENIES PAIN. SLOW TO PROGRESS TOWARDS GOALS.
[2019-06-25 01:00] VITALS: BP 71/33
[2019-06-25 04:00] VITALS: BP 90/41
[2019-06-25 04:25] LABS: HEMATOCRIT 31.9 % (42.0-52.0); HEMOGLOBIN 10.4 gm/dL (14.0-18.0)
[2019-06-25 04:44] LABS: ALBUMIN 2.3 g/dL (3.4-5.0); CALCIUM 8.7 mg/dL (8.5-10.1); PHOSPHORUS* 3.1 mg/dL (2.5-4.9); POTASSIUM 3.3 mmol/L (3.5-5.1)
[2019-06-25 04:49] LABS: CREATININE 5.9 mg/dL (0.6-1.3)
--- NOTE | 2019-06-25 07:00 | NUR ---
PT HAD 25 ML OUTPUT FROM [facility] DURING SHIFT.
[2019-06-25 08:00] VITALS: BP 101/49
[2019-06-25 13:00] VITALS: BP 113/67
--- NOTE | 2019-06-25 13:36 | NUR ---
ASSUMED CARE OF PATIENT THIS AM AT 0730. PATIENT IS ALERT AND ORIENTED X 4. HE WAS TAKEN TO DIALYSIS PER BED THIS AM AND RETURNED AT 1255. TELE HAS SHOW A FIB. CHEST TUBE IS IN PLACE AND TO DD 20 CM SUCTION. SEROUS FLUID DRAINING IN PLEURVAC. O2 IS ON AT 1 TO 2 LITERS NC. HE APPEARS TO BE PROGRESSING TOWARDS GOALS.
[2019-06-25 16:33] VITALS: BP 102/43
[2019-06-25 19:15] VITALS: BP 107/44
[2019-06-26 00:40] VITALS: BP 112/52
[2019-06-26 04:00] VITALS: BP 88/40
[2019-06-26 04:14] LABS: HEMATOCRIT 31.2 % (42.0-52.0); HEMOGLOBIN 10.2 gm/dL (14.0-18.0); MCH 32.7 pg (26.0-34.0); MCHC 32.8 g/dL (28.0-37.0); MCV 99.6 fL (80.0-100.0); RBC 3.13 mil/uL (4.50-6.00); RDW-CV 15.8 % (10.5-14.5); WBC 13.7 thou/uL (4.0-11.0)
[2019-06-26 04:49] LABS: ALBUMIN 2.3 g/dL (3.4-5.0); CALCIUM 8.6 mg/dL (8.5-10.1); MAGNESIUM 1.9 mg/dL (1.8-2.4); TOTAL BILIRUBIN 0.6 mg/dL (<0.1-1.0); TOTAL PROTEIN 5.2 g/dL (6.4-8.2)
[2019-06-26 04:50] LABS: CREATININE 4.4 mg/dL (0.6-1.3)
[2019-06-26 09:30] VITALS: BP 100/42
[2019-06-26 11:52] VITALS: BP 99/49
[2019-06-26 16:00] VITALS: BP 109/98
--- NOTE | 2019-06-26 19:06 | NUR ---
ASSUSSMED CARE OF PT APPROX 0730. ASSESSMENT COMPLETED CHARTED. MEDICATION GIVEN CHARTED. PT NEEDS MET. PT CALLS OUT FOR NEEDS APPROPRIATELY. PT UP TO BEDSIDE CHAIR THIS AFTERNOON WITH THERAPY. PT DENIES PAIN. PT EDUCATION DONE ABOUT CARE. PT VERBALIZED UNDERSTANDING. PT REPOSITIONED Q2HRS. HOURLY ROUNDING COMPLETE. CALL LIGHT AND PERSONAL ITEMS WITHIN REACH.
--- NOTE | 2019-06-26 19:13 | NUR ---
CHEST TUBE IN PLACE, OUTPUT THIS SHIFT MEASURED AT 1910 OF 125ML.
--- NOTE | 2019-06-26 19:24 | NUR ---
I HAVE REVIEWED AND AGREE WITH THE ASSESMENT AND NOTES OF NANETTE Reeves RN ON 06/26/19
[2019-06-26 20:00] VITALS: BP 117/50
--- NOTE | 2019-06-26 20:00 | NUR ---
RECEIVED REPORT AND ASSUMED CARE OF PT, ASSESSMENT COMPLETED. RESTING IN BED WATCHING TV. LT SIDE CHEST TUBE CONNECTED TO -20 CM SUCTION. SEROSANGUNIOUS NOTED IN [facility]. O2 ON AT 2L/NC, NO SOB NOTED. EVERARDO LOWER LEGS WITH 2+ EDEMA, SOFT NON-PITTING. TELEMETRY ON SHOWING A-FIB WITH BBB. WILL CONT TO MONITOR AND ASSIST NEEDED.
[2019-06-27] VITALS: BP 123/57
[2019-06-27 03:55] VITALS: BP 126/52
--- NOTE | 2019-06-27 06:50 | NUR ---
AWAKE OFF AND ON DURING NIGHT. SANA BIPAP ALL NIGHT BUT BACK ON NC THIS AM. INCONT OF LIQ STOOL. BUTTOCKS WITH MOISTURE DERMATITIS TYPE WOUND, BARRIER CREAM APPLIED. CHEST TUBE DRAINING WELL. NO CHANGE IN ASSESSMENT. HS GOALS OF REST AND SAFETY. HOURLY ROUNDING OBSERVED.
[2019-06-27 08:00] VITALS: BP 82/44
[2019-06-27 13:00] VITALS: BP 90/40
--- NOTE | 2019-06-27 13:02 | NUR ---
ASSUMED PT CARE AT 0730, FULL ASSESMENT DONE CHARTED. PT A/O X4, NOT VERY TALKATIVE THIS AM. PTS BP SOFT, ASYMPTOMATIC, ALL OTHER VSS, AFIB ON THE MONITOR. PT TO DIALYSIS AT APPROX 0830, CHEST TUBE DEPENDANT WITH SUCTION WITH SS DRAINAGE. WILL CONTINUE WITH PLAN OF CARE
--- NOTE | 2019-06-27 13:30 | NUR ---
ASSUMED CARE AFTER REPORT. PATIENT RETURNED FROM DIALYSIS WITHIN THE PAST HOUR. LETHARGIC, RESPONDS TO VERBAL CUES THEN GOES BACK TO SLEEP. IN AGREEMENT WITH MORNING ASSESSMENT. UP WITH ASSIST & WALKER. CALL LIGHT WITHIN REACH. HOURLY ROUNDING FOR SAFETY AND PATIENT NEEDS.
[2019-06-27 15:58] VITALS: BP 91/43
[2019-06-27 20:00] VITALS: BP 90/35
[2019-06-28] VITALS: BP 92/45
[2019-06-28 04:00] VITALS: BP 97/40
[2019-06-28 04:04] LABS: HEMATOCRIT 32.8 % (42.0-52.0); HEMOGLOBIN 10.7 gm/dL (14.0-18.0); MCH 32.9 pg (26.0-34.0); MCHC 32.7 g/dL (28.0-37.0); MCV 100.5 fL (80.0-100.0); MPV 7.5 fl. (7.2-11.1); RBC 3.26 mil/uL (4.50-6.00); RDW-CV 15.8 % (10.5-14.5); WBC 10.8 thou/uL (4.0-11.0)
[2019-06-28 05:01] LABS: ALBUMIN 2.2 g/dL (3.4-5.0); CALCIUM 8.4 mg/dL (8.5-10.1); CREATININE 4.4 mg/dL (0.6-1.3); MAGNESIUM 1.7 mg/dL (1.8-2.4); POTASSIUM 3.2 mmol/L (3.5-5.1); TOTAL BILIRUBIN 0.5 mg/dL (<0.1-1.0)
--- NOTE | 2019-06-28 05:31 | NUR ---
ASSUMED CARE OF PT AFTER REPORT AT 1930. PT A&OX4. VSS. PHYSICAL ASSESSMENT COMPLETED AND CHARTED. PT ON O2 AT 2L NC/BIPAP WHEN SLEEPING. PT TRACING AFIB BBB ON TELE. HR 30'S-40'S. PT WITH LEFT SIDE CHEST TUBE CONNECTED TO [facility]. MAINTAINED ON -20 SUCTION. PT DENIES ANY PAIN OR SOA. PT WITH EPISODES OF INCONTINENT BOWEL. PT TURNED TO SIDES. SPUTUM SPECIMEN SENT TO LAB. CALL LIGHT WITHIN REACH.
[2019-06-28 08:00] VITALS: BP 85/38
[2019-06-28 12:20] VITALS: BP 88/44
[2019-06-28 17:51] LABS: MAGNESIUM 1.8 mg/dL (1.8-2.4); POTASSIUM 3.3 mmol/L (3.5-5.1)
[2019-06-28 18:31] VITALS: BP 82/36
--- NOTE | 2019-06-28 19:53 | NUR ---
assumed pt care at 0730, full assesment done as charted. pt a/o x4, c/o buttock pain, pt is incont of stool, was up to chair for 1.5 hrs this am, wanted back to bed. Turn Q2 hrs. Chest tube dependent with suction with 250ml out put this shift. 2l o2, sats 96%, afib on the monitor with rate in the 40-40's. pt asymptomatic. electrolytes replaced, refer to EM[facility]. Pt turned q2 hrs, does not like to turn on right side. pt calls approprialty for needs. report given to Yuliana DODD.
[2019-06-28 20:00] VITALS: BP 90/33
[2019-06-29 00:30] VITALS: BP 108/33
[2019-06-29 04:30] VITALS: BP 86/40
[2019-06-29 05:21] LABS: HEMATOCRIT 34.2 % (42.0-52.0); HEMOGLOBIN 11.3 gm/dL (14.0-18.0); MCH 33.7 pg (26.0-34.0); MCHC 33.1 g/dL (28.0-37.0); MCV 101.9 fL (80.0-100.0); MPV 7.9 fl. (7.2-11.1); RBC 3.36 mil/uL (4.50-6.00); RDW-CV 16.1 % (10.5-14.5); WBC 10.8 thou/uL (4.0-11.0)
[2019-06-29 05:43] LABS: ALBUMIN 2.3 g/dL (3.4-5.0); CALCIUM 8.3 mg/dL (8.5-10.1); PHOSPHORUS* 1.9 mg/dL (2.5-4.9)
[2019-06-29 05:46] LABS: CREATININE 5.7 mg/dL (0.6-1.3); POTASSIUM 4.7 mmol/L (3.5-5.1)
--- NOTE | 2019-06-29 05:54 | NUR ---
ASSUMED CARE OF PT AFTER REPORT AT 1930. PT A&OX4. VSS. PHYSICAL ASSESSMENT COMPLETED AND CHARTED. PT ON O2 AT 2L NC/BIPAP WHEN SLEEPING. PT TRACING AFIB/BBB ON TELE. HR 30'S-40'S. PT DENIES ANY PAIN. PT REFUSED TURNS AT TIMES. PT ABLE TO SLEEP WELL ON BED. CALL LIGHT WITHIN REACH.
[2019-06-29 08:00] VITALS: BP 92/37
--- NOTE | 2019-06-29 11:00 | NUR ---
ASSUMED PT CARE AT 0800, AOX4, UP WITH 2 ASSIST. O2 SAT 90'S 2L NC, ON BIPAP AT NIGHT. DENIES PAIN. TRACING AFIB/TISHA ON TELE.PT FOR ACCU CHECK. PT FOR CHEST XRAY, CT CHEST. PT HAS CHEST TUBE DRAINAGE. PT INCONTINENT OF BOWEL, HAD BM TODAY. OPEN SORE ON BUTTOCKS NOTED. VSS, AM ASSESSMENT CHARTED. MEDS GIVEN PER MAR. CALL LIGHT WITHIN REACH, HOURLY ROUNDING, Q2 TURN. WILL CONTINUE TO MONITOR.
[2019-06-29 12:14] VITALS: BP 111/40
[2019-06-29 20:00] VITALS: BP 105/45
[2019-06-30] VITALS: BP 97/40
[2019-06-30 04:00] VITALS: BP 90/45
--- NOTE | 2019-06-30 06:03 | NUR ---
ASSUMED CARE OF PT AFTER REPORT AT 1930. PT A&OX4. VSS. PHYSICAL ASSESSMENT COMPLETED AND CHARTED. PT ON O2 AT 2L NC/ BIPAP WHEN SLEEPING. PT TRACING AFIB/BBB/TISHA ON TELE. PT DENIES ANY PAIN. PT WITH EPISODES OF INCONTINENT BOWEL. CHEST TUBE CONNECTED TO [facility] MAINTAING -20 SUCTION. PT TURNED TO SIDES. PT ABLE TO SLEEP WELL ON BED. CALL LIGHT WITHIN REACH.
[2019-06-30 08:00] VITALS: BP 95/41
--- NOTE | 2019-06-30 10:44 | NUR ---
ASSUMED PT CARE AT 0800, AOX4, UP WITH 2 ASSIST. O2 SAT 90'S 2L NC. TRACING AFIB, TISHA ON TELE. PT ACCU CHECK. PT DENIES PAIN. PT ON DIALYSIS. PT ON CHEST TUBE DRAINAGE. OPEN SORE NOTED ON BUTTOCKS AREA, WOUND CARE CONSULTED. Q2 TURN. VSS, AM ASSESSMENT CHARTED, HOURLY ROUNDING OBSERVED, CALL LIGHT WITHIN REACH. WILL CONTINUE TO MONITOR.
--- NOTE | 2019-06-30 12:26 | NUR ---
Spoke with pulronal Galarza and hospitalist, initiated transfer to [facility] for vascular surgery, Pt needs a VATS procedure. Spoke with transfer table operator helper, provided bertrand Galarza cell phone. Awaiting call back with decision to accept. Pt is currently in dialysis, so can either dc later today or tomorrow. CM left VM for Pt's to update on POC.
[2019-06-30] MEDS ORDERED: TRAMADOL 50 MG50 MG PO (15:27)
[2019-06-30] MEDS ORDERED: NEURONTIN 300300 M1 PO (15:28)
--- NOTE | 2019-07-03 12:06 | PATH ---
[address] [address] PATHOLOGY RPT PROCEDURE Name: RACHEL ARECHIGA CIARAN Room: [address] IN [facility]#: [id number] Admission: 06/11/19 Date of : 38 Discharge: 06/30/19 Report #: [id number] Path Case #: [id number] Note [facility] Accession Number: [id number] TESTS RESULT FLAG UNITS REF RANGE LAB Clinician Provided Cytology Information No. of containers..01 Other (Miscellaneous) Source: LT PLEURAL FLUID Clinician ICD10: 01 A41.9 J18.9 DIAGNOSIS: 02 LT PLEURAL FLUID NEGATIVE FOR MALIGNANT CELLS. PREDOMINANTLY LYMPHOCYTES WITH FEW MESOTHELIAL CELLS. THIS INTERPRETATION INCLUDES EVALUATION OF A CELL BLOCK. Signed out by: 02 Shaun Whipple MD, Pathologist NPI- [id number] Performed by: Dangelo Alexander, Computer Art Instructor ([facility]) Gross description: 01 22ML, RED, CLEAR /LCS FLAG LEGEND: L-Low Normal,H-High Normal,LL-Alert Low,HH-Alert High <-Panic Low,>-Panic High,A-Abnormal,AA-Critical Abnormal Performed at: 01 [facility] [address] [place] [address] Ag Arango MD, [address] [place] [id number] Shaun Whipple MD, Specimen Comment: A courtesy copy of this report has been sent to Specimen Comment: [phone]. Specimen Comment: Report sent to Performed at: 01 [facility] [address] [place] [address] [address], [place], [place] [id number] MD Ag Arango MD Phone: [phone]
== END 2019-06-30 15:40 | disposition short-term general hospital (02) | DRG 871 ==
LOC: M.ERS 15:05 → M.ICU 17:18 → M.TBA-ER 17:18 → M.2W 17:18 → M.ICU 20:21 → M.2W 06-18 12:28
PROVIDERS: Family Medicine; Internal Medicine; Internal Medicine Cardiovascular Disease; Internal Medicine Critical Care Medicine; Internal Medicine Nephrology; Internal Medicine Pulmonary Disease; Personal Emergency Response Attendant; ADMIT Internal Medicine
PROC: 5A09357 Assistance with Respiratory Ventilation, Less than 24 Consecutive Hours, Continuous Positive Airway Pressure (ICD-10-PCS; principal; 2019-06-12)
PROC: 0W9B3ZZ Drainage of Left Pleural Cavity, Percutaneous Approach (ICD-10-PCS; principal; 2019-06-12)
PROC: 5A09357 Assistance with Respiratory Ventilation, Less than 24 Consecutive Hours, Continuous Positive Airway Pressure (ICD-10-PCS; 2019-06-13)
PROC: 5A09357 Assistance with Respiratory Ventilation, Less than 24 Consecutive Hours, Continuous Positive Airway Pressure (ICD-10-PCS; 2019-06-14)
PROC: 0W9B3ZZ Drainage of Left Pleural Cavity, Percutaneous Approach (ICD-10-PCS; 2019-06-15)
PROC: 5A09357 Assistance with Respiratory Ventilation, Less than 24 Consecutive Hours, Continuous Positive Airway Pressure (ICD-10-PCS; 2019-06-15)
PROC: 5A09357 Assistance with Respiratory Ventilation, Less than 24 Consecutive Hours, Continuous Positive Airway Pressure (ICD-10-PCS; 2019-06-16)
PROC: 5A09357 Assistance with Respiratory Ventilation, Less than 24 Consecutive Hours, Continuous Positive Airway Pressure (ICD-10-PCS; 2019-06-17)
PROC: 0W9B30Z Drainage of Left Pleural Cavity with Drainage Device, Percutaneous Approach (ICD-10-PCS; 2019-06-18)
PROC: 5A09357 Assistance with Respiratory Ventilation, Less than 24 Consecutive Hours, Continuous Positive Airway Pressure (ICD-10-PCS; 2019-06-18)
PROC: 5A1D70Z Performance of Urinary Filtration, Intermittent, Less than 6 Hours Per Day (ICD-10-PCS; 2019-06-19)
PROC: 5A09357 Assistance with Respiratory Ventilation, Less than 24 Consecutive Hours, Continuous Positive Airway Pressure (ICD-10-PCS; 2019-06-20)
PROC: 5A1D70Z Performance of Urinary Filtration, Intermittent, Less than 6 Hours Per Day (ICD-10-PCS; 2019-06-20)
PROC: 5A09357 Assistance with Respiratory Ventilation, Less than 24 Consecutive Hours, Continuous Positive Airway Pressure (ICD-10-PCS; 2019-06-21)
PROC: 5A1D70Z Performance of Urinary Filtration, Intermittent, Less than 6 Hours Per Day (ICD-10-PCS; 2019-06-23)
PROC: 5A09357 Assistance with Respiratory Ventilation, Less than 24 Consecutive Hours, Continuous Positive Airway Pressure (ICD-10-PCS; 2019-06-25)
PROC: 5A09357 Assistance with Respiratory Ventilation, Less than 24 Consecutive Hours, Continuous Positive Airway Pressure (ICD-10-PCS; 2019-06-26)
PROC: 5A1D70Z Performance of Urinary Filtration, Intermittent, Less than 6 Hours Per Day (ICD-10-PCS; 2019-06-27)
PROC: 5A09357 Assistance with Respiratory Ventilation, Less than 24 Consecutive Hours, Continuous Positive Airway Pressure (ICD-10-PCS; 2019-06-27)
PROC: 5A09357 Assistance with Respiratory Ventilation, Less than 24 Consecutive Hours, Continuous Positive Airway Pressure (ICD-10-PCS; 2019-06-28)
PROC: 5A09357 Assistance with Respiratory Ventilation, Less than 24 Consecutive Hours, Continuous Positive Airway Pressure (ICD-10-PCS; 2019-06-29)
PROC: 5A1D70Z Performance of Urinary Filtration, Intermittent, Less than 6 Hours Per Day (ICD-10-PCS; 2019-06-30)
DX: A41.9 Sepsis, unspecified organism (principal); N18.6 End stage renal disease; J96.21 Acute and chronic respiratory failure with hypoxia; J96.22 Acute and chronic respiratory failure with hypercapnia; J15.6 Pneumonia due to other Gram-negative bacteria; E43 Unspecified severe protein-calorie malnutrition; I50.43 Acute on chronic combined systolic (congestive) and diastolic (congestive) heart failure; J44.0 Chronic obstructive pulmonary disease with (acute) lower respiratory infection; E66.2 Morbid (severe) obesity with alveolar hypoventilation; J91.8 Pleural effusion in other conditions classified elsewhere; D68.59 Other primary thrombophilia; I13.2 Hypertensive heart and chronic kidney disease with heart failure and with stage 5 chronic kidney disease, or end stage renal disease; I48.92 Unspecified atrial flutter; K56.699 Other intestinal obstruction unspecified as to partial versus complete obstruction; E11.22 Type 2 diabetes mellitus with diabetic chronic kidney disease; I25.10 Atherosclerotic heart disease of native coronary artery without angina pectoris; Z96.653 Presence of artificial knee joint, bilateral; K52.9 Noninfective gastroenteritis and colitis, unspecified; N28.1 Cyst of kidney, acquired; I95.89 Other hypotension; M27.49 Other cysts of jaw; I48.2 Chronic atrial fibrillation; E27.9 Disorder of adrenal gland, unspecified; I48.0 Paroxysmal atrial fibrillation; C61 Malignant neoplasm of prostate; E78.5 Hyperlipidemia, unspecified; E89.0 Postprocedural hypothyroidism; E11.51 Type 2 diabetes mellitus with diabetic peripheral angiopathy without gangrene; D50.9 Iron deficiency anemia, unspecified; E87.6 Hypokalemia; Z87.11 Personal history of peptic ulcer disease; Z95.1 Presence of aortocoronary bypass graft; Z68.30 Body mass index [BMI] 30.0-30.9, adult; Z79.51 Long term (current) use of inhaled steroids; Z79.899 Other long term (current) drug therapy; Z79.1 Long term (current) use of non-steroidal anti-inflammatories (NSAID); Z79.4 Long term (current) use of insulin; Z82.49 Family history of ischemic heart disease and other diseases of the circulatory system; Z86.73 Personal history of transient ischemic attack (TIA), and cerebral infarction without residual deficits

== ENCOUNTER 2019-07-16 19:32 | Emergency (ER) | payer OTHER, MEDICARE ==
[~2019-07-16] VITALS: Ht 188 cm; Wt 119.2 kg
[~2019-07-16 19:32] MED LIST changes: +COUMADIN 2 MG TA2 M1 PO; +LIPITOR40 MG PO; +MUPIROCIN22 GM NASAL; +NEURONTIN 300300 M1 PO; +TRAMADOL 50 MG50 MG PO; +TYLENOL325 MG PO
[2019-07-16 19:58] LABS: ABSOLUTE EOSINOPHILS 0.1 thou/uL (0.0-0.7); ABSOLUTE LYMPHOCYTES 1.5 thou/uL (0.8-5.3); BASOPHILS 0.5 %; EOSINOPHILS 0.9 %; HEMATOCRIT 27.5 % (42.0-52.0); LYMPHOCYTES 19.8 %; MCH 32.8 pg (26.0-34.0); MCHC 32.6 g/dL (28.0-37.0); MCV 100.7 fL (80.0-100.0); MONOCYTES 13.2 %; MPV 7.3 fl. (7.2-11.1); NUCLEATED RBCS 0 /100WBC; PLATELET COUNT* 226 thou/uL (150-400); POLYS 65.6 %; RBC 2.73 mil/uL (4.50-6.00); RDW-CV 15.4 % (10.5-14.5); WBC 7.7 thou/uL (4.0-11.0)
[2019-07-16 20:07] LABS: ANION GAP 7 mmol/L (7-16); BUN 21 mg/dL (7-18); CALCIUM 7.8 mg/dL (8.5-10.1); CHLORIDE 100 mmol/L (98-107); CO2 29 mmol/L (21-32); CREATININE 2.9 mg/dL (0.6-1.3); GLUCOSE 194 mg/dL (70-99); POTASSIUM 3.9 mmol/L (3.5-5.1); SODIUM 136 mmol/L (136-145)
[2019-07-16 20:19] LABS: ALBUMIN 1.7 g/dL (3.4-5.0); ALKALINE PHOSPHATASE 131 U/L (46-116); LIPASE 79 U/L (73-393); NT-PRO BRAIN NAT PEPTIDE 15462 pg/mL (<300); SGOT 19 U/L (15-37); SGPT 20 U/L (30-65); TOTAL BILIRUBIN 0.3 mg/dL (<0.1-1.0); TOTAL PROTEIN 4.8 g/dL (6.4-8.2); TROPONIN-I LEVEL <0.06 ng/mL (<0.06)
[2019-07-16 20:41] LABS: INR 2.4; PROTIME 24.2 Seconds (9.20-11.50)
[2019-07-17 02:00] VITALS: BP 103/41
--- NOTE | 2019-07-17 10:47 | EKG ---
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[place] : 1940 Requested By: Jennifer Sweeney Order Number: [id number] MD: Candelario Zambrano Measurements Intervals [place] Rate: 65 P: CO: QRS: -42 QRSD: 136 T: -20 QT: 433 QTc: 451 Interpretive Statements Atrial fibrillation Right bundle branch block Inferior infarct, age indeterminate Compared to ECG 06/11/2019 15:16:51 Myocardial infarct finding now present Atrial flutter no longer present Electronically Signed On 07-17-2019 10:47:26 CDT by Candelario Zambrano [email or web address] <ELECTRONICALLY SIGNED> By: Candelario Zambrano MD, [facility] 07/17/19 1047 36 36 Candelario Zambrano MD, [facility] /EPI
[2019-07-17] MEDS ORDERED: CEFUROXIME500 MG PO (13:11)
[2019-07-20] MEDS ORDERED: CEFUROXIME500 MG (21:13)
== END 2019-07-17 02:00 | disposition short-term general hospital (02) ==
LOC: M.ERS 19:32
PROVIDERS: Emergency Medicine
DX: I26.99 Other pulmonary embolism without acute cor pulmonale (principal); E11.22 Type 2 diabetes mellitus with diabetic chronic kidney disease; N18.6 End stage renal disease

== ENCOUNTER 2019-07-20 21:04 | Inpatient (IN) | payer OTHER, MEDICARE ==
[~2019-07-20] VITALS: Ht 190.5 cm; Wt 109.1 kg
[~2019-07-20 21:04] MED LIST changes: +CEFUROXIME500 MG PO
[2019-07-20 21:05] VITALS: BP 102/46
[2019-07-20] MEDS ORDERED: CEFUROXIME500 MG PO (21:13)
[2019-07-20 21:39] LABS: BE 3.9 mmol/L (-2 to +3); PCO2 49.1 mmHg (35.0-45.0); PO2 93.4 mmHg (75.0-100.0); pH 7.395 (7.340-7.450)
[2019-07-20 21:46] LABS: ABSOLUTE EOSINOPHILS 0.1 thou/uL (0.0-0.7); ABSOLUTE LYMPHOCYTES 1.9 thou/uL (0.8-5.3); ABSOLUTE MONOCYTES 0.9 thou/uL (0.0-1.2); ABSOLUTE NEUTROPHILS 5.9 thou/uL (1.6-8.1); BASOPHILS 0.2 %; EOSINOPHILS 1.1 %; HEMATOCRIT 29.2 % (42.0-52.0); HEMOGLOBIN 9.6 gm/dL (14.0-18.0); LYMPHOCYTES 21.5 %; MCH 32.6 pg (26.0-34.0); MCHC 32.8 g/dL (28.0-37.0); MCV 99.4 fL (80.0-100.0); MONOCYTES 10.5 %; MPV 7.8 fl. (7.2-11.1); NUCLEATED RBCS 0 /100WBC; PLATELET COUNT* 289 thou/uL (150-400); POLYS 66.7 %; RBC 2.94 mil/uL (4.50-6.00); RDW-CV 15.7 % (10.5-14.5); WBC 8.8 thou/uL (4.0-11.0)
[2019-07-20 21:48] LABS: CALCIUM 7.8 mg/dL (8.5-10.1); CREATININE 5.5 mg/dL (0.6-1.3); POTASSIUM 4.7 mmol/L (3.5-5.1)
[2019-07-20 21:59] LABS: ALBUMIN 1.8 g/dL (3.4-5.0); MAGNESIUM 2.2 mg/dL (1.8-2.4); TOTAL BILIRUBIN 0.5 mg/dL (<0.1-1.0); TROPONIN-I LEVEL 0.13 ng/mL (<0.06)
[2019-07-20 22:13] LABS: PROTIME 63.8 Seconds (9.20-11.50)
[2019-07-20 22:15] LABS: INR 6.7
--- NOTE | 2019-07-20 23:46 | NUR ---
DR LONGO NOTIFIED OF DECREASE IN BP. PT ALERT AND VOICED NO COMPLIANTS. FOELY INSERTED ORDERED AND PREPARING FOR CENTRAL LINE INSERTION. CENTRAL LINE INSERTED AND CLEARED VIA XRAY FOR USE. PT TRANSPORTED TO ICU 2,
[2019-07-21] VITALS (75 sets, daily range): BP systolic 68–123; BP diastolic 18–55
[2019-07-21 00:21] LABS: URINE BILIRUBIN NEGATIVE (Negative); URINE BLOOD TRACE (Negative); URINE CLARITY CLEAR; URINE COLOR YELLOW; URINE GLUCOSE-RANDOM NEGATIVE (Negative); URINE KETONES NEGATIVE (Negative); URINE LEUKOCYTES-REFLEX NEGATIVE (Negative); URINE NITRITE-REFLEX NEGATIVE (Negative); URINE PROTEIN 2+ (Negative); URINE UROBILINOGEN 0.2 E.U./dl (0.2-1.0)
[2019-07-21 01:18] LABS: CASTS None Seen /LPF (None Seen); SQUAMOUS 0-3 Few /LPF (0-3); URINE WBC-REFLEX 0-5 Rare /HPF (0-5)
[2019-07-21 01:19] LABS: BACTERIA-REFLEX 1-9 Few /HPF (None Seen); URINE RBC 3-10 Few /HPF (0-2)
[2019-07-21 01:20] LABS: CRYSTALS None Seen /LPF (None Seen)
[2019-07-21 05:48] LABS: HEMATOCRIT 28.9 % (42.0-52.0); HEMOGLOBIN 9.5 gm/dL (14.0-18.0); MCH 31.9 pg (26.0-34.0); MCHC 32.7 g/dL (28.0-37.0); MCV 97.5 fL (80.0-100.0); MPV 7.1 fl. (7.2-11.1); RBC 2.96 mil/uL (4.50-6.00); RDW-CV 16.1 % (10.5-14.5); WBC 12.2 thou/uL (4.0-11.0)
[2019-07-21 05:57] LABS: CALCIUM 7.9 mg/dL (8.5-10.1); CREATININE 5.5 mg/dL (0.6-1.3); MAGNESIUM 2.2 mg/dL (1.8-2.4); PHOSPHORUS* 4.4 mg/dL (2.5-4.9); POTASSIUM 4.6 mmol/L (3.5-5.1)
--- NOTE | 2019-07-21 06:41 | NUR ---
RECIEVED PT FROM ER AT 0110H AND PUT ON ICU2 BED. CONNECTED TO NC AT 4LPM AND FORMS ANALYST. NOTED WITH HYPOTENSION AND AFIB. LEVO STARTED AND ON 18MIC/MIN NOW. WITH CONGESTED COUGH AND WOUNDS IN SACRAL AREA,LOWER LEFT CHEST AND INCISSION WOUND ON LEFT BACK CHEST POST DECORTICATION AND THORASENTECIS. CENTRAL LINE DRESSING WITH MINIMAL BLOOD STAIN AND ON PENIAL MEATUS. TEA COLORED URINE WAS OBSERVED AND EDEMA ON BOTH LEGS. CONTINUE MONITORING AND TOWARDS GOALS. TALKED TO VIA PHONE AND HE WILL SEE HIM KEN BECAUSE SHE'S WORKING TODAY.
--- NOTE | 2019-07-21 10:25 | NUR ---
ICU rounds: Pt admitted from [facility]. Pt dc from this hospital on 06/30 to [facility] for a Vats procedure. Pt has a pressure ulcer to the growing/sacral area. Plan dialysis today. Son in to visit earlier, is at work. CM left for Pt's , Pt sound asleep when CM went to assess. Cm spoke with Vonda at [facility], they will have to reassess Pt for skilled at dc, but should be able to assess Pt back for continued skilled. When not in skilled, Pt resides at home with his and son. Current at [facility] on a T-R-S schedule. Family assists with ADLS and IADLs as needed. Hx of HH with [facility]. Hx of acute rehab. Per nurse, Pt has been "bed bound" for the past few days and not eating much. Pt was able to eat his breakfast this AM. Pt on o2. Followng.
--- NOTE | 2019-07-21 15:01 | EKG ---
[place] [address] ELECTROCARDIOGRAM REPORT Name: RACHEL ARECHIGA Room: [address] ADM IN .R.#: [id number] Admission: 07/20/19 Attend Phys: Marnie Stokes Discharge: Date of : 38 Report #: [id number] THIS REPORT FOR: //name// [facility] ED Test Date: 2019-07-20 Test Time: 21:18:23 Pat Name: RACHEL ARECHIGA Department: Room: 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[place] : 1940 Requested By: Alexandria Cortes Order Number: [id number] MD: Camden Narayanan Measurements Intervals Shiro Rate: 66 P: FL: QRS: -41 QRSD: 155 T: -10 QT: 451 QTc: 473 Interpretive Statements Atrial fibrillation Right bundle branch block Inferior infarct, old Compared to ECG 07/16/2019 19:37:28 No significant changes Electronically Signed On 07-21-2019 15:01:21 CDT by Camden Narayanan [email or web address] <ELECTRONICALLY SIGNED> By: Camden Narayanan MD, [facility] 07/21/19 1501 17 Camden Narayanan MD, [facility] /EPI
--- NOTE | 2019-07-21 18:44 | NUR ---
PT A&O. LEVOPHED TITRATED DOWN TO 6 MCG/MIN. ON O2 AT 2L NC. PT PASSED TWO EPISODES OF MUCOID RED STOOL, SMALL AMOUNT. Q2 TURNS FOR SKIN INTEGRITY. TOLERATED DIET WELL. FLUID RESTRICTION OF 1400 MLS/DAY PER NEPHRO.
[2019-07-22] VITALS (65 sets, daily range): BP systolic 79–135; BP diastolic 36–66
[2019-07-22 05:03] LABS: HEMATOCRIT 24.1 % (42.0-52.0); MCH 32.4 pg (26.0-34.0); MCHC 33.1 g/dL (28.0-37.0); MCV 97.8 fL (80.0-100.0); RBC 2.46 mil/uL (4.50-6.00); RDW-CV 15.5 % (10.5-14.5); WBC 7.1 thou/uL (4.0-11.0)
[2019-07-22 05:20] LABS: PROTIME 61.3 Seconds (9.20-11.50)
[2019-07-22 05:45] LABS: INR 6.5
[2019-07-22 05:47] LABS: ALBUMIN 1.5 g/dL (3.4-5.0); CALCIUM 7.3 mg/dL (8.5-10.1); CREATININE 5.8 mg/dL (0.6-1.3); MAGNESIUM 2.1 mg/dL (1.8-2.4); PHOSPHORUS* 4.7 mg/dL (2.5-4.9); POTASSIUM 4.2 mmol/L (3.5-5.1); TOTAL BILIRUBIN 0.3 mg/dL (<0.1-1.0); TOTAL PROTEIN 4.2 g/dL (6.4-8.2)
--- NOTE | 2019-07-22 05:51 | NUR ---
ASSUMED CARE AT 1910H, ON NC AT 2LPM AND NO DISTRESS NOTED.NOTED PT FEMORAL CENTRAL LINE HAD MINIMAL TO MODERATE BLOOD IN THE DRESSING.LEVO OFF 2X BUT BP MAP DROPED BELOW 55 AFTER FEW MINUTES.RESTART LEVO AT 4MIC/H.CONTINUE MONITORING AND TOWARDS GOALS.
--- NOTE | 2019-07-22 09:36 | CON ---
[address] [address] CONSULTATION Name: RACHEL ARECHIGA Room: [address] IN .R.#: [id number] Admission: 07/20/19 Attend Phys: Marnie Stokes Discharge: Date of : 38 Report #: [id number] THIS REPORT FOR: //name// CC: Candelario Kimble CARDIOLOGY CONSULTATION INDICATION: Chronic atrial fibrillation, hypotension, heart failure, end-stage renal disease, elevated troponin. HISTORY OF PRESENT ILLNESS: The patient is an 79-year-old gentleman with multiple medical problems. He was admitted to the hospital with complaints of fatigue and shortness of breath and found to be hypotensive. He has end-stage renal disease and is on dialysis. In this setting, his troponin was elevated. I believe this is due to chronic renal failure. He is not having any chest pain to suggest angina. He has a history of coronary artery bypass grafting in 2007. Echocardiogram 06/11/2019 showed an EF of 60-65%. Presently, he is on pressor agents and sustaining a decent blood pressure. He has chronic atrial fibrillation with a somewhat slow ventricular response rate. Presently, his heart rate is in the 50s and 60s. PAST MEDICAL HISTORY: 1. Coronary artery disease with normal LV systolic function. 2. Coronary artery bypass grafting in 2007. 3. Chronic atrial fibrillation. 4. Probable chronic diastolic heart failure. 5. End-stage renal disease, on dialysis. 6. Hypothyroidism, on replacement. 7. History of prostate cancer. 8. BPH. 9. Hyperlipidemia. 10. Type 2 diabetes mellitus. 11. Recurrent pleural effusion, status post thoracentesis and decortication on 06/30/2019. 12. Appendectomy remotely. 13. Left leg surgery. HOME MEDICATIONS: Combivent inhaler q.4 hours, warfarin 7 mg daily, atorvastatin 40 mg at bedtime, Tylenol p.r.n., MiraLax 17 grams b.i.d., mupirocin nasal gel b.i.d., levothyroxine 200 mcg daily, Flomax 0.4 mg at bedtime, omeprazole 20 mg daily, metoclopramide 10 mg q.i.d., gabapentin 600 mg t.i.d., Ceftin as directed and Linzess 145 [place] [address] CONSULTATION Name: RACHEL ARECHIGA Room: [address]#: [id number] Admission: 07/20/19 Attend Phys: Marnie Stokes Discharge: Date of : 38 Report #: [id number] ALLERGIES: None known. FAMILY HISTORY: Noncontributory. SOCIAL HISTORY: The patient is a nonsmoker. He does not drink alcohol. PHYSICAL EXAMINATION: VITAL SIGNS: Blood pressure 101/34, pulse 55 and irregular. GENERAL: This is a moderately obese white male who is resting comfortably. HEENT: Head is normocephalic, atraumatic. Extraocular muscles intact. Mucous membranes moist. NECK: Shows no obvious jugular venous distention. CHEST: Reveals diminished breath sounds bilaterally. CARDIOVASCULAR: Reveals an irregularly irregular rhythm without gallop or murmur. ABDOMEN: Reveals a protuberant abdomen, soft and nontender. EXTREMITIES: Shows 3+ edema to the knees bilaterally. SKIN: Dry. LABORATORY STUDIES: A 12-lead EKG shows atrial fibrillation with a slow ventricular response rate. Chest x-ray shows small left pleural effusion with a clear right lung field. IMPRESSION AND RECOMMENDATIONS: 1. Elevated troponin due to end-stage renal disease, on dialysis. I doubt this represents an acute coronary syndrome. 2. Coronary artery disease, presently stable. He is not having acute coronary syndrome. He has preserved left ventricular systolic function. 3. Chronic atrial fibrillation with slow ventricular response rate, presently stable. No indication for pacemaker at this time. 4. Hypotension, presently being supported with Levophed drip. We would titrate as allowable. 5. Volume overload. The patient is dialysis dependent. 6. History of hyperlipidemia. Continue current statin agent. <ELECTRONICALLY SIGNED> By: Camden Narayanan MD, FACC 07/22/19 0936 [id number] Can Narayanan MD, FACC /nt
--- NOTE | 2019-07-22 10:38 | NUR ---
ICU rounds: Pt getting dialysis today. Continues on levo gtt. Working to maintain BP today.
--- NOTE | 2019-07-22 11:26 | NUR ---
WOUND CARE NOTE: CONSULT RECEIVED FOR PRESSURE ULCER. PATIENT RECEIVING DIALYSIS AT THIS TIME. WILL ATTEMPT TO ASSESS TOMORROW.
--- NOTE | 2019-07-22 18:31 | NUR ---
This writter assumed care of pt at 0700 after shift report. Pt progressed toward goals throughout the day titrated levaphed from 3.9 to 1.9 pt tolerated well B/P is within normal range and MAP is above 65. Pt had dialysis tolerated well removed 2 liters of fluids. Pt consumed 75% of all meals in the room later part of the shift
[2019-07-23] VITALS (37 sets, daily range): BP systolic 86–128; BP diastolic 33–51
[2019-07-23 04:16] LABS: HEMATOCRIT 23.8 % (42.0-52.0); HEMOGLOBIN 7.7 gm/dL (14.0-18.0); MCH 31.7 pg (26.0-34.0); MCHC 32.2 g/dL (28.0-37.0); MCV 98.4 fL (80.0-100.0); MPV 7.4 fl. (7.2-11.1); RBC 2.41 mil/uL (4.50-6.00); RDW-CV 15.5 % (10.5-14.5); WBC 6.6 thou/uL (4.0-11.0)
[2019-07-23 04:30] LABS: CALCIUM 7.9 mg/dL (8.5-10.1); MAGNESIUM 2.1 mg/dL (1.8-2.4); POTASSIUM 3.7 mmol/L (3.5-5.1)
[2019-07-23 04:33] LABS: PROTIME 36.5 Seconds (9.20-11.50)
[2019-07-23 04:34] LABS: CREATININE 3.5 mg/dL (0.6-1.3)
[2019-07-23 04:55] LABS: INR 3.7
--- NOTE | 2019-07-23 05:50 | NUR ---
PT. PROGRESSING TOWARDS GOALS. OFF LEVOPHED GTT. 2L O2. INCONTINENT OF STOOL X2. NO BLEEDING AT THIS TIME, COMPLETE BED BATH GIVEN. TURNED Q2 TO MAINTAIN SKIN INTEGRITY. WILL CONTINUE TO MONITOR.
--- NOTE | 2019-07-23 08:36 | NUR ---
5791 ASSUMED CARD OF PATIENT. PLEASE SEE DOCUMENTED ASSESSMENT. PATIENT INCONTINENT OF LARGE STOOL. SPECIMEN SENT TO LAB. PT IS CONTROLLED ATRIAL FIB ON MONITOR. RIGHT FEMORAL CENTRAL LINE WITH MILD BLOOD OOZING AT SITE
--- NOTE | 2019-07-23 10:12 | NUR ---
ICU rounds: dialysis tomorrow. PT ordered. Off Levo for right now. Good appetite, but has diarrhea.
--- NOTE | 2019-07-23 11:22 | NUR ---
WOUND CARE NOTE: CONSULT RECEIVED FOR PRESSURE ULCER. ASSESSED PHOTOGRAPH AND SPOKE WITH PATIENT'S RN. PATIENT ALREADY HAS ANTIBACTERIAL OINTMENT ORDERED FOR SITE. WILL SIGN OFF AT THIS TIME, PLEASE RECONSULT IF NEEDED.
--- NOTE | 2019-07-23 17:11 | NUR ---
PATIENT PROGRESSING TOWARDS GOALS. HAS REMAINED OFF OF PRESSORS. EATS 100% OF MEALS. MULTIPLE STOOLS WITH SPECIMENS SENT. INITIATED CONTACT ISOLATION FOR POSITIVE MRSA AT [facility] THIS MONTH. BRADYCARDIA TODAY WITH VENTRICULAR RATE LOW 43. NO VISITORS OR FAMILY CALLS TODAY.
--- NOTE | 2019-07-23 17:54 | NUR ---
SPOUSE IS HERE TO VISIT.
[2019-07-24] VITALS (93 sets, daily range): BP systolic 62–137; BP diastolic 12–78
[2019-07-24 05:14] LABS: HEMATOCRIT 23.3 % (42.0-52.0); HEMOGLOBIN 7.6 gm/dL (14.0-18.0); MCH 31.6 pg (26.0-34.0); MCHC 32.6 g/dL (28.0-37.0); MPV 7.6 fl. (7.2-11.1); RBC 2.4 mil/uL (4.50-6.00); WBC 6.6 thou/uL (4.0-11.0)
[2019-07-24 05:22] LABS: PROTIME 22.3 Seconds (9.20-11.50)
[2019-07-24 05:23] LABS: INR 2.2
[2019-07-24 05:27] LABS: ALBUMIN 1.6 g/dL (3.4-5.0); CALCIUM 7.6 mg/dL (8.5-10.1); POTASSIUM 3.6 mmol/L (3.5-5.1); TOTAL BILIRUBIN 0.3 mg/dL (<0.1-1.0); TOTAL PROTEIN 4.4 g/dL (6.4-8.2)
[2019-07-24 05:28] LABS: CREATININE 4.6 mg/dL (0.6-1.3)
--- NOTE | 2019-07-24 10:27 | NUR ---
ICU rounds: off Levo. On dialysis now. PT to work with pt today. Hoping to transfer out of ICU soon. Pt will need SNF at al.
[2019-07-25] VITALS (15 sets, daily range): BP systolic 92–107; BP diastolic 34–76
--- NOTE | 2019-07-25 04:59 | NUR ---
ASSUMED CARE AT 1900H, ON NC AT 2LPM AND TOLERATED. LEVO OFF, MAP MAINTAIN ABOVE 55.NO DISTRESS NOTED.KEPT COMFORTABLE IN BED.CONTINUE MONITORING AND TOWARD GOALS.
[2019-07-25 05:37] LABS: ABSOLUTE EOSINOPHILS 0.2 thou/uL (0.0-0.7); ABSOLUTE LYMPHOCYTES 1.3 thou/uL (0.8-5.3); ABSOLUTE MONOCYTES 0.8 thou/uL (0.0-1.2); ABSOLUTE NEUTROPHILS 3.7 thou/uL (1.6-8.1); BASOPHILS 0.5 %; EOSINOPHILS 3.8 %; HEMATOCRIT 22.6 % (42.0-52.0); HEMOGLOBIN 7.4 gm/dL (14.0-18.0); LYMPHOCYTES 21.6 %; MCH 31.8 pg (26.0-34.0); MCV 96.3 fL (80.0-100.0); MONOCYTES 13.6 %; MPV 6.7 fl. (7.2-11.1); NUCLEATED RBCS 0 /100WBC; PLATELET COUNT* 251 thou/uL (150-400); POLYS 60.5 %; RBC 2.34 mil/uL (4.50-6.00); RDW-CV 15.6 % (10.5-14.5); WBC 6.1 thou/uL (4.0-11.0)
[2019-07-25 05:46] LABS: INR 1.6; PROTIME 16.2 Seconds (9.20-11.50)
--- NOTE | 2019-07-25 13:56 | NUR ---
PT TRANSFERED TO ROOM 227. ALL BELONGINGS SENT WITH PT. REPORT GIVEN TO YOUSIF AVILES.
--- NOTE | 2019-07-25 14:18 | NUR ---
RECIEVED PT FROM ARCHERY EQUIPMENT REPAIRER KAILEY AT APPROXIMATELY 1330. THIS RN AGREES WITH PREVIOUS NURSE ASSESSMENT. TRACING AFIB MONITOR. PT DENIES N/V, SOA, CP, PAIN AT THIS TIME. HOURLY ROUNDING AND FALL PRECAUTIONS IN PLACE FOR PT SAFETY. CLWR.
[2019-07-26] VITALS: BP 108/48
[2019-07-26 04:00] VITALS: BP 114/49
--- NOTE | 2019-07-26 04:26 | NUR ---
PATIENT WATCHING TV FIRST HALF OF THE NIGHT. PT ALERT/ORIENTED X4, PLEASANT. PT WITH THREE IV'S, PATENT AND SALINE LOCKED. PT IN SPECIAL CONTACT ISOLATION. PT IN AFIB/TISHA ON CERAMIC PAINTER. PT DENIES PAIN/NAUSEA. PT WITH REILLY TO DEPENDENT DRAIN WITH YELLOW URINE. PT TURNED Q2H PER PROTOCAL. PT WITH BREAKDOWN ON SACREL AREA. BARRIER CREAM APPLIED. PT DENIES NEEDS AT THIS TIME. FREQUENTLY USED ITEMS AND CALL LIGHT WITHIN REACH. SIDERAILS UPX3 AND BED ALARM ON. WILL CONTINUE TO MONITOR.
--- NOTE | 2019-07-26 05:47 | CON ---
[address] [address] CONSULTATION Name: RACHEL ARECHIGA Room: [place] [address] ADM IN M.R.#: [id number] Admission: 07/20/19 Attend Phys: Marnie Stokes Discharge: Date of : 38 Report #: [id number] THIS REPORT FOR: //name// CC: Candelario Kimble DATE OF SERVICE: 07/25/2019 REASON FOR EVALUATION: Pneumonitis, complicated by respiratory failure, also C. diff colitis. HISTORY OF PRESENT ILLNESS: Chart reviewed, patient examined. This is an 79-year-old white male well known to myself, has been hospitalized a number of occasions, has diabetes mellitus complicated by end-stage renal disease and vasculopathy, history of recurrent pleural effusions, often described as bloody with lymphocyte predominance who was admitted through the Emergency Room with complaints of progressive dyspnea, hypotension, did have a productive cough, apparently did not have fevers or chills at this point, was evaluated. Chest x-ray showed a small left pleural effusion, left lower lobe atelectasis, infiltrate, actually had improved from the previous study. Had developed some diarrhea, was confirmed to have C. diff positive PCR. Has been on broad-spectrum therapy due to his tenuous nature. He has been in the intensive care unit and required pressor support, which he has been weaned off over the course of last 24 hours. This is general demeanor. He denies any particular complaints. He is fairly lucid. Few of multiple cultures over the course of last several months have always been unremarkable. He does have a pathology including smears of pleural fluid for malignancy. ALLERGIES: None known. CURRENT MEDICATIONS: Include Neupogen, oral vancomycin 125 q.6 hours. He got a single dose after dialysis of vancomycin as well as cefepime, midodrine, atorvastatin, metoclopramide, aspirin, ipratropium, albuterol inhaler, gabapentin, and levothyroxine. PAST MEDICAL HISTORY: As described above, diabetes mellitus type 2, severe sequelae including end-stage renal disease requiring thrice weekly hemodialysis; chronic anemia, it is iron deficiency; has known vasculopathy; previous TIAs; possible stroke; atherosclerotic coronary artery disease with bypass; hypothyroidism; prostate cancer; chronic AFib; recurrent pleural effusions, VATS with decortication on 06/30/2019; and previous appendectomy. SOCIAL HISTORY: Nonsmoker, no ethanol, no illicit drug use. FAMILY HISTORY: [place] [address] CONSULTATION Name: RACHEL ARECHIGA Room: [address] IN [facility]#: [id number] Admission: 07/20/19 Attend Phys: Marnie Stokes Discharge: Date of : 39 Report #: [id number] REVIEW OF SYSTEMS: As above, otherwise unremarkable 10-point review of systems. Denies any significant gastrointestinal-related complaints. PHYSICAL EXAMINATION: GENERAL: He is alert, cooperative, appears chronically ill, undernourished. VITAL SIGNS: Temperature 98.5, pulse 56, respirations 13, and blood pressure 106/52. SKIN: Warm, dry, no rashes. HEENT: Normocephalic. Extraocular muscles intact. NECK: Supple. LUNGS: Scattered coarse breath sounds, somewhat diminished on the left at the base in particular. HEART: Irregularly irregular. I do not appreciate murmur. ABDOMEN: Soft. It is distended. There is no tenderness, no peritoneal signs. GENITOURINARY AND RECTAL: Deferred. LABORATORY DATA: Prealbumin of 12.8. PT 16.2 and INR 1.6. CBC: White count of 6.1, H and H 7.4 and 22.6, and platelet count of 251. Chest x-ray showed stable left basilar infiltrate. Electrolytes from the 13th; sodium 133, potassium 3.6, chloride 96, bicarbonate is 30, anion gap of 7, BUN and creatinine 40 and 4.6, glucose of 96. LFTs unremarkable. Albumin of 1.6. Total protein 4.4. Estimated GFR of 12. C. diff by PCR was positive. ASSESSMENT AND PLAN: Clostridium difficile related diarrhea. Agree with approach of oral vancomycin. We will continue that. Plan on tapering it over the course of perhaps several weeks. He has third-degree immunosuppression given his renal failure. Secondly, he has this recurrent issue with left-sided effusions, pneumonia has been relatively stable. At this point, he is requiring supplemental oxygen. We will monitor expectantly. He should be covered throughout the course of the weekend prior to his next dialysis. We will monitor expectantly. <ELECTRONICALLY SIGNED> By: Dinesh Johnson MD 07/26/19 0547 [id number] Johnson MD /nt
[2019-07-26 08:00] VITALS: BP 110/49
--- NOTE | 2019-07-26 08:00 | NUR ---
AM ASSESSMENT COMPLETE, DEFER TO COMPUTER CHARTING. FLOORING SALES MANAGER TRACKING AFIB - TISHA. 02 ON 2L PER NC, HOB ELEVATED. GENERALIZED 2+ EDEMA NOTED. ALERT ORIENTED. DENIES PAIN, DIZZINESS, NAUSEA OR ANY DISCOMFORT AT THIS TIME CALL LIGHT WITHIN REACH. WILL MONITOR.
[2019-07-26 11:13] LABS: HEMATOCRIT 22.8 % (42.0-52.0); HEMOGLOBIN 7.5 gm/dL (14.0-18.0)
[2019-07-26 12:12] VITALS: BP 94/42
[2019-07-26 15:50] VITALS: BP 108/49
--- NOTE | 2019-07-26 17:50 | NUR ---
PUBLIC RELATIONS ASSISTANT TRACKING AFIB RATE TISHA. 02 REMAINS ON 2L PER NC. ALERT ORIENTED, VISITING AT BEDSIDE. PATIENT COUGHING AND CONGESTED COUGH - INCREASED AT TIMES WITH LIQUIDS - DR FLORES IN EARLIER NOTIFIED, NEW ORDERS RECEIVED FOR SPEECH/SWALL EVAL. NO COMPLAINTS OF PAIN TO NURSING. TOLERATING DIET. CONTINUES TO HAVE 2 TO 3+ GENERALIZED EDEMA. HOB ELEVATED, CALL LIGHT WITHIN REACH. WILL CONTINUE WITH PLAN OF CARE.
[2019-07-26 20:00] VITALS: BP 110/52
[2019-07-27] VITALS: BP 103/44
[2019-07-27 04:00] VITALS: BP 113/50
--- NOTE | 2019-07-27 05:10 | NUR ---
PATIENT SLEPT WELL DURING THIS SHIFT. PT TURNED Q2H PER PROTOCAL; HEELS ELEVATED. PT WITH GENERALIZED EDEMA. PT WITH TWO LOOSE STOOLS. STOOLS ARE CLEAR AND MUCOUSY. PT DENIES PAIN/NAUSEA. PT ON O2 @ 2 LITERS PER NASAL CANNULA. PT IN AFIB ON AWARD MACHINE OPERATOR. PT WITH REILLY TO DEPENDENT DRAIN. PT A DIALYSIS PATIENT AND MAKES MINIMAL (50CC) DARK CHANEL URINE. PT WITH WOUNDS ON COCCYX/SACREL AREA; BARRIER CREAM APPLIED. FREQUENTLY USED ITEMS AND CALL LIGHT WITHIN REACH. SIDERAILS UPX4 AND BED ALARM ON. PT REMAINS IN SPECIAL CONTACT ISOLATION. WILL CONTINUE TO MONITOR.
[2019-07-27 07:48] LABS: HEMATOCRIT 21.9 % (42.0-52.0); HEMOGLOBIN 7.4 gm/dL (14.0-18.0); MCH 32.4 pg (26.0-34.0); MCHC 33.5 g/dL (28.0-37.0); MCV 96.5 fL (80.0-100.0); MPV 7.2 fl. (7.2-11.1); NUCLEATED RBCS 0 /100WBC; PLATELET COUNT* 247 thou/uL (150-400); RBC 2.27 mil/uL (4.50-6.00); RDW-CV 15.8 % (10.5-14.5); WBC 7.8 thou/uL (4.0-11.0)
[2019-07-27 07:53] LABS: CALCIUM 7.7 mg/dL (8.5-10.1); CREATININE 5.1 mg/dL (0.6-1.3); POTASSIUM 3.9 mmol/L (3.5-5.1)
[2019-07-27 08:26] LABS: ABSOLUTE EOSINOPHILS 0.2 thou/uL (0.0-0.7); ABSOLUTE LYMPHOCYTES 1.6 thou/uL (0.8-5.3); ABSOLUTE MONOCYTES 0.5 thou/uL (0.0-1.2); ABSOLUTE NEUTROPHILS 5.5 thou/uL (1.6-8.1); PLATELET ESTIMATE ADEQUATE
[2019-07-27 08:28] LABS: ANISOCYTOSIS 1+; POIKILOCYTOSIS 1+
[2019-07-27 08:46] VITALS: BP 97/55
--- NOTE | 2019-07-27 14:22 | NUR ---
CONTINUE TO FOLLOW, ALL THERAPIES REORDERED FOR PT TODAY. DISCUSSED RETURNING TO [facility] [place], PT FEELS HE WILL NEED THAT. WILL NEED TO OBTAIN INS AUTH PRIOR TO [place]. AWAIT THERAPY EVALS.
--- NOTE | 2019-07-27 14:28 | NUR ---
ASSESSMENT COMPLETE. PT ALERT AND ORIENTED X4. PT IN DIALYSIS THIS MORNING UNTIL NOON. PT BLOOD SUGAR CHECKED ONCE BACK TO ROOM AND WAS 73. PT ATE LUNCH. SPEECH AND COGNITIVE EVAL DONE, PT PASSED SWALLOW EVAL. ST TO CONTINUE COGNITIVE. PT IS IN ISOLATION. PO VANC GIVEN SCHEDULED. Q2 TURN. ACCU CHECK ACHS. PT HAS REILLY IN PLACE, OLIGUIA NOTED. PT HAS DIALYSIS M/W/F. FLUID RESTRICTION. PT IS ON 2L PER NC, VSS. PT IS SINUS TISHA ON TELE MONITOR. SEE ASSESSMENT AND VITALS FOR OTHER DETAILS. CALL LIGHT WITHIN REACH, WILL CONTINUE PLAN OF CARE
[2019-07-27 16:05] VITALS: BP 102/46
[2019-07-27 20:00] VITALS: BP 121/55
[2019-07-28] VITALS: BP 124/51
--- NOTE | 2019-07-28 03:56 | NUR ---
ASSUMED PT CARE AT APPROX 1930.PT IS AWAKE AND ORIENTED X4 BUT FORGETFUL. VSS ON 2L OF O2/NC. PT IS TRACING AFIB ON THE MARINE ENGINE MACHINIST. AV-FISTULA ON LEFT ARM w/ INTACT AND DRY, BRUIT AUDIBLE, THRILL PALPABLE. PT DENIES PAIN AND SHORTNESS OF AIR. ASSESSMENT DONE AND CHARTED. POSITION CHANGES DONE, PT REFUSED SOME TURNS, EDUCATION GIVEN. PT IS ABLE TO SLEEP MOST OF THE NIGHT.CALL LIGHT WITHIN REACH, HOURLY ROUNDING DONE FOR PT SAFETY.
[2019-07-28 04:00] VITALS: BP 118/54
--- NOTE | 2019-07-28 07:15 | NUR ---
CHANGE OF SHIFT, BEDSIDE TRPORT GIVEN PATIENT SEEN AT BEDSIDE, IN BED ASLEEP ASSUMED PATIENT CARE
[2019-07-28 08:00] VITALS: BP 112/47
[2019-07-28 11:40] VITALS: BP 103/34
--- NOTE | 2019-07-28 13:59 | NUR ---
CONTINUE TO FOLLOW, STILL AWAITING THERAPY EVALS TODAY. CALLED AND FAXED REF TO [facility]. ANTICIPATE DC TO SNF WHEN PT STABLE. CALLED AND LEFT VMAIL FOR PT'S TO UPDATE.
[2019-07-28 20:00] VITALS: BP 128/54
[2019-07-29] VITALS: BP 115/40
[2019-07-29 04:00] VITALS: BP 115/43
--- NOTE | 2019-07-29 05:29 | NUR ---
ASSUMED CARE OF PT AFTER REPORT AT 1930. PT A&OX4. DROWSY. VSS. PHYSICAL ASSESSMENT COMPLETED AND CHARTED. PT ON O2 AT 2L NC. PT TRACING AFIB/BBB/TISHA ON TELE. PT TURNED TO SIDES. PT DENIES ANY PAIN OR DISCOMFORT. PT WITH REILLY TO DEPENDENT DRAIN. MAINTAINBED ON SPECIAL CONTACT PREACUTIOM FOR CDIFF. CALL LIGHT WITHIN REACH.
[2019-07-29 05:33] LABS: ABSOLUTE BASOPHILS 0.1 thou/uL (0.0-0.2); ABSOLUTE EOSINOPHILS 0.1 thou/uL (0.0-0.7); ABSOLUTE LYMPHOCYTES 2.1 thou/uL (0.8-5.3); ABSOLUTE MONOCYTES 1.2 thou/uL (0.0-1.2); ABSOLUTE NEUTROPHILS 5.2 thou/uL (1.6-8.1); BASOPHILS 0.8 %; EOSINOPHILS 1.4 %; HEMATOCRIT 23.4 % (42.0-52.0); HEMOGLOBIN 7.9 gm/dL (14.0-18.0); LYMPHOCYTES 24.4 %; MCH 32.9 pg (26.0-34.0); MCHC 33.8 g/dL (28.0-37.0); MCV 97.3 fL (80.0-100.0); MONOCYTES 13.7 %; MPV 7.2 fl. (7.2-11.1); NUCLEATED RBCS 0 /100WBC; PLATELET COUNT* 265 thou/uL (150-400); POLYS 59.7 %; RBC 2.41 mil/uL (4.50-6.00); RDW-CV 16.2 % (10.5-14.5); WBC 8.8 thou/uL (4.0-11.0)
[2019-07-29 05:43] LABS: INR 1.2; PROTIME 11.9 Seconds (9.20-11.50)
[2019-07-29 05:58] LABS: CALCIUM 8.2 mg/dL (8.5-10.1); CREATININE 4.6 mg/dL (0.6-1.3); POTASSIUM 4.2 mmol/L (3.5-5.1)
--- NOTE | 2019-07-29 07:10 | NUR ---
CHANGE OF SHIFT BEDSIDE REPORT GIVEN PATIENT SEENAT BEDSIDE, IN BED RESTING HD IN RM ASSUMED PATIENT CARE
[2019-07-29 08:00] VITALS: BP 110/61
--- NOTE | 2019-07-29 08:42 | NUR ---
FAXED UPDATED CLINICAL WITH THERAPY TO [facility] AND ASKED THAT SHE SUBMIT FOR INSURANCE AUTH FOR SNF
[2019-07-29 13:30] VITALS: BP 114/46
[2019-07-29 15:00] VITALS: BP 148/66
[2019-07-29 20:00] VITALS: BP 122/55
[2019-07-30] VITALS (7 sets, daily range): BP systolic 105–127; BP diastolic 46–56
[2019-07-30 04:43] LABS: ABSOLUTE EOSINOPHILS 0.1 thou/uL (0.0-0.7); ABSOLUTE LYMPHOCYTES 1.7 thou/uL (0.8-5.3); ABSOLUTE NEUTROPHILS 5.3 thou/uL (1.6-8.1); BASOPHILS 0.6 %; EOSINOPHILS 1.4 %; HEMATOCRIT 24.4 % (42.0-52.0); HEMOGLOBIN 7.9 gm/dL (14.0-18.0); LYMPHOCYTES 20.5 %; MCH 31.7 pg (26.0-34.0); MCHC 32.6 g/dL (28.0-37.0); MCV 97.3 fL (80.0-100.0); MONOCYTES 12.4 %; MPV 7.2 fl. (7.2-11.1); NUCLEATED RBCS 0 /100WBC; PLATELET COUNT* 233 thou/uL (150-400); POLYS 65.1 %; RBC 2.51 mil/uL (4.50-6.00); RDW-CV 16.6 % (10.5-14.5); WBC 8.1 thou/uL (4.0-11.0)
[2019-07-30 04:53] LABS: INR 1.2
[2019-07-30 04:55] LABS: CALCIUM 7.9 mg/dL (8.5-10.1); POTASSIUM 4.1 mmol/L (3.5-5.1)
[2019-07-30 05:01] LABS: CREATININE 3.3 mg/dL (0.6-1.3)
--- NOTE | 2019-07-30 06:45 | NUR ---
ASSUMED CARE OF PT AFTER REPORT AT 1930. PT STILL DROWSY BUT EASILY AWAKENS WHEN NAME IS CALLED, ORIENTED X4. PT ON O2 AT 2L. PT TRACING AFIB/BBB/TISHA ON TELE. PT TURNED TO SIDES. PT WITH REILLY TO DEPENDNET DRAIN. PT DENIES ANY PAIN OR DISCOMFORT. CALL LIGHT WITHIN REACH.
[2019-07-30 11:30] LABS: BE 1.9 mmol/L (-2 to +3); PO2 104.6 mmHg (75.0-100.0); pH 7.332 (7.340-7.450)
[2019-07-30 11:32] LABS: PCO2 56.3 mmHg (35.0-45.0)
--- NOTE | 2019-07-30 18:30 | NUR ---
PT SPEND MAJORITY OF THE DAY LETHARGIC AND SLEEPING. Q2 TURNS, MAX ASSIST WITH LIFT. PT ON O2 VIA NASAL CANULA FOR FIRST PART OF DAY. PT HAD CRITICAL LAB VALUE OF PCO2- 56.3- ORDERED BIPAP AND PT RESTED ALL AFTERNOON. PT WOKE UP AND WAS A&OX4 WHEN HE WOKE UP. HE WAS HUNGRY AND TALKING MORE THAN BEFORE BIPAP. PT IN ISOLATION FOR CDIFF. PT SHOULD USE BIPAP MOST OF THE TIME WHEN WILLING. PT HAS RED IRRITATED SACRAL AREA WITH BARRIER CREAM. REILLY CATHETER WITH LITTLE OUTPUT, PT HAS CKD AND HAS DIALYSIS ON MON, WEDS, FRI SCHEDULE. AV FISTULA ON RIGHT ARM. THRILL AND BRUIT PRESENT. POSSESSIONS AND CALL LIGHT WITHIN REACH.
--- NOTE | 2019-07-30 19:04 | NUR ---
THIS RN AGREES WITH THE ASSESSMENT AND CHARTING OF MARY ANN DODD AND STUDENT VALERIA.
[2019-07-31 04:55] LABS: ABSOLUTE BASOPHILS 0.1 thou/uL (0.0-0.2); ABSOLUTE EOSINOPHILS 0.2 thou/uL (0.0-0.7); ABSOLUTE MONOCYTES 0.9 thou/uL (0.0-1.2); ABSOLUTE NEUTROPHILS 6.8 thou/uL (1.6-8.1); BASOPHILS 0.6 %; EOSINOPHILS 1.6 %; HEMATOCRIT 24.1 % (42.0-52.0); HEMOGLOBIN 7.8 gm/dL (14.0-18.0); LYMPHOCYTES 19.9 %; MCH 31.8 pg (26.0-34.0); MCHC 32.5 g/dL (28.0-37.0); MCV 97.9 fL (80.0-100.0); MONOCYTES 9.2 %; MPV 7.5 fl. (7.2-11.1); NUCLEATED RBCS 0 /100WBC; PLATELET COUNT* 259 thou/uL (150-400); POLYS 68.7 %; RBC 2.46 mil/uL (4.50-6.00); RDW-CV 16.9 % (10.5-14.5); WBC 9.9 thou/uL (4.0-11.0)
[2019-07-31 05:05] LABS: INR 1.2
[2019-07-31 05:10] LABS: POTASSIUM 4.5 mmol/L (3.5-5.1)
[2019-07-31 05:11] LABS: CREATININE 4.4 mg/dL (0.6-1.3)
--- NOTE | 2019-07-31 07:06 | NUR ---
PT REQUESTED SPECIFICALYY TO BE LEFT ALONE T/O NIGHT AND REFUSED VS,TURNS AND ROUNDING. PT RESTED T/O NIGHT AND THIS AM IS PLEASANT AND COMPLIANT. PT IS ON NC O2 AT 2L. UA SENT TO LAB THIS AM.
[2019-07-31 08:00] VITALS: BP 126/60
--- NOTE | 2019-07-31 11:14 | NUR ---
ASSUMED PT CARE REPORT RECEIVED FROM NURSE.PT IS ALERT, SLEEPING IN HOSPITAL BED. AFIB ON MODEL TECHNICIAN. ON RA. VSS. COMPLAINS OF HEADACHE AT 10:00 AM. PT HAS NO OTHER COMPLAINT. ATE BREAKFAST.EXCEDRIN TO BE GIVEN AFTER PATIENT GETS OUT OF SHOWER. ROCEPHIN GIVEN ORDERED. WILL CONTINUE TO MONITOR PT
--- NOTE | 2019-07-31 12:01 | NUR ---
ASSUMED PT CARE REPORT RECEIVED FROM NURSE. PT IS ALERT DROWSY AND SLEEPY, TRACING AFIB ON POWER GENERATION TURBINE ROOM OPERATOR. ON 2 L NC. VSS TAKEN. PT THEN TRANSPORTED TO HEMODIALYSIS VIA BED. REILLY INTACT. UA COLLECTION PENDING POST DIALYSIS.ACCUCHECK 80 THIS AM. NO INSULIN GIVEN. WILL CONTINUE TO MONITOR PT.
--- NOTE | 2019-07-31 12:05 | NUR ---
PT IS CURRENTLY HAVING HEMODIALYSIS DONE.
--- NOTE | 2019-07-31 14:36 | NUR ---
URINE OUTPUT AFTER LASIX 900CC. PT WAS WALKING IN HALLWAY WITH PT AND PATIETN O2 DROPPED TO 66%. PT WAS NOT SOB. PT BACK IN HIS ROOM. ON 8 L NC. O2 SAT 88%. PULMONOLOGY CONSULTED PER DR GOMEZ.
[2019-07-31 16:47] VITALS: BP 125/32
--- NOTE | 2019-07-31 16:50 | NUR ---
PT BACK FROM DIALYSIS AT 1300 NEW SKIN TEAR DISCOVERED IN RIGHT GROIN AREA. PICTURE TAKEN AND PLACED IN CHART. PT FED. Q2TURN.
--- NOTE | 2019-07-31 17:37 | NUR ---
WARFARIN ORDER HAS BEEN CHANGED AFTER PT RECEIVED PREVIOUS SCHEDULED WARFARIN. THIS NURSE DID NOT ADMINISTER ADDITIONAL WARFARIN TO THE PATIENT
[2019-07-31 19:03] LABS: URINE BILIRUBIN NEGATIVE (Negative); URINE BLOOD 3+ (Negative); URINE CLARITY CLOUDY; URINE COLOR YELLOW; URINE GLUCOSE-RANDOM NEGATIVE (Negative); URINE KETONES NEGATIVE (Negative); URINE NITRITE-REFLEX NEGATIVE (Negative); URINE PROTEIN 3+ (Negative); URINE UROBILINOGEN 0.2 E.U./dl (0.2-1.0)
[2019-07-31 19:05] LABS: URINE LEUKOCYTES-REFLEX 3+ (Negative)
[2019-07-31 19:19] LABS: SQUAMOUS 4-10 Moderate /LPF (0-3); URINE RBC >20 Many /HPF (0-2); URINE WBC-REFLEX >25 Many /HPF (0-5)
[2019-07-31 19:20] LABS: BACTERIA-REFLEX >30 Many /HPF (None Seen); CASTS None Seen /LPF (None Seen); CRYSTALS None Seen /LPF (None Seen)
[2019-07-31 20:00] VITALS: BP 123/48
[2019-08-01] VITALS: BP 132/53
[2019-08-01 04:00] VITALS: BP 114/42
[2019-08-01 05:13] LABS: INR 1.2; PROTIME 12.6 Seconds (9.20-11.50)
[2019-08-01 05:33] LABS: ALBUMIN 1.7 g/dL (3.4-5.0); CALCIUM 8.1 mg/dL (8.5-10.1); PHOSPHORUS* 3.3 mg/dL (2.5-4.9); POTASSIUM 4.9 mmol/L (3.5-5.1)
[2019-08-01 05:36] LABS: CREATININE 3.3 mg/dL (0.6-1.3)
--- NOTE | 2019-08-01 07:00 | NUR ---
CHANGE OF SHIFT REPORT GIVEN PATIENT SEEN AR BEDSIDE, IN BED ASLEEP ASSUMED APTIENT CARE
[2019-08-01 08:00] VITALS: BP 114/42
[2019-08-01 11:30] VITALS: BP 133/49
[2019-08-01 16:45] VITALS: BP 127/50
[2019-08-01 19:50] VITALS: BP 129/45
[2019-08-02 00:54] VITALS: BP 122/44
[2019-08-02 04:00] VITALS: BP 116/48
[2019-08-02 05:17] LABS: ABSOLUTE BASOPHILS 0.1 thou/uL (0.0-0.2); ABSOLUTE EOSINOPHILS 0.2 thou/uL (0.0-0.7); ABSOLUTE NEUTROPHILS 6.5 thou/uL (1.6-8.1); BASOPHILS 0.8 %; EOSINOPHILS 2.3 %; HEMATOCRIT 24.6 % (42.0-52.0); HEMOGLOBIN 7.9 gm/dL (14.0-18.0); LYMPHOCYTES 20.2 %; MCHC 32.1 g/dL (28.0-37.0); MCV 99.9 fL (80.0-100.0); MONOCYTES 9.8 %; MPV 7.7 fl. (7.2-11.1); NUCLEATED RBCS 0 /100WBC; PLATELET COUNT* 236 thou/uL (150-400); POLYS 66.9 %; RBC 2.46 mil/uL (4.50-6.00); RDW-CV 17.2 % (10.5-14.5); WBC 9.7 thou/uL (4.0-11.0)
[2019-08-02 05:18] LABS: CALCIUM 8.2 mg/dL (8.5-10.1)
[2019-08-02 05:36] LABS: CREATININE 4.5 mg/dL (0.6-1.3); INR 1.2; PROTIME 12.7 Seconds (9.20-11.50)
--- NOTE | 2019-08-02 07:05 | NUR ---
CHANGE OF SHIFT, BEDSIDE REPORT GIVEN PATIENT SEEN AT BEDSIDE, IN BED ASLEEP ASSUMED PATIENT CARE
--- NOTE | 2019-08-02 07:38 | NUR ---
DISH CLOTH INSPECTOR states pt refused turns overnight. Pt educated about importance of turns. Oriented X4. Pt slept for much of shift; needed to be awakened for meds, VS, care, etc. VSS. Will continue to monitor.
[2019-08-02 08:00] VITALS: BP 121/43
[2019-08-02 16:00] VITALS: BP 115/49
[2019-08-02 20:10] VITALS: BP 125/46
[2019-08-03 00:46] VITALS: BP 119/48
[2019-08-03 04:20] VITALS: BP 112/40
--- NOTE | 2019-08-03 04:58 | NUR ---
ASSUMED CARE OF PT AT 1900. PT IS ALERT AND ORIENTED. VSS. RYAN. PT HAS A REILLY IN PLACE. NO COMPLAINTS OF PAIN. PT IS A Q2 TURN. PT IS IN SPECIAL CONTACT PRECAUTION. PT IS IN A FIBN ON THE TELEMETRY. PT IS RESTING COMFORTABLY IN BED. RESPIRATIONS ARE EVEN AND NONLABORED. WILL CONTINUE TO MONITOR PT.
[2019-08-03 05:02] LABS: INR 1.3; PROTIME 13.4 Seconds (9.20-11.50)
[2019-08-03 08:00] VITALS: BP 118/41
[2019-08-03 13:18] VITALS: BP 121/53
--- NOTE | 2019-08-03 14:23 | NUR ---
CONTINUE TO FOLLOW, ANTICIPATE SNF ONCE ANTIBX ARE DETERMINED. DISCUSSED WITH DR WYATT, HAS PALLIATIVE CARE CONSULT. CALL TO , HAD TO LEAVE MESSAGE. PT STILL SLEEPY. DID WORK WITH THERAPY. WILL FOLLOW
[2019-08-03 17:01] VITALS: BP 123/53
[2019-08-03 19:40] VITALS: BP 124/58
[2019-08-04 04:00] VITALS: BP 131/53
--- NOTE | 2019-08-04 04:18 | NUR ---
ASSUMED CARE OF PT AT 1900. PT IS ALERT AND ORIENTED. VSAnil. RYAN. PT COMPLETED DIALYSIS WITH NO PROBLEMS. 4 LITERS TAKEN FROM PT DURING DIALYSIS. PT IS A Q2 TURN. MELBA IN PLACE. PT IS IN A FIB ON THE TELEMETRY., PT IS RESTING COMFORTABLY IN BED. RESPIRATIONS ARE EVEN AND NONLABORED. WILL CONTINUE TO MONITOR PT.
[2019-08-04 05:18] LABS: INR 1.5; PROTIME 14.9 Seconds (9.20-11.50)
[2019-08-04 08:00] VITALS: BP 109/44
[2019-08-04 11:28] VITALS: BP 110/47
--- NOTE | 2019-08-04 11:33 | NUR ---
ASSUMED PT CARE AT 0800, AOX4, MAX ASSIST, O2 SAT 90'S 2L NC, TRACING AFIB, TISHA ON TELE. PT DENIES PAIN. NO LOOSE STOOL NOTED. PT ON I&O, FLUID RESTRICTION, PT HAS REILLY CATH. PT FOR ACCU CHECK. PT R LIMB ALERT, FISTULA THRILL AND BRUIT. PT HAS RED BOTTOM NOTED. PT Q2 TURN, HOURLY ROUNDING OBSERVED. PT ON ISO FOR CDIFF, MRSA. VSS, AM ASSESSMENT CHARTED, MEDS GIVEN PER MAR, CALL LIGHT WITHIN REACH, WILL CONTINUE TO MONITOR.
--- NOTE | 2019-08-04 15:21 | NUR ---
WOUND CARE NOTE: CONSULT RECEIVED FOR WOUNDS UNABLE TO SEE PATIENT AT THIS TIME, WORKING WITH THERAPY. ASSESSED PHOTOS AND APPEAR TO BE PROGRESSING WELL. WILL ATTEMPT TO SEE TOMORROW.
[2019-08-04 16:49] VITALS: BP 125/45
[2019-08-04 20:20] VITALS: BP 113/45
[2019-08-05 00:02] VITALS: BP 145/63
[2019-08-05 04:00] VITALS: BP 141/51
[2019-08-05 04:19] LABS: ABSOLUTE BASOPHILS 0.1 thou/uL (0.0-0.2); ABSOLUTE EOSINOPHILS 0.3 thou/uL (0.0-0.7); ABSOLUTE LYMPHOCYTES 1.9 thou/uL (0.8-5.3); ABSOLUTE NEUTROPHILS 6.4 thou/uL (1.6-8.1); BASOPHILS 1.5 %; EOSINOPHILS 3.1 %; HEMATOCRIT 27.6 % (42.0-52.0); HEMOGLOBIN 8.6 gm/dL (14.0-18.0); LYMPHOCYTES 19.8 %; MCH 31.7 pg (26.0-34.0); MCHC 31.2 g/dL (28.0-37.0); MCV 101.7 fL (80.0-100.0); MONOCYTES 10.1 %; MPV 7.4 fl. (7.2-11.1); NUCLEATED RBCS 0 /100WBC; PLATELET COUNT* 271 thou/uL (150-400); POLYS 65.5 %; RBC 2.71 mil/uL (4.50-6.00); RDW-CV 18.5 % (10.5-14.5); WBC 9.7 thou/uL (4.0-11.0)
[2019-08-05 04:26] LABS: INR 1.7; PROTIME 17.3 Seconds (9.20-11.50)
[2019-08-05 04:28] LABS: ALBUMIN 1.9 g/dL (3.4-5.0); CALCIUM 8.1 mg/dL (8.5-10.1); CREATININE 5.2 mg/dL (0.6-1.3); PHOSPHORUS* 4.8 mg/dL (2.5-4.9); POTASSIUM 5.3 mmol/L (3.5-5.1)
--- NOTE | 2019-08-05 05:56 | NUR ---
PT. INCONTINENT OF STOOL X3. PT. IS MAX ASSIST TURN, UNABLE TO HELP STAFF WITH TURNS. REILLY CATHETER IN PLACE, OLIGURIA. DIALYSIS M/W/F. [address], SALINE LOCKED. PT. TURNED Q2H. AFIB. WILL CONTINUE TO MONITOR.
[2019-08-05 08:00] VITALS: BP 129/51
--- NOTE | 2019-08-05 10:13 | NUR ---
RECEIVED CALL FROM [facility]. SHE MET WITH PT/ LAST NIGHT. PT/ NOT READY TO SIGN FOR PALLIATIVE CARE AND NOT INTERESTED IN HOSPICE. WILL CONTINUE TO FOLLOW AND PURSUE SNF
--- NOTE | 2019-08-05 12:25 | NUR ---
ASSUMED PT CARE AT 0800, AOX4, MAX ASSIST. O2 SAT 90'S 2L NC. TRACING AFIB, TISHA ON TELE. DENIES PAIN. PT FOR DIALYSIS TODAY. PT FOR ACCU CHECK, PT LOWER EXTREMITY EDEMA. PT Q2 TURN, WOUND PRESSURE ON BOTTOM, R HEEL NOTED. VSS, LUNG SOUND COARSE, LAST BM TODAY. ON ISO FOR CDIFF. VSS, AM ASSESSMENT CHARTED. CALL LIGHT WITHIN REACH. WILL CONITINUE TO MONITOR.
--- NOTE | 2019-08-05 15:20 | NUR ---
CONTINUE TO FOLLOW. SPOKE WITH NATHALIE AT [facility] WHERE PT GOES TO OUTPT DIALYSIS. SHE DID CONFIRM THAT THEY CAN ACCEPT PT IF IS IN NEED OF ROB LIFT. THERAPY TO CONTINUE TO WORK WITH PT ON STRENGTHENING AND HAVE ASKED NURSING TO GET PT UP IN CHAIR MORE. DISCUSSED WITH DR WYATT, NOT READY FOR [facility], STILL AWAITING CULTURES. PLAN IS TO RETURN TO [facility] AT [facility]
[2019-08-05 15:58] VITALS: BP 116/43
[2019-08-05 20:00] VITALS: BP 112/44
[2019-08-06] VITALS: BP 105/38
[2019-08-06 04:00] VITALS: BP 113/50
[2019-08-06 05:15] LABS: INR 1.9; PROTIME 18.7 Seconds (9.20-11.50)
[2019-08-06 05:24] LABS: BE -4.9 mmol/L (-2 to +3); PO2 111.6 mmHg (75.0-100.0); pH 7.308 (7.340-7.450)
[2019-08-06 05:40] LABS: CREATININE 3.7 mg/dL (0.6-1.3); MAGNESIUM 2.2 mg/dL (1.8-2.4); POTASSIUM 4.9 mmol/L (3.5-5.1)
--- NOTE | 2019-08-06 06:39 | NUR ---
ASSESSMENT CHARTED. PATIENT BP RUNNING LOW THROUGHOUT SHIFT. HEART RATE IRREGULAR AND BRADYCARDIC. RATE WOULD DROP IN THE 30'S REPEATEDLY DURING SHIFT. INITIAL CALL TO . RESULTED IN CARDIOLOGY CONSULT. SECOND CALL TO DR AFTER REPEATED DROPS IN THE 30'S AND DECREASING PRESSURE WITH MAP < 60. ORDERS TO MONITOR PATIENT OVERNIGHT AND WATCH FOR FURTHER DETERIORATION BUT NO INTERVENTIONS AT THIS TIME. PATIENT PLACED ON CONTINUOUS BLOOD PRESSURE MONITORING IN ROOM Q15M. PATIENT HAS BEEN LETHARGIC ALL SHIFT AND BECAME MORE DIFFICULT TO AROUSE AFTER 0200. HELD MORNING PO MEDICATIONS CITING CONCERNS FOR PATIENT TO STAY AWAKE ENOUGHT TO SWALLOW WITHOUT ASPIRATION. NO URINE OUTPUT. DIALYSIS DONE YESTERDAY. NO PROGRESS TOWARD GOALS MADE DURING THIS SHIFT. WCTM.
[2019-08-06 08:00] VITALS: BP 110/49
--- NOTE | 2019-08-06 10:34 | CON ---
[address] [address] CONSULTATION Name: RACHEL ARECHIGA Room: [address] IN .R.#: [id number] Admission: 07/20/19 Attend Phys: Marnie Stokes Discharge: Date of : 38 Report #: [id number] THIS REPORT FOR: //name// CC: Candelario Kimble DATE OF SERVICE: 07/21/2019 REQUESTING PHYSICIAN: Marv Kimble DO. REASON FOR CONSULTATION: End-stage renal disease and assist in providing dialysis. Consultation was done by me today on 07/21/2019. HISTORY OF PRESENT ILLNESS: The patient is an 79-year-old male with medical history significant for deconditioning, end-stage renal disease, diabetes mellitus type 2, coronary artery disease, status post bypass in the past, history of systolic heart failure, history of stroke, TIA. He presents with complaints of being very weak and some shortness of breath, was found to be hypotensive, had to be started on Levophed. Chest x-ray did not show any signs of pulmonary edema or vascular congestion. His dialysis normally are Saturday, , Saturday. He is not giving any history. He is in Intensive Care Unit and still requires a significant dose of Levophed. PAST MEDICAL HISTORY: As I mentioned earlier. SOCIAL HISTORY: senior care resident. No tobacco or alcohol abuse currently. FAMILY HISTORY: Noncontributory. REVIEW OF SYSTEMS: Very limited due to him being very poor historian, but mainly review of systems being weak and having shortness of breath. PHYSICAL EXAMINATION: GENERAL: Intensive Care Unit states that his shortness of breath is better now, but again not engaging into the conversation much. VITAL SIGNS: His blood pressure on Levophed is 90/20 and was as low as 76/33. His heart rate 57. His respiration rate 16, he is afebrile. HEENT: Pupils round. NECK: Supple. EXTREMITIES: He has left brachiocephalic fistula, which is open. Good thrill, good bruit. LUNGS: Decreased air movements at the bases. No obvious crackles. CARDIOVASCULAR: Regular rate. ABDOMEN: [place] [address] CONSULTATION Name: RACHEL ARECHIGA CIARAN Room: [address]#: [id number] Admission: 07/20/19 Attend Phys: Marnie Stokes Discharge: Date of : 39 Report #: [id number] LOWER EXTREMITIES: No edema. LABORATORY DATA: Hemoglobin 9.5, white count 12.2 thousand. Serum sodium 132, potassium 4.6, chloride 95, BUN 50, creatinine is 5.5. ASSESSMENT: 1. Hypotension, likely due to cardiogenic shock. Workup is in progress. 2. Atrial fibrillation. 3. End-stage renal disease. 4. Chronic pleural effusion, status post VATS in the past. 5. Diabetes mellitus type 2. 6. Debility. PLAN: 1. I will not dialyze him today due to his hypotension, observe him see how he does tomorrow. He is not hyperkalemic, not acidotic, not fluid overloaded. 2. Workup for hypotension per Dr. Fisher. 3. Overall prognosis is poor and it is quite possible that he is nearing end of his life. <ELECTRONICALLY SIGNED> By: Kayode Martinez MD 08/06/19 1034 1034 1903Alexeileen Martinez MD /[facility]
--- NOTE | 2019-08-06 11:00 | NUR ---
CARDIOLOGY NURSE IN THIS MORNING, STATES THAT PT HAS BEEN SEEN MULTIPLE TIMES FOR ASYMPTOMATIC BRADYCARDIC AFIB. PT IS NOT ON ANY MEDICATIONS TO SLOW HEART RATE AND NO INTERVENTION IS PLANNED. WILL UPDATE DR WYATT
--- NOTE | 2019-08-06 13:49 | NUR ---
Following for d/c planning needs. Pt is not medically ready for d/c today. Spoke with educational coordinator at [facility]. She said they will do on-site evaluation of pt on Saturday and decide if they are able to accept or not. She also said they may not have a bed available for pt. Will remain available to assist as needed.
[2019-08-06 20:00] VITALS: BP 104/49
[2019-08-07] VITALS: BP 116/48
[2019-08-07 01:55] LABS: URINE BILIRUBIN NEGATIVE (Negative); URINE BLOOD 2+ (Negative); URINE CLARITY CLEAR; URINE COLOR YELLOW; URINE GLUCOSE-RANDOM TRACE (Negative); URINE KETONES NEGATIVE (Negative); URINE LEUKOCYTES-REFLEX 1+ (Negative); URINE NITRITE-REFLEX NEGATIVE (Negative); URINE PROTEIN 3+ (Negative); URINE UROBILINOGEN 0.2 E.U./dl (0.2-1.0)
[2019-08-07 02:05] LABS: AMORPHOUS URATES Moderate /LPF (None Seen); BACTERIA-REFLEX >30 Many /HPF (None Seen); CASTS None Seen /LPF (None Seen); MUCUS 4-6 Moderate strn/LPF (None Seen); SQUAMOUS 0-3 Few /LPF (0-3); URINE RBC >20 Many /HPF (0-2); URINE WBC-REFLEX >25 Many /HPF (0-5); WBC CLUMPS Moderate (None Seen)
[2019-08-07 04:05] VITALS: BP 124/54
[2019-08-07 04:46] LABS: INR 2.1; PROTIME 21.2 Seconds (9.20-11.50)
--- NOTE | 2019-08-07 06:32 | NUR ---
PT CARE ASSUMED AT 1930. SAT MAINTAINED IN O2. PT IS DROWSY. CALL LIGHT WITHIN REACH AND BED IN LOW POSITION. DENIES PAIN AND SOB. HOURLY ROUNDING DONE FOR PT SAFETY.
[2019-08-07 08:00] VITALS: BP 138/53
--- NOTE | 2019-08-07 09:45 | CON ---
[address] [address] CONSULTATION Name: RACHEL ARECHIGA Room: [address] IN .R.#: [id number] Admission: 07/20/19 Attend Phys: Marnie Stokes Discharge: Date of : 39 Report #: [id number] THIS REPORT FOR: //name// CC: Candelario Booker DATE OF SERVICE: 08/06/2019 INDICATION: Bradycardia. HISTORY OF PRESENT ILLNESS: The patient is a very pleasant 79-year-old gentleman who was initially admitted to the hospital on 07/20/2019 with complaints of shortness of breath and hypotension for the week prior to admission. The patient has end-stage renal disease, on dialysis. The patient has chronic atrial fibrillation and history of diastolic heart failure. By echocardiogram, he has preserved left ventricular systolic function. He has a history of coronary artery disease with bypass grafting in 2007. Initially, the patient required vasopressors to maintain blood pressure. He is chronically mildly bradycardic with his atrial fibrillation. He is on no rate controlling medications at this time. The patient remains somewhat bradycardic. He denies any lightheadedness, dizziness, or syncope. He does have some hypotension, dialysis associated that he takes midodrine for. He denies any chest pain, tightness or pressure. He is not having any symptoms that would suggest acute coronary syndrome. Troponins are chronically mildly elevated, presumably due to chronic renal failure. PAST MEDICAL HISTORY: 1. Coronary artery disease with preserved LV systolic function. 2. Coronary artery bypass grafting in 2007. 3. Chronic atrial fibrillation. 4. Chronic diastolic heart failure. 5. End-stage renal disease, on dialysis. 6. Hypothyroidism. 7. History of prostate cancer. 8. BPH. 9. Hyperlipidemia. 10. Type 2 diabetes mellitus. 11. Recurrent pleural effusions with previous thoracentesis and decortication. 12. Appendectomy remotely. 13. Left leg surgery remotely. CURRENT MEDICATIONS: 1. Vancomycin. 2. Warfarin 6 [place] [address] CONSULTATION Name: RACHEL ARECHIGA Room: [address]#: [id number] Admission: 07/20/19 Attend Phys: Marnie Stokes Discharge: Date of : 39 Report #: [id number] 3. Zosyn. 4. Protonix 40 mg daily. 5. Folate 1 mg daily. 6. Heparin 5000 units subcutaneous b.i.d. 7. DuoNeb inhaler q.i.d. 8. Epoetin 20,000 units as directed. 9. Gabapentin 100 mg daily. 10. Vancomycin 125 mg b.i.d. 11. Iron polysaccharide 150 mg daily. 12. Aspirin 81 mg daily. 13. Levothyroxine 0.2 mg daily. 14. Mupirocin as directed. 15. Atorvastatin 40 mg at bedtime. 16. Midodrine 10 mg b.i.d. 17. Promethazine q. 4 hours p.r.n. 18. Zofran p.r.n. 19. Bisacodyl 10 mg daily p.r.n. 20. Melatonin 10 mg at bedtime p.r.n. 21. Tylenol p.r.n. ALLERGIES: None documented. FAMILY HISTORY: Noncontributory. SOCIAL HISTORY: The patient is a nonsmoker. He does not drink alcohol. PHYSICAL EXAMINATION: VITAL SIGNS: Blood pressure 110/49, pulse 54 and irregular. GENERAL: This is a pleasant elderly male who is easily arousable. He is in no distress. HEENT: Normocephalic, atraumatic. Extraocular muscles intact. NECK: Shows no jugular venous distention. There are no carotid bruits. CHEST: Reveals diminished breath sounds in the bases without wheezes or rales. CARDIOVASCULAR: Reveals an irregularly irregular rhythm, slightly bradycardic without gallop or murmur. ABDOMEN: Reveals normal bowel sounds. The abdomen is soft, nontender. EXTREMITIES: Shows 1+ ankle edema of lower extremities and some dependent edema of the right upper extremity. SKIN: Dry. LABORATORY DATA: Most recent labs are reviewed. Sodium 140, potassium 4.9, chloride 104, bicarbonate 23, BUN 24, creatinine 3.7, serum glucose 90, calcium 8.0, magnesium 2.2. EGFR 16. ABG shows pH 7.31, pCO2 of 43, pO2 111. INR 1.9. IMPRESSION AND RECOMMENDATIONS: 1. Atrial fibrillation, presently stable. He [place] [address] CONSULTATION Name: RACHEL ARECHIGA CIARAN Room: [address]#: [id number] Admission: 07/20/19 Attend Phys: Marv F. Sudholt, D Discharge: Date of : 39 Report #: [id number] with warfarin. Follow INRs as you are doing. Rate is slightly slow, although I do not believe this is causing any clinically significant symptoms at this time. I would continue to not recommend pacemaker. I would believe that his heart rate would likely increase with activity. I see no significant pauses in rhythm. 2. Coronary artery disease, presently stable. He is having no symptoms to suggest acute coronary syndrome or angina. He is noted to have preserved left ventricular systolic function. 3. End-stage renal disease, on hemodialysis. 4. History of hypotension, possibly related to dialysis. Continue midodrine at current dose. 5. Hyperlipidemia. Continue current statin agent. 6. Recent left lower lobe pneumonia per primary. 7. Hypercoagulable state, on warfarin. <ELECTRONICALLY SIGNED> By: Camden Narayanan MD, FACC 08/07/19 0945 1335 [id number] Narayanan MD, FACC /nt
[2019-08-07 11:53] VITALS: BP 140/54
--- NOTE | 2019-08-07 14:53 | NUR ---
CONTINUE TO FOLLOW. DISCUSSSED WITH DR FLORES, REC: [facility] NOW. AND CM DISCUSSED WITH PT, HE SEEMED TO UNDERSTAND. CALL TO AND LEFT 2 MESSAGES, NO RETURN CALL YET. SHE IS AT WORK. CALLED AND FAXED REFERRAL TO [facility]. AWAIT DECISION AND WILL TRY TO REACH THIS AFTERNOON
[2019-08-07 16:19] VITALS: BP 139/61
--- NOTE | 2019-08-07 16:40 | NUR ---
ASSUMED PT CARE AT 0800, AOX4, MAX ASSIST, O2 SAT 90'S 2L NC. TRACING AFIB, TISHA ON TELE. PT DENIES PAIN. PT ON ISO FOR CDIFF. PT HAVE 2 EPISODE OF LOOSE THIS SHIFT. PT GOOD PO INTAKE NOTED. ON 1.4 L FLUID RESTRICTION. PT OLIGURIC, HAS REILLY CATH. PT WENT TO DIALYSIS AT 1600. PT LUNG SOUND DIMINISHED. PT Q2 TURN, HOURLY ROUNDING OBSERVED. WOUNDS NOTED, EDEMA ON BILATERAL LOWER EXTREMITY NOTED. ELEVATE FEET ON PILLOW. VSS, AM ASSESSMENT CHARTED. CALL LIGHT WITHIN REACH. WILL CONTINUE TO MONITOR.
[2019-08-07 21:00] VITALS: BP 130/54
[2019-08-08] VITALS: BP 142/56
[2019-08-08 04:00] VITALS: BP 190/77
[2019-08-08 04:30] LABS: HEMATOCRIT 27.2 % (42.0-52.0); HEMOGLOBIN 8.6 gm/dL (14.0-18.0); MCH 31.9 pg (26.0-34.0); MCHC 31.7 g/dL (28.0-37.0); MCV 100.5 fL (80.0-100.0); MPV 7.5 fl. (7.2-11.1); RBC 2.71 mil/uL (4.50-6.00); RDW-CV 17.9 % (10.5-14.5); WBC 6.3 thou/uL (4.0-11.0)
[2019-08-08 04:42] LABS: INR 1.9; PROTIME 19.5 Seconds (9.20-11.50)
[2019-08-08 04:50] LABS: CALCIUM 8.5 mg/dL (8.5-10.1); CREATININE 3.8 mg/dL (0.6-1.3); POTASSIUM 4.9 mmol/L (3.5-5.1)
--- NOTE | 2019-08-08 07:37 | NUR ---
PT RECIEVED FROM DIALYSIS AT 2100. SAT MAINTAINED IN O2. CALL LIGHT WITHIN REACH AND BED IN LOW POSITION. NO EPISODES OF STOOLS THROUGHOUT THE NIGHT. DENIES PAIN. HOURLY ROUNDING DONE FOR PT SAFETY.
[2019-08-08 08:00] VITALS: BP 141/54
[2019-08-08] MEDS ORDERED: VANCOCIN 125 M125 M1 PO (11:02)
[2019-08-08] MEDS ORDERED: ONDANSETRON HCL4 M1 (11:03)
[2019-08-08] MEDS ORDERED: ZOSYN 3/0.373.375 G3 IVPB (11:05)
[2019-08-08] MEDS ORDERED: MELATONIN5 M1 PO (11:06)
[2019-08-08] MEDS ORDERED: NEPHRO-VITE RX1 TA1 PO (11:07)
[2019-08-08] MEDS ORDERED: NIFEREX TABLET1 EACH PO (11:07)
[2019-08-08] MEDS ORDERED: MIDODRINE HCL 55 M1 PO (11:08)
[2019-08-08] MEDS ORDERED: PHENERGAN 25 MG25 M1 PO (11:08)
[2019-08-08] MEDS ORDERED: PROTONIX40 M1 PO (11:09)
[2019-08-08] MEDS ORDERED: VANCO 1.51.5 GM/500 IV (11:10)
[2019-08-08] MEDS ORDERED: SYNTHROID100 MC1 PO (11:11)
[2019-08-08] MEDS ORDERED: DULCOLAX5 MG PO (11:12)
[2019-08-08] MEDS ORDERED: ASPIR 8181 M1 PO (11:15)
[2019-08-08] MEDS ORDERED: EPOGEN2000 UNIT/ IV PUSH (11:15)
[2019-08-08 11:25] VITALS: BP 141/54
--- NOTE | 2019-08-08 13:12 | NUR ---
ORDERS RECEIVED FOR DC TO [facility]. PT TO GO TO [facility]. DISCUSSED WITH AGAIN OVER PHONE AND WITH PT, IN AGREEMENT. CHART COPIED. CALL TO ZAIN[facility]/RENE, HE GAVE NUMBERS FOR REPORT AND FAX. SET UP AMBULANCE TRANSPORT FOR 1PM. COBRA FORM COMPLETED AND IN CHART AND TO GO WITH PT.
--- NOTE | 2019-08-08 13:51 | NUR ---
ASSUMED PT CARE AT 0800, AOX4, UP MAX ASSIST. O2 SAT 90'S 2L NC, TRACING AFIB TISHA ON TELE. PT DENIES PAIN, VSS, AM ASSESSMENT CHARTED, MEDS GIVEN PER JAN. PT TO DISCHARGE TO [facility]. WILL CONTINUE TO MONITOR.
--- NOTE | 2019-08-08 13:54 | NUR ---
PT DISCHARGE TO [facility], [facility]. GIVE REPORT TO NURSE PERLA. TELE REMOVED. LEFT THE UNIT 1315.
--- NOTE | 2019-09-03 16:29 | NUR ---
RECEIVED CALL FROM PT'S ASKING ABOUT WHAT [facility] SAW PT. IT WAS [facility]. SHE ASKED WHY THEY HADN'T CONTACTED THEM YET. PT HAS BEEN IN LTAC AT [facility] AND NOW [facility] FOR SNF. EXPLAINED THAT THEY WOULDN'T CONTACT THEM UNTIL THEY HAD DC ORDERS FOR HOME. SHE ASKED THAT CM CONTACT [facility] TO LET THEM KNOW WHERE PT WAS. CALL TO PAOLA/CRYSTAL TO NOTIFY
== END 2019-08-08 13:15 | DRG 177 ==
LOC: M.ERS 21:04 → M.TBA-ER 22:54 → M.ICU 22:54 → M.2W 22:54 → M.ICU 07-21 00:31 → M.2W 07-25 13:39
PROVIDERS: Family Medicine; Internal Medicine; Internal Medicine Nephrology; Personal Emergency Response Attendant; Specialist; ADMIT Internal Medicine
PROC: 06HY33Z Insertion of Infusion Device into Lower Vein, Percutaneous Approach (ICD-10-PCS; principal; 2019-07-20)
PROC: 5A1D70Z Performance of Urinary Filtration, Intermittent, Less than 6 Hours Per Day (ICD-10-PCS; 2019-07-27)
PROC: 5A1D70Z Performance of Urinary Filtration, Intermittent, Less than 6 Hours Per Day (ICD-10-PCS; 2019-07-31)
PROC: 5A1D70Z Performance of Urinary Filtration, Intermittent, Less than 6 Hours Per Day (ICD-10-PCS; 2019-08-05)
PROC: 5A1D70Z Performance of Urinary Filtration, Intermittent, Less than 6 Hours Per Day (ICD-10-PCS; 2019-08-07)
DX: J69.0 Pneumonitis due to inhalation of food and vomit (principal); R57.0 Cardiogenic shock; I21.4 Non-ST elevation (NSTEMI) myocardial infarction; N18.6 End stage renal disease; I50.33 Acute on chronic diastolic (congestive) heart failure; J96.21 Acute and chronic respiratory failure with hypoxia; A04.72 Enterocolitis due to Clostridium difficile, not specified as recurrent; N39.0 Urinary tract infection, site not specified; D68.59 Other primary thrombophilia; E66.2 Morbid (severe) obesity with alveolar hypoventilation; G93.40 Encephalopathy, unspecified; I13.2 Hypertensive heart and chronic kidney disease with heart failure and with stage 5 chronic kidney disease, or end stage renal disease; E46 Unspecified protein-calorie malnutrition; J98.11 Atelectasis; Z16.24 Resistance to multiple antibiotics; I48.2 Chronic atrial fibrillation; E89.0 Postprocedural hypothyroidism; D63.1 Anemia in chronic kidney disease; I95.89 Other hypotension; E11.22 Type 2 diabetes mellitus with diabetic chronic kidney disease; Z51.5 Encounter for palliative care; I25.10 Atherosclerotic heart disease of native coronary artery without angina pectoris; E78.5 Hyperlipidemia, unspecified; E11.51 Type 2 diabetes mellitus with diabetic peripheral angiopathy without gangrene; L89.629 Pressure ulcer of left heel, unspecified stage; N40.1 Benign prostatic hyperplasia with lower urinary tract symptoms; Z85.46 Personal history of malignant neoplasm of prostate; Z68.30 Body mass index [BMI] 30.0-30.9, adult; Z99.2 Dependence on renal dialysis; Z79.01 Long term (current) use of anticoagulants; Z95.1 Presence of aortocoronary bypass graft; Z79.1 Long term (current) use of non-steroidal anti-inflammatories (NSAID); Z79.899 Other long term (current) drug therapy; Z90.49 Acquired absence of other specified parts of digestive tract; Z83.3 Family history of diabetes mellitus; Z82.3 Family history of stroke

== ENCOUNTER 2020-02-04 13:32 | Inpatient (IN) | payer OTHER, MEDICARE ==
[~2020-02-04] VITALS: Ht 190.5 cm; Wt 104.9 kg
[~2020-02-04 13:32] MED LIST changes: +ASPIR 8181 M1 PO; +DULCOLAX5 MG PO; +EPOGEN2000 UNIT/ IV PUSH; +MELATONIN5 M1 PO; +MIDODRINE HCL 55 M1 PO; +NEPHRO-VITE RX1 TA1 PO; +NIFEREX TABLET1 EACH PO; +ONDANSETRON HCL4 M1; +PHENERGAN 25 MG25 M1 PO; +PROTONIX40 M1 PO; +SYNTHROID100 MC1 PO; +VANCO 1.51.5 GM/500 IV; +VANCOCIN 125 M125 M1 PO; +ZOSYN 3/0.373.375 G3 IVPB
[2020-02-04 13:34] VITALS: BP 91/51
[2020-02-04] MEDS ORDERED: GABAPENTIN100 MG PO (13:45)
[2020-02-04] MEDS ORDERED: COUMADIN 5 MG TA5 M1 PO (13:46)
[2020-02-04] MEDS ORDERED: DORYX MPC120 MG PO (13:46)
[2020-02-04] MEDS ORDERED: RENVELA800 MG PO (13:46)
--- NOTE | 2020-02-04 14:16 | NUR ---
THIS NURSE ASSUMED PT CARE AT THIS TIME.
[2020-02-04 14:19] LABS: ABSOLUTE BASOPHILS 0.1 thou/uL (0.0-0.2); ABSOLUTE EOSINOPHILS 0.2 thou/uL (0.0-0.7); ABSOLUTE LYMPHOCYTES 3.2 thou/uL (0.8-5.3); ABSOLUTE MONOCYTES 0.9 thou/uL (0.0-1.2); ABSOLUTE NEUTROPHILS 7.4 thou/uL (1.6-8.1); BASOPHILS 0.7 %; EOSINOPHILS 1.6 %; HEMATOCRIT 32.5 % (42.0-52.0); HEMOGLOBIN 11.1 gm/dL (14.0-18.0); MCHC 34.1 g/dL (28.0-37.0); MCV 96.9 fL (80.0-100.0); MONOCYTES 7.6 %; NUCLEATED RBCS 0 /100WBC; PLATELET COUNT* 186 thou/uL (150-400); POLYS 63.1 %; RBC 3.35 mil/uL (4.50-6.00); RDW-CV 15.8 % (10.5-14.5); WBC 11.8 thou/uL (4.0-11.0)
[2020-02-04 14:33] LABS: CALCIUM 8.9 mg/dL (8.5-10.1); CREATININE 7.3 mg/dL (0.6-1.3); POTASSIUM 4.8 mmol/L (3.5-5.1)
[2020-02-04 14:38] LABS: TOTAL BILIRUBIN 0.6 mg/dL (<0.1-1.0); TOTAL PROTEIN 6.4 g/dL (6.4-8.2)
[2020-02-04 18:07] VITALS: BP 107/59
--- NOTE | 2020-02-04 18:07 | NUR ---
REPORT GIVEN TO YOUSIF BOWENS WHO IS TO ASSUME PT CARE INPATIENT NURSE.
--- NOTE | 2020-02-04 19:00 | NUR ---
ASSUMED CARE OF THE PT AT 1830. PT TRANSFERED FROM THE ED VIA STRETCHER. ASSIST X2-3 TO MOVE THE PT TO THE BED . C/O PAIN WITH MOVEMENT IN THE LT LEG. RT FA IV PATENT, SL. LT AV FISTULA FUNCTIONAL+ BRUIT/THRILL. PT WEARS PULL UPS. IS INCONTINENT OF B AND B AT TIMES. CYNTHIA CARE COMPLETE. A/OX 4 WITH LOWER ELWHA. ON BED REST AT THIS TIME. SEEN BY THE ORTHO PHYSICIAN. PT IS STABLE. ORIENTED TO PT ROOM AND UNIT ROUTINES. BED LOW AND LOCKED. CALL LIGHT IN REACH. WILL CONTINUE TO MONITOR.
[2020-02-04 19:09] VITALS: BP 125/60
[2020-02-04 20:12] LABS: APTT 30.8 Seconds (25.0-31.3); INR 1.3; PROTIME 13.2 Seconds (9.20-11.50)
[2020-02-05 00:26] VITALS: BP 117/51
[2020-02-05 03:45] VITALS: BP 109/48
--- NOTE | 2020-02-05 04:54 | NUR ---
PATIENT WAS TRANSFERRED TO TELEMETRY AND REPORT GIVEN TO NIGHT TELEMETRY NURSE. VSS ON RA. PATIENT NPO D/T POSSIBLE SURGERY TODAY. LEFT AV FISTULA HAS GOOD THRILL AND BRUIT. IV IN RIGHT FOREARM-SL. PATIENT ON BEDREST. ORTHO TO SEE PATIENT THIS AM. NURSING TO CONTINUE MONITORING.
--- NOTE | 2020-02-05 09:59 | NUR ---
ASSUMED CARE OF PATIENT THIS AM AT 0730. PATIENT IS ALERT AND ORIENTED X 4. HE WAS TAKEN TO DIALYSIS PER BED. TELE SHOWS A FIB.
[2020-02-05 12:43] VITALS: BP 115/50
[2020-02-05 16:00] VITALS: BP 91/43
--- NOTE | 2020-02-05 17:10 | NUR ---
CM spoke with via phone. Pt resides at home with . Normally independent, uses a walker inside the home. They have a ramp, that Pt uses a wc with outside the home. Pt uses a trilogy at night. Pt goes to [facility] on --Sat at 11am for dialysis, family transports. Hx of [facility]. Hx of HH. Hx of SNF at [facility]. Discussed dispo, is hopeful that Pt can go to acute rehab since [facility] is not accepting new pts. OT needs to eval. CM to update on Saturday regarding which dc option Pt will need. Following.
[2020-02-05 20:00] VITALS: BP 91/54
[2020-02-06] VITALS: BP 153/60
[2020-02-06 04:00] VITALS: BP 110/45
[2020-02-06 04:33] LABS: HEMATOCRIT 31.9 % (42.0-52.0); HEMOGLOBIN 11.1 gm/dL (14.0-18.0); MCH 33.8 pg (26.0-34.0); MCHC 34.9 g/dL (28.0-37.0); RBC 3.29 mil/uL (4.50-6.00); RDW-CV 15.5 % (10.5-14.5); WBC 10.1 thou/uL (4.0-11.0)
[2020-02-06 04:53] LABS: ALBUMIN 2.8 g/dL (3.4-5.0); CALCIUM 8.8 mg/dL (8.5-10.1); PHOSPHORUS* 5.1 mg/dL (2.5-4.9); POTASSIUM 4.6 mmol/L (3.5-5.1)
[2020-02-06 05:07] LABS: CREATININE 5.2 mg/dL (0.6-1.3)
[2020-02-06 05:20] LABS: INR 1.3; PROTIME 13.3 Seconds (9.20-11.50)
[2020-02-06 08:00] VITALS: BP 102/51
[2020-02-06 10:45] LABS: CALCIUM 8.5 mg/dL (8.5-10.1); CREATININE 5.4 mg/dL (0.6-1.3); PHOSPHORUS* 5.2 mg/dL (2.5-4.9)
[2020-02-06 12:00] VITALS: BP 97/45
--- NOTE | 2020-02-06 15:06 | NUR ---
ASSUMED PT CARE AT 0800, AOX4, TOE TOUCH WT BEARING. O2 SAT 90'S RA. TRACING AFIB TISHA ON TELE. PT HAD DIALYSIS. PHYSICAL THERAPY WORK WITH PT, HE STARTED TO HAVE PAIN OF 8. MEDS GIVEN WITH RELIEF. VSS, AM ASSESSMENT CHARTED, MEDS GIVEN PER MAR. ACCU CHECK, CALL LIGHT WITHIN REACH, WILL CONTINUE TO MONITOR.
[2020-02-06 16:00] VITALS: BP 100/54
[2020-02-06 20:00] VITALS: BP 100/52
[2020-02-07] VITALS: BP 106/53
[2020-02-07 04:00] VITALS: BP 115/57
[2020-02-07 05:05] LABS: INR 1.2; PROTIME 12.6 Seconds (9.20-11.50)
[2020-02-07 08:00] VITALS: BP 95/52
--- NOTE | 2020-02-07 10:24 | CON ---
[address] [address] CONSULTATION Name: RACHEL ARECHIGA Room: [address] IN M.R.#: [id number] Admission: 02/04/20 Attend Phys: Lissett Rasmussen Discharge: Date of : 39 Report #: [id number] THIS REPORT FOR: //name// cc: Candelario Palacios John E. DO ~ THIS REPORT FOR: //name// CC: Lissett Conway SUBJECTIVE: The patient is seen on dialysis. He is tolerating this treatment fine. Discussed the case with the dialysis nurse. UF goal is set for 2 liters. OBJECTIVE: GENERAL: No acute distress. Alert and calm. LUNGS: Quiet respiration. EXTREMITIES: No edema. IMPRESSION AND PLAN: End-stage renal disease, hemodialysis on Saturday, and Saturday. He is seen while on dialysis. We will dialyze him next on Saturday. I will contact the helpdesk when they are available in order to get access to document my notes without having to dictate down. <ELECTRONICALLY SIGNED> By: Elliot Ibrahim MD 02/07/20 1024 [id number] [id number] Can Ibrahim MD /nt
[2020-02-07 15:49] VITALS: BP 101/71
[2020-02-07 20:00] VITALS: BP 104/55
[2020-02-08] VITALS: BP 99/48
[2020-02-08 04:18] LABS: INR 1.2; PROTIME 12.6 Seconds (9.20-11.50)
--- NOTE | 2020-02-08 05:29 | NUR ---
PT IS ABLE TO COMMUNICATE HIS NEEDS TO STAFF WITH MINOR DIFFICULTY; HE IS SOMEWHAT [id number]. HE HAS DENIED THE NEED FOR PAIN MEDICATION UP TO THIS TIME. LEFT ARM LIMB ALERT MAINTAINED-FISTULA. PT IS CURRENTLY FOLLOWING A SAT//SAT SCHEDULE FOR HEMODIALYSIS. TOE-TOUCH WT. BEARING ONLY TO LEFT LEG WHEN UP. CURRENTLY MED/SURG, NON-TELE MONITORING, STATUS.
[2020-02-08 08:30] VITALS: BP 108/66
--- NOTE | 2020-02-08 11:12 | NUR ---
Rehab Dr evaluated Pt for acute rehab today, Pt qualifies, they will continue to follow.
--- NOTE | 2020-02-08 18:49 | NUR ---
REMAINS A&OX4. RESPIRATIONS EVEN AND UNLABORED ON ROOM AIR. DENIES PAIN. MEDICATED WITH PRN PAIN MEDS WITH RELIEF NOTED. TTWB TO LEFT LEG. UP IN WHEELCHAIR WITH THERAPY, MAX NSG ASSIST AND SLIDE BOARD. FISTULA TO CHRIS POSITIVE FOR BRUIT AND THRILL. HEMODIALYSIS T, , SA SCHEDULE. OSAGE BUT ABLE TO MAKE NEEDS KNOWN. BED AND CHAIR ALARMS SET ON EXITING MODE FOR SAFETY. CALL DE AND PERSONAL ITEMS WITHIN REACH. NSG WILL CONTINUE TO ASSESS.
[2020-02-08 20:24] VITALS: BP 97/51
[2020-02-09 00:03] VITALS: BP 90/44
[2020-02-09 01:29] VITALS: BP 101/49
[2020-02-09 04:10] LABS: INR 1.5; PROTIME 15.1 Seconds (9.20-11.50)
[2020-02-09 04:17] LABS: CALCIUM 8.5 mg/dL (8.5-10.1); PHOSPHORUS* 6.3 mg/dL (2.5-4.9)
--- NOTE | 2020-02-09 06:52 | NUR ---
PT IS ABLE TO COMMUNICATE HIS NEEDS TO STAFF WITH ONLY MINOR DIFFICULTY; HE IS [id number]. HE HAS DENIED THE NEED FOR PAIN MEDICATION DURING METAL ROLLING MILL OPERATOR. HE IS CURRENTLY FOLLOWING A SAT//SAT SCHEDULE FOR HEMODIALYSIS AND WILL LIKELY HAVE A RUN TODAY. COUMADIN RESTATED ON SATURDAY; INR INCREASING. LEFT ARM LIMB ALERT FOR FISTULA MAINTAINED.
[2020-02-09 08:26] VITALS: BP 111/43
--- NOTE | 2020-02-09 08:26 | NUR ---
Pt medically stable to dc, CM requested that rehab technician initiate insurance auth. Plan post dc is for Pt to return home with and family support. Following.
[2020-02-09] MEDS ORDERED: NORCO 7.5-3251 EACH PO (08:33)
[2020-02-09] MEDS ORDERED: RENVELA800 MG PO (08:33)
[2020-02-09] MEDS ORDERED: DULCOLAX5 MG PO (08:33)
[2020-02-09] MEDS ORDERED: ACETAMINOPHEN325 M1 PO (08:33)
[2020-02-09] MEDS ORDERED: SENNA-TIME S T1 EACH PO (08:33)
[2020-02-09 12:57] VITALS: BP 111/43
[2020-02-09 16:09] VITALS: BP 134/47
--- NOTE | 2020-02-09 17:40 | NUR ---
PT A&Ox4. TOLERATING MEALS. MINIMAL PAIN. DENIED NAUSEA. UP WITH 2. WORKED WITH PT AND OT. WAITING FOR REHAB PLACEMENT. FALL PRECAUTIONS IN PLACE. CALL LIGHT WITHIN REACH. WILL CONTINUE TO MONITOR.
[2020-02-09 20:00] VITALS: BP 112/49
[2020-02-10] VITALS: BP 110/96
--- NOTE | 2020-02-10 00:41 | NUR ---
PT ALERT ORIENTED. [place]. TURN Q 2 HRS. PT DENIES PAIN. TURN Q 2 HRS. MED SURG STATUS. WCTM
[2020-02-10 03:55] LABS: INR 1.7; PROTIME 16.9 Seconds (9.20-11.50)
[2020-02-10 07:40] VITALS: BP 97/40
--- NOTE | 2020-02-10 10:15 | NUR ---
CM NOTIFIED BY [facility]/REHAB THAT SHE HAS OBTAINED AUTH FROM [employer]ANCE [employer], TO COME TO REHAB. THEY WILL BE ABLE TO TAKE PT.ON REHAB UNIT THIS AFTERNOON. INFORMED PT.,SPOUSE AND RN.
[2020-02-10 11:50] VITALS: BP 102/42
[2020-02-10 12:00] VITALS: BP 115/47
--- NOTE | 2020-02-10 16:20 | NUR ---
PATIENT DISCHARGED TO INPATIENT REHAB. REPORT GIVEN TO WOODY. BELONGINGS PACKED AND PATIENT TRNSPORTED BY BED TO ROOM 323.
[2020-02-10] MEDS ORDERED: ONDANSETRON HCL4 M2 PO (17:52)
[2020-02-10] MEDS ORDERED: SYNTHROID100 MC1 PO (17:53)
--- NOTE | 2020-02-11 14:16 | CON ---
[address] [address] CONSULTATION Name: RACHEL ARECHIGA Room: [address] IN M.R.#: [id number] Admission: 02/04/20 Attend Phys: Lissett Rasmussen Discharge: 02/10/20 Date of : 39 Report #: [id number] THIS REPORT FOR: //name// cc: Candelario Palacios John E. DO ~ THIS REPORT FOR: //name// CC: Lissett Conway DATE OF SERVICE: 02/05/2020 NEPHROLOGY CONSULTATION REASON FOR NEPHROLOGY CONSULTATION: End-stage renal disease, on maintenance hemodialysis. REASON FOR ADMISSION: Left hip pain. HISTORY OF PRESENT ILLNESS: This is an 79-year-old male who has past medical history of ESRD, on hemodialysis every Saturday, and Saturday, missed his dialysis yesterday; has peripheral neuropathy; has history of chronic atrial fibrillation, on anticoagulation, who had a fall on 02/01 when he fell as he was transitioned from his wheelchair to the recliner and his left hip has been hurting since. In 2004, he had left hip total arthroplasty done and CT of his hip yesterday showed a fracture in his left femur and Orthopedics was involved. I saw him on dialysis today. He did not have any problems. Pain is only on movement. ALLERGIES: No known allergies. REVIEW OF SYSTEMS: As mentioned in history of present illness, otherwise 10-point review of systems done, negative. HOME MEDICATIONS: Include ipratropium, albuterol, atorvastatin, warfarin, acetaminophen, mupirocin, levothyroxine, amiodarone, gabapentin, doxycycline, sevelamer, warfarin, ondansetron, melatonin, iron and promethazine. PAST MEDICAL AND SURGICAL HISTORY: Includes diabetes, multiple orthopedic surgeries, knees and hip; iron deficiency anemia; anemia of chronic kidney disease; coronary artery disease, status post bypass, five vessel; history of stroke; TIA; ESRD, on hemodialysis every Saturday, and Saturday; chronic systolic heart failure; hypothyroidism; prostate cancer; chronic atrial fibrillation; BPH; hyperlipidemia; left recurrent pleural effusions, status post thoracentesis x 2; VATS with decortication; appendectomy; left leg surgery [place] [address] CONSULTATION Name: RACHEL ARECHIGA Room: [address]#: [id number] Admission: 02/04/20 Attend Phys: Lissett Rasmussen Discharge: 02/10/20 Date of : 38 Report #: [id number] FAMILY HISTORY: Diabetes and vascular disease. SOCIAL HISTORY: Lives at home. Does not smoke or drink alcohol or use illicit drugs. PHYSICAL EXAMINATION: VITAL SIGNS: His blood pressure is 109/48, respiratory rate is 18, pulse rate is 58, temperature 36.8 and his pulse ox is currently on room air 99%. GENERAL: He is awake and alert and oriented x 3. He was seen on dialysis, stable on dialysis. HEAD AND EYES: Atraumatic, normocephalic. Normal conjunctivae. EARS, NOSE, AND THROAT: Normal ears and nose. Mucous membranes are moist. NECK: No JVD. CHEST: Bilaterally diminished breath sounds, but no crackles anteriorly. CARDIOVASCULAR: S1, S2 normal. No murmurs. ABDOMEN: Soft, nondistended, nontender. Bowel sounds are present. EXTREMITIES: Lower extremities, there is 2+ lower extremity edema. DIALYSIS ACCESS: Left arm AV fistula, currently in use. NEUROLOGIC: Grossly intact. PSYCHIATRIC: Mood seems to be normal. LABORATORY DATA: WBC is 11.8, hemoglobin is 11.1. Sodium is 139, potassium is 4.8 and other labs were reviewed. IMAGING: Hip CT, hip pelvic x-ray and femur x-ray reports were reviewed. ASSESSMENT: 1. End-stage renal disease, on hemodialysis every Saturday, and Saturday; missed dialysis . 2. Anemia of chronic kidney disease. 3. Pain in left hip, has a left hip fracture. Orthopedics following. 4. History of hypertension. PLAN: 1. Seen on dialysis today because he missed his dialysis yesterday, dialysis again tomorrow because tomorrow is his regular schedule. 2. Hemoglobin is currently above goal 11.1. 3. Continue his binders. 4. We will continue to follow with you for dialysis needs. <ELECTRONICALLY SIGNED> By: Shea Mills MD 02/11/20 1416 [id number] [id number] Mills MD /nt
== END 2020-02-10 16:30 | DRG 535 ==
LOC: M.SUR 13:32 → M.ERS 13:32 → M.TBA-ER 16:05 → M.2W 16:05 → M.3W 18:48 → M.2W 02-05 00:07
PROVIDERS: Internal Medicine; Orthopaedic Surgery; Personal Emergency Response Attendant; ADMIT Family Medicine
PROC: 5A1D70Z Performance of Urinary Filtration, Intermittent, Less than 6 Hours Per Day (ICD-10-PCS; principal; 2020-02-05)
PROC: 5A1D70Z Performance of Urinary Filtration, Intermittent, Less than 6 Hours Per Day (ICD-10-PCS; 2020-02-06)
DX: S72.115A Nondisplaced fracture of greater trochanter of left femur, initial encounter for closed fracture (principal); N18.6 End stage renal disease; J96.90 Respiratory failure, unspecified, unspecified whether with hypoxia or hypercapnia; M97.02XA Periprosthetic fracture around internal prosthetic left hip joint, initial encounter; I13.2 Hypertensive heart and chronic kidney disease with heart failure and with stage 5 chronic kidney disease, or end stage renal disease; I50.32 Chronic diastolic (congestive) heart failure; R65.10 Systemic inflammatory response syndrome (SIRS) of non-infectious origin without acute organ dysfunction; I48.20 Chronic atrial fibrillation, unspecified; D68.59 Other primary thrombophilia; E66.2 Morbid (severe) obesity with alveolar hypoventilation; N25.81 Secondary hyperparathyroidism of renal origin; I12.0 Hypertensive chronic kidney disease with stage 5 chronic kidney disease or end stage renal disease; D72.829 Elevated white blood cell count, unspecified; E03.9 Hypothyroidism, unspecified; K27.9 Peptic ulcer, site unspecified, unspecified as acute or chronic, without hemorrhage or perforation; E11.22 Type 2 diabetes mellitus with diabetic chronic kidney disease; E11.51 Type 2 diabetes mellitus with diabetic peripheral angiopathy without gangrene; G47.33 Obstructive sleep apnea (adult) (pediatric); I25.10 Atherosclerotic heart disease of native coronary artery without angina pectoris; E78.5 Hyperlipidemia, unspecified; D63.1 Anemia in chronic kidney disease; W05.0XXA Fall from non-moving wheelchair, initial encounter; N40.0 Benign prostatic hyperplasia without lower urinary tract symptoms; Z96.652 Presence of left artificial knee joint; Z96.642 Presence of left artificial hip joint; Z68.28 Body mass index [BMI] 28.0-28.9, adult; Z99.2 Dependence on renal dialysis; Y93.89 Activity, other specified; Y92.89 Other specified places as the place of occurrence of the external cause; Y99.8 Other external cause status; Z85.850 Personal history of malignant neoplasm of thyroid; Z95.1 Presence of aortocoronary bypass graft; Z85.46 Personal history of malignant neoplasm of prostate; Z90.49 Acquired absence of other specified parts of digestive tract; Z79.01 Long term (current) use of anticoagulants; Z79.82 Long term (current) use of aspirin; Z79.899 Other long term (current) drug therapy; Z86.73 Personal history of transient ischemic attack (TIA), and cerebral infarction without residual deficits; Z28.21 Immunization not carried out because of patient refusal

== ENCOUNTER 2020-02-10 13:04 | Inpatient (IN) | payer OTHER, MEDICARE ==
[~2020-02-10] VITALS: Ht 190.5 cm; Wt 109.8 kg
[~2020-02-10 13:04] MED LIST changes: +ACETAMINOPHEN325 M1 PO; +DORYX MPC120 MG PO; +GABAPENTIN100 MG PO; +NORCO 7.5-3251 EACH PO; +RENVELA800 MG PO; +SENNA-TIME S T1 EACH PO
--- NOTE | 2020-02-10 17:30 | NUR ---
PT TRANSFER TO REHAB ROOM 322 FROM MED SURG UNIT.TRANSFERED VIA BED. PT A/OX3. [place]. DENIES PAIN AT REST. REPORTS PAIN 9/10 WITH MOVEMENT IN LT LEG. ORDERS FOR TOE TOUCH WEIGHT BEARING TO LT LEG. PT IS MOBILE PER W/C AT THIS TIME. pT ON DIALYSIS.LT AV FISTULA INTACT. +BRUIT AND THRILL. PT REPORTS URINATING SMALL AMOUNTS.RT TEJADA IV/SL. CONTINENT OF BOWEL AND BLADDER. VOIDS PER URINAL. ORIENTED TO UNIT ROUTINES,PT ROOM, AND CALL LIGHT. PT HAS ALL BELONGINGS AT THE BEDSIDE. RESTING QUIETLY IN BED LOW/AND LOCKED WITH CALL LIGHT IN REACH. WILL CONTINUE TO MONITOR.
[2020-02-10] MEDS ORDERED: ONDANSETRON HCL4 M2 PO (17:52)
[2020-02-10] MEDS ORDERED: SYNTHROID100 MC1 PO (17:53)
[2020-02-10 19:00] VITALS: BP 121/43
--- NOTE | 2020-02-11 01:20 | NUR ---
ASSUMED CARE @ 1929-02/09-SAT.AWAKE IN BED WATCHING TV.HOB UP.WANTS LIGHT ON ABOVE BED ALL NIGHT.BED ALARM ON ALREADY @ 1929.REFUSED SCHEDULED MELATONIN @ HS.REFUSED TO DO IS.LEFT UPPER SHUNT-HAS GOOD BRUIT & GOOD THRILL.SALINE LOCK RIGHT HAND-HAS NO BLOOD RETURN BUT FLUSHED GOOD @ 2100.ON HOURLY ROUNDS. URINAL W/IN REACH.
[2020-02-11 03:55] LABS: HEMOGLOBIN 8.9 gm/dL (14.0-18.0); MCH 33.4 pg (26.0-34.0); MCHC 34.2 g/dL (28.0-37.0); MCV 97.6 fL (80.0-100.0); MPV 7.7 fl. (7.2-11.1); RBC 2.66 mil/uL (4.50-6.00); RDW-CV 15.3 % (10.5-14.5); WBC 8.4 thou/uL (4.0-11.0)
[2020-02-11 04:14] LABS: CALCIUM 8.3 mg/dL (8.5-10.1)
[2020-02-11 04:23] LABS: CREATININE 5.9 mg/dL (0.6-1.3)
--- NOTE | 2020-02-11 05:12 | NUR ---
VOIDED ONCE ONLY @ 0300-PER URINAL.REFUSED HS SNACK.SLEEPING SINCE 2200 & SLEPT GOOD ALL NIGHT.AWAKE ONCE @ 0300 TO USE URINAL.FOR DIALYSIS TODAY- .
[2020-02-11 08:00] VITALS: BP 132/54
[2020-02-11 20:10] VITALS: BP 122/80
--- NOTE | 2020-02-11 20:40 | NUR ---
SITTING UP IN BED EATING SUPPER. RETURNED FROM DIALYSIS PER BED AT ABOUT 1999. DENIES PAIN. GAUZE DRESSINGS OVER LEFT SHUT DRY/INTACT. 2+ LEFT PEDAL EDEMA NOTED. WARM BLANKET PROVIDED. CALL LIGHT WITHIN REACH. VERY HARD OF HEARING EVEN WITH HEARING AID IN.
[2020-02-12 04:15] LABS: INR 1.7
--- NOTE | 2020-02-12 05:03 | NUR ---
RESTED QUIETLY. VOIDED PER URINAL X ONE DURING THE NIGHT. HOURLY ROUNDING IN PROGRESS.
[2020-02-12 08:00] VITALS: BP 117/52
--- NOTE | 2020-02-12 16:34 | NUR ---
SW called pt to complete initial assessment, introduce self, and SW role on inpt rehab unit. Pt lives at home with and son. Pt has RW, trilogy, ramp, wc. Pt goes to [facility] for dialysis on Sat. Pt has hx of HH and hx of SNF at [facility]. Pt said he is not certain of what he will need at dc but that he will feel safe at home whenever he is ready to dc. SW to continue to follow to assist with safe dc planning.
--- NOTE | 2020-02-12 18:05 | NUR ---
ASSUMMED CARE OF PT AT 0730, PT ALERT AND ORIENTED, PT TRANSFERS PER ROB LIFT, REPOSTIONED EVERY 2 HOURS. BILATERAL BUTTOCKS CHAFED AND ABRAISED, BARRIER OINTMENT APPLIED, REPOSTIONED EVERY 2 HOURS, BILATERAL LEGS EDEMATOUS, ELEVATED, SHUNT IN LEFT ARM, LARGE BM PER COMMODE, VOIDED X 1 PER URINAL, PT TABLE MOUNTAIN, WEARS HEARING AIDE, TAKING FOOD AND FLUIDS WELL, TTWB MAINTAINED, PARTICIPATED IN ALL THERAPIES, HOURLY ROUNDING COMPLETED, ASSESSMENT COMPLETE, WILL CONTINUE TO MONITOR.
[2020-02-12 20:04] VITALS: BP 109/44
--- NOTE | 2020-02-13 03:34 | NUR ---
ASSSUMED CARE FROM DAY SHIFT PT RESTING IN SUPINE POSITION , PT TURNED X1 THEN REFUSED THE REST OF THE CELLARS SUPERVISOR , STATES " LEAVE ME ALONE", EACH HOURLY CONINTUE TO ENCOURAGE PT TO ALLOW US TO TURN HIM.. WILL REPORT CHANGES OR ABNORMAL FINDINGS.
[2020-02-13 04:34] LABS: HEMATOCRIT 25.5 % (42.0-52.0); HEMOGLOBIN 8.7 gm/dL (14.0-18.0)
[2020-02-13 04:50] LABS: INR 1.6; PROTIME 16.1 Seconds (9.20-11.50)
[2020-02-13 04:58] LABS: ALBUMIN 2.3 g/dL (3.4-5.0); CALCIUM 8.1 mg/dL (8.5-10.1); CREATININE 5.6 mg/dL (0.6-1.3); PHOSPHORUS* 4.3 mg/dL (2.5-4.9); POTASSIUM 5.1 mmol/L (3.5-5.1)
[2020-02-13 08:04] VITALS: BP 110/48
[2020-02-13 20:05] VITALS: BP 89/31
[2020-02-13 22:45] VITALS: BP 90/35
--- NOTE | 2020-02-14 01:21 | NUR ---
ASSUMED CARE @ 1914-02/12-SAT.AWAKE IN BED W/ HOB UP WATCHING TV.URINAL W/IN REACH.DRSG DRY & INTACT SHUNT LEFT UPPER FISTULA W/ GOOD BRUIT & GOOD THRILL. BED ALARM ALREADY ON @ 1914.WANTS LIGHT ON ALL NIGHT ABOVE HOB.REFUSED TO DO IS.LEFT LE UP ON A PILLOW @ 1934.CONSENTED TO TURN @ 0 W/ [place] ON. MOISTURE BARRIER CREAM APPLIED TO PINK COCCYX @ 2229.BP @ .UT-41 -TAKEN BY RESTAURANT AND BAR MANAGER.BP RE-CHECKED BY RN @ .UT 43/MIN APICAL-IRREG.ASYMPTO- MATIC.NURSING SEAT BUILDER INFORMED OF UT & CAME TO FLOOR.INSTRUCTED TO OBSERVE PATIENT.ON HOURLY ROUNDS.RESTAURANT AND BAR MANAGER DOING ODD HOUR ROUNDS.
[2020-02-14 02:25] VITALS: BP 90/39
[2020-02-14 05:22] LABS: INR 1.6
[2020-02-14 06:00] VITALS: BP 104/44
--- NOTE | 2020-02-14 07:50 | NUR ---
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 NO ORDER GIVEN.WILL SEE PATIENT IN AM.PATIENT REMAINS ASYMPTOMATIC.HIMS ANSWERING SERVICE CALLED @ 626- TO INFORM DR GARCIA THAT WATER MANGLE TENDER CALLED, NO ORDER GIVEN & DR WILL SEE PATIENT IN AM.DR GARCIA CALLED @ 0700 & ORDERED TO TRANSFER PATIENT TO TELEMETRY.PATIENT TRANSFERED PER BED & BELONGINGS TO TELEMETRY @ 0710.REPORT GIVEN TO YOUSIF MATTHEW IN TELEMETRY.TEXTED DR WATERMAN ABOUT PT'S TRANSFER TO TELEMETRY.
--- NOTE | 2020-02-15 09:10 | EKG ---
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 : 1940 Requested By: Jayla Eid Order Number: [id number] Amos MD: Sriram Ramon Measurements Intervals [place] Rate: 34 P: ME: QRS: -48 QRSD: 149 T: 2 QT: 581 QTc: 437 Interpretive Statements atrial fibrillation with Junctional rhythm Right bundle branch block Inferior infarct, old Compared to ECG 07/20/2019 21:18:23 Junctional rhythm now present Myocardial infarct finding still present Electronically Signed On 02-15-2020 9:08:33 CDT by Sriram Ramon [email or web address] <ELECTRONICALLY SIGNED> By: Sriram Ramon MD, FAC 02/15/20 0908 0245 0245 Sriram Ramon MD, FAC /EPI
--- NOTE | 2020-02-16 09:34 | CON ---
[address] [address] CONSULTATION Name: RACHEL ARECHIGA Room: [address] IN M.R.#: [id number] Admission: 02/10/20 Attend Phys: Yaya Falk MD Discharge: 02/14/20 Date of : 38 Report #: [id number] THIS REPORT FOR: //name// cc: Travon Palacios John E. DO ~ THIS REPORT FOR: //name// CC: TRAVON Falk CARDIOLOGY CONSULTATION INDICATION: Bradycardia. HISTORY OF PRESENT ILLNESS: The patient is a very pleasant 79-year-old gentleman with history of chronic atrial fibrillation. I have seen him a few times in the past couple of years with slow ventricular response rate. At this point in time, his heart rate continues to decline. Presently, his heart rates in the 30s. He did have some symptoms this morning of lightheadedness, dizziness and nausea likely due to his atrial fibrillation with slow ventricular response rate. He is not on any medication, which would slow his heart rate further. He does take midodrine occasionally for hypotension. He has a history of end-stage renal disease for which he is on dialysis. He has chronic atrial fibrillation. He is chronically anticoagulated with warfarin. His INR today is 1.6. PAST MEDICAL HISTORY: 1. Coronary artery disease with coronary artery bypass grafting in 2007. He is known to have preserved left ventricular systolic function. 2. Chronic atrial fibrillation, presently with slow ventricular response rate. 3. Chronic diastolic heart failure. 4. End-stage renal disease, on dialysis. 5. Hypothyroidism. 6. History of prostate cancer. 7. BPH. 8. Hyperlipidemia. 9. Type 2 diabetes mellitus. 10. History of recurrent pleural effusion, status post decortication. 11. Remote appendectomy. 12. Left leg surgery. 13. Recent hip fracture. ALLERGIES: [place] [address] CONSULTATION Name: RACHEL ARECHIGA CIARAN Room: [address]#: [id number] Admission: 02/10/20 Attend Phys: Yaya Falk MD Discharge: 02/14/20 Date of : 38 Report #: [id number] FAMILY HISTORY: Noncontributory. SOCIAL HISTORY: The patient is a lifelong nonsmoker. He does not drink. CURRENT MEDICATIONS: Tylenol p.r.n., atorvastatin 40 mg at bedtime, Benadryl 25 mg at bedtime p.r.n., Dulcolax 10 mg daily p.r.n., Pepcid 20 mg daily, gabapentin 100 mg daily, , hydrocodone/acetaminophen 7.5/325 mg 2 tablets every 3 hours p.r.n., Niferex 150 mg daily, Synthroid 0.1 mg daily, melatonin 5 mg at bedtime, Midodrine 5 mg p.o. b.i.d., Mylanta mg p.r.n., Zofran p.r.n., Senokot-S 1 tablet p.o. b.i.d., Renvela 800 mg 2 tablets with meals, warfarin 6 mg daily. PHYSICAL EXAMINATION: VITAL SIGNS: Blood pressure 93/48, pulse is 33 and regular . GENERAL: This is a pleasant elderly gentleman who does not appear to be in distress. HEENT: Head is normocephalic, atraumatic. Extraocular muscles intact. Mucous membranes are moist, glasses in place. NECK: Shows no jugular venous distention. CHEST: Reveals clear lung arndt without wheezes or rales. CARDIOVASCULAR: Reveals a regular rhythm that is bradycardic. I do not appreciate gallop or murmur. ABDOMEN: Reveals normal bowel sounds. The abdomen is soft, nontender. EXTREMITIES: Shows no significant edema. SKIN: Dry. DIAGNOSTIC DATA: Telemetry monitoring shows a junctional escape in the 30s. White blood cell count 8.6, hemoglobin 9.0, platelet count 248,000. INR 1.6. IMPRESSION AND RECOMMENDATIONS: 1. Atrial fibrillation with a slow ventricular response rate and junctional escape rhythm. Recommend single chamber pacemaker. We will do this today. 2. Chronic atrial fibrillation. The patient is chronically anticoagulated. Presently, his INR is somewhat subtherapeutic at 1.6. We will adjust Coumadin for INR after pacemaker placement. 3. Hypertension. Blood pressure adequately controlled presently. 4. End-stage renal disease. The patient is on dialysis. 5. Orthostasis. The patient takes midodrine with reasonable results. 6. Hypercoagulable state due to atrial fibrillation. 7. Chronic diastolic heart failure. <ELECTRONICALLY SIGNED> By: Camden Narayanan MD, FACC 02/16/20 0934 1246 [id number] Narayanan MD, FACC /nt
== END 2020-02-14 07:25 | disposition short-term general hospital (02) | DRG 559 ==
LOC: M.REH 13:04
PROVIDERS: Internal Medicine; Internal Medicine Nephrology; ADMIT Physical Medicine & Rehabilitation
PROC: 5A1D70Z Performance of Urinary Filtration, Intermittent, Less than 6 Hours Per Day (ICD-10-PCS; principal; 2020-02-11)
DX: M97.02XA Periprosthetic fracture around internal prosthetic left hip joint, initial encounter (principal); N18.6 End stage renal disease; J96.90 Respiratory failure, unspecified, unspecified whether with hypoxia or hypercapnia; I48.20 Chronic atrial fibrillation, unspecified; I50.32 Chronic diastolic (congestive) heart failure; D68.59 Other primary thrombophilia; R65.10 Systemic inflammatory response syndrome (SIRS) of non-infectious origin without acute organ dysfunction; N25.81 Secondary hyperparathyroidism of renal origin; I13.2 Hypertensive heart and chronic kidney disease with heart failure and with stage 5 chronic kidney disease, or end stage renal disease; I25.10 Atherosclerotic heart disease of native coronary artery without angina pectoris; N40.0 Benign prostatic hyperplasia without lower urinary tract symptoms; E78.5 Hyperlipidemia, unspecified; E03.9 Hypothyroidism, unspecified; D63.8 Anemia in other chronic diseases classified elsewhere; K59.00 Constipation, unspecified; E11.22 Type 2 diabetes mellitus with diabetic chronic kidney disease; G47.33 Obstructive sleep apnea (adult) (pediatric); Z09 Encounter for follow-up examination after completed treatment for conditions other than malignant neoplasm; Z95.1 Presence of aortocoronary bypass graft; Z90.49 Acquired absence of other specified parts of digestive tract; Z85.46 Personal history of malignant neoplasm of prostate; Z83.3 Family history of diabetes mellitus; Z82.3 Family history of stroke; W18.39XA Other fall on same level, initial encounter; Y93.89 Activity, other specified; Y92.89 Other specified places as the place of occurrence of the external cause; Y99.8 Other external cause status; E11.51 Type 2 diabetes mellitus with diabetic peripheral angiopathy without gangrene; Z99.2 Dependence on renal dialysis

== ENCOUNTER 2020-02-14 07:31 | Inpatient (IN) | payer OTHER, MEDICARE ==
[2020-02-14 07:15] VITALS: BP 108/50
[~2020-02-14 07:31] MED LIST changes: +ONDANSETRON HCL4 M2 PO
[2020-02-14 10:01] LABS: ABSOLUTE LYMPHOCYTES 2.6 thou/uL (0.8-5.3); ABSOLUTE MONOCYTES 0.7 thou/uL (0.0-1.2); ABSOLUTE NEUTROPHILS 5.2 thou/uL (1.6-8.1); BASOPHILS 0.5 %; EOSINOPHILS 0.5 %; HEMATOCRIT 26.5 % (42.0-52.0); MCH 32.9 pg (26.0-34.0); MCHC 33.9 g/dL (28.0-37.0); MCV 97.2 fL (80.0-100.0); MONOCYTES 7.8 %; MPV 7.2 fl. (7.2-11.1); NUCLEATED RBCS 0 /100WBC; PLATELET COUNT* 248 thou/uL (150-400); POLYS 61.2 %; RBC 2.73 mil/uL (4.50-6.00); RDW-CV 15.3 % (10.5-14.5); WBC 8.6 thou/uL (4.0-11.0)
[2020-02-14 10:14] LABS: ANION GAP 6 mmol/L (7-16); BUN 32 mg/dL (7-18); CALCIUM 8.1 mg/dL (8.5-10.1); CHLORIDE 99 mmol/L (98-107); CO2 32 mmol/L (21-32); GLUCOSE 165 mg/dL (70-99); POTASSIUM 4.5 mmol/L (3.5-5.1); SODIUM 137 mmol/L (136-145); TROPONIN-I LEVEL <0.06 ng/mL (<0.06)
[2020-02-14 10:16] LABS: CREATININE 4.2 mg/dL (0.6-1.3)
[2020-02-14 11:56] VITALS: BP 93/48
[2020-02-14 20:00] VITALS: BP 96/51
[2020-02-15] VITALS: BP 102/54
[2020-02-15 03:53] VITALS: BP 98/47
[2020-02-15 04:26] LABS: HEMATOCRIT 25.7 % (42.0-52.0); HEMOGLOBIN 8.8 gm/dL (14.0-18.0); MCH 32.8 pg (26.0-34.0); MCHC 34.4 g/dL (28.0-37.0); MCV 95.2 fL (80.0-100.0); MPV 7.5 fl. (7.2-11.1); RBC 2.7 mil/uL (4.50-6.00); RDW-CV 15.7 % (10.5-14.5); WBC 8.9 thou/uL (4.0-11.0)
[2020-02-15 04:44] LABS: INR 2.1; PROTIME 21.3 Seconds (9.20-11.50)
[2020-02-15 05:06] LABS: ALBUMIN 2.4 g/dL (3.4-5.0); ALKALINE PHOSPHATASE 80 U/L (46-116); ANION GAP 7 mmol/L (7-16); BUN 44 mg/dL (7-18); CALCIUM 7.8 mg/dL (8.5-10.1); CHLORIDE 99 mmol/L (98-107); CO2 30 mmol/L (21-32); GLUCOSE 86 mg/dL (70-99); MAGNESIUM 2.1 mg/dL (1.8-2.4); POTASSIUM 4.9 mmol/L (3.5-5.1); SGOT 17 U/L (15-37); SGPT 13 U/L (30-65); SODIUM 136 mmol/L (136-145); TOTAL BILIRUBIN 0.4 mg/dL (<0.1-1.0); TOTAL PROTEIN 5.4 g/dL (6.4-8.2); TROPONIN-I LEVEL <0.06 ng/mL (<0.06)
[2020-02-15 09:24] VITALS: BP 109/53
--- NOTE | 2020-02-15 15:17 | 2DMMODE ---
[place] [address] 2 D/M-MODE ECHOCARDIOGRAM Name: ARECHIGARACHELHeriberto WAGONER Room: [address] [facility]#: [id number] Admission: 02/14/20 Attend Phys: Jayla Eid, Discharge: Date of : 38 Date of Service: 02/15/20 1516 Report #: [id number] THIS REPORT FOR: cc: Candelario Palacios,Candelario Wagner,Sriram Shearer MD [facility] ~ APPROVED REPORT Study performed: 02/15/2020 10:57:11 EXAM: Comprehensive 2D, Doppler, and color-flow Echocardiogram Patient Location: In-Patient Room #: [facility] Status: routine BSA: 2.40 HR: 60 bpm BP: 98/47 mmHg Rhythm: NSR Other Information Study Quality: Good Indications Bradycardia 2D Dimensions IVSd: 14.17 (7-11mm) LVOT Diam: 22.47 (18-24mm) LVDd: 46.54 mm PWd: 10.85 (7-11mm) Ascending Ao: 39.70 (22-36mm) LVDs: 33.34 (25-40mm) Aortic Root: 38.82 mm Volumes Left Atrial Volume (Systole) LA ESV Index: 53.80 mL/m2 Aortic Valve AoV Peak Edward.: 1.07 m/s AO Peak Gr.: 4.59 mmHg LVOT Max P.54 mmHg AO Mean Gr.: 2.50 mmHg LVOT Mean P.14 mmHg LVOT Max V: 1.07 m/s AO V2 VTI: 23.30 cm LVOT Mean V: 0.66 m/s SUYAPA (VTI): 4.22 cm2 LVOT V1 VTI: 24.81 [place] [address] 2 D/M-MODE ECHOCARDIOGRAM Name: RACHEL ARECHIGA Room: [address]#: [id number] Admission: 02/14/20 Attend Phys: Jayla Eid, Discharge: Date of : 38 Date of Service: 02/15/20 1516 Report #: [id number] Mitral Valve E/A Ratio: 3.87 MV Decel. Time: 203.05 ms MV E Max Edward.: 1.25 m/s MV PHT: 58.88 ms MVA (PHT): 3.74 cm2 TDI E/Lateral E': 8.33 E/Medial E': 11.36 Medial E' Edward.: 0.11 m/s Lateral E' Edward.: 0.15 m/s Pulmonary Valve PV Peak Edward.: 0.89 m/s PV Peak Gr.: 3.16 mmHg Tricuspid Valve RAP Estimate: 5.00 mmHg TR Peak Gr.: 37.39 mmHg RVSP: 42.00 mmHg PA Pressure: 42.00 mmHg Left Ventricle The left ventricle is normal size. There is normal LV segmental wall motion. There is normal left ventricular wall thickness. Left ventricular systolic function is normal. The left ventricular ejection fraction is within the normal range. LVEF is 55-60%. Grade IV - fixed restrictive diastolic dysfunction. Right Ventricle The right ventricle is normal size. The right ventricular systolic function is normal. Pacemaker lead is present in the right ventricle. Atria Left atrium is severely dilated. The right atrium size is normal. Aortic Valve Mild aortic valve sclerosis. No aortic regurgitation is present. There is no aortic valvular stenosis. Mitral Valve The mitral valve is normal in structure. Mild mitral regurgitation. No evidence of mitral valve stenosis. Tricuspid Valve The tricuspid valve is normal in structure. Mild tricuspid regurgitation. estimated pa pressure 45 [place] [address] 2 D/M-MODE ECHOCARDIOGRAM Name: RACHEL ARECHIGA CIARAN Room: [address] [facility]#: [id number] Admission: 02/14/20 Attend Phys: Jayla Eid, Discharge: Date of : 38 Date of Service: 02/15/20 1516 Report #: [id number] Pulmonic Valve The pulmonary valve is normal in structure. Trace pulmonic regurgitation. Great Vessels Aortic root is mildly dilated. IVC is normal in size and collapses >50% with inspiration. Pericardium There is no pericardial effusion. <Conclusion> LVEF is 55-60%. Left atrium is severely dilated. Mild aortic valve sclerosis. Mild mitral regurgitation. Mild tricuspid regurgitation. estimated pa pressure 45 mm Hg <ELECTRONICALLY SIGNED> By: Sriram Ramon MD, [facility] 02/15/20 1516 1516 1516 Sriram Ramon MD, FACC /INF
[2020-02-15 16:00] VITALS: BP 95/43
[2020-02-15 20:00] VITALS: BP 99/47
[2020-02-15 23:59] VITALS: BP 111/55
[2020-02-16 03:55] VITALS: BP 117/58
[2020-02-16 04:49] LABS: INR 2.3; PROTIME 23.3 Seconds (9.20-11.50)
[2020-02-16 08:23] VITALS: BP 132/63
[2020-02-16] MEDS ORDERED: EPOGEN2000 UNIT/ IVPUSH (10:19)
--- NOTE | 2020-02-16 16:45 | CARD ---
[address] [address] CARDIAC CATH REPORT Name: RACHEL ARECHIGA Room: [address] IN [facility]#: [id number] Admission: 02/14/20 Attend Phys: Jayla Eid MD Discharge: Date of : 38 Report #: [id number] THIS REPORT FOR: //name// cc: Candelario Palacios John E. DO ~ ADDENDUM APPROVED REPORT Study performed: 02/14/2020 13:39:05 Patient Status: In-Patient Room #: Exam: Insertion of Single Chamber Permanent Pacemaker Indications: atrial fibrillation with a slow response rate. The patient is a 79 year-old male with a history of chronic atrial fibrillation. Implanted Devices: Biotronik E 8 SRT, model #166431, serial #[id number] single-chamber pulse generator. Biotronik solely S 53, model #399835, serial #[id number] ventricular lead. Procedure The patient underwent informed consent. We discussed the details of the procedure including the risks, which include, but not limited to bleeding, infection, vascular damage, cardiac perforation, and pneumothorax. After informed consent was obtained the patient was brought to the interventional radiology lab. The area of the right chest was prepped and draped in fashion. Local anesthesia was achieved with 1% lidocaine. Next after an initial incision was made a device pocket was formed over the right pectoralis muscle using electrocautery and blunt dissection. Using a micropuncture kit the right subclavian vein was accessed. Ultimately a safety J guidewire was advanced to the right atrium under fluoroscopic guidance. A tear-away introducer was advanced over the guidewire. The dilator and guidewire were removed and a ventricular lead advanced to a secure position within the right ventricular apex. The lead was actively fixed. Thresholds were checked and deemed to be satisfactory. Adequate sensing was assured. There was no diaphragmatic stimulation with maximum output pacing. The tear-away introducer was then removed. After adequate slack was assured the ventricular lead was then secured within the device pocket using 0 silk suture and the designated cuff. The device pocket was then flushed with antibiotic solution. Next a single-chamber pulse generator was attached to the ventricular lead. The pulse generator and redundant lead were then [place] [address] CARDIAC CATH REPORT Name: ARCHEL ARECHIGA CIARAN Room: [address]#: [id number] Admission: 02/14/20 Attend Phys: Jayla Eid MD Discharge: Date of : 38 Report #: [id number] pocket. The deep tissues were closed using interrupted stitches of 2-0 Vicryl. The skin incision was then closed with a single subcuticular stitch of 4-0 Vicryl. Several Steri-Strips were then covered with a sterile dressing. The patient tolerated the procedure well without complication. Electrode Parameters R Wave: 12.0 mV Ventricular Threshold: 0.5 V at 0.40 ms Ventricular Resistance: 650 ohms Findings 1. Atrial fibrillation with slow ventricular response rate. 2. Successful placement of a single-chamber pacemaker with ventricular lead placement. Conclusion 1. Follow-up site check in one week. Two-week follow-up device interrogation one to 2 months. <ELECTRONICALLY SIGNED> By: Camden Narayanan MD, FACC 02/16/20 1643 164 [id number] Narayanan MD, FACC /INF
[2020-02-16 20:00] VITALS: BP 108/43
[2020-02-17] VITALS: BP 112/51
[2020-02-17 04:00] VITALS: BP 112/54
[2020-02-17 05:03] LABS: INR 2.4; PROTIME 23.4 Seconds (9.20-11.50)
[2020-02-17 08:55] VITALS: BP 102/52
[2020-02-17 16:30] VITALS: BP 102/52
--- NOTE | 2020-02-19 12:22 | EKG ---
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1940 Requested By: Camden Narayanan Order Number: [id number] Amos MD: Sriram Ramon Measurements Intervals [place] Rate: 60 P: [place]: QRS: -71 QRSD: 163 T: 87 QT: 512 QTc: 512 Interpretive Statements atrial fibrillation ventricular paced rhythm Baseline wander in lead(s) V5 Compared to ECG 07/20/2019 21:18:23 paced rhythm now noted Electronically Signed On 02-15-2020 9:13:27 CDT by Sriram Ramon [email or web address] <ELECTRONICALLY SIGNED> By: Sriram Ramon MD, [facility] 02/15/20 0913 0324 0324 Sriram Ramon MD, [facility] /EPI
== END 2020-02-17 16:33 | DRG 242 ==
LOC: M.2W 07:31
PROVIDERS: ADMIT Internal Medicine
PROC: 0JH604Z Insertion of Pacemaker, Single Chamber into Chest Subcutaneous Tissue and Fascia, Open Approach (ICD-10-PCS; principal; 2020-02-14)
PROC: B5161ZA Fluoroscopy of Right Subclavian Vein using Low Osmolar Contrast, Guidance (ICD-10-PCS; principal; 2020-02-14)
PROC: 02HK3JZ Insertion of Pacemaker Lead into Right Ventricle, Percutaneous Approach (ICD-10-PCS; 2020-02-14)
PROC: 5A1D70Z Performance of Urinary Filtration, Intermittent, Less than 6 Hours Per Day (ICD-10-PCS; 2020-02-16)
DX: R00.1 Bradycardia, unspecified (principal); N18.6 End stage renal disease; I13.2 Hypertensive heart and chronic kidney disease with heart failure and with stage 5 chronic kidney disease, or end stage renal disease; M97.02XA Periprosthetic fracture around internal prosthetic left hip joint, initial encounter; N25.81 Secondary hyperparathyroidism of renal origin; I50.22 Chronic systolic (congestive) heart failure; I48.20 Chronic atrial fibrillation, unspecified; I25.10 Atherosclerotic heart disease of native coronary artery without angina pectoris; E03.9 Hypothyroidism, unspecified; E78.5 Hyperlipidemia, unspecified; E11.22 Type 2 diabetes mellitus with diabetic chronic kidney disease; D63.1 Anemia in chronic kidney disease; G47.33 Obstructive sleep apnea (adult) (pediatric); Z96.642 Presence of left artificial hip joint; I70.201 Unspecified atherosclerosis of native arteries of extremities, right leg; I95.9 Hypotension, unspecified; N40.0 Benign prostatic hyperplasia without lower urinary tract symptoms; E11.51 Type 2 diabetes mellitus with diabetic peripheral angiopathy without gangrene; Z86.73 Personal history of transient ischemic attack (TIA), and cerebral infarction without residual deficits; Z95.1 Presence of aortocoronary bypass graft; Z90.49 Acquired absence of other specified parts of digestive tract; Z79.01 Long term (current) use of anticoagulants; Z79.899 Other long term (current) drug therapy; Z99.2 Dependence on renal dialysis; Z85.850 Personal history of malignant neoplasm of thyroid; Z85.46 Personal history of malignant neoplasm of prostate

== ENCOUNTER 2020-02-17 14:53 | Inpatient (IN) | payer OTHER, MEDICARE ==
[~2020-02-17] VITALS: Ht 188 cm; Wt 105.7 kg
[~2020-02-17 14:53] MED LIST changes: +EPOGEN2000 UNIT/ IVPUSH; -MELATONIN5 M1 PO
--- NOTE | 2020-02-17 18:43 | NUR ---
79YR OLD MALE PT ADMITTED TO ROOM 328 S/P LEFT PERIPROSTHETIC HIP FRACTURE AND S/P PACEMAKER PLACEMENT. ADMISSION HX AND ASSESSMENT COMPLETED. FALL PRECAUTIONS AND HOURLY ROUNDS IMPLEMENTED.
[2020-02-17 19:45] VITALS: BP 136/57
--- NOTE | 2020-02-18 01:03 | NUR ---
ASSUMED CARE @ 1941-02/16-SAT.AWAKE IN BED W/ HOB UP.WATCHING TV.STERI STRIPS IN PLACE OVER PACEMAKER INSERTION SITE RIGHT UPPER CHEST.BED ALARM ALREADY ON @ 1941.SHUNT LEFT UPPER ARM W/ GOOD BRUIT & good thrill.URINAL W/IN REACH. WANTS SINK LIGHT ON ALL NIGHT.ON HOURLY ROUNDS.
[2020-02-18 04:47] LABS: HEMATOCRIT 28.5 % (42.0-52.0); HEMOGLOBIN 9.7 gm/dL (14.0-18.0); MCH 32.8 pg (26.0-34.0); MCHC 34.1 g/dL (28.0-37.0); MPV 7.4 fl. (7.2-11.1); RBC 2.97 mil/uL (4.50-6.00); RDW-CV 16.1 % (10.5-14.5); WBC 10.1 thou/uL (4.0-11.0)
[2020-02-18 04:56] LABS: INR 2.1; PROTIME 21.4 Seconds (9.20-11.50)
[2020-02-18 04:58] LABS: CREATININE 5.3 mg/dL (0.6-1.3); POTASSIUM 4.5 mmol/L (3.5-5.1)
--- NOTE | 2020-02-18 05:40 | NUR ---
SLEEPING SINCE 2100 & 2200-BUT AWAKE MOST OF TIME DURING NIGHT @ 2300,0000, 0100,0200 & 0500.TOOK ALL SPRITE HS SNACK.USED URINAL X1.NURSE EMPTIES URINAL @ NIGHT.INC BM X1.CYNTHIA CARE X1.TURNED @ 0220 TO RIGHT SIDE W/ 2 PERSONS ASSIST.
[2020-02-18 08:00] VITALS: BP 112/63
--- NOTE | 2020-02-18 16:45 | NUR ---
ASSUMMED CARE OF PT AT 0730, PT ALERT, LUMBEE, WEARS HEARING AIDE, TRANSFERS WITH MAX ASSIST OF 2, GB, PT FATIGUED THIS PM AND UNABLE TO USE SLIDING BOARD, AND DID POORLY WITH A STAND PIVOT, TTWB MAINTAINED TO LEFT LEG, PT INCONTINENT OF LARGE AMOUNT OF LOOSE STOOL X 2 THIS SHIFT, PT STATES HE IS UNAWARE OF THE NEED TO HAVE A BM, SHUNT TO LEFT ARM, PT VOIDED X 1 PER URINAL, PT C/O PAIN IN ABDOMEN/LEFT HIP, MEDICATED PER ORDER FOR PAIN, PHYSICIAN INFORMED OF ABDOMINAL PAIN, ORDERS RECIEVED, PT TO DIALYSIS THIS PM, PARTICIPATED IN ALL THERAPIES, HOURLY ROUNDING COMPLETED, WILL CONTINUE TO MONITOR.
--- NOTE | 2020-02-18 17:05 | NUR ---
ReAssessment/initial assessment/inpt rehab: Pt lives at home with and son. Pt is current with [facility] Sat at [facility]. Pt has hx with HH and with SNF at [facility]. SW to continue to follow to assist with safe dc planning.
[2020-02-18 20:10] VITALS: BP 120/53
[2020-02-19 04:44] LABS: ALBUMIN 2.2 g/dL (3.4-5.0); CALCIUM 8.2 mg/dL (8.5-10.1); PHOSPHORUS* 2.6 mg/dL (2.5-4.9); POTASSIUM 4.4 mmol/L (3.5-5.1)
--- NOTE | 2020-02-19 05:53 | NUR ---
PT ALERT AND ORIENTED. MEDS GIVEN PER EMAR. PT SLEPT WELL THIS SHIFT. PT VOIDS VIA URINAL. Q2 TURN. LOOSE MODERATE BROWN BM NOTED THIS SHIFT. PT INCONTINENT OF BOWEL. PAIN MED GIVEN X1 THIS SHIFT PER PT'S REQUEST. CALL LIGHT WITHIN REACH. HOURLY ROUNDINGS MADE. WILL CONTINUE TO MONITOR.
[2020-02-19 08:00] VITALS: BP 128/55
--- NOTE | 2020-02-19 12:43 | NUR ---
Nutrition: Pt admitted to Rehab with Lt hip FX. Heart Healthy diet, eating well. H/o DM, HTN, ESRD on HD. Wt is near usual, 256#. Labs: BG 139-93, albumin 2.2, prealbumin 18.7, BUN 28, creatinine 4, GFR 15. No nutrition concerns at this time. Low to mild risk.
[2020-02-19 20:00] VITALS: BP 102/53
--- NOTE | 2020-02-20 05:28 | NUR ---
PATIENT SLEPT WELL DURING THIS SHIFT. PT TURNED Q2H PER PROTOCAL BUT REFUSED AT TIMES. PT VOIDS PER URINAL. PT IS INCONTINENT OF URINE; ONE LOOSE BOWEL MOVEMENT DURING THIS SHIFT. PT WITH REDNESS ON CYNTHIA AREA; BARRIER CREAM APPLIED. WILL CONTINUE TO MONITOR. PT TAKES PILLS WHOLE WITH WATER. PT DENIES NEEDS AT THIS TIME. FREQUENTLY USED ITEMS AND CALL LIGHT WITHIN REACH. SIDERAILS UPX4 PER PT REQUEST AND BED ALARM ON. WILL CONTINUE TO MONITOR.
[2020-02-20 05:50] LABS: INR 2.4; PROTIME 23.5 Seconds (9.20-11.50)
[2020-02-20 07:45] VITALS: BP 122/77
--- NOTE | 2020-02-20 18:17 | NUR ---
PATIENT HERE FOR HIP FX/REPLACEMENT. PATIENT HAD DIALYSIS TODAY. NO URINE OUTPUT TODAY, BUT 4-5 LOOSE BM TODAY. TURN Q2 DUE TO REDNESS ON BUTTOCKS. PATIENT INCONTINENT OF BOWEL. STATES HE CANNOT FEEL IT. CALM, COOPERATIVE. DR. GARCIA ORDERED WARFARIN AT 6MG DAILY INSTEAD OF 5MG. NEW HEP ANTIGEN ORDER FOR DIALYSIS DUE TO OLD ORDER EXPIRING. PATIENT HAS STERI STRIPS TO RIGHT UPPER CHEST WHERE PACEMAKER PLACED, DUE TO FISTULA BEING ON LEFT SIDE.
--- NOTE | 2020-02-20 19:49 | NUR ---
1809 - PATIENT BACK FROM DIALYSIS. 2.5L REMOVED. BP 115/63, HR 79, T- 97.7 R- 16. PATIENT TOLERATED WELL.
[2020-02-20 20:00] VITALS: BP 118/77
--- NOTE | 2020-02-21 06:58 | NUR ---
PATIENT SLEPT WELL DURING THIS SHIFT. PT USES CALL LIGHT APPROPRIATELY FOR ASSISTANCE ON BEDPAN FOR BOWEL MOVEMENT. PT BOTH CONTINENT AND INCONTINENT OF BOWELS. PT WITH BROWN LIQUID STOOOL. PT VOIDS YELLOW URINE PER URINAL. PT ABLE TO ASSIST WITH TURNS BY HOLDING ONTO SIDERAIL. PT DENIES PAIN. FREQUENTLY USED ITEMS AND CALL LIGHT WITHIN REACH. SIDERAILS UPX3 AND BED ALARM ON. WILL CONTINUE TO MONITOR.
[2020-02-21 09:00] VITALS: BP 115/62
--- NOTE | 2020-02-21 18:04 | NUR ---
ALERT AND ORIENTED X4. UP WITH 2 ASSIST, GAIT BELT AND SLIDE BOARD TO AHD FROM CHAIR. INCONTINENT OF LOOSE STOOL TODAY. VOIDING PER URINAL. BARRIER CREAM APPLIED TO JOSE BUTTOCK AREA. DIALYSIS DRESSING DRY AND INTACT. NO C/O PAIN. USES CALL LIGHT WITHIN REACH WHEN NEEDING ASSIST. FALL PRECAUTIONS IN PLACE. BED ALARM AND CHAIR ALARM USED. PACEMAKER SITE HAS STERI STRIPS IN PLACE WITH NO S/S OF INFECTION.
[2020-02-21 20:36] VITALS: BP 112/53
--- NOTE | 2020-02-22 01:01 | NUR ---
ASSUMED CARE @ 1906-02/20-SATURDAY.ON BEDPAN @ THIS TIME.BED ALARM AlreaDY on @ 1906.RN TURNED TV OFF @ 2199-SINCE PATIENT APPEARS SLEEPING.PATIENT GOT MAD @ RN.CLAIMS HE IS NOT SLEEPING YET,HE WANTS TV ON ALL NIGHT.RIGHT LEG APPEAR BIGGER THAN LEFT LEG-BUT NOT EDEMATOUS.URINAL W/IN REACH.ON HOURLY ROUNDS.
--- NOTE | 2020-02-22 06:42 | NUR ---
SLEEPING @ 2300 & SLEPT GOOD ALL NIGHT.LEFT UPPER ARM SHUNT W/ GOOD BRUIT & GOOD THRILL.REFUSED HS SNACK.USED BEDPAN X1 W/ SMALL BM.INC BM X3-SMALL X2 & MOD BM X1.CYNTHIA CARE X3.MOISTURE BARRIER CREAM APPLIED X2.USED URINAL X2.
[2020-02-22 07:25] VITALS: BP 134/73
[2020-02-22 09:43] LABS: INR 2.6; PROTIME 26.1 Seconds (9.20-11.50)
[2020-02-22 13:08] LABS: HEPATITIS B SURFACE AG Negative (Negative)
--- NOTE | 2020-02-22 16:57 | NUR ---
PATIENT INCONT OF LIQUID BM X 2 AND DID USE BEDPAN X 1. PATIENT VOIDED X 1 PER URINAL. CARDIOLOGY HERE THIS AFTERNOON TO CHECK ON PATIENTS PACEMAKER. PATIENT TURNED Q2. UP TO CHAIR WITH MAX ASSISTANCE. NO COMPLAINTS OF PAIN. PATIENT TO HAVE DIALYSIS TOMORROW.
[2020-02-22 19:46] VITALS: BP 114/59
--- NOTE | 2020-02-23 01:17 | NUR ---
ASSUMED CARE @ 1924-02/21-SATURDAY.AWAKE IN BED WATCHING TV.LEFT LE UP ON PILLOW @ THIS TIME.BED ALARM ALREADY ON @ 1924.LEFT UPPER SHUNT W/ GOOD BRUIT & GOOD THRILL @ 1949.LEFT LE BIGGER THAN RIGHT LE.NO EDEMA NOTED.URINAL W/IN REACH.ON HOURLY ROUNDS.
--- NOTE | 2020-02-23 05:45 | NUR ---
SLEEPING @ 2200 BUT AWAKE @ 2300 & 0000-02/22-TUES.SLEEPING AGAIN @ 0100 TO 0500.REFUSED HS SNACK.USED URINAL X1.NURSE EMPTIES URINAL @ NIGHT.AWAKENED @ 0500-TO CHECK IF INC.BM.INC BM X3-SMALL X2 & MOD X1.ALL STOOLS ARE LIQUID. CYNTHIA CARE X3.MOISTURE BARRIER CREAM APPLIED TO PINK COCCYX X3 AFTER CYNTHIA CARE.
[2020-02-23 08:00] VITALS: BP 126/81
--- NOTE | 2020-02-23 16:56 | NUR ---
ASSUMMED CARE OF PT AT 0730, PT ALERT AND ORIENTED, PT TRANSFERS WITH MAX ASSIST OF 2, GB AND SLIDING BOARD, GD THRILL ABD BRUIT TO SHUNT LUE, INCONTINENT OF LOOSE STOOL X 3, ABD X/R COMPLETED AND PHYSICIAN INFORMED, GI CONSULT PLACED, DENIES PAIN, TAKING FOOD AND FLUIDS WELL, BUTTOCKS PINK, BARRIER OINTMENT APPLIED, TO DIALYSIS AT 1400, PARTICIPATED IN ALL THERAPIES, HOURLY ROUNDING COMPLETED, ASSESSMENT COMPLETE, WILL CONTINUE TO MONITOR.
[2020-02-23 19:50] VITALS: BP 89/59
--- NOTE | 2020-02-24 01:16 | NUR ---
ASSUMED CARE @ 1914-02/22-.AWAKE IN BED JUST FINISHED EATING DINNER IN ROOM.HOB UP.LEFT LE UP ON PILLOW.LEFT UPPER ARM DRSG-INTACT.SHUNT-W/ GOOD BRUIT & GOOD THRILL.URINAL W/IN REACH.ON HOURLY ROUNDS.
--- NOTE | 2020-02-24 05:20 | NUR ---
SLEEPING SINCE 2099 & 2199 & THEN LATE @ 0120.REFUSED HS SNACK.BP @ 1949- -.WILL RE-CHECK BP AGAIN.
[2020-02-24 06:00] VITALS: BP 112/59
[2020-02-24 06:36] LABS: HEMATOCRIT 26.4 % (42.0-52.0); HEMOGLOBIN 8.9 gm/dL (14.0-18.0); MCHC 33.8 g/dL (28.0-37.0); MCV 94.6 fL (80.0-100.0); MPV 6.6 fl. (7.2-11.1); RBC 2.79 mil/uL (4.50-6.00); RDW-CV 15.7 % (10.5-14.5); WBC 7.3 thou/uL (4.0-11.0)
[2020-02-24 06:46] LABS: PROTIME 29.7 Seconds (9.20-11.50)
[2020-02-24 06:58] LABS: CALCIUM 7.5 mg/dL (8.5-10.1); POTASSIUM 3.9 mmol/L (3.5-5.1)
--- NOTE | 2020-02-24 07:14 | NUR ---
BP RE-CHECKED @ 0600-112/59.INC BM X2-SMALL & SMEAR.CYNTHIA CARE X2.MOISTURE BARRIER CREAM APPLIED X2.
[2020-02-24 08:00] VITALS: BP 128/70
--- NOTE | 2020-02-24 17:34 | NUR ---
SW called pt to review team conference summary and plan for reteam to reasses length of stay during team conference next Saturday. Pt okay with plan. Pt expressed barriers to dc home if pt unable to ambulate because the wc will not fit in pt bedroom. Also, pt concerned with pt ability to transfer into truck from wc ramp for transport to and from dialysis. SW to continue to follow to assist with safe dc planning.
--- NOTE | 2020-02-24 17:36 | NUR ---
ASSUMMED CARE OF PT AT 0730, PT ALERT AND ORIENTED, TRANSFERS WITH ASSIST OF 2, GB WALKER, REPOSTIONED EVERY 2 HOURS, TAKING FOOD AND FLUIDS WELL, PT C/O SLIGHT HIP PAIN, DENIED NEED FOR PAIN MEDICATION, 50% WEIGHT BEARING MAINTAINED, PT HAD 2 LARGE HARD FORMED BM THIS SHIFT AFTER MAG CITRATE GIVEN, DIALYSIS SHUNT IN [facility] HAS GD BRUIT/THRILL, NO VOID THIS SHIFT, PARTICIPATED IN ALL THERAPIES, HOURLY ROUNDING COMPLETED, ASSESSMENT COMPLETE, WILL CONTINUE TO MONITOR.
[2020-02-24 20:05] VITALS: BP 94/47
--- NOTE | 2020-02-25 04:32 | NUR ---
ASSUMED CARE OF PT 02/24/20 AT APPROX 1930. PT A&OX4, VSS, 50% NWB TO LLE MAINTAINED, PT TURNED Q2H EXCEPT WHEN REFUSED. HOURLY ROUNDINGS COMPLETE. WILL CONTINUE TO MONITOR.
[2020-02-25 05:39] LABS: HEMATOCRIT 26.5 % (42.0-52.0); HEMOGLOBIN 8.9 gm/dL (14.0-18.0); MCH 32.2 pg (26.0-34.0); MCHC 33.7 g/dL (28.0-37.0); MCV 95.5 fL (80.0-100.0); RBC 2.77 mil/uL (4.50-6.00); RDW-CV 15.8 % (10.5-14.5); WBC 7.8 thou/uL (4.0-11.0)
[2020-02-25 05:44] LABS: CALCIUM 7.9 mg/dL (8.5-10.1); POTASSIUM 4.8 mmol/L (3.5-5.1)
[2020-02-25 05:45] LABS: CREATININE 5.1 mg/dL (0.6-1.3)
[2020-02-25 08:10] VITALS: BP 111/52
--- NOTE | 2020-02-25 18:28 | NUR ---
PATIENT RESTING IN BED. PATIENT DENIES ANY PAIN. PATIENT WORKED WITH THERAPIES. PATIENT IS UP WITH MIN-MOD ASSIST WITH WALKER AND GAIT BELT WITH 50% WB TO LLE. PATIENT HAD DIALYSIS THIS EVENING WITHOUT INCIDENT. PATIENT DENIES ANY NEEDS AT THIS TIME. CALL LIGHT WITHIN REACH.
[2020-02-25 20:23] VITALS: BP 102/56
[2020-02-26 04:57] LABS: HEMATOCRIT 27.6 % (42.0-52.0); HEMOGLOBIN 9.4 gm/dL (14.0-18.0); MCH 32.1 pg (26.0-34.0); MCV 94.5 fL (80.0-100.0); MPV 7.2 fl. (7.2-11.1); RBC 2.92 mil/uL (4.50-6.00); RDW-CV 15.7 % (10.5-14.5); WBC 7.7 thou/uL (4.0-11.0)
[2020-02-26 05:14] LABS: PROTIME 29.6 Seconds (9.20-11.50)
[2020-02-26 05:16] LABS: CALCIUM 7.5 mg/dL (8.5-10.1); MAGNESIUM 2.3 mg/dL (1.8-2.4); POTASSIUM 4.6 mmol/L (3.5-5.1)
[2020-02-26 05:17] LABS: CREATININE 3.5 mg/dL (0.6-1.3)
--- NOTE | 2020-02-26 05:58 | NUR ---
PATIENT SLEPT WELL DURING THIS SHIFT. PT CALLS FOR ASSISTANCE PRIOR TO GETTING OUT OF BED. PT HAD BOWEL MOVEMENT ON COMMODE. PT VOIDS YELLOW URINE PER URINAL. PT WITH LT DIALYSIS CATH IN LT UPPER ARM; GAUZE IS C/D/I. PT DENIES PAIN/NAUSEA. FREQUENTLY USED ITEMS AND CALL LIGHT WITHIN REACH. SIDERAILS UPX2 AND BED ALARM ON. WILL CONTINUE TO MONITOR.
[2020-02-26 07:41] VITALS: BP 133/66
--- NOTE | 2020-02-26 10:43 | CON ---
[address] [address] CONSULTATION Name: RACHEL ARECHIGA Room: [address] IN M.R.#: [id number] Admission: 02/17/20 Attend Phys: Yaya Falk MD Discharge: Date of : 38 Report #: [id number] THIS REPORT FOR: //name// cc: Candelario Palacios John E. DO ~ THIS REPORT FOR: //name// CC: Candelario Falk DATE OF SERVICE: 02/24/2020 HISTORY OF PRESENT ILLNESS: This is a pleasant 79-year-old gentleman, who presented with a fall. The GI service has been consulted for evaluation of his constipation. The patient reports having to use a laxative every day. He uses MiraLax, which appears to give him regular bowel movements. He denies any abdominal pain, nausea, vomiting, diarrhea, hematemesis, hematochezia. The patient was given a bottle of magnesium citrate, which resulted in a large bowel movement about an hour back. PAST MEDICAL HISTORY: End-stage renal disease, atrial fibrillation, chronic diastolic heart failure, acquired hypothyroidism. PAST SURGICAL HISTORY: Thyroidectomy for thyroid carcinoma. SOCIAL HISTORY: The patient denies smoking, alcohol, or recreational drug use. FAMILY HISTORY: Not relevant. REVIEW OF SYSTEMS: Comprehensive 10-point review of systems reveals weakness in both legs and left hip pain. The review of systems is otherwise negative except for what was mentioned in the HPI. LABORATORY DATA: Hemoglobin 8.9, hematocrit 26.4, platelet count is 264, WBC count 7.3. Sodium 136, potassium 3.9, chloride 100, bicarb 20, BUN 9, creatinine 4. INR 3.0. ASSESSMENT AND PLAN: A pleasant 79-year-old gentleman with medical history as outlined above, presenting for evaluation of chronic constipation. I would resume his MiraLax in addition to Dulcolax he is getting at this time. We can add mag citrate on an as-needed basis if he does not have a bowel movement for 2 [place] [address] CONSULTATION Name: RACHEL ARECHIGA Room: [address] [place] [facility]#: [id number] Admission: 02/17/20 Attend Phys: Yaya Falk MD Discharge: Date of : 38 Report #: [id number] Thank you for this consultation. <ELECTRONICALLY SIGNED> By: Massimo Simmons MD 02/26/20 1043 [id number] Simmons MD /nt
--- NOTE | 2020-02-26 16:23 | NUR ---
PATIENT RESTING UP IN CHAIR. PATIENT IS UP WITH MIN/MOD ASSIST WITH GAIT BELT AND WALKER FOR TRANSFERS. PATIENT HAD LARGE BOWEL MOVEMENT THIS AFTERNOON ON THE COMMODE. PATIENT WORKED WITH THERAPIES AND HAD SHOWER TODAY. PATIENT HAS GOOD APPETITE. PATIENT DENIES ANY PAIN. PATIENT DENIES ANY FURTHER NEEDS AT THIS TIME. CALL LIGHT WITHIN REACH.
[2020-02-26 20:27] VITALS: BP 106/53
--- NOTE | 2020-02-27 06:54 | NUR ---
PATIENT SLEPT WELL DURING THIS SHIFT. PT VOIDS YELLOW URINE PER URINAL. PT WITH DIALYSIS CATH IN LT UPPER ARM; DSG C/D/I. PT ASSISTED WITH TURNS. PT DENIES PAIN DURING THIS SHIFT. FREQUENTLY USED ITEMS AND CALL LIGHT WITHIN REACH. SIDERAILS UPX4 AND BED ALARM ON. WILL CONTINUE TO MONITOR.
[2020-02-27 09:12] LABS: HEMATOCRIT 29.9 % (42.0-52.0); HEMOGLOBIN 9.9 gm/dL (14.0-18.0); MCH 31.8 pg (26.0-34.0); MCV 96.5 fL (80.0-100.0); MPV 6.6 fl. (7.2-11.1); RBC 3.1 mil/uL (4.50-6.00); RDW-CV 15.9 % (10.5-14.5); WBC 7.4 thou/uL (4.0-11.0)
[2020-02-27 09:23] LABS: ALBUMIN 2.5 g/dL (3.4-5.0); CALCIUM 8.1 mg/dL (8.5-10.1); POTASSIUM 5.4 mmol/L (3.5-5.1)
[2020-02-27 09:24] LABS: PROTIME 29.5 Seconds (9.20-11.50)
[2020-02-27 09:26] VITALS: BP 135/70
[2020-02-27 09:33] LABS: CREATININE 5.1 mg/dL (0.6-1.3)
--- NOTE | 2020-02-27 16:38 | NUR ---
ASSUMMED CARE OF PT AT 0730, PT ALERT AND ORINETED, PT TRANSFERS WITH MOD/MAX ASSIST GB WALKER, TKING FOOD AND FLUIDS WELL, DENIED NEED FOR PAIN MEDICATION THIS SHIFT, GD BRUIT/THRILL TO [facility] FISTULA, UP IN CHAIR MOST OF AM, 50% WEIGHT BEAR MAINTAINED TO LEFT LEG. PARTICIPATED IN ALL THERAPIES, NO VOID THIS SHIFT, TO DIALYSIS AT 1400, ASSESSMENT COMPLETE, HOURLY ROUNDING COMPLETE, WILL CONTINUE TO MONITOR.
--- NOTE | 2020-02-27 19:50 | NUR ---
SITTING UP IN BED. JUST FINISHED EATING DINNER DUE TO HAVING DIALYSIS. GAUZE OVER RIGHT UPPER ARM SHUNT DRY/INTACT. DENIES DISCOMFORT. CALL LIGHT WITHIN REACH.
[2020-02-27 20:09] VITALS: BP 98/48
--- NOTE | 2020-02-28 05:09 | NUR ---
RESTED QUIETLY. VOIDED PER URINAL X ONE DURING THE NIGHT. HOURLY ROUNDING IN PROGRESS.
[2020-02-28 07:01] LABS: HEMATOCRIT 30.3 % (42.0-52.0); HEMOGLOBIN 10.1 gm/dL (14.0-18.0); MCH 31.9 pg (26.0-34.0); MCHC 33.3 g/dL (28.0-37.0); MCV 95.8 fL (80.0-100.0); MPV 7.5 fl. (7.2-11.1); RBC 3.16 mil/uL (4.50-6.00); RDW-CV 15.8 % (10.5-14.5); WBC 7.8 thou/uL (4.0-11.0)
[2020-02-28 07:16] LABS: ALBUMIN 2.6 g/dL (3.4-5.0); POTASSIUM 4.7 mmol/L (3.5-5.1)
[2020-02-28 07:17] LABS: CREATININE 3.4 mg/dL (0.6-1.3)
[2020-02-28 08:00] VITALS: BP 120/63
[2020-02-28 08:28] VITALS: BP 120/63
[2020-02-28 19:15] VITALS: BP 116/55
--- NOTE | 2020-02-28 19:30 | NUR ---
IN SEMI-FOWLERS IN BED WATCHING TV. IN GOOD SPIRITS. DENIES DISCOMFORT. CALL LIGHT WITHIN REACH.
--- NOTE | 2020-02-29 05:25 | NUR ---
RESTED QUIETLY BETWEEN ABOUT MIDNIGHT AND 0500. USED URINAL X TWO. HOURLY ROUNDING IN PROGRESS.
[2020-02-29 07:04] LABS: HEMATOCRIT 31.2 % (42.0-52.0); HEMOGLOBIN 10.3 gm/dL (14.0-18.0); MCHC 33.1 g/dL (28.0-37.0); MCV 96.6 fL (80.0-100.0); MPV 7.2 fl. (7.2-11.1); RBC 3.23 mil/uL (4.50-6.00); RDW-CV 16.5 % (10.5-14.5); WBC 7.5 thou/uL (4.0-11.0)
[2020-02-29 07:14] LABS: ALBUMIN 2.5 g/dL (3.4-5.0); CALCIUM 8.1 mg/dL (8.5-10.1); POTASSIUM 4.7 mmol/L (3.5-5.1)
[2020-02-29 07:15] LABS: CREATININE 4.9 mg/dL (0.6-1.3)
[2020-02-29 07:52] VITALS: BP 128/67
--- NOTE | 2020-02-29 09:00 | NUR ---
JESU VAUGHN FROM [facility] CALLED TO PROVIDE CONTACT INFO TO ASSIST WHEN PT DC FROM THIS UNIT. JESU [phone] EXT: [phone]
--- NOTE | 2020-02-29 17:23 | NUR ---
PT A&OX3 VSS. DIALYSIS ACCESS TO [facility]. PT DENIES PAIN AT THIS TIME. PT INCONTINENT AT TIMES. PT UP TO CHAIR FOR MEALS AND THERAPY. URINAL AT BEDSIDE, PT IN BRIEF PER HIS REQUEST. PT UP W/GAIT BELT AND ASSIST X1 W/WALKER. PT REMAINS 50% WB TO LLE. PT ON ROOM AIR, NO VISIBLE DISTRESS NOTED. PT [place], PHONE IS AMPLIFIED FOR HIS USE. PT RESTS IN ROOM WITH CALL LIGHT IN REACH. PT TAKES MEDICATIONS WHOLE WITH WATER. NO DIFFICULTY SWALLOWING. WILL CONTIUE TO MONITOR
[2020-02-29 20:10] VITALS: BP 124/62; BP 124/63
--- NOTE | 2020-02-29 20:30 | NUR ---
RESTING QUIETLY IN BED WATCHING TV. TOOK MEDICATIONS WHOLE WITH WATER. ASSISTED TO BEDSIDE COMMODE WITH MODERATE ASSIST OF ONE, GAITBELT, WALKER. HAD A MODERATE BROWN AND GREEN BM. CYNTHIA CARE GIVEN. 50% WEIGHT BEARING TO LEFT LOWER EXTREMITY DURING TRANSFER. HAS LEFT HIP FRACTURE. NO SURGERY WAS DONE. EXTREMLY HARD OF HEARING. HAVE TO SPEAK VERY LOUDLY AND REPEAT OFTEN. CALL LIGHT AND URINAL WITHIN REACH. DENIES PAIN.
--- NOTE | 2020-03-01 05:11 | NUR ---
RESTED QUIETLY. HOURLY ROUNDING IN PROGRESS.
[2020-03-01 06:46] LABS: HEMATOCRIT 30.6 % (42.0-52.0); HEMOGLOBIN 10.1 gm/dL (14.0-18.0)
[2020-03-01 07:04] LABS: ALBUMIN 2.6 g/dL (3.4-5.0); CALCIUM 8.3 mg/dL (8.5-10.1); PHOSPHORUS* 2.3 mg/dL (2.5-4.9); POTASSIUM 5.1 mmol/L (3.5-5.1)
[2020-03-01 07:06] LABS: CREATININE 6.1 mg/dL (0.6-1.3)
[2020-03-01 07:55] VITALS: BP 120/68
--- NOTE | 2020-03-01 17:11 | NUR ---
PT A&OX4 VSS. MOD/LG BM REPORTED ON NOC SHIFT. PT DIALYSIS THIS AFTERNOON, LEAVING UNIT APPROX 1330. PT UP ASSIST X1 W/GAIT BELT AND WALKER. PT ON ROOM AIR. PT DENIES PAIN AT THIS TIME. PT TAKES PILLS WHOLE WITH WATER, NO DIFFICULTY SWALLOWING. PT REMAINS 50% WB TO LLE R/T HIP FX. PT UP TO CHAIR FOR MEALS THIS SHIFT. PT IN DIALYSIS AT THIS TIME. WILL CONTINUE TO MONITOR.
[2020-03-01 19:50] VITALS: BP 75/41
[2020-03-01 22:52] VITALS: BP 103/49
--- NOTE | 2020-03-02 02:20 | NUR ---
ASSUMED CASRE @ 1937-03/01-TYUES.AWAKE IN BED ON PHONE W/.HOB UP.BED ALARM PUT ON @ 1937.50% WB OBSERVED LEFT LE DURING TRANSFER BED TO BSC W/ 1-2 PERSON ASSIST & BACK TO BED.BP RT ARM @ 1950-75/41.ASYMPYOMATIC.BP RE-CHECKED @ 2252- 103/49.URINAL W/IN REACH.ON HOURLY ROUNDS.SUPERVISOR PRE WAVE DOING ODD HOUR ROUNDS.
--- NOTE | 2020-03-02 05:32 | NUR ---
SLEPT LATE @ 0000- & SLEEPING GOOD ALL NIGHT.REFUSED HS SNACK.USED BSC X1 FOR VOIDING DURING NIGHT W/ ASSIST.
[2020-03-02 06:44] LABS: HEMATOCRIT 31.3 % (42.0-52.0); HEMOGLOBIN 10.4 gm/dL (14.0-18.0); MCH 32.3 pg (26.0-34.0); MCHC 33.2 g/dL (28.0-37.0); MCV 97.2 fL (80.0-100.0); MPV 7.1 fl. (7.2-11.1); RBC 3.22 mil/uL (4.50-6.00); RDW-CV 16.4 % (10.5-14.5); WBC 8.3 thou/uL (4.0-11.0)
[2020-03-02 06:52] LABS: CALCIUM 8.1 mg/dL (8.5-10.1); MAGNESIUM 2.4 mg/dL (1.8-2.4); POTASSIUM 4.4 mmol/L (3.5-5.1)
[2020-03-02 06:53] LABS: CREATININE 4.4 mg/dL (0.6-1.3)
[2020-03-02 06:54] LABS: INR 2.4; PROTIME 23.9 Seconds (9.20-11.50)
[2020-03-02 08:00] VITALS: BP 107/62
--- NOTE | 2020-03-02 16:56 | NUR ---
AM ASSESSMENT AND VITAL SIGNS COMPLETED DOCUMENTED. PT WORKED WITH ALL THERAPIES, TOLERATED WELL. PT IS A MOD ASSIST WITH TRANSFERS AND MAINTAINS 50% WT BEARING RESTRICTION ON HIS LEFT LEG. PRN PAIN MEDICATION GIVEN ONCE WITH GOOD RESULTS. FALL PRECAUTIONS AND HOURLY ROUNDING CONTINUE.
--- NOTE | 2020-03-02 20:00 | NUR ---
RESTING QUIELTY IN BED AND WATCHING TV. ASSISTED PATIENT WITH GETTING UNDER THE COVERS AND CHANGING INTO A GOWN. DENIES PAIN. CALL LIGHT AND URINAL WITHIN REACH. TOOK MEDICATIONS WHOLE WITH WATER.
[2020-03-02 20:14] VITALS: BP 93/46
--- NOTE | 2020-03-03 05:25 | NUR ---
VOIDED PER URINAL DURING THE NIGHT. NO COMPLAINTS VOICED. HOURLY ROUNDING IN PROGRESS.
[2020-03-03 07:21] VITALS: BP 110/61
[2020-03-03 08:35] LABS: HEMATOCRIT 30.8 % (42.0-52.0); HEMOGLOBIN 10.4 gm/dL (14.0-18.0); MCH 32.8 pg (26.0-34.0); MCHC 33.7 g/dL (28.0-37.0); MCV 97.3 fL (80.0-100.0); MPV 7.8 fl. (7.2-11.1); RBC 3.16 mil/uL (4.50-6.00); WBC 8.9 thou/uL (4.0-11.0)
[2020-03-03 09:03] LABS: ALBUMIN 2.7 g/dL (3.4-5.0); CALCIUM 8.3 mg/dL (8.5-10.1); CREATININE 5.7 mg/dL (0.6-1.3); PHOSPHORUS* 2.9 mg/dL (2.5-4.9)
--- NOTE | 2020-03-03 13:39 | NUR ---
SW called pt and reviewed team conference summary and plan for reteam next Saturday. Pt and pt in agreement with plan. Pt said that she spoke with pt who seemed in "better spirits" and feels that he doesn't hurt quite as much so that he is able to participate more in therapies to make more progress. Pt may need FT prior to dc and DME and HH through [facility] due to pt [employer] insurance. SW to continue to follow to assist with safe dc planning.
--- NOTE | 2020-03-03 16:41 | NUR ---
ASSUMMED CARE OF PT AT 0730, PT ALERT AND ORIENTED, PT TRANSFERS WITH MOD ASSIST OF 1 GB WALKER, TAKING FOOD AND FLUIDS WELL, C/O PAIN IN LEFT LEG, MEDICATED PER ORDER PRIOR TO THERAPY, 50% WEIGHT BEAR MAINTAINED, SHUNT CHRIS HAS GD BRUIT AND THRILL, PT HAVING DIALYSIS IN ROOM THIS PM, BARRIER OINTMENT APPLIED TO SACRAL AREA, PARTICIPATED IN ALL THERAPIES, HOURLY ROUNDING COMPLETED, ASSESSMENT COMPLETE, WILL CONTINUE TO MONITOR.
[2020-03-03 20:33] VITALS: BP 98/47
[2020-03-04 05:13] LABS: INR 2.3; PROTIME 23.1 Seconds (9.20-11.50)
--- NOTE | 2020-03-04 05:15 | NUR ---
PT A&O, ON RA. MEDS GIVEN ORDERED. PT UP WITH 1 TO BSC. PARTIAL WEIGHT BEARING MAINTAINED. PT SLEEPING/RESTING THROUGH THE NIGHT. WILL CONTINUE TO MONITOR.
[2020-03-04 07:57] VITALS: BP 97/56
--- NOTE | 2020-03-04 17:16 | NUR ---
ASSUMMED CARE OF PT AT 0730, PT ALERT AND OREINTED, PT TRANSFERS WITH ASSIST OF 1, GB WALKER, LEFT LEG SWOLLEN, ELEVATED, PT C/O PAIN IN LEFT LEG, MEDICATED PER ORDER, TAKING FOOD AND FLUIDS WELL, NO VOID THIS SHIFT, GD BRUIT/THRILL IN LEFT UPPER ARM ACCESS, PARTICIPATED IN ALL THERAPIES, HOURLY ROUDNING COMPLETED, ASSESSMENT COMPLETE, WILL CONTINUE TO MONITOR.
[2020-03-04 20:23] VITALS: BP 116/62
[2020-03-05 04:28] LABS: HEMATOCRIT 30.8 % (42.0-52.0); HEMOGLOBIN 10.3 gm/dL (14.0-18.0)
[2020-03-05 04:53] LABS: ALBUMIN 2.7 g/dL (3.4-5.0); CALCIUM 8.3 mg/dL (8.5-10.1); CREATININE 5.5 mg/dL (0.6-1.3); PHOSPHORUS* 2.8 mg/dL (2.5-4.9)
--- NOTE | 2020-03-05 05:14 | NUR ---
PATIENT SLEPT WELL DURING THIS SHIFT. PT REFUSED MOST TURNS DURING THIS SHIFT BUT WAS ABLE TO ASSIST WITH SOME. PT VOIDS YELLOW URINE PER URINAL. PT DENIES PAIN. FREQUENTLY USED ITEMS AND CALL LIGHT WITHIN REACH. SIDERAILS UPX4 AND BED ALARM ON. WILL CONTINUE TO MONITOR.
[2020-03-05 08:00] VITALS: BP 110/62
--- NOTE | 2020-03-05 17:05 | NUR ---
ALERT AND ORIENTED X4. UP WITH 1 ASSIST, GAIT BELT AND WALKER. DENIES NEED FOR PAIN MEDICATION. HAS FISTULA LEFT UPPER EXTREMITIES. RECEIVING DIALYSIS AT THIS TIME. REMAINS 50% WEIGHTBEARING TO LEFT LEG. USES CALL LIGHT WITHIN REACH. FALL PRECAUTIONS IN PLACE. BED ALARM AND CHAIR ALARM USED.
--- NOTE | 2020-03-05 18:53 | NUR ---
PATIENT RETURNED FROM DIALYSIS. NO C/O AT THIS TIME. DRESSING DRY AND INTACT OVER FISTULA SITE.
[2020-03-05 18:54] VITALS: BP 115/61
[2020-03-05 20:30] VITALS: BP 97/48
[2020-03-06 00:30] VITALS: BP 125/67
--- NOTE | 2020-03-06 00:51 | NUR ---
ASSUMED CARE @ 1954-03/05-SAT.APPEARS SLEEPING IN BED.HOB UP.LEFT LE UP ON A PILLOW ALREADY @ 1954.BED ALARM PUT ON @ 1954.LAST BM-02/28-SATURDAY.DUL SUP GIVEN RECTALLY @ 2153 & KEPT ON HIS LEFT SIDE.NO STOOLS FELT ON RECTAL EXAM WHEN SUP INSERTED.50 % WB LEFT LE OBSERVED DURING TRANSFER FROM BED TO BSC & BACK.BP @ 2029-97/48.BP RE-CHECKED @ -SUN-125/.ON HOURLY ROUNDS. EDUCATIONAL PROGRAM ASSISTANT DOING ODD HOUR ROUNDS.
[2020-03-06 05:22] LABS: INR 2.3; PROTIME 22.7 Seconds (9.20-11.50)
--- NOTE | 2020-03-06 05:51 | NUR ---
C/O PAIN ON RECTAL AREA @ 023.CHECKED RECTAL AREA.HARD STOOLS PLUGGED ON RECTAL AREA.DISIMPACTED 5 PIECES HARD STOOLS @ 0230.CYNTHIA CARE GIVEN.MOISTURE BARRIER CREAM APPLIED @ 229.USED URINAL X1.USED BSC X1 BUT NO BM.SLEEPING @ 1954.BUT AWAKE SINCE [phone].WENT BACK TO SLEEP @ 299.
[2020-03-06 09:00] VITALS: BP 102/57
--- NOTE | 2020-03-06 17:50 | NUR ---
ALERT AND ORIENTED X4. UP WITH 1 ASSIST, GAIT BELT AND WALKER. DENIED NEED FOR PAIN MEDICATION. CONTINENT OF BOWEL AND BLADDER. HAS FISTULA IN LEFT UPPER ARM FOR DIALYSIS. REMAINS 50% WEIGHTBEARING TO LEFT LOWER EXTREMITY. USES CALL LIGHT WHEN NEEDING ASSIST. FALL PRECAUTIONS IN PLACE. BED ALARM AND CHAIR ALARM USED.
[2020-03-06 19:22] VITALS: BP 127/53
--- NOTE | 2020-03-07 01:47 | NUR ---
ASSUMED CARE @ -SUN.AWAKE IN BED WATCHING TV.LEFT LE UP ON PILLOW.BED ALARM ALREADY ON @ 1917.REFUSED TO BE CHECKED @ 2199 IF INC STOOLS.CLAIMS HE IS NOT INC.STOOLS @ 2199.ON HOURLY ROUNDS.
--- NOTE | 2020-03-07 06:53 | NUR ---
sleeping SINCE 0000-03/07-SATURDAY.SLEPT GOOD UNTIL 0600 WHEN AWAKENED FOR 0600 MED.REFUSED HS SNACK.INC LIQUID STOOLS-SMALL X2.CYNTHIA CARE DONE X2.MOISTURE BARRIER CREAM APPLIED TO PINK BUTTOCKS X1 AFTER CYNTHIA CARE.NO VOID FOR PUBLIC ADDRESS SYSTEM INSTALLER.NO RECTAL BLEEDING NOTED.
--- NOTE | 2020-03-07 07:33 | NUR ---
HAS ANOTHER URGE FOR BM.ENCOURAGED TO SIT IN BSC @ 1240.USED URINAL X1. HAD EXTRA LARGE,FORMED STOOLS.CYNTHIA CARE GIVEN.50%WB OBSERVED DURING TRANSFERS.
[2020-03-07 08:56] VITALS: BP 111/63
--- NOTE | 2020-03-07 18:40 | NUR ---
ALERT AND ORIENTED X4. UP WITH 1-2 ASSIST, GAIT BELT AND WALKER. FISTULA LEFT UPPER EXTREMITY HAS BRUITT AND THRILL. NO C/O PAIN. REMAINS 50% WEIGHTBEARING TO LEFT LEG. USES CALL LIGHT WHEN NEEDING ASSIST. CONTINENT OF BOWEL AND BLADDER. FALL PRECAUTIONS IN PLACE. BED ALARM AND CHAIR ALARM USED.
[2020-03-07 19:15] VITALS: BP 125/56
[2020-03-08 06:18] LABS: HEMATOCRIT 31.1 % (42.0-52.0); HEMOGLOBIN 10.5 gm/dL (14.0-18.0)
--- NOTE | 2020-03-08 06:20 | NUR ---
PATIENT HAS SLEPT WELL THROUGHOUT THE NIGHT. VSS ON RA. MEDICATIONS GIVEN ORDERED AND CHARTED. ASSESSMENT CHARTED. PATIENT USING URINAL DURING THE NIGHT. NO C/O PAIN. DIALYSIS CATHETER TO LEFT UPPER ARM HAS GOOD THRILL AND BRUIT. FALL PRECAUTIONS IN PLACE AND HOURLY ROUNDS MADE. WILL CONTINUE WITH PLAN OF CARE AND THERAPIES. NURSING TO CONTINUE MONITORING.
[2020-03-08 06:34] LABS: INR 2.3; PROTIME 23.3 Seconds (9.20-11.50)
[2020-03-08 06:36] LABS: ALBUMIN 2.8 g/dL (3.4-5.0); CALCIUM 8.3 mg/dL (8.5-10.1); CREATININE 6.6 mg/dL (0.6-1.3); PHOSPHORUS* 3.1 mg/dL (2.5-4.9); POTASSIUM 4.8 mmol/L (3.5-5.1)
[2020-03-08 08:00] VITALS: BP 112/58
--- NOTE | 2020-03-08 16:22 | NUR ---
ASSUMMED CARE OF PT AT 0730, PT ALERT AND ORIENTED, TRANSFERS WITH ASSIST OF 1 GB WALKER, C/O PAIN IN LEFT HIP, MEDICATED PRIOR TO THERAPY, 50% WT BEAR MAINTAINED TO LEFT LEG, SWELLING IN LEFT LEG, ELEVATED WHEN IN BED, DIALYSIS SHUNT IN LEFT UPPER EXTREMITY HAS GD BRUIT AND THRILL, BARRIER CREAM APPLIED TO BUTTOCKS, DIALYSIS THIS PM, TAKING FOOD AND FLUIDS WELL, PARTICIPATED IN ALL THERAPIES, HOURLY ROUNDING COMPLETED, ASSESSMENT COMPLETE, WILL CONTINUE TO MONITOR.
[2020-03-08 17:30] VITALS: BP 104/67
[2020-03-08 19:15] VITALS: BP 108/53
--- NOTE | 2020-03-09 07:20 | NUR ---
PATIENT HAS SLEPT WELL THROUGHOUT THE NIGHT. VSS ON RA. PAIN WELL CONTROLLED. MEDICATIONS GIVEN ORDERED AND CHARTED. PATIENT UP WITH ASSIST X 1 TO THE BSC. PATIENT HAD VERY LARGE VELASQUEZ BOWEL MOVEMENT THIS AM. PATIENT USES BEDSIDE URINAL. DIALYSIS CATHETER TO LEFT UPPER ARM-GOOD THRILL AND BRUIT NOTED. FALL PRECAUTIONS IN PLACE AND HOURLY ROUNDS MADE. WILL CONTINUE WITH PLAN OF CARE, THERAPIES AND NURSING TO MONITOR.
[2020-03-09 08:00] VITALS: BP 99/61
[2020-03-09 09:35] VITALS: BP 99/61
--- NOTE | 2020-03-09 16:43 | NUR ---
Team conference held today. Plan for pt to return home with pt and pt son on Wednesday 03/14 with family training on Sunday 03/11. SW called pt who did not answer so SW left a detailed message requesting a call back to schedule family training and discuss dc planning in more detail. SW to continue to follow to assist with safe dc planning. Dialysis, DME, HH.
[2020-03-09 19:00] VITALS: BP 102/55
--- NOTE | 2020-03-10 02:36 | NUR ---
assumed care @ 1943-03/09-SAT.AWAKE IN BED WATCHING TV.BED ALARM PUT ON @ 1943.LEFT LE UP ON A PILLOW.PULL UPS OFF @ NIGHT.UP TO BSC W/ 1 PERSON @ 2013. 50 % WB OBSERVED LEFT LE DURING TRANSFERS.USED URINAL WHILE IN BSC.HAD LARGE BM.MOISTURE BARRIER CREAM APPLIED TO PINK BUTTOCKS @ 2029 AFTER CYNTHIA CARE.ON HOURLY ROUNDS.NEGATIVE TURNER APPRENTICE DOING ODD HOUR ROUNDS.
--- NOTE | 2020-03-10 05:20 | NUR ---
SLEEPING @ 2200 & SLEPT GOOD ALL NIGHT.USED URINAL X2.USED BSC X1 W/ ASSIST @ 2014-FOR LARGE BM.REFUSED HS SNACK.
[2020-03-10 08:00] VITALS: BP 111/61
--- NOTE | 2020-03-10 18:10 | NUR ---
AM ASSESSMENT AND VITAL SIGNS COMPLETED DOCUMENTED. PT IS VERY COOPERATIVE AND PLEASANT, PARTICIPATES WELL DURING THERAPIES. PT IS MIN ASSIST TO SUPERVISION WITH MOST ACTIVITIES. DIALYSIS WAS DONE THIS AFTERNOON WITH 3 LITERS REMOVED. FALL PRECAUTIONS AND HOURLY ROUNDING CONTINUE.
[2020-03-10 20:00] VITALS: BP 93/54
--- NOTE | 2020-03-11 01:36 | NUR ---
ASSUMED ARE @ 1914-.AWAKE IN BED W/ HOB UP WATCHING TV.BED ALARM ON ALREADY @ 1914.LEFT LE UP ON PILLOW.URINAL W/IN REACH.WANTS LIGHT ON ABOVE HEAD OF BED ALL NIGHT.50% WB LEFT LE OBSERVED DURING TRANSFERS.ON HOURLY ROUNDS.SUPERVISOR PHOTOSTAT DOING ODD HOUR ROUNDS.
--- NOTE | 2020-03-11 05:05 | NUR ---
SLEPT LATE @ 0200 BUT SLEEPING GOOD AFTER THAT TIME.REFUSED HS SNACK.USED URINAL X1.USED BSC X1 FOR LARGE BM.
[2020-03-11 07:00] VITALS: BP 103/59
--- NOTE | 2020-03-11 14:30 | NUR ---
RECEIVED REPORT FROM KARLEERN AT 1230. PATIENT IN CHAIR. CALL LIGHT IN REACH.
--- NOTE | 2020-03-11 15:05 | NUR ---
SW called pt son and expressed therapists recommendation that pt son attend family training on Wednesday 03/14 at 11 am. Pt son agreed and will attend family training.
--- NOTE | 2020-03-11 18:58 | NUR ---
PATIENT A&OX4. UP X1 ASSIST. PATIENT GOES TO DIALYSIS AND FISTULA IN E. PATIENT IS 50% WEIGHT BEARING ON LEFT HIP THAT IS FRACTURED. PATIENT HAS NO FLUID RESTRICTION.
[2020-03-11 19:40] VITALS: BP 109/55; BP 140/53
--- NOTE | 2020-03-11 20:30 | NUR ---
SITTING UP IN SEMI-PENA'S IN BED WATCHING TV. IN GOOD SPIRITS. TALKATIVE. CALL LIGHT AND URINAL WITHIN REACH. TOOK MEDICATIONS WHOLE WITH WATER.
[2020-03-12 04:51] LABS: HEMATOCRIT 31.9 % (42.0-52.0); HEMOGLOBIN 10.8 gm/dL (14.0-18.0)
[2020-03-12 05:10] LABS: ALBUMIN 2.8 g/dL (3.4-5.0); CALCIUM 8.2 mg/dL (8.5-10.1); CREATININE 5.8 mg/dL (0.6-1.3); PHOSPHORUS* 2.8 mg/dL (2.5-4.9); POTASSIUM 5.3 mmol/L (3.5-5.1)
--- NOTE | 2020-03-12 05:55 | NUR ---
USED URINAL DURING THE NIGHT. HOURLY ROUNDING IN PROGRESS.
[2020-03-12 07:00] VITALS: BP 119/59
[2020-03-12 20:00] VITALS: BP 91/51
[2020-03-13 07:30] VITALS: BP 93/57
[2020-03-13 19:00] VITALS: BP 113/60
--- NOTE | 2020-03-13 20:00 | NUR ---
RESTING QUIETLY IN BED. DENIES DISCOMFORT. CALL LIGHT AND URINAL WITHIN REACH. DECLINED OFFER OF A SNACK. IN GOOD SPIRITS. TOOK MEDICATION WHOLE WITH WATER.
--- NOTE | 2020-03-14 05:00 | NUR ---
USED URINAL DURING THE NIGHT. HOURLY ROUNDING IN PROGRESS.
[2020-03-14 07:26] LABS: HEMATOCRIT 36.4 % (42.0-52.0); HEMOGLOBIN 12.1 gm/dL (14.0-18.0); MCH 33.3 pg (26.0-34.0); MCHC 33.3 g/dL (28.0-37.0); MCV 100.1 fL (80.0-100.0); MPV 7.3 fl. (7.2-11.1); RBC 3.64 mil/uL (4.50-6.00); RDW-CV 19.7 % (10.5-14.5); WBC 7.2 thou/uL (4.0-11.0)
[2020-03-14 07:38] LABS: ALBUMIN 2.8 g/dL (3.4-5.0); CALCIUM 8.7 mg/dL (8.5-10.1); CREATININE 5.6 mg/dL (0.6-1.3); MAGNESIUM 2.6 mg/dL (1.8-2.4); POTASSIUM 4.8 mmol/L (3.5-5.1); TOTAL BILIRUBIN 0.6 mg/dL (<0.1-1.0)
[2020-03-14 07:54] VITALS: BP 118/59
[2020-03-14 10:30] LABS: INR 1.9
[2020-03-14] MEDS ORDERED: LORCET 5-325 M1 EACH PO (12:50)
[2020-03-14 12:56] VITALS: BP 118/59
[2020-03-14] MEDS ORDERED: MIRALAX119 GM PO (13:18)
[2020-03-14] MEDS ORDERED: NEPHRO-VITE RX1 TA1 PO (13:20)
[2020-03-14] MEDS ORDERED: MELATONIN5 M1 PO (13:21)
[2020-03-14 15:08] VITALS: BP 118/59
--- NOTE | 2020-03-14 15:11 | NUR ---
Pt to dc home with family today. [facility] faxed orders to [facility] according to pt insurance instructions as they arrange the HH at co. Pt has 30 days left of combined SNF/inpt rehab days remaining for the year 2019; pt has used 30 of the 60 days.
--- NOTE | 2020-03-14 16:58 | NUR ---
PATIENT VERBALIZED UNDERSTANDING OF DISCHARGE INSTRUCTIONS. NO C/O PAIN. UP WITH STAND BY ASSIST, GAIT BELT AND WALKER TO REMAINS 50 % WEIGHTBEARING. BRUITT AND THRILL IN FISTULA IN LEFT UPPER ARM. WRITTEN RX GIVEN TO PATIENT. PATIENT D/C VIA FAMILY CAR.
--- NOTE | 2020-03-15 15:33 | NUR ---
GEORGES/[employer] CALLED CM THIS AM. THEY FOUND A PROVIDER FOR PT.FOR HH. [facility] . START OF SERVICE WILL BE 03/16 (SAT). SHE WILL CALL PT.TO INFORM. HER NUMBER IF ANY QUESTIONS IS [phone] [id number].
== END 2020-03-14 15:30 | disposition home health service (06) | DRG 535 ==
LOC: M.REH 14:53
PROVIDERS: Family Medicine; Internal Medicine; Internal Medicine Nephrology; ADMIT Physical Medicine & Rehabilitation
PROC: 5A1D70Z Performance of Urinary Filtration, Intermittent, Less than 6 Hours Per Day (ICD-10-PCS; principal; 2020-02-20)
PROC: 5A1D70Z Performance of Urinary Filtration, Intermittent, Less than 6 Hours Per Day (ICD-10-PCS; 2020-02-25)
PROC: 5A1D70Z Performance of Urinary Filtration, Intermittent, Less than 6 Hours Per Day (ICD-10-PCS; 2020-02-27)
PROC: 5A1D70Z Performance of Urinary Filtration, Intermittent, Less than 6 Hours Per Day (ICD-10-PCS; 2020-03-05)
PROC: 5A1D70Z Performance of Urinary Filtration, Intermittent, Less than 6 Hours Per Day (ICD-10-PCS; 2020-03-08)
PROC: 5A1D70Z Performance of Urinary Filtration, Intermittent, Less than 6 Hours Per Day (ICD-10-PCS; 2020-03-10)
PROC: 5A1D70Z Performance of Urinary Filtration, Intermittent, Less than 6 Hours Per Day (ICD-10-PCS; 2020-03-12)
DX: S72.115A Nondisplaced fracture of greater trochanter of left femur, initial encounter for closed fracture (principal); N18.6 End stage renal disease; J96.90 Respiratory failure, unspecified, unspecified whether with hypoxia or hypercapnia; I48.20 Chronic atrial fibrillation, unspecified; D68.59 Other primary thrombophilia; I50.32 Chronic diastolic (congestive) heart failure; J91.8 Pleural effusion in other conditions classified elsewhere; N25.81 Secondary hyperparathyroidism of renal origin; M97.02XA Periprosthetic fracture around internal prosthetic left hip joint, initial encounter; E66.2 Morbid (severe) obesity with alveolar hypoventilation; E11.42 Type 2 diabetes mellitus with diabetic polyneuropathy; E11.22 Type 2 diabetes mellitus with diabetic chronic kidney disease; W18.30XA Fall on same level, unspecified, initial encounter; I25.10 Atherosclerotic heart disease of native coronary artery without angina pectoris; E89.0 Postprocedural hypothyroidism; D63.8 Anemia in other chronic diseases classified elsewhere; E11.51 Type 2 diabetes mellitus with diabetic peripheral angiopathy without gangrene; E78.5 Hyperlipidemia, unspecified; K59.00 Constipation, unspecified; Z79.01 Long term (current) use of anticoagulants; Z95.1 Presence of aortocoronary bypass graft; Y92.89 Other specified places as the place of occurrence of the external cause; Z95.0 Presence of cardiac pacemaker; Z68.29 Body mass index [BMI] 29.0-29.9, adult; Z79.899 Other long term (current) drug therapy

== ENCOUNTER 2020-04-23 16:56 | Inpatient (IN) | payer OTHER, MEDICARE ==
[~2020-04-23] VITALS: Ht 190.5 cm; Wt 108.9 kg
[~2020-04-23 16:56] MED LIST changes: +LORCET 5-325 M1 EACH PO; +MELATONIN5 M1 PO; +MIRALAX119 GM PO
[2020-04-23 17:00] VITALS: BP 90/58
[2020-04-23 17:34] LABS: ABSOLUTE BASOPHILS 0.1 thou/uL (0.0-0.2); ABSOLUTE EOSINOPHILS 0.1 thou/uL (0.0-0.7); ABSOLUTE MONOCYTES 0.7 thou/uL (0.0-1.2); ABSOLUTE NEUTROPHILS 5.5 thou/uL (1.6-8.1); EOSINOPHILS 1.4 %; HEMOGLOBIN 15.4 gm/dL (14.0-18.0); MCH 33.3 pg (26.0-34.0); MCHC 33.5 g/dL (28.0-37.0); MCV 99.3 fL (80.0-100.0); MONOCYTES 7.1 %; MPV 8.6 fl. (7.2-11.1); NUCLEATED RBCS 0 /100WBC; PLATELET COUNT* 186 thou/uL (150-400); POLYS 58.5 %; RBC 4.63 mil/uL (4.50-6.00); RDW-CV 17.2 % (10.5-14.5); WBC 9.4 thou/uL (4.0-11.0)
[2020-04-23 17:47] LABS: APTT 27.8 Seconds (25.0-31.3); INR 1.4; PROTIME 14.6 Seconds (9.20-11.50)
[2020-04-23] MEDS ORDERED: RENAGEL800 MG PO (17:50)
[2020-04-23 17:51] LABS: CALCIUM 9.4 mg/dL (8.5-10.1); CREATININE 4.1 mg/dL (0.6-1.3); POTASSIUM 4.6 mmol/L (3.5-5.1)
[2020-04-23] MEDS ORDERED: COUMADIN 1MG TAB1 M1 PO (17:51)
[2020-04-23] MEDS ORDERED: RENAPLEX-D TAB1 EACH PO (17:52)
[2020-04-23 17:54] LABS: ALBUMIN 3.8 g/dL (3.4-5.0); TOTAL PROTEIN 7.8 g/dL (6.4-8.2)
[2020-04-23 18:40] VITALS: BP 72/42
--- NOTE | 2020-04-23 18:59 | NUR ---
PT ARRIVED ON UNIT AT 1950 ACCOMPANIED BY ER NURSE. PT IS AOX4. ON 3 L NC. VS TAKEN. BP SOFT. SEE CHART. PT MADE COMFORTABLE IN BED. CALL LIGHT AT REACH. HEART MONITOR ATTACHED.
[2020-04-23 19:00] VITALS: BP 77/38
[2020-04-23 19:48] VITALS: BP 88/47
[2020-04-23] MEDS ORDERED: MIRALAX17 G1 PO (20:48)
[2020-04-23] MEDS ORDERED: DORYX MPC120 MG PO (21:08)
[2020-04-23 23:47] VITALS: BP 78/45
[2020-04-24 04:00] VITALS: BP 87/56
--- NOTE | 2020-04-24 07:30 | NUR ---
PT IS ABLE TO COMMUNICATE HIS NEEDS TO STAFF WITH MINOR DIFFICULTY; HE IS [id number] AND CONFUSED AT TIMES. HE HAS DENIED THE NEED FOR PAIN MEDICATION UP TO THIS TIME. HE IS CURRENTLY FOLLOWING A SAT//SAT SCHEDULE FOR HEMODIALYSIS WHEN OUTSIDE THE HOSPITAL; HE DID HAVE A RUN YESTERDAY 04/23. NEPHROLOGY IS CONSULTED.
[2020-04-24 08:00] VITALS: BP 80/49
[2020-04-24 12:06] VITALS: BP 104/61
[2020-04-24 13:36] LABS: URINE BILIRUBIN NEGATIVE (Negative); URINE BLOOD NEGATIVE (Negative); URINE CLARITY CLEAR; URINE COLOR YELLOW; URINE GLUCOSE-RANDOM NEGATIVE (Negative); URINE KETONES TRACE (Negative); URINE LEUKOCYTES-REFLEX NEGATIVE (Negative); URINE NITRITE-REFLEX NEGATIVE (Negative); URINE PROTEIN 3+ (Negative); URINE UROBILINOGEN 0.2 E.U./dl (0.2-1.0)
[2020-04-24 14:11] LABS: AMORPHOUS PHOSPHATES Few /LPF (None Seen); SQUAMOUS 0-3 Few /LPF (0-3); URINE WBC-REFLEX 0-5 Rare /HPF (0-5)
[2020-04-24 14:12] LABS: BACTERIA-REFLEX 1-9 Few /HPF (None Seen); COARSE GRANULAR CASTS 0-3 Few /LPF (None Seen)
[2020-04-24 14:13] LABS: URINE RBC 0-2 Rare /HPF (0-2)
--- NOTE | 2020-04-24 15:33 | NUR ---
ASSUMED PT CARE. PT IS AOX4. ON 2 LNC. VS TAKEN. BP 80/49. MIDODRINE GIVEN. DR AWARE. PT BLADDER SCANNED WHICH SHOW LESS THAN 70 CC OF URINE IN BLADDER. PT ORDER. THIS PT WAS STRAIGTH CATH. AND URINE SAMPLE COLLECTED ORDERED. PT HAS GOOD APPETITE. REMAINS ASSYMPTOMATIC DESPITE LOW BP. DENIES PAIN. PT WALKED IN HALLWAY WITH THIS NURSE'S ASSISTANCE ON 3 L NC. PT GOT VERY SHORT OF AIR. PT REQUIRES MORE DAILY ACTIVITIES. OT/PT ORDERED. CALL LIGHT AT REACH. WILL CONTINUE TO MONITOR.
[2020-04-24 16:00] VITALS: BP 86/50
[2020-04-24 19:45] VITALS: BP 103/58
[2020-04-25] VITALS: BP 113/61
[2020-04-25 04:00] VITALS: BP 104/63
--- NOTE | 2020-04-25 06:55 | NUR ---
VSS. SEE CHARTING FOR MORE INFORMATION.
[2020-04-25 08:00] VITALS: BP 100/56
--- NOTE | 2020-04-25 09:25 | NUR ---
Nutrition: Pt admitted with hypotension, ESRD on HD. Consult for wt loss. Usual wt is 230-250#, current wt is in usual range 233#. H/o recent hip, DM, ulcers. Regular diet is ordered. Labs: alb 3.8, BG 167, BUN 39, cr 4.1. Meds noted. Good appetite. Appears nutritionally stable at this time.
[2020-04-25 12:08] VITALS: BP 100/54
--- NOTE | 2020-04-25 14:48 | EKG ---
[place] [address] ELECTROCARDIOGRAM REPORT Name: RACHEL ARECHIGA Room: [address] ADM IN .R.#: [id number] Admission: 04/23/20 Attend Phys: Lissett beebe Sa Discharge: Date of : 38 Date of Service: 04/23/20 1700 Report #: [id number] THIS REPORT FOR: //name// [facility] ED Test Date: 2020-04-23 Test Time: 17:00:26 Pat Name: RACHEL ARECHIGA Department: Room: [facility] Gender: M Gray Mixing Operator: TDS : 1940 Requested By: Gamaliel Arora Order Number: [id number] MD: Sriram Ramon Measurements Intervals [place] Rate: 73 P: 0 LA: 43 QRS: -86 QRSD: 139 T: 88 QT: 448 QTc: 494 Interpretive Statements atrial fibrillation with ventricular paced beats Baseline wander in lead(s) I,III,aVR,aVL,aVF,V1,V2,V3,V4,V5,V6 Compared to ECG 02/15/2020 03:24:59 no change Electronically Signed On 04-25-2020 14:47:41 CDT by Sriram Ramon [email or web address] <ELECTRONICALLY SIGNED> By: Sriram Ramon MD, [facility] 04/25/20 1447 99 99 Sriram Ramon MD, [facility] /EPI
--- NOTE | 2020-04-25 14:50 | EKG ---
[place] [address] ELECTROCARDIOGRAM REPORT Name: GENIRACHELHeriberto WAGONRE Room: [address] ADM IN M.R.#: [id number] Admission: 04/23/20 Attend Phys: Lissett beebe Sa Discharge: Date of : 38 Date of Service: 04/23/20 1701 Report #: [id number] THIS REPORT FOR: //name// [facility] ED Test Date: 2020-04-23 Test Time: 17:01:06 Pat Name: RACHEL ARECHIGA Department: Room: [address] Gender: M Strategies Analyst: TDS : 1940 Requested By: Gamaliel Arora Order Number: [id number] Amos MD: Sriram Ramon Measurements Intervals [place] Rate: 71 P: 0 ND: 144 QRS: -83 QRSD: 139 T: 90 QT: 491 QTc: 534 Interpretive Statements atrial fibrillation with ventricular paced beats Baseline wander in lead(s) III,aVL Compared to ECG 02/15/2020 03:24:59 no change Electronically Signed On 04-25-2020 14:49:05 CDT by Sriram Ramon [email or web address] <ELECTRONICALLY SIGNED> By: Sriram Ramon MD, FAC 04/25/20 1449 170 170 Sriram Ramon MD, FAC /EPI
--- NOTE | 2020-04-25 15:25 | NUR ---
Pt is A&O. Resides at home with his . Pt was ready to dc today, but developed Afid, cardiology and renal consults placed. Pt has a walker and wc at home for mobility. Pt's home as a ramp. Son assists with IADLs. Pt sleeps with a trilogy. Pt was just dc from [facility] post an acute rehab stay here at [facility]. CM spoke with [facility] and confirmed that if Pt needs HH again at or, CM can reach out directly to [facility] and have them initiate and auth. Per , anticipate dc in 1-2 days.
[2020-04-25 16:00] VITALS: BP 100/55
--- NOTE | 2020-04-25 16:23 | EKG ---
[place] [address] ELECTROCARDIOGRAM REPORT Name: RACHEL ARECHIGA Room: [address] ADM IN M.R.#: [id number] Admission: 04/23/20 Attend Phys: Lissett beebe Sa Discharge: Date of : 38 Date of Service: 04/25/20 1524 Report #: [id number] THIS REPORT FOR: //name// [facility] Test Date: 2020-04-25 Test Time: 15:24:44 Pat Name: RACHEL ARECHIGA Department: Room: [address] Gender: M Dining Room Helper: : 1940 Requested By: Lissett Pedroza Order Number: [id number] Amos MD: Sriram Ramon Measurements Intervals [place] Rate: 68 P: [place]: QRS: -65 QRSD: 133 T: 98 QT: 424 QTc: 451 Interpretive Statements atrial rhythm with ventricular paced beats Compared to ECG 04/23/2020 17:01:06 no change Electronically Signed On 04-25-2020 16:22:29 CDT by Sriram Ramon [email or web address] <ELECTRONICALLY SIGNED> By: Sriram Ramon MD, [facility] 04/25/20 1622 1524 1524 Sriram Ramon MD, [facility] /EPI
--- NOTE | 2020-04-25 16:24 | CON ---
[address] [address] CONSULTATION Name: RACHEL ARECHIGA Room: [address] IN M.R.#: [id number] Admission: 04/23/20 Attend Phys: Lissett Rasmussen Discharge: Date of : 38 Report #: [id number] THIS REPORT FOR: //name// cc: Candelario Palacios John E. DO THIS REPORT FOR: //name// CC: Lissett Rutherford DO DATE OF SERVICE: 04/25/2020 CARDIOLOGY CONSULTATION HISTORY OF PRESENT ILLNESS: The patient is an 79-year-old white male who I was asked to see in the hospital today after having pacemaker insertion. The patient had coronary artery bypass surgery at [facility] in 2007. At that time, he denied any chest pain. He apparently had 5-vessel bypass surgery. He has a history of end-stage renal disease and is on hemodialysis. He has a history of permanent AFib and apparently was never cardioverted. He has been chronically anticoagulated. He has a long history of hypotension. Echocardiogram last June showed an ejection fraction 60%. He has a history of recurrent pleural effusion and eventually underwent decortication at [facility] last summer. I saw him in the office in November. However, he was on dialysis 2 days ago and his blood pressure was low. He was transferred to [facility] by ambulance. I was asked to see him for further evaluation and treatment. Apparently, this past spring, the patient was admitted to [facility] and was noted to be bradycardic. He had a pacemaker inserted. He denies any recent chest pain, palpitations, syncope, vomiting, diarrhea or bleeding. PAST MEDICAL HISTORY: He has had a knee surgery, thyroid surgery, hip surgery, cholecystectomy. He has a history of hyperlipidemia, glucose intolerance. MEDICATIONS: Include Lipitor, Neurontin, Synthroid, he takes midodrine on the days he is on dialysis, Protonix, Flomax, warfarin. ALLERGIES: He has no known drug allergies. FAMILY HISTORY: His brother had a heart attack. SOCIAL HISTORY: He is . He and his live in [place]. Nonsmoker, nondrinker. REVIEW OF SYSTEMS: He has had no history of stroke, asthma, peptic ulcer disease, liver disease. He has a history of prostate [place] [address] CONSULTATION Name: RACHEL ARECHIGA CIARAN Room: [address]#: [id number] Admission: 04/23/20 Attend Phys: Lissett Rasmussen Discharge: Date of : 39 Report #: [id number] illness. No chronic skin condition. PHYSICAL EXAMINATION: GENERAL: Revealed an elderly male, lying in bed. He appeared in no distress. VITAL SIGNS: Blood pressure 100/60, pulse is 70, he is afebrile. HEENT: He was anicteric. Conjunctivae are pink. Mucous membranes moist. NECK: Veins do not appear distended. CHEST: Clear to auscultation. CARDIOVASCULAR: Regular rate and rhythm, no murmur. ABDOMEN: Soft. EXTREMITIES: Had no edema. SKIN: Warm and dry. NEUROLOGIC: Nonfocal. His ECG shows what appeared to represent a paced rhythm at 60 beats per minute. His underlying rhythm appears to be atrial flutter. His workup, he had an echocardiogram done in February that showed ejection fraction 60%, left atrial enlargement, aortic sclerosis. The patient had recent x-rays including a portable chest x-ray that showed previous coronary artery bypass surgery, pacemaker placement, atherosclerosis of the aortic arch, clear lung arndt. LABORATORY WORK: His sodium 135, BUN 39, creatinine 4.1. His liver function studies are normal. TSH in February was 2.7. His white blood cell count 9.4, hemoglobin 15.4. IMPRESSION AND RECOMMENDATIONS: 1. Sick sinus syndrome. The patient is now 100%, ventricular paced. 2. Atrial fibrillation. The patient has been chronically anticoagulated. INR was only 1.4 on admission. I would continue chronic anticoagulation, maintain an INR of 2-3. 3. Coronary artery disease. No recent angina. Since the patient on warfarin, I would not recommend aspirin. 4. End-stage renal disease. The patient is on dialysis. 5. Low blood pressure. I would avoid dehydration. I would consider taking midodrine every day. 6. History of prostate cancer. 7. Hyperlipidemia. The patient is on a statin drug. <ELECTRONICALLY SIGNED> By: Sriram Ramon MD, [facility] 04/25/20 1624 1051 [id number] Ramon MD, [facility] /nt
--- NOTE | 2020-04-25 19:40 | NUR ---
PT. AOX4, VSS, PACEMAKER WAS DETERMINED TO BE WORKING EXPECTED, DENIES PAIN. AV FISTULA ON L FA. PT. OLIGURIC. UP WITH ASSISTX1 TO CHAIR, TOLERATED WITHOUT DIFFICULTY. HOURLY ROUNDING PERFORMED. CALL LIGHT AND PERSONAL BELONGINGS PLACED WITHIN REACH. PT. IN BED, WATCHING TV, IN NO APPARENT DISCTRESS AT SHIFT CHANGE.
[2020-04-26] VITALS: BP 107/59
[2020-04-26 04:00] VITALS: BP 111/63
[2020-04-26 05:10] LABS: INR 1.2
[2020-04-26 05:19] LABS: ALBUMIN 3.1 g/dL (3.4-5.0); CALCIUM 8.8 mg/dL (8.5-10.1); PHOSPHORUS* 7.9 mg/dL (2.5-4.9); POTASSIUM 5.5 mmol/L (3.5-5.1)
[2020-04-26 05:24] LABS: CREATININE 8.2 mg/dL (0.6-1.3)
--- NOTE | 2020-04-26 06:41 | NUR ---
VSS. NO ACUTE CHANGES THROUGHOUT SHIFT. SEE CHARTING FOR MORE INFO.
[2020-04-26 08:00] VITALS: BP 127/64
[2020-04-26 11:56] VITALS: BP 106/59
--- NOTE | 2020-04-26 14:10 | NUR ---
Per , Pt can discharge today after dialysis if cardiology and renal sign off. CM will fax H&P and flowsheets to [facility], [phone]
--- NOTE | 2020-04-26 19:07 | NUR ---
PT. VSS, SR BBB ON MOITOR, DENIES PAIN, AOX4. HOURLY ROUNDING PERFORMED. PT. OOB TO CHAIR, CALL LIGHT AND PERSONAL BELONGINGS PLACED WITHIN REACH. PT. OFF UNIT FOR HEMODIALYSIS. SPOKE TO DR. PEPPER AND DR. COOK ON PHONE, OK TO DC PT FROM THEIR STANDPOINT AFTER RETURN FROM DIALYSIS.
[2020-04-26 20:04] VITALS: BP 87/50
[2020-04-27] VITALS: BP 92/52
[2020-04-27 04:00] VITALS: BP 98/55
[2020-04-27 06:02] LABS: INR 1.2
[2020-04-27 08:00] VITALS: BP 104/58
--- NOTE | 2020-04-27 08:17 | NUR ---
PT IS ABLE TO COMMUNICATE HIS NEEDS TO STAFF EFFECTIVELY. HE HAS DENIED THE NEED FOR PAIN MEDICATION UP TO 0700 THIS AM. HE IS CURRENTLY FOLLOWING A SAT//SAT SCHEDULE FOR HEMODIALYSIS. POSSIBLE DISCHARGE TODAY.
[2020-04-27] MEDS ORDERED: MIDODRINE HCL 55 M1 PO (11:08)
--- NOTE | 2020-04-27 13:01 | NUR ---
ASSUMED PT CARE AT 0730, PT RESTING IN BED AND HAS NO C/O PAIN OR SHORTNESS OF BREATH. PT GOAL IS TO DC TO HOME TODAY AND INCREASE ACTIVITY. AM ASSESSMENT CHARTED, MEDS PER MAR, HOURLY ROUNDING OBSERVED, FALL PRECAUTIONS IN PLACE, CALL LIGHT W/IN REACH, WILL CONTINUE POC.
--- NOTE | 2020-04-27 14:09 | NUR ---
Pt to dc to home today, CM faxed dialysis referral packet to [facility]
[2020-04-27 15:05] VITALS: BP 104/58
--- NOTE | 2020-04-27 17:15 | NUR ---
DC ORDERS RECEIVED. DC INSTRUCTIONS, CARE NOTES, SCRIPTS AND F/U APPTS. GIVEN TO PT. PT COMMUNICATES UNDERSTANDING OF DC TEACHING. PT DC'D BY WC W/ NURSING STAFF TO SON'S PERSONAL VEHICLE AT APPROX 1714. IV AND BILLET STRAIGHTENER REMOVED.
--- NOTE | 2020-04-28 14:10 | CON ---
[address] [address] CONSULTATION Name: RACHEL ARECHIGA Room: [address] IN M.R.#: [id number] Admission: 04/23/20 Attend Phys: Lissett Rasmussen Discharge: 04/27/20 Date of : 39 Report #: [id number] THIS REPORT FOR: //name// cc: Candelario Palacios John E. DO ~ THIS REPORT FOR: //name// CC: Lissett Conway CONSULTING PHYSICIAN: Lissett Pedroza MD. REASON FOR CONSULTATION: End-stage kidney disease. HISTORY OF PRESENT ILLNESS: An 79-year-old gentleman with history of end-stage kidney disease, who had dialysis yesterday, but had very low blood pressures. He always has low blood pressures, but they were running lower than usual. He was admitted here. Denies any chest pain or shortness of breath. Apart from what he usually has, denies any fevers or chills. He does not make hardly any urine and does not have any UTI type symptoms. No URI symptoms. He is otherwise feeling well, has no complaints. He has been working with therapy. REVIEW OF SYSTEMS: Constitutional, psych, heme, eyes, ENT, respiratory, cardiac, GI, , endocrine, all negative except as documented above. PAST MEDICAL HISTORY: End-stage kidney disease, secondary hyperparathyroidism, chronic hypotension, hypothyroidism in the setting of thyroid carcinoma and thyroidectomy, permanent pacemaker with a history of chronic AFib, peripheral vascular disease with history of right popliteal stenosis, history of chronic pleural effusion with VATS, history of prostate cancer, coronary artery disease with 5-vessel CABG, diabetes. CURRENT MEDICATIONS: Reviewed. FAMILY HISTORY: Not pertinent in this 79-year-old gentleman. SOCIAL HISTORY: No tobacco. PHYSICAL EXAMINATION: VITAL SIGNS: Blood pressure is 80/49, pulse 78, respirations 20, temperature 37.1. GENERAL: No acute distress. EYES: Open. EARS: Externally normal. NECK: Supple. CARDIOVASCULAR: Regular rate. LUNGS: [place] [address] CONSULTATION Name: ARECHIGARACHEL CALLOWAY CIARAN Room: [address]#: [id number] Admission: 04/23/20 Attend Phys: Lissett Rasmussen Discharge: 04/27/20 Date of : 39 Report #: [id number] ABDOMEN: Soft. MUSCULOSKELETAL: Nontender. PSYCHIATRIC: Awake, alert. LABORATORY DATA: White cell count 9.4, hemoglobin 15.4, platelets 186. Sodium 135, potassium 4.6, chloride 94, bicarbonate 31, BUN 39, creatinine 4.1, calcium 9.4, albumin 3.8. ASSESSMENT: 1. End-stage kidney disease, hemodialysis Saturday, and Saturday at the [facility]. 2. Hypotension with a chronic component on 02/19/2020, ejection fraction of 55-60%. 3. Secondary hyperparathyroidism, on sevelamer. 4. Diabetes type 2. 5. 5-vessel coronary artery disease with a history of 5-vessel coronary artery bypass graft. 6. History of anemia of chronic kidney disease. 7. Peripheral vascular disease with right popliteal stenosis. 8. History of pulmonary embolism. 9. 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 10. Chronic atrial fibrillation. 11. Thyroidectomy with a history of thyroid cancer. 12. Status post VATS for chronic pleural effusion. 13. History of prostate cancer. PLAN: 1. He is on midodrine b.i.d. His blood pressure has come up. His chest x-ray was unrevealing. We will check an echo to assess for reduced EF and/or pericardial effusion. 2. Midodrine can be increased if necessary. 3. Hemoglobin is 15. We will discontinue erythropoietin. 4. We will follow for dialysis needs. Thank you for requesting my opinion in the care and management of this patient. <ELECTRONICALLY SIGNED> By: Sesar Bolton MD 04/28/20 1410 1155 [id number] Bolton MD /nt
== END 2020-04-27 17:14 | disposition home or self-care (01) | DRG 312 ==
LOC: M.ERS 16:56 → M.2W 17:54 → M.TBA-ER 17:54 → M.2W 18:48
PROVIDERS: Family Medicine; Internal Medicine Cardiovascular Disease; Internal Medicine Nephrology; ADMIT Family Medicine; ATTEND Family Medicine
PROC: 5A1D70Z Performance of Urinary Filtration, Intermittent, Less than 6 Hours Per Day (ICD-10-PCS; principal; 2020-04-26)
DX: I95.3 Hypotension of hemodialysis (principal); N18.6 End stage renal disease; J96.90 Respiratory failure, unspecified, unspecified whether with hypoxia or hypercapnia; I48.20 Chronic atrial fibrillation, unspecified; N25.81 Secondary hyperparathyroidism of renal origin; D68.59 Other primary thrombophilia; E66.2 Morbid (severe) obesity with alveolar hypoventilation; I48.21 Permanent atrial fibrillation; I13.2 Hypertensive heart and chronic kidney disease with heart failure and with stage 5 chronic kidney disease, or end stage renal disease; I50.9 Heart failure, unspecified; E11.51 Type 2 diabetes mellitus with diabetic peripheral angiopathy without gangrene; D63.8 Anemia in other chronic diseases classified elsewhere; E11.22 Type 2 diabetes mellitus with diabetic chronic kidney disease; E78.5 Hyperlipidemia, unspecified; K27.9 Peptic ulcer, site unspecified, unspecified as acute or chronic, without hemorrhage or perforation; I70.201 Unspecified atherosclerosis of native arteries of extremities, right leg; I49.5 Sick sinus syndrome; I25.10 Atherosclerotic heart disease of native coronary artery without angina pectoris; E89.0 Postprocedural hypothyroidism; I25.2 Old myocardial infarction; Z86.711 Personal history of pulmonary embolism; Z87.81 Personal history of (healed) traumatic fracture; Z87.01 Personal history of pneumonia (recurrent); Z79.01 Long term (current) use of anticoagulants; Z79.899 Other long term (current) drug therapy; Z99.2 Dependence on renal dialysis; Z85.46 Personal history of malignant neoplasm of prostate; Z95.1 Presence of aortocoronary bypass graft; Z85.850 Personal history of malignant neoplasm of thyroid; Z68.30 Body mass index [BMI] 30.0-30.9, adult

== ENCOUNTER 2020-05-19 17:23 | Observation (INO) | payer OTHER, MEDICARE ==
[~2020-05-19] VITALS: Ht 188 cm; Wt 48.5 kg
--- NOTE | ~2020-05-19 | CON ---
[address] [address] CONSULTATION Name: ARECHIGARACHELHeriberto WAGONER Room: [address] Yakelin Cedeno#: [id number] Admission: 05/19/20 Attend Phys: Lissett Rasmussen Discharge: 05/20/20 Date of : 39 Report #: [id number] THIS REPORT FOR: //name// cc: Candelario Palacios John E. DO ~ THIS REPORT FOR: //name// CC: Lissett Conway DATE OF SERVICE: 05/20/2020 CONSULTING PHYSICIAN: Lissett Garza MD REASON FOR CONSULTATION: End-stage kidney disease. HISTORY OF PRESENT ILLNESS: An 79-year-old gentleman who was admitted after going to dialysis and becoming hypotensive with some lightheadedness. He had 4 liters of fluid removed. He was given fluid bolus, but was admitted here for further observation. He is feeling well now. He is ambulating in the halls without any difficulty. I discussed this with his nurse as well. He feels ready to go home. He has no complaints. His blood pressures do run chronically on the low side and he is on midodrine as an outpatient. REVIEW OF SYSTEMS: Constitutional, psych, heme, eyes, ENT, respiratory, cardiac, GI, , endocrine all negative except as documented above. PAST MEDICAL HISTORY: End-stage kidney disease, secondary hyperparathyroidism, chronic hypotension, hypothyroidism in the setting of thyroid carcinoma and thyroidectomy, permanent pacemaker with history of chronic AFib, peripheral vascular disease with history of right popliteal stenosis, history of chronic pleural effusion with VATS, history of prostate cancer, coronary artery disease with 5-vessel CABG, diabetes. CURRENT MEDICATIONS: Reviewed. FAMILY HISTORY: Not pertinent in this 79-year-old gentleman. SOCIAL HISTORY: No tobacco. PHYSICAL EXAMINATION: VITAL SIGNS: Blood pressure is 91/50, pulse 78, respirations 17, temperature 36.7. GENERAL: No acute distress. EYES: Open. EARS: [place] [address] CONSULTATION Name: RACHEL ARECHIGA [address] [id number] Admission: 05/19/20 Attend Phys: Lissett Rasmussen Discharge: 05/20/20 Date of : 39 Report #: [id number] NECK: Supple. CARDIOVASCULAR: Regular rate. LUNGS: No crackles. ABDOMEN: Soft. MUSCULOSKELETAL: Nontender. PSYCHIATRIC: Awake, alert. LABORATORY DATA: White cell count 8, hemoglobin 13.3, platelets 189. Sodium 133, potassium 3.5, chloride 96, bicarbonate 31, BUN 43, creatinine 4.8, glucose 87, calcium 8.8, phosphorus 4.9, magnesium 2.2, albumin 2.9. ASSESSMENT: 1. End-stage kidney disease, hemodialysis Tuesdays, , Saturdays at [facility]. 2. Hypotension with chronic component. 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 3. Chronic pleural effusion with a history of video-assisted thoracoscopic surgery, history of prostate cancer. PLAN: He is on midodrine. Blood pressure is stable. He is asymptomatic. He may have had too much fluid removed in one setting while on dialysis. I will review this with the outpatient dialysis unit in the future if he has excess fluid on it, may be best to schedule him for an extra dialysis session rather than take off a significant amount of fluid in 1 setting as he has a tendency toward low blood pressures. Discharge planning from my standpoint is okay. He can do outpatient dialysis tomorrow. Should he remain inpatient, we will dialyze him tomorrow. By: 1607 [id number] Bolton MD /nt
[~2020-05-19 17:23] MED LIST changes: +COUMADIN 1MG TAB1 M1 PO; +MIRALAX17 G1 PO; +RENAGEL800 MG PO; +RENAPLEX-D TAB1 EACH PO
[2020-05-19 17:28] VITALS: BP 91/51
[2020-05-19] MEDS ORDERED: PROAIR HFA8.5 GM INH (17:31)
[2020-05-19] MEDS ORDERED: LIPITOR40 MG PO (17:32)
[2020-05-19 17:55] LABS: ABSOLUTE BASOPHILS 0.1 thou/uL (0.0-0.2); ABSOLUTE EOSINOPHILS 0.1 thou/uL (0.0-0.7); ABSOLUTE LYMPHOCYTES 2.1 thou/uL (0.8-5.3); ABSOLUTE MONOCYTES 0.7 thou/uL (0.0-1.2); ABSOLUTE NEUTROPHILS 4.4 thou/uL (1.6-8.1); EOSINOPHILS 1.4 %; HEMATOCRIT 41.6 % (42.0-52.0); HEMOGLOBIN 13.9 gm/dL (14.0-18.0); LYMPHOCYTES 28.9 %; MCHC 33.5 g/dL (28.0-37.0); MCV 98.5 fL (80.0-100.0); MONOCYTES 9.7 %; MPV 8.1 fl. (7.2-11.1); NUCLEATED RBCS 0 /100WBC; PLATELET COUNT* 208 thou/uL (150-400); RBC 4.23 mil/uL (4.50-6.00); RDW-CV 15.7 % (10.5-14.5); WBC 7.4 thou/uL (4.0-11.0)
[2020-05-19 18:06] LABS: ANION GAP 7 mmol/L (7-16); BUN 31 mg/dL (7-18); CALCIUM 8.5 mg/dL (8.5-10.1); CHLORIDE 97 mmol/L (98-107); CO2 33 mmol/L (21-32); CREATININE 3.7 mg/dL (0.6-1.3); GLUCOSE 137 mg/dL (70-99); POTASSIUM 3.5 mmol/L (3.5-5.1); SODIUM 137 mmol/L (136-145)
[2020-05-19 18:17] LABS: ALBUMIN 3.3 g/dL (3.4-5.0); ALKALINE PHOSPHATASE 105 U/L (46-116); APTT 30.1 Seconds (25.0-31.3); INR 1.9; NT-PRO BRAIN NAT PEPTIDE > 35000 pg/mL (<300); PROTIME 18.7 Seconds (9.20-11.50); SGOT 50 U/L (15-37); SGPT 55 U/L (30-65); TOTAL BILIRUBIN 0.7 mg/dL (<0.1-1.0); TOTAL PROTEIN 6.8 g/dL (6.4-8.2)
[2020-05-19 20:13] VITALS: BP 95/65
[2020-05-19 20:45] VITALS: BP 107/57
[2020-05-19] MEDS ORDERED: MIDODRINE HCL 55 M1 PO (22:31)
[2020-05-19] MEDS ORDERED: RENVELA0.8 GM PO (22:32)
[2020-05-19] MEDS ORDERED: RENAL-VITE TAB0.8 MG PO (22:34)
[2020-05-20] VITALS (7 sets, daily range): BP systolic 86–120; BP diastolic 50–68
--- NOTE | 2020-05-20 04:53 | NUR ---
PT RECIEVED FROM ED IN ROOM 203. ALERT AND ORIENTED X4. DENIES PAIN. CALL LIGHT WITHIN REACH AND BED IN LOW POSITION. HOURLY ROUNDING DONE FOR PT SAFETY.
[2020-05-20 05:11] LABS: INR 1.6; PROTIME 16.5 Seconds (9.20-11.50)
[2020-05-20 05:12] LABS: ALBUMIN 2.9 g/dL (3.4-5.0); CALCIUM 8.8 mg/dL (8.5-10.1); MAGNESIUM 2.2 mg/dL (1.8-2.4); PHOSPHORUS* 4.9 mg/dL (2.5-4.9); POTASSIUM 3.5 mmol/L (3.5-5.1)
[2020-05-20 05:14] LABS: CREATININE 4.8 mg/dL (0.6-1.3)
[2020-05-20 05:23] LABS: HEMATOCRIT 38.9 % (42.0-52.0); HEMOGLOBIN 13.3 gm/dL (14.0-18.0); MCH 33.5 pg (26.0-34.0); MCHC 34.1 g/dL (28.0-37.0); MCV 98.3 fL (80.0-100.0); MPV 8.3 fl. (7.2-11.1); RBC 3.96 mil/uL (4.50-6.00); RDW-CV 15.8 % (10.5-14.5)
--- NOTE | 2020-05-20 13:12 | NUR ---
Pt is A&O. Resides at home with . Son is available and assists as needed. Pt has a walker and wc at home.Pt sleeps with a trilogy. Hx of [place] . Hx of acute rehab. Pt receives HD at [facility], plans to resume at [facility]. Pt to dc to home today pending renal signing off. Following.
--- NOTE | 2020-05-20 13:23 | EKG ---
[place] [address] ELECTROCARDIOGRAM REPORT Name: GENIRACHELHeriberto WAGONER Room: [address] M.R.#: [id number] Admission: 05/19/20 Attend Phys: Lissett beebe Sa Discharge: Date of : 38 Date of Service: 05/19/20 1736 Report #: [id number] THIS REPORT FOR: //name// [facility] ED Test Date: 2020-05-19 Test Time: 17:36:00 Pat Name: RACHEL ARECHIGA Department: Room: [facility] Gender: M Abrasive Mixer: XAVIER : 1940 Requested By: Gamaliel Arora Order Number: [id number] MD: Candelario Zambrano Measurements Intervals Warren Rate: 75 P: GA: QRS: -80 QRSD: 148 T: 80 QT: 478 QTc: 534 Interpretive Statements Sinus rhythm with appropriate tracking and ventricular pacing Nonspecific IVCD with left axis deviation Since prior tracing, no significant interval change Electronically Signed On 05-20-2020 13:23:10 CDT by Candelario Zambrano [email or web address] <ELECTRONICALLY SIGNED> By: Candelario Zambrano MD, [facility] 05/20/20 1323 1736 1736 Candelario Zambrano MD, [facility] /EPI
--- NOTE | 2020-05-20 14:03 | NUR ---
Nutrition: Consult received for diet instructions. PMHx: DM, ESRD on HD, HTN. Pt stated he lost a lot of wt over two years and he doesn't have DM anymore. Wt was 360#, now staying around 240#. He stated he has had nutrition info through his dialysis clinic. He had no questions/concerns today. RD left nutrition info for pt anyway on table. Wt is entered in [employer] as 107#, but is more accurately 107kg (240#). Regular diet noted, pt refused Renal diet. He reported to me a good appetite. Labs: BG 172, alb 2.2. Mild to low risk at this time.
--- NOTE | 2020-05-20 18:10 | NUR ---
RECEIVED REPORT. ASSUMED CARE OF PT AROUND 729. PT A&O X4. AM ASSESSMENT AND VITAL COMPLETED CHARTED. BP SOFT, BUT MAP WNL - PT ASYMTOMATIC AND DR. CHAO. MEDS PER EMAR. PROFESSOR OF LITERATURE IN PLACE CHARTED. PT SEEN BY RENAL - THEY SIGNED OFF AND SAID THEY WOULD SET SOME RESTRICTIONS ON OUTPATIENT DIALYSIS. DISCHARGE ORDERS RECEIVED. DISCHARGE COMPLETED DOCUMENTED. DISCHARGE SUMMARY GONE OVER WITH PT, PT COMMUNICATES UNDERSTANDING. IV AND PROFESSOR OF LITERATURE REMOVED. BELONGS GATHERED AND SENT HOME WITH PT. PT LEFT UNIT IN WC WITH NURSING STAFF. PT LEFT HOSPITAL IN CAR WITH SON.
== END 2020-05-20 18:00 | disposition home or self-care (01) ==
LOC: M.ERS 17:23 → M.TBA-ER 18:22 → M.2W 18:22
PROVIDERS: Family Medicine; ADMIT Family Medicine; ATTEND Family Medicine
DX: I95.3 Hypotension of hemodialysis (principal); I13.2 Hypertensive heart and chronic kidney disease with heart failure and with stage 5 chronic kidney disease, or end stage renal disease; E11.22 Type 2 diabetes mellitus with diabetic chronic kidney disease; N18.6 End stage renal disease; Z99.2 Dependence on renal dialysis; Z79.01 Long term (current) use of anticoagulants; E87.6 Hypokalemia; I50.9 Heart failure, unspecified; I48.91 Unspecified atrial fibrillation; I25.2 Old myocardial infarction; E03.9 Hypothyroidism, unspecified; D68.59 Other primary thrombophilia; I73.9 Peripheral vascular disease, unspecified; D63.8 Anemia in other chronic diseases classified elsewhere

== ENCOUNTER → 2021-11-27 | Outpatient (CLI) | payer OTHER ==
[~2021-11-27] MED LIST changes: +PROAIR HFA8.5 GM INH; +RENAL-VITE TAB0.8 MG PO; +RENVELA0.8 GM PO
[2021-11-27 12:22] LABS: CALCIUM 9.3 mg/dL (8.5-10.1); CREATININE 9.8 mg/dL (0.6-1.3); POTASSIUM 5.8 mmol/L (3.5-5.1)
== END ==
LOC: M.LAB 11:46
PROVIDERS: ATTEND Nurse Practitioner Family
DX: N18.6 End stage renal disease (principal)